=== PATIENT | male | born 1945 | race Caucasian/White ===

== ENCOUNTER → 2019-05-31 00:01 | Outpatient (BNVA) | payer MEDICARE, MEDICAID, SELFPAY | PROVIDERS: PCP Nurse Practitioner Family; Visit Provider Nurse Practitioner | DX: R06.02 Shortness of breath (principal) | CPT/HCPCS: 71046 ==

== ENCOUNTER 2019-07-11 13:10 | Outpatient (CLI) | payer MEDICARE, MEDICAID, SELFPAY ==
[2019-07-11 14:16] VITALS: O2SAT 92; O2SAT 94
--- NOTE | 2019-07-11 14:44 | PFTS_ITS ---
Date of Study:07/11/19 Date of Dictation: MECHANICS: Forced vital capacity (FVC) is reduced. Forced expiratory volume in one second (FEV1) is reduced. FEV1/FVC is reduced. FLOW VOLUME LOOP: Reduced flow at all lung volumes with significant scooping. LUNG VOLUMES: Total lung capacity (TLC) is normal. Residual volume (RV) is elevated. DIFFUSING CAPACITY FOR CARBON MONOXIDE: Moderately reduced. INTERPRETATION: The pulmonary function tests are consistent with moderate airflow obstruction. There is significant postbronchodilator response. Normal total lung capacity. Increased residual volume suggestive of air trapping. Gas exchange (DLCO) is moderately reduced but not corrected for patient's hemoglobin.. MTDD
== END 2019-07-11 13:11 | disposition home or self-care (01) ==
PROVIDERS: PCP Nurse Practitioner Family; Visit Provider Internal Medicine Critical Care Medicine
DX: J44.9 Chronic obstructive pulmonary disease, unspecified (principal); F17.210 Nicotine dependence, cigarettes, uncomplicated
CPT/HCPCS: 94060; 94726; 94729; J7611

== ENCOUNTER → 2019-07-12 16:22 | Outpatient (BNVA) | payer MEDICARE, MEDICAID, SELFPAY | PROVIDERS: PCP Nurse Practitioner Family; Visit Provider Nurse Practitioner Family | DX: R05 Cough (principal); I70.90 Unspecified atherosclerosis | CPT/HCPCS: 71046 ==

== ENCOUNTER 2019-09-02 16:06 | Emergency (ER) | payer MEDICARE, MEDICAID, SELFPAY ==
[2019-09-02 16:10] VITALS: BP 124/66; PULSE 98; RESP 20; TEMP 39.6; O2SAT 93; BMI 28.7
--- NOTE | 2019-09-02 16:17 | XRR_ITS ---
PROCEDURE INFORMATION: Exam: XR Chest, 1 View Exam date and time: 09/02/2019 4:19 PM Age: 74 years old Clinical indication: Fever and shortness of breath; Additional info: Cough TECHNIQUE: Imaging protocol: XR of the chest Views: 1 view. COMPARISON: CR XR chest 2V* [id number] 07/12/2019 4:39 PM FINDINGS: Lungs: Stable COPD . Pleural space: Unremarkable. No pleural effusion. No pneumothorax. Heart/Mediastinum: Unremarkable. No cardiomegaly. Bones/joints: Unremarkable. XR/XR chest 1V portable [id number] IMPRESSION: Stable COPD .
[2019-09-02 16:21] LABS: Glucose Point of Care 153 mg/dL (70-110)
--- NOTE | 2019-09-02 16:24 | W.ED.FEVER ---
HPI - Fever General: Chief Complaint: Fever Stated Complaint: elevated temp/ sob Time Seen by Provider: 09/02/19 16:14 History of Present Illness: HPI Narrative: German is a nice 74-year-old male who comes in with a report of fever and cough. He was brought in by EMS as he was transferred from a clinic. Patient is hard of hearing so it is difficult to get a detailed history from him. He denies any trouble breathing and does not appear to have any labored breathing. Patient states his symptoms been going on for the past 2 to 3 days. He denies any other symptoms. Per review of note from RUSTY almodovar's office he is also had difficulty voiding. Associated symptoms: Deny abdominal pain, back/flank pain, chills, chest pain, confusion, diarrhea, dysuria, extremity pain, headache(s), nausea or vomiting Review of Systems General: Reports: other (negative unless marked) Const: Reports: fever; Denies: chills, body aches, fatigue, malaise or diaphoresis Eyes: Denies: change in vision or blurry vision ENMT: Denies: throat pain, painful swallowing, hoarseness, ear pain, ear discharge, Change in hearing or nasal discharge Card: Denies: chest pain, palpitations, irregular heart rhythm, syncope, pre-syncope, shortness of breath on exertion or shortness of breath when lying down Resp: Reports: non-productive cough; Denies: shortness of breath, productive cough, wheezing, coughing up blood or chest congestion GI: Denies: abdominal pain, nausea, vomiting, vomiting blood, coffee grounds in vomit, diarrhea, constipation, cramping, blood in stool or black tarry stool : Denies: flank pain, difficulty urinating, painful urination, urinary frequency, urinary urgency, decreased urine ouput, urinary incontinence or blood in urine Musc: Denies: neck pain, back pain, extremity pain, extremity swelling, joint pain, joint swelling, joint warmth or joint stiffness Skin/Breast: Denies: rash, skin tenderness or yellow skin Neuro: Denies: headache, numbness in extremities, weakness in extremities, changes in sensation, lack of coordination, difficulty walking, dizziness, vertigo or confusion Endo: Denies: excessive thirst, tired all the time, cold intolerance, excessive sweating, flushing or hot flashes Faustino/Lymph: Denies: easy bruising, easy bleeding, petechiae or enlarged lymph nodes All/Imm: Denies: hives, throat swelling, tongue swelling, facial swelling or acute wheezing PFSH ED PFSH: Medical History Alcoholic cirrhosis Anemia Arthritis ASHD (arteriosclerotic heart disease) Chronic diastolic (congestive) heart failure Chronic gout, unspecified, without tophus (tophi) COPD (chronic obstructive pulmonary disease) Diabetes mellitus, type II Esophageal ring Essential (primary) hypertension Essential hypertension, benign GERD (gastroesophageal reflux disease) Hemorrhoids, internal Hiatal hernia Hypothyroidism (acquired) Mixed hyperlipidemia Nocturnal hypoxia Sleep apnea Type 2 diabetes mellitus with unspecified complications Surgical History H/O colonoscopy (~2016) Per Dr. Campbell H/O esophagogastroduodenoscopy (~2017) Per Dr. Campbell History of cholecystectomy History of laser refractive surgery History of surgery on arm History of total knee replacement (TKR) Bilateral Family History Father Diabetes CAD (coronary artery disease) Grandfather Diabetes Mother Heart disease Social History Smoking and tobacco status: never smoked Quit status (tobacco): has quit using tobacco Year quit tobacco: 1989 - 3PPD x 30 Years Alcohol intake: former Current occupational status: retired History of recent travel: No Current gender identity: Male Physical Exam Const: COMMON NORMALS: no apparent distress, oriented x3, no limitations, healthy appearing and well nourished EXAM LIMITATIONS: no altered mental status GENERAL APPEARANCE: cooperative, well kempt and well developed ORIENTATION/CONSCIOUSNESS: Yes awake HENMT: COMMON NORMALS: normocephalic, head/scalp atraumatic, hearing grossly normal bilaterally, external ears normal, EAC's normal, external nose normal and moist oral mucous membranes HEAD & SCALP: normal to inspection, normocephalic and atraumatic FACE & SINUS: normal facial exam and face symmetric NOSE: external nose normal and nares normal EXTERNAL EAR: Yes external ears normal EXTERNAL AUDITORY CANAL: EAC's normal MOUTH: oral and palatal mucosa normal and tongue normal Eye: COMMON NORMALS: PERRL, EOMs intact bilaterally, conjunctivae normal and no scleral icterus GENERAL EYE: normal appearance of both eyes and normal light reflex CONJUNCTIVA: Yes conjunctivae normal SCLERA: sclerae normal CORNEA: Yes corneas normal PUPIL: Yes PERRL DIRECT OPHTHALMOSCOPY: Yes normal light reflex Neck/C-Spine: COMMON NORMALS: full ROM, no lymphadenopathy, supple, no meningeal signs and no JVD GENERAL: Yes normal visual inspection and Yes trachea midline CERVICAL SPINE: Yes cervical ROM normal Chest: COMMONS NORMALS: inspection of chest normal and palpation of chest normal Resp: COMMON NORMALS: normal respiratory effort, no retractions, no use of accessory muscles and clear to auscultation bilaterally EFFORT & INSPECTION: Yes able to speak in complete sentences AUSCULTATION: clear to auscultation bilaterally Cardio: COMMON NORMALS: no JVD, regular rate, regular rhythm, S1 normal heart sound, S2 normal heart sound, no gallops, no clicks, no murmurs and no rub JUGULAR VENOUS DISTENTION: no JVD RATE: regular rate RHYTHM: regular rhythm HEART SOUNDS: S1 normal and S2 normal GI: COMMON NORMALS: soft to palpation, non-tender, no hepatosplenomegaly and no masses INSPECTION: Yes normal to inspection PALPATION: Yes soft and Yes no hepatosplenomegaly : COMMON NORMALS: Yes no CVA tenderness BLADDER/KIDNEY EXAM: Yes no CVA tenderness Back/Pelvis: COMMON NORMALS: no CVA tenderness, thoracic and lumbar spine normal to inspection, no thoracic nor lumbar tenderness and thoraco-lumbar ROM normal Extremity: COMMON NORMALS: normal to inspection, full ROM, normal capillary refill, no joint enlargement, no clubbing, cyanosis or edema and no calf tenderness Neuro: COMMON NORMALS: oriented x3, CN's II-XII intact bilaterally, moves all extremities, no focal motor deficits and no sensory deficits noted MENINGEAL SIGNS: Yes no meningeal signs Psych: COMMON NORMALS: mental status grossly normal, thought process normal, cooperative, affect normal, speech normal and activity/motor behavior normal APPEARANCE: Yes well kempt SPEECH: Yes normal speech THOUGHT PROCESS: normal thought process Skin: COMMON NORMALS: no rashes or lesions noted, skin turgor normal, no jaundice, no petechiae and no mottling GENERAL SKIN EXAM: no rashes or lesions noted and turgor normal Course Vital Signs: Vital signs: Vital Signs Temperature 100.5 F H 09/02/19 17:21 Pulse Rate 86 09/02/19 18:51 Respiratory Rate 17 09/02/19 18:51 Blood Pressure 107/55 09/02/19 18:51 Pulse Oximetry 94 09/02/19 18:51 MDM - Fever MDM Narrative: Medical decision making narrative: Patient comes in and is asymptomatic except for a dry cough and fever. His chest x-ray appears normal. His urinalysis is positive for a UTI but that does not appear to be any clinical sign of sepsis or laboratory or vital sign finding other than fever. Patient is not confused, he is not weak and has been up and ambulatory. I reviewed the case in full with Mildred mendieta the patient's daughter. She states that she think she will be able to care for him at home and would prefer that he go home for now. The patient is okay with that plan. His daughter though who does work in healthcare understands that UTIs can make people get sicker very quickly and she will return here if his symptoms worsen. He will be loaded with IV Rocephin here and given his first dose of Cipro. Lab Data: Attestation: I reviewed the patient's lab results. Labs: Lab Results 09/02/19 09/02/19 09/02/19 Range/Units 13:10 13:10 16:17 WBC 10.4 H (4.0-10.0) 10^3/ uL RBC 4.53 (4.1-5.3) 10^6/u L Hgb 14.2 (11.7-16.6) g/dL Hct 43.7 (42.0-52.0) % MCV 96.5 H (80-94) fL MCH 31.3 (28.0-34.0) pg MCHC 32.5 (30.0-36.0) g/dL RDW 13.6 (12.1-15.1) % Plt Count 177 (130-400) 10^3/c mm MPV 11.5 H (7.4-10.4) fL Neut % (Auto) 75.7 % Lymph % (Auto) 9.3 % [place] % (Auto) 11.5 % Eos % (Auto) 2.7 % Baso % (Auto) 0.4 % Neut # (Auto) 7.9 H (1.8-7.7) 10^3/u L Lymph # (Auto) 1.0 (0.8-4.8) 10^3/u L [place] # (Auto) 1.2 H (0.2-0.9) 10^3/u L Eos # (Auto) 0.3 (0.0-0.8) 10^3/u L Baso # (Auto) 0.0 (0.0-0.1) 10^3/u L Nucleated RBC % (a uto) 0 % Nucleated RBCs # 0.0 /100WBC Specimen Type Sample Site ABG pH (7.35-7.45) ABG pCO2 (35-45) mmHg ABG pO2 (80.0-100.0) mmH g ABG HCO3 (22-26) mmol/L ABG Base Excess (-2.0-2.0) mmol/ L Chester Test Hematocrit (42-52) % O2 Delivery Device FiO2 % Windows Server Support Technician ID Sodium 136 (136-145) mmol/L Potassium 4.1 (3.5-5.1) mmol/L Chloride 98 (98-107) mmol/L Carbon Dioxide 25 (22-29) mmol/L Anion Gap 17.1 (5-19) BUN 13 (8-23) mg/dL Creatinine 0.9 (0.7-1.2) mg/dL Glucose 173 H (65-115) mg/dL POC Glucose 153 (70-110) mg/dL Calculated Osmolal ity 282 L (285-295) mOsm/k g Lactic Acid (0.5-2.2) mmol/L Calcium 10.7 H (8.5-10.5) mg/dL Magnesium 1.4 L (1.7-2.3) mg/dL Total Bilirubin 1.3 H (0.15-1.2) mg/dL AST 27 (0-40) U/L ALT 22 (0-41) U/L Alkaline Phosphata se 84 (40-130) IU/L Total Protein 7.5 (6.6-8.7) g/dL Albumin 4.2 (3.5-5.2) g/dL Globulin 3.3 (1.3-4.6) g/dL Urine Color (Yellow) Urine Appearance (CLEAR) Urine pH (5-7) Ur Specific Gravit y (1.005-1.030) Urine Protein (Negative) Urine Glucose (UA) (Normal) Urine Ketones (Negative) Urine Blood (Negative) Urine Nitrate (Negative) Urine Bilirubin (NEGATIVE) Urine Urobilinogen (Negative) mg/dL Ur Leukocyte Kinga ase (Negative) Urine RBC (0-2) /hpf Urine WBC (0-5) /hpf Ur Squamous Epith Cells (0-5) Urine Bacteria (NONE) Influenza Type A A g (Negative) Influenza Type B A g (Negative) 09/02/19 09/02/19 09/02/19 Range/Units 16:34 16:36 16:37 WBC (4.0-10.0) 10^3/ uL RBC (4.1-5.3) 10^6/u L Hgb (11.7-16.6) g/dL Hct (42.0-52.0) % MCV (80-94) fL MCH (28.0-34.0) pg MCHC (30.0-36.0) g/dL RDW (12.1-15.1) % Plt Count (130-400) 10^3/c mm MPV (7.4-10.4) fL Neut % (Auto) % Lymph % (Auto) % [place] % (Auto) % Eos % (Auto) % Baso % (Auto) % Neut # (Auto) (1.8-7.7) 10^3/u L Lymph # (Auto) (0.8-4.8) 10^3/u L [place] # (Auto) (0.2-0.9) 10^3/u L Eos # (Auto) (0.0-0.8) 10^3/u L Baso # (Auto) (0.0-0.1) 10^3/u L Nucleated RBC % (a uto) % Nucleated RBCs # /100WBC Specimen Type Arterial Sample Site Radial, left ABG pH 7.46 H (7.35-7.45) ABG pCO2 29.6 L (35-45) mmHg ABG pO2 138.0 H (80.0-100.0) mmH g ABG HCO3 21.1 L (22-26) mmol/L ABG Base Excess -1.7 (-2.0-2.0) mmol/ L Chester Test Pos Hematocrit 42.7 (42-52) % O2 Delivery Device Room air FiO2 21.0 % Windows Server Support Technician ID cak Sodium (136-145) mmol/L Potassium (3.5-5.1) mmol/L Chloride (98-107) mmol/L Carbon Dioxide (22-29) mmol/L Anion Gap (5-19) BUN (8-23) mg/dL Creatinine (0.7-1.2) mg/dL Glucose (65-115) mg/dL POC Glucose (70-110) mg/dL Calculated Osmolal ity (285-295) mOsm/k g Lactic Acid 2.1 (0.5-2.2) mmol/L Calcium (8.5-10.5) mg/dL Magnesium (1.7-2.3) mg/dL Total Bilirubin (0.15-1.2) mg/dL AST (0-40) U/L ALT (0-41) U/L Alkaline Phosphata se (40-130) IU/L Total Protein (6.6-8.7) g/dL Albumin (3.5-5.2) g/dL Globulin (1.3-4.6) g/dL Urine Color Yellow (Yellow) Urine Appearance Hazy A (CLEAR) Urine pH 7 (5-7) Ur Specific Gravit y 1.005 (1.005-1.030) Urine Protein 1+ H (Negative) Urine Glucose (UA) Norm (Normal) Urine Ketones Negative (Negative) Urine Blood 3+ H (Negative) Urine Nitrate Positive H (Negative) Urine Bilirubin Neg (NEGATIVE) Urine Urobilinogen 1 H (Negative) mg/dL Ur Leukocyte Kinga ase 2+ H (Negative) Urine RBC 5-10 H (0-2) /hpf Urine WBC Too numerous to c nt H (0-5) /hpf Ur Squamous Epith Cells None (0-5) Urine Bacteria 2+ H (NONE) Influenza Type A A g (Negative) Influenza Type B A g (Negative) 09/02/19 Range/Units 16:42 WBC (4.0-10.0) 10^3/ uL RBC (4.1-5.3) 10^6/u L Hgb (11.7-16.6) g/dL Hct (42.0-52.0) % MCV (80-94) fL MCH (28.0-34.0) pg MCHC (30.0-36.0) g/dL RDW (12.1-15.1) % Plt Count (130-400) 10^3/c mm MPV (7.4-10.4) fL Neut % (Auto) % Lymph % (Auto) % [place] % (Auto) % Eos % (Auto) % Baso % (Auto) % Neut # (Auto) (1.8-7.7) 10^3/u L Lymph # (Auto) (0.8-4.8) 10^3/u L [place] # (Auto) (0.2-0.9) 10^3/u L Eos # (Auto) (0.0-0.8) 10^3/u L Baso # (Auto) (0.0-0.1) 10^3/u L Nucleated RBC % (a uto) % Nucleated RBCs # /100WBC Specimen Type Sample Site ABG pH (7.35-7.45) ABG pCO2 (35-45) mmHg ABG pO2 (80.0-100.0) mmH g ABG HCO3 (22-26) mmol/L ABG Base Excess (-2.0-2.0) mmol/ L Chester Test Hematocrit (42-52) % O2 Delivery Device FiO2 % Windows Server Support Technician ID Sodium (136-145) mmol/L Potassium (3.5-5.1) mmol/L Chloride (98-107) mmol/L Carbon Dioxide (22-29) mmol/L Anion Gap (5-19) BUN (8-23) mg/dL Creatinine (0.7-1.2) mg/dL Glucose (65-115) mg/dL POC Glucose (70-110) mg/dL Calculated Osmolal ity (285-295) mOsm/k g Lactic Acid (0.5-2.2) mmol/L Calcium (8.5-10.5) mg/dL Magnesium (1.7-2.3) mg/dL Total Bilirubin (0.15-1.2) mg/dL AST (0-40) U/L ALT (0-41) U/L Alkaline Phosphata se (40-130) IU/L Total Protein (6.6-8.7) g/dL Albumin (3.5-5.2) g/dL Globulin (1.3-4.6) g/dL Urine Color (Yellow) Urine Appearance (CLEAR) Urine pH (5-7) Ur Specific Gravit y (1.005-1.030) Urine Protein (Negative) Urine Glucose (UA) (Normal) Urine Ketones (Negative) Urine Blood (Negative) Urine Nitrate (Negative) Urine Bilirubin (NEGATIVE) Urine Urobilinogen (Negative) mg/dL Ur Leukocyte Kinga ase (Negative) Urine RBC (0-2) /hpf Urine WBC (0-5) /hpf Ur Squamous Epith Cells (0-5) Urine Bacteria (NONE) Influenza Type A A g Negative (Negative) Influenza Type B A g Negative (Negative) Imaging Data^: CXR: Attestation: I personally reviewed and interpreted this imaging study as follows: My impression: No acute cardiopulmonary findings. Discharge Plan Discharge Patient Disposition: Home, Self-Care Clinical Impression: Acute UTI Condition: Stable Prescriptions: New Cipro 500 mg tablet 500 mg PO BID Qty: 20 RF: 0 Reglan 10 mg tablet 10 mg PO Q6H PRN (Reason: nausea and vomiting) Qty: 20 RF: 0 No Action albuterol sulfate 2.5 mg /3 mL (0.083 %) solution for nebulization 2.5 mg INHALATION Q6H PRNRF: 0 allopurinol 300 mg tablet 300 mg PO ONCE RF: 0 albuterol sulfate [ProAir HFA] 90 mcg/actuation HFA aerosol inhaler 2 puff INHALATION Q6H PRNRF: 0 pantoprazole 40 mg tablet,delayed release (DR/EC) 40 mg PO ONCE RF: 0 losartan 50 mg tablet 50 mg PO ONCE RF: 0 finasteride 5 mg tablet 5 mg PO ONCE RF: 0 Symbicort 160-4.5 mcg/actuation HFA aerosol inhaler 2 puff INHALATION BID RF: 0 duloxetine 20 mg capsule,delayed release(DR/EC) 20 mg PO ONCE RF: 0 isosorbide dinitrate 30 mg tablet 30 mg PO ONCE RF: 0 potassium chloride 10 mEq capsule, extended release 10 meq PO TID RF: 0 Spiriva with HandiHaler 18 mcg capsule, w/inhalation device 1 cap INHALATION ONCE RF: 0 Serevent Diskus 50 mcg/dose blister with device 1 inh INHALATION BID RF: 0 (DME) Accu-Chek SmartView Test Strip Strip See Rx Instructions .ROUTE .MEDSUPPLY Qty: 10 RF: 0 (DME) lancing device with lancets [Accu-Chek FastClix Lancing Dev] Kit See Rx Instructions .ROUTE .MEDSUPPLY Qty: 1 RF: 0 magnesium chloride 64 mg tablet,delayed release (DR/EC) 64 mg PO ONCE RF: 0 albuterol sulfate [ProAir HFA] 90 mcg/actuation HFA aerosol inhaler 1 inh INHALATION Q6H PRN (Reason: shortness of breath or wheezing) 30 Days Qty: 18 RF: 6 lidocaine HCl [Xylocaine] 10 mg/mL (1 %) solution 2 ml IM ONCE Qty: 1 RF: 0 ceftriaxone 1 gram recon soln 1 gm IM ONCE Qty: 1 RF: 0 dexamethasone sodium phosphate 10 mg/mL solution 10 mg IM ONCE Qty: 1 RF: 0 lidocaine HCl [Xylocaine] 10 mg/mL (1 %) solution 2 ml IM ONCE Qty: 1 RF: 0 ceftriaxone 1 gram recon soln 1 gm IM ONCE Qty: 1 RF: 0 dexamethasone sodium phosphate 10 mg/mL solution 10 mg IM ONCE Qty: 1 RF: 0 ondansetron HCl [Zofran] 4 mg tablet 4 mg PO Q8H PRN (Reason: nausea and vomiting) 10 Days Qty: 20 RF: 0 fluticasone propionate [Flonase Allergy Relief] 50 mcg/actuation spray,suspension 1 spray INTRANASAL BID Qty: 19.8 RF: 3 cholecalciferol (vitamin D3) 1,250 mcg (50,000 unit) capsule 50,000 unit PO .Weekly Qty: 4 RF: 2 donepezil 10 mg tablet 10 mg PO ONCE Qty: 90 RF: 1 folic acid 1 mg tablet 1 mg PO ONCE Qty: 90 RF: 1 Januvia 50 mg tablet 50 mg PO DAILY 30 Days Qty: 30 RF: 3 levothyroxine 150 mcg capsule 150 mcg PO ONCE Qty: 90 RF: 0 isosorbide mononitrate 30 mg tablet extended release 24 hr 30 mg PO DAILY Qty: 90 RF: 1 simvastatin 10 mg tablet 10 mg PO ONCE Qty: 90 RF: 0 metformin 1,000 mg tablet extended release 24hr 1,000 mg PO BID 90 Days Qty: 180 RF: 0 Williamlegy Ellipta 100-62.5-25 mcg blister with device 1 inh INHALATION Q24H 60 Days Qty: 60 RF: 2 olopatadine [Pataday] 0.2 % drops 1 drop ophthalmic (eye) QAM Qty: 2.5 RF: 2 (DME) Accu-Chek SmartView Test Strip Strip See Rx Instructions .ROUTE .MEDSUPPLY Qty: 100 RF: 1 Discharge Orders: Discharge Order (Routine); Ordered 09/02/19 Ordered By: Maricarmen Bishop Referrals: Stefany Casper FNP [Primary Care Provider] - 1-3 days Discharge Diet: Advance as tolerated Discharge Activity: Increase activity as tolerated Patient Instructions: Urinary Tract Infection in Men (ED) Activity Restrictions/Additional Instructions: Please return to the ER immediately for any of the signs or symptoms listed on your discharge instruction sheets, worsening/changing of your symptoms, you are not getting better as quickly as expected, or for ANY other cause or concerns. Return to the ER for uncontrolled fever, new onset of vomiting, confusion, generalized weakness, or for any other cause for concern. Discharge Date/Time: 09/02/19 18:52 Coding Level of Care Code ED Pharmacist In Charge for Chg Fwd Exam Comprehensive
[2019-09-02 16:29] LABS: Basophils % 0.4 %; Eosinophils # 0.3 10^3/uL (0.0-0.8); Eosinophils % 2.7 %; Hematocrit 43.7 % (42.0-52.0); Hemoglobin 14.2 g/dL (11.7-16.6); Lymphocytes % 9.3 %; Mean Corpuscular HGB Conc 32.5 g/dL (30.0-36.0); Mean Corpuscular Hemoglobin 31.3 pg (28.0-34.0); Mean Corpuscular Volume 96.5 fL (80-94); Mean Platelet Volume 11.5 fL (7.4-10.4); Monocytes # 1.2 10^3/uL (0.2-0.9); Monocytes % 11.5 %; Neutrophils # 7.9 10^3/uL (1.8-7.7); Neutrophils % 75.7 %; Nucleated Red Blood Cells % 0 %; Platelet Count 177 10^3/cmm (130-400); Red Blood Count 4.53 10^6/uL (4.1-5.3); Red Cell Distribution Width 13.6 % (12.1-15.1); White Blood Count 10.4 10^3/uL (4.0-10.0)
[2019-09-02] MEDS: acetaminophen 500 mg Tablet 1000 MG PO (16:30)
[2019-09-02] MEDS: sodium chloride 0.9% 1,000 ML 100 ML IV (16:30)
[2019-09-02 16:47] LABS: Blood Gas Allen Test Pos; Blood Gas Sample Site Radial, left; Blood Gas Sample Type Arterial; Oxygen Device ROOM AIR
[2019-09-02 16:48] LABS: Alanine Aminotransferase 22 U/L (0-41); Albumin Level 4.2 g/dL (3.5-5.2); Alkaline Phosphatase 84 IU/L (40-130); Anion Gap 17.1 (5-19); Aspartate Amino Transferase 27 U/L (0-40); Blood Urea Nitrogen 13 mg/dL (8-23); Calcium 10.7 mg/dL (8.5-10.5); Carbon Dioxide 25 mmol/L (22-29); Chloride 98 mmol/L (98-107); Creatinine Clr Calc Pharmacy 79.0985; Globulin 3.3 g/dL (1.3-4.6); Glucose 173 mg/dL (65-115); Magnesium 1.4 mg/dL (1.7-2.3); Osmolality Calculated 282 mOsm/kg (285-295); Potassium 4.1 mmol/L (3.5-5.1); Sodium 136 mmol/L (136-145); Total Bilirubin 1.3 mg/dL (0.15-1.2); Total Protein 7.5 g/dL (6.6-8.7)
[2019-09-02 16:48] LABS: ABG PCO2 29.6 mmHg (35-45); ABG PH Result 7.46 (7.35-7.45)
[2019-09-02 16:49] LABS: Arterial Blood Gas Hematocrit 42.7 % (42-52); Base Excess ABG -1.7 mmol/L (-2.0-2.0); HCO3 ABG 21.1 mmol/L (22-26)
[2019-09-02 16:50] VITALS: BP 113/55; PULSE 95; RESP 17; O2SAT 95
[2019-09-02 17:12] LABS: Bilirubin Urine Neg (NEGATIVE); Blood Urine 3+ (Negative); Glucose Urine UA Norm (Normal); Ketones Urine Negative (Negative); Nitrate Urine Positive (Negative); Protein Urine 1+ (Negative); Specific Gravity, Urine 1.005 (1.005-1.030); Urine Appearance Hazy (CLEAR); Urine Color Yellow (Yellow); Urobilinogen Urine 1 mg/dL (Negative); pH Urine 7 (5-7)
[2019-09-02 17:13] LABS: Leukocyte Esterase Urine 2+ (Negative)
[2019-09-02 17:18] LABS: Add Urine Culture? Yes; Bacteria Urine 2+; WBC Urine TOO NUMEROUS TO CNT /hpf (0-5)
[2019-09-02 17:19] LABS: Influenza A by IFA Negative (Negative); Influenza B by IFA Negative (Negative)
[2019-09-02 17:20] LABS: Lactic Sepsis W/Reflex 2.1 mmol/L (0.5-2.2)
[2019-09-02 17:21] VITALS: TEMP 38.1
[2019-09-02] MEDS: ciprofloxacin 500 mg Tablet PO (17:40)
[2019-09-02] MEDS: cefTRIAXone 1,000 MG in sodium chloride 0.9% (plus) 50 ML 100 MG IV (17:40)
[2019-09-02] MEDS: ibuprofen 200 mg Tablet 400 MG PO (17:40)
[2019-09-02] MEDS: sodium chloride 0.9% 1,000 ML 999 ML IV (17:40)
[2019-09-02] MEDS: magnesium sulfate premix 2 GM/50 ML PIGGYBACK IV (17:41)
[2019-09-02 18:10] VITALS: BP 95/60; PULSE 80; RESP 15; O2SAT 90
[2019-09-02 18:29] LABS: Reflex Lactate Order REFLEX LACTIC ORDERD
[2019-09-02 18:34] VITALS: BP 93/60; PULSE 85; RESP 18; O2SAT 93
[2019-09-02 18:51] VITALS: BP 107/55; PULSE 86; RESP 17; O2SAT 94
[2019-09-03 07:15] LABS: Glucose Point of Care 140 mg/dL (70-110)
[2019-09-04 13:55] LABS: Quest SARS-CoV-2 RNA NOT DETECTED (NOT DETECTED)
--- NOTE | 2019-09-04 17:07 | PC.NURSE ---
Pt called and notified of negative COVID-19 results.
== END 2019-09-02 18:52 | disposition home or self-care (01) ==
PROVIDERS: Emergency Provider Emergency Medicine; PCP Nurse Practitioner Family
DX: N39.0 Urinary tract infection, site not specified (principal); I11.0 Hypertensive heart disease with heart failure; I50.32 Chronic diastolic (congestive) heart failure; M19.90 Unspecified osteoarthritis, unspecified site; J44.9 Chronic obstructive pulmonary disease, unspecified; E11.9 Type 2 diabetes mellitus without complications; E78.2 Mixed hyperlipidemia; Z82.49 Family history of ischemic heart disease and other diseases of the circulatory system; Z83.3 Family history of diabetes mellitus; Z79.4 Long term (current) use of insulin
CPT/HCPCS: 12345; 36415; 36416; 36600; 71045; 80053; 81001; 82803; 82962; 83605; 83735; 85025; 87077; 87086; 87186; 87635; 87804; 96360; 96361; 96365; 96375; 99283; 99284; J0696; J3475; J7030

== ENCOUNTER → 2019-09-15 11:30 | Outpatient (BNVA) | payer MEDICARE, MEDICAID, SELFPAY | PROVIDERS: PCP Nurse Practitioner Family; Visit Provider Nurse Practitioner Family | DX: N39.0 Urinary tract infection, site not specified (principal) | CPT/HCPCS: 81001 ==

== ENCOUNTER → 2019-10-05 11:34 | Outpatient (BNVA) | payer MEDICARE, MEDICAID, SELFPAY | PROVIDERS: PCP Nurse Practitioner Family; Visit Provider Nurse Practitioner Family | DX: R53.1 Weakness (principal); E11.69 Type 2 diabetes mellitus with other specified complication; R19.7 Diarrhea, unspecified; D50.9 Iron deficiency anemia, unspecified; E03.9 Hypothyroidism, unspecified; E78.2 Mixed hyperlipidemia; E55.9 Vitamin D deficiency, unspecified; R11.2 Nausea with vomiting, unspecified | CPT/HCPCS: 80053; 80061; 81001; 82306; 83036; 83540; 84443; 85025; 87493; 87506 ==

== ENCOUNTER → 2019-11-17 16:07 | Outpatient (BNVA) | payer MEDICARE, MEDICAID, SELFPAY | PROVIDERS: PCP Nurse Practitioner Family; Visit Provider Nurse Practitioner Family | DX: N39.0 Urinary tract infection, site not specified (principal); R10.9 Unspecified abdominal pain; R31.9 Hematuria, unspecified; M47.9 Spondylosis, unspecified | CPT/HCPCS: 74018; 81000 ==

== ENCOUNTER 2019-12-15 06:00 | Outpatient (RCR) | payer MEDICARE, MEDICAID, SELFPAY | END 2019-12-16 23:59 | disposition home or self-care (01) | LOC: WPT 06:00 | PROVIDERS: PCP Nurse Practitioner Family; Referring Provider Nurse Practitioner Family; Visit Provider Nurse Practitioner Family | DX: G89.29 Other chronic pain (principal); M51.36 Other intervertebral disc degeneration, lumbar region; M54.9 Dorsalgia, unspecified | CPT/HCPCS: 97110; 97163 ==

== ENCOUNTER 2019-12-17 06:00 | Outpatient (RCR) | payer MEDICARE, MEDICAID, SELFPAY | END 2020-01-16 23:59 | disposition home or self-care (01) | LOC: WPT 06:00 | PROVIDERS: PCP Nurse Practitioner Family; Referring Provider Nurse Practitioner Family; Visit Provider Nurse Practitioner Family | DX: G89.29 Other chronic pain (principal); M51.36 Other intervertebral disc degeneration, lumbar region | CPT/HCPCS: 97110; 97112 ==

== ENCOUNTER → 2020-01-02 09:16 | Outpatient (BNVA) | payer MEDICARE, MEDICAID, SELFPAY | PROVIDERS: PCP Nurse Practitioner Family; Visit Provider Nurse Practitioner Family | DX: E11.42 Type 2 diabetes mellitus with diabetic polyneuropathy (principal) | CPT/HCPCS: 80053; 83036 ==

== ENCOUNTER 2020-01-03 20:00 | Outpatient (CLI) | payer MEDICARE, MEDICAID, SELFPAY | END 2020-01-03 20:01 | disposition home or self-care (01) | LOC: SLEEP 01-04 11:10 | PROVIDERS: PCP Nurse Practitioner Family; Visit Provider Nurse Practitioner Family | DX: G47.30 Sleep apnea, unspecified (principal) | CPT/HCPCS: 95810 ==

== ENCOUNTER → 2020-06-19 14:20 | Outpatient (BNVA) | payer MEDICARE, MEDICAID, SELFPAY | PROVIDERS: PCP Nurse Practitioner Family; Visit Provider Nurse Practitioner Family | DX: M10.9 Gout, unspecified (principal); E55.9 Vitamin D deficiency, unspecified; I10 Essential (primary) hypertension; E03.9 Hypothyroidism, unspecified; E11.69 Type 2 diabetes mellitus with other specified complication; D50.9 Iron deficiency anemia, unspecified; N40.0 Benign prostatic hyperplasia without lower urinary tract symptoms; E78.2 Mixed hyperlipidemia; J01.90 Acute sinusitis, unspecified; D64.9 Anemia, unspecified; Z12.5 Encounter for screening for malignant neoplasm of prostate; K70.30 Alcoholic cirrhosis of liver without ascites | CPT/HCPCS: 80053; 80061; 81003; 82140; 82306; 82728; 83036; 83550; 83735; 83880; 83921; 84100; 84153; 84439; 84443; 84481; 84550; 85025; G0103 ==

== ENCOUNTER 2020-08-04 18:15 | Inpatient (IN) | payer MEDICARE, MEDICAID, SELFPAY ==
[2020-08-04 18:19] VITALS: BP 210/108; PULSE 98; RESP 26; TEMP 37.1; O2SAT 90
--- NOTE | 2020-08-04 18:29 | XRR_ITS ---
PROCEDURE INFORMATION: Exam: XR Chest Exam date and time: 08/04/2020 6:30 PM Age: 75 years old Clinical indication: Dyspnea; Additional info: SOB TECHNIQUE: Imaging protocol: XR of the chest Views: 1 view. COMPARISON: CR XR chest 1V portable [id number] 09/02/2019 4:24 PM FINDINGS: Lungs: A subtle somewhat rounded approximately 2.7 cm opacity in the left lung base overlying the anterior left 5th rib. Pleural spaces: Unremarkable. No pleural effusion. No pneumothorax. Heart/Mediastinum: The cardiac shadow is normal in size. Bones/joints: No acute abnormality. XR/XR chest 1V portable [id number] IMPRESSION: A subtle, somewhat rounded opacity in the left lung base may reflect an area of early consolidation in the proper clinical setting. Recommend repeat radiograph in 6-8 weeks to verify resolution.
--- NOTE | 2020-08-04 18:29 | ECG_ITS ---
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 Measurements Intervals [place] Rate: 92 P: 55 CO: 163 QRS: 62 QRSD: 93 T: 99 QT: 353 QTc: 437 Interpretive Statements SINUS RHYTHM NONSPECIFIC T-WAVE ABNORMALITY Compared to ECG 05/08/2017 13:50:26 No significant changes Electronically Signed On 08-05-2020 20:21:38 CDT by Ashley Sims M.D. [id number]
[2020-08-04 18:49] VITALS: O2SAT 92
[2020-08-04 18:52] LABS: Basophils # 0.1 10^3/uL (0.0-0.1); Basophils % 1.8 %; Eosinophils # 0.2 10^3/uL (0.0-0.8); Eosinophils % 4.9 %; Hematocrit 38.3 % (42.0-52.0); Lymphocytes % 29.5 %; Mean Corpuscular HGB Conc 33.9 g/dL (30.0-36.0); Mean Corpuscular Hemoglobin 32.8 pg (28.0-34.0); Mean Corpuscular Volume 96.7 fL (80-94); Mean Platelet Volume 11.5 fL (7.4-10.4); Monocytes # 0.5 10^3/uL (0.2-0.9); Monocytes % 16.4 %; Neutrophils # 1.55 10^3/uL (1.8-7.7); Neutrophils % 47.1 %; Nucleated Red Blood Cells % 0 %; Platelet Count 131 10^3/cmm (130-400); Red Blood Count 3.96 10^6/uL (4.1-5.3); Red Cell Distribution Width 13.8 % (12.1-15.1); White Blood Count 3.3 10^3/uL (4.0-10.0)
[2020-08-04 19:01] VITALS: O2SAT 89; O2SAT 92
[2020-08-04 19:24] LABS: SARS Covid-2 Antigen Negative (Negative)
[2020-08-04 19:25] LABS: Influenza A by IFA Negative (Negative); Influenza B by IFA Negative (Negative)
[2020-08-04 19:31] LABS: Troponin 5 2HR 10.83 ng/L (0-15)
[2020-08-04 19:37] LABS: D Dimer 2.25 ug/mIFEU (0-0.59); Troponin(5th) Baseline 12 ng/L (0-15)
[2020-08-04 19:45] LABS: Alanine Aminotransferase 21 U/L (0-41); Albumin Level 3.8 g/dL (3.5-5.2); Alkaline Phosphatase 84 IU/L (40-130); Blood Urea Nitrogen 24 mg/dL (8-23); Calcium 9.7 mg/dL (8.5-10.5); Carbon Dioxide 21 mmol/L (22-29); Chloride 104 mmol/L (98-107); Globulin 3.1 g/dL (1.3-4.6); Glucose 139 mg/dL (65-115); Lipase 47 U/L (13-60); NT Pro B Type Natriuretic Pept 87 pg/mL (0-450); Osmolality Calculated 292 mOsm/kg (285-295); Sodium 138 mmol/L (136-145); Total Bilirubin 0.8 mg/dL (0.15-1.2); Total Protein 6.9 g/dL (6.6-8.7)
--- NOTE | 2020-08-04 19:51 | CTR_ITS ---
PROCEDURE INFORMATION: Exam: CT Angiography Chest With Contrast Exam date and time: 08/04/2020 7:58 PM Age: 75 years old Clinical indication: Sternal or substernal pain; Prior surgery; Surgery date: <1 month; Surgery type: Stents; Patient HX: C/O substernal cp - mi 10 days ago; Additional info: SOB, cp TECHNIQUE: Imaging protocol: Computed tomographic angiography of the chest with contrast. 3D rendering (Not supervised by radiologist): MIP and/or 3D reconstructed images were created by the technologist. Radiation optimization: All CT scans at this facility use at least one of these dose optimization techniques: automated exposure control; mA and/or kV adjustment per patient size (includes targeted exams where dose is matched to clinical indication); or iterative reconstruction. Contrast material: OMNI 350; Contrast volume: 66 ml; Contrast route: INTRAVENOUS (IV); COMPARISON: CTA Chest-Pulmonary Emb [id number] 06/03/2016 11:33 PM RADIATION DOSE METRICS: Total DLP (mGy-cm): 579.96 FINDINGS: Pulmonary arteries: No evidence of central pulmonary embolus. The segmental and more distal pulmonary arteries are not well evaluated due to contrast timing. The pulmonary trunk is not enlarged. Aorta: Scattered aortic calcifications. No aneurysm. Lungs: A 1.4 cm left lower nodule on image 42. A 1.3 cm right middle lobe nodule on image 32. Mild thickening along the major fissure. Pleural spaces: Unremarkable. No pneumothorax. No pleural effusion. Heart: No cardiomegaly. No pericardial effusion. No evidence of right heart strain. Lymph nodes: No enlarged lymph nodes. Bones/joints: The bones appear demineralized. [id number] degenerative changes of the spine. Soft tissues: Within normal limits. CT/CT angio chest PE protcl [id number] IMPRESSION: 1. No evidence of central pulmonary embolus. The segmental and more distal pulmonary arteries are not well evaluated due to contrast timing. No evidence of right heart strain. 2. New compared to the prior exam are bilateral pulmonary nodules measuring 1.4 cm on the left and 1.3 cm on the right. For patients at low risk (minimal or absent history of smoking and of other known risk factors), recommend CT Chest at 3-6 months, then consider CT Chest at 18-24 months. For patients at high risk (history of smoking or of other known risk factors), recommend CT Chest at 3-6 months, then CT Chest at 18-24 months. (Reference: Gasper) REFERENCES: Gasper Newsome et al. Guidelines for Management of Incidental Pulmonary Nodules Detected on CT Images: From the Fleischner Society 2017. Radiology. 2017;284(1):228-243. Radiation Dose CTDIVOL = (mGy): DLP = 579.96 (mGy-cm)
[2020-08-04] MEDS: ondansetron 2 mg/ML SDV 2 mL 4 MG IVP (19:58)
[2020-08-04 20:01] VITALS: BP 92/49; PULSE 97; RESP 15; O2SAT 90
[2020-08-04 20:03] LABS: Anion Gap 16.9 (5-19); Aspartate Amino Transferase 30 U/L (0-40); Potassium 3.9 mmol/L (3.5-5.1)
[2020-08-04 20:04] LABS: Troponin 5 2HR Delta -1.17 ABS# (0-10)
--- NOTE | 2020-08-04 20:29 | ECG_ITS ---
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 Measurements Intervals [place] Rate: 92 P: 85 RI: 171 QRS: 53 QRSD: 88 T: 104 QT: 338 QTc: 418 Interpretive Statements SINUS RHYTHM NONSPECIFIC T-WAVE ABNORMALITY Compared to ECG 08/04/2020 19:01:56 No significant changes Electronically Signed On 08-05-2020 20:46:58 CDT by Ashley Sims M.D. [id number]
[2020-08-04] MEDS: iohexol 350 mg/mL 100 mL Btl IV (20:34)
[2020-08-04 20:40] LABS: ABG PCO2 35.8 mmHg (35-45); ABG PH Result 7.27 (7.35-7.45); Base Excess ABG -9.6 mmol/L (-2.0-2.0); Blood Gas Allen Test Pos; Blood Gas Sample Site Radial, left; Blood Gas Sample Type Arterial; HCO3 ABG 16.5 mmol/L (22-26); Oxygen Device NC; PO2 ABG 70.3 mmHg (80.0-100.0)
[2020-08-04 22:00] VITALS: BP 125/77; PULSE 85; RESP 17; O2SAT 94
[2020-08-04 23:00] VITALS: BP 117/75; PULSE 87; RESP 17; O2SAT 96
--- NOTE | 2020-08-04 23:51 | PM.HP ---
Providers/Chief Complaint Admitting Physician: Carole Primary Care Provider: WINNIE Cunningham Chief Complaint: CHEST PAIN History of Present Illness Timoteo Hassan is a 75 year old male who presented to the emergency room with chief complaint of chest pain. Pain was located in the left side of the chest and to his jaw. He described it as a fullness or heaviness that was severe. He rated it a 7 or an 8 out of 10. Last month he had a similar but more severe episode of similar symptoms that included pain also radiating down into his left arm and was taken by EMS to [facility] and subsequently transferred to [facility]. There he was found to have significant coronary artery disease and underwent stent placement to both the LAD and a diagonal. This is the first time that he has had chest pain since that time. Associated with the pain this evening he did have some shortness of breath. Denied any nausea, vomiting, diaphoresis or dizziness. He was scared. EMS gave him aspirin and nitroglycerin with improvement in pain. Here he received some IV Zofran. At the time of my evaluation he is chest pain-free. Initial troponin was normal. EKG without any acute ST segment changes noted. CTA of the chest does not reveal any evidence of central PE, pleural effusions or obvious infiltrates. There was some thickening in the major fissure that was described as mild. Rapid Covid antigen was negative. He denied any fever. He has some degree of chronic cough with production of light-colored sputum. Gets short of breath with exertion though it is improved from prior to when he had his stents placed. On arrival oxygen saturations were in the upper 80s. ABG was done and showed 7.27/35/70. Hospitalist were contacted for admission due to presentation associated with hypoxemia, in a gentleman with recent cardiac stent placement. History is obtained from him and review of available records. I also spoke with his [id number] Mildred whose phone number is [phone]. I will note that Mr. Hassan probably also exerted himself a bit too much today. His granddaughter did spend time with a male friend. 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 Mr. Hassan does have chronic back pain and he wondered if that might of contributed to the symptoms he was experiencing today. Review of Systems Const: Reports: fatigue; Denies: fever(s), chills, change in appetite, malaise or diaphoresis Eyes: Denies: change in vision ENMT: Denies: throat pain or post nasal drip (Allergies/sinus drainage) Card: Reports: chest pain and dyspnea on exertion; Denies: palpitations, edema, syncope or orthopnea Resp: Reports: dyspnea, productive cough and chest congestion; Denies: non-productive cough, wheezing, pain on inspiration, change in phlegm color or hemoptysis GI: Reports: nausea and melena (one episode yesterday); Denies: abdominal pain, vomiting or hematochezia : Reports: flank pain; Denies: dysuria Musc: Reports: neck pain (related to chest pain today) and back pain (chronic); Denies: extremity swelling Skin/Breast: Denies: rash or pruritus Neuro: Denies: headache(s), numbness in extremities, weakness in extremities or difficulty walking Psych: Reports: anxiety Faustino/Lymph: Denies: easy bruising or easy bleeding Medications/Allergies Home Medications Medication Instructions Recorded Confirmed Last Taken Type albuterol sulfate 2.5 mg INHALATION Q6H PRN 05/27/19 08/05/20 08/04/20 History lancing device with lancets kit #100 each 11/03/19 08/05/20 Unknown Rx blood-glucose meter #30 each 01/31/20 08/05/20 Unknown Rx blood sugar diagnostic #100 ea 05/28/20 08/05/20 Unknown Rx Januvia 100 mg PO DAILY 08/05/20 08/05/20 08/04/20 History Linzess 145 mcg PO DAILY 08/05/20 08/05/20 08/04/20 History Men's One Daily 1 tab PO DAILY 08/05/20 08/05/20 08/04/20 History Trelegy Ellipta 1 inh INHALATION Q24H 08/05/20 08/05/20 08/04/20 History allopurinol 300 mg PO DAILY 08/05/20 08/05/20 08/04/20 History aspirin 81 mg PO DAILY 08/05/20 08/05/20 08/04/20 History carvedilol [Coreg] 3.125 mg PO Q12H 08/05/20 08/05/20 08/04/20 History chlorthalidone 12.5 mg PO DAILY 08/05/20 08/05/20 08/04/20 History clopidogrel 75 mg PO DAILY 08/05/20 08/05/20 08/04/20 History donepezil 10 mg PO BEDTIME 08/05/20 08/05/20 08/03/20 History duloxetine 20 mg PO BEDTIME 08/05/20 08/05/20 08/03/20 History ergocalciferol (vitamin D2) 1,250 mcg PO Q7D 08/05/20 08/05/20 Unknown History finasteride 5 mg PO BEDTIME 08/05/20 08/05/20 08/03/20 History folic acid 1 mg PO DAILY 08/05/20 08/05/20 08/04/20 History gabapentin 200 mg PO TID 08/05/20 08/05/20 08/04/20 History isosorbide mononitrate 30 mg PO DAILY 08/05/20 08/05/20 08/04/20 History levothyroxine 150 mcg PO DAILY 08/05/20 08/05/20 08/04/20 History losartan 50 mg PO DAILY 08/05/20 08/05/20 08/04/20 History magnesium 250 mg PO DAILY 08/05/20 08/05/20 08/04/20 History metformin 1,000 mg PO BIDWM 08/05/20 08/05/20 08/04/20 History pantoprazole 40 mg PO DAILY 08/05/20 08/05/20 08/04/20 History polymyxin B sulf-trimethoprim 1 drp OPHTHALMIC (EYE) DIRECTED 08/05/20 08/05/20 Unknown History potassium chloride 10 meq PO BEDTIME 08/05/20 08/05/20 08/03/20 History rosuvastatin 20 mg PO DAILY 08/05/20 08/05/20 08/04/20 History Allergies Allergy/AdvReac Type Severity Reaction Status Date / Time morphine Allergy Severe ALGY-Anaphy Verified 06/19/20 13:41 laxis insect venom Allergy Unknown Verified 06/19/20 13:41 Opioids - Morphine Analogues AdvReac Severe ADR-Halluci Verified 06/19/20 13:41 nating PFSH Acute PFSH: Medical History (Updated 08/05/20 @ 05:40 by Charo Lam MD) Alcoholic cirrhosis Anemia Anxiety and depression Arthritis Back pain, chronic Blood in stool Patient has history of internal hemorrhoids. Last Colonoscopy was done at [facility] [place], [place] by Dr. Campbell March 2017 which resulted with benign polyp, internal hemorrhoids. EGD done on the same date found a Schatzki ring and hiatal hernia. Patient has a history of cirrhosis. He has a history of anemia and has received Injectafer infusions in the past. BPH (benign prostatic hyperplasia) CAD (coronary artery disease) Chronic diastolic (congestive) heart failure Chronic gout, unspecified, without tophus (tophi) COPD (chronic obstructive pulmonary disease) PFTs 06/2019 consistent with moderate airflow obstruction. There is significant postbronchodilator response. Normal total lung capacity. Increased residual volume suggestive of air trapping. Gas exchange (DLCO) is moderately reduced but not corrected for patient's hemoglobin. DDD (degenerative disc disease), lumbar Diabetes mellitus, type II Diabetic neuropathy Esophageal ring Essential (primary) hypertension Folic acid deficiency GERD (gastroesophageal reflux disease) Gout Hammertoe, bilateral Hemorrhoids, internal Hiatal hernia Hypothyroidism (acquired) Pes planus of both feet Sleep apnea sleep study 01/2020 with mild disease in REM sleep, titration ordered; no nocturnal hypxemia Vitamin D deficiency Surgical History (Updated 08/05/20 @ 04:43 by Charo Lam MD) H/O colonoscopy (~2016) Per Dr. Campbell H/O esophagogastroduodenoscopy (~2016) Per Dr. Campbell History of cholecystectomy History of coronary artery stent placement (07/05/20) LAD and diagonal at [facility] History of laser refractive surgery History of surgery on arm History of total knee replacement (TKR) Bilateral S/P lens implant left and right lens implants Family History Father Diabetes CAD (coronary artery disease) Grandfather Diabetes Mother Heart disease Social History (Updated 08/05/20 @ 04:39 by Charo Lam MD) Smoking and tobacco status: former smoker Quit status (tobacco): has quit using tobacco Year quit tobacco: 1989 - 3PPD x 30 Years Alcohol intake: former Household members: family Current occupational status: retired History of recent travel: No Current gender identity: Male Vitals/I&O/Wt Last Vital Signs Temp 98.8 F 08/04/20 18:19 Pulse 87 08/04/20 23:00 Resp 17 08/04/20 23:00 BP 117/75 08/04/20 23:00 Pulse Ox 96 08/04/20 23:00 Physical Exam Const: OTHER: Alert, oriented x3, cooperative HENMT: OTHER: Normocephalic atraumatic, nasopharynx clear, moist mucus membranes Eye: OTHER: Pupils equally round and reactive to light, EOMI Neck/C-Spine: OTHER: Supple, large Resp: OTHER: Clear to auscultation bilaterally, no wheezes, rales or rhonchi. No accessory muscle use noted. Cardio: OTHER: Regular rate and rhythm, no murmurs gallops or rubs. Pulses equal throughout GI: OTHER: Abdomen soft, nontender, rotund but nondistended with positive bowel sounds : OTHER: Deferred Back/Pelvis: OTHER: Palpable tenderness at the left side of his back midline from the lower ribs to the lumbar area, muscles are tight, initial palpation bother him the most, not as tender on repeated exams. No visible injury or bruising Extremity: OTHER: No pitting edema or acute synovitis Neuro: OTHER: Face symmetric, speech clear, moves all extremities Psych: OTHER: Normal affect Skin: OTHER: Dry, scattered ecchymoses that are minor, chronic rather than acute findings identified primarily on upper extremities. Data : 08/04/20 17:05 08/04/20 17:05 A&P Assessment and plan (1) Chest pain: I suspect that this is more musculoskeletal pain from him doing his granddaughter's chores but 2 coronary stents were placed a few weeks ago and this is the first time that he has had chest pain since then. He was short of breath and pain radiated up into his neck and to his back. CTA did not demonstrate PE or evidence of aneurysm. ABG did show low PO2 when he had a few oxygen saturations in the upper 80s. Review of his history does demonstrate COPD. He had pulmonary function studies as well as a sleep study last year that showed some mild sleep apnea during REM sleep. He describes a chronic mildly productive cough and some chest congestion. I do not get a true sense that it is worsened lately though it may have. No wheezing on current exam but acute COPD/bronchitis is certainly within the differential. Status: Acute Qualifiers: Chest pain type: unspecified Qualified Code(s): R07.9 - Chest pain, unspecified (2) History of coronary artery stent placement: Status: Chronic (3) CAD (coronary artery disease): Status: Chronic Qualifiers: Coronary Disease-Associated Artery/Lesion type: [place] artery [place] vs. transplanted heart: [place] heart Associated angina: with unspecified angina Qualified Code(s): I25.119 - Atherosclerotic heart disease of [place] coronary artery with unspecified angina pectoris (4) COPD (chronic obstructive pulmonary disease): Status: Chronic Qualifiers: COPD type: unspecified COPD Qualified Code(s): J44.9 - Chronic obstructive pulmonary disease, unspecified (5) Diabetes mellitus, type II: Status: Chronic Qualifiers: Diabetes mellitus superintendent container terminal insulin use: without superintendent container terminal use Diabetes mellitus complication status: with other specified complication Qualified Code(s): E11.69 - Type 2 diabetes mellitus with other specified complication (6) Back pain, chronic: Status: Chronic Qualifiers: Back pain location: low back pain Back pain laterality: midline Sciatica presence: with sciatica Sciatica laterality: bilateral sciatica Qualified Code(s): M54.41 - Lumbago with sciatica, right side; M54.42 - Lumbago with sciatica, left side; G89.29 - Other chronic pain Additional A&P Information Observation admission Obtain records from [facility] to get specifics about his hospital course there, testing that was done, in particular before ordering any studies here if he continues to remain chest pain-free Continue serial cardiac enzymes and EKGs Continue home aspirin, Plavix, statin, beta-blockade, losartan and isosorbide Add as needed nitroglycerin, would probably benefit from a prescription for discharge Albuterol and Pulmicort while here, normally on Trelegy Ellipta and as needed albuterol Hold Metformin secondary to contrast, sliding scale insulin in the interim, continue Januvia Tylenol and gabapentin for back pain Getting up with cardiac rehab in the morning if they are available. He is due to start cardiac rehabilitation at [facility] next week on Thursday. Home oxygen evaluation or I guess rather pulmonary stress test assess oxygenation with exertion Low volume IV fluids overnight, hold chlorthalidone x1 dose Recheck electrolytes in the morning Recheck H&H in the morning secondary to report of dark stools, Hemoccult of stool if has bowel movement while here, with newness of stents would not hold Plavix unless absolutely had to Supportive care otherwise On a PPI at home Medications as ordered including levothyroxine Lovenox at prophylactic dosing for DVT prophylaxis Anticipate discharge back home with family tomorrow unless acute issues arise Supportive care otherwise Plans were discussed with patient and he was given an opportunity to ask questions Full code Attestations Medical Necessity Statement*: Currently anticipated stay less than 2 midnights in a gentleman presenting with chest pain and some low or borderline low oxygen levels in the emergency room. He had coronary stents placed x2 a few weeks ago. He was exerting himself today when the symptoms occurred. Currently chest pain-free. Plans are as noted above. With his comorbid conditions, age and recent cardiac intervention at risk for acute clinical decline rapidly. Merits at least overnight monitoring and further evaluation as noted above. Coding Level of Care Code Acute Admitting Manager for Chad Schulte Diagnoses Chest pain R07.9 Chest pain type: unspecified History of coronary artery stent placement Z95.5 CAD (coronary artery disease) I25.119 Coronary Disease-Associated Artery/Lesion type: [place] artery [place] vs. transplanted heart: [place] heart Associated angina: with unspecified angina COPD (chronic obstructive pulmonary disease) J44.9 COPD type: unspecified COPD Diabetes mellitus, type II E11.69 Diabetes mellitus halfway insulin use: without superintendent container terminal use Diabetes mellitus complication status: with other specified complication Back pain, chronic M54.41; M54.42; G89.29 Back pain location: low back pain Back pain laterality: midline Sciatica presence: with sciatica Sciatica laterality: bilateral sciatica
--- NOTE | 2020-08-04 23:58 | ED_ITS ---
HPI - Chest Pain General: Chief Complaint: Chest Pain Stated Complaint: CHEST PAIN Time Seen by Provider: 08/04/20 18:20 Source: patient Mode of arrival: EMS Limitations: no limitations History of Present Illness: HPI narrative: 75-year-old male who had a recent MA and stent placement 2 weeks ago at [facility] in [place]. He has been doing well since then until this evening when he developed sudden onset of left-sided chest pain that radiated to his jaw. Pain was about an 8/10 and was given nitroglycerin and aspirin in an ambulance. This helped his pain. He had shortness of breath at the same time. He is here to be evaluated. MD complaint: chest pain Pertinent past history: coronary artery disease and prior MA Onset (ago): hour(s) (1) Timing of current episode: constant Prior episodes: No Onset: during rest Pain location: left chest Pain radiation: jaw/teeth Severity: severe Pain scale (0-10): 8 Quality: heaviness Relieving factors: nitroglycerin Exacerbating factors: nothing Context: recent illness Associated symptoms: Reports dyspnea and fever(s); Deny abdominal pain, diaphoresis, leg edema, nausea, palpitations, sense of impending doom, syncope or vomiting Treatment prior to arrival: aspirin, nitroglycerin and oxygen Review of Systems General: Reports: 10 or more systems reviewed and unremarkable except in HPI and below Const: Reports: fever(s); Denies: diaphoresis Eyes: Denies: change in vision or blurry vision ENMT: Denies: throat pain, enlarged tonsils, odynophagia, hoarseness, mouth pain or swelling of lips/tongue Card: Denies: palpitations or syncope Resp: Reports: dyspnea GI: Denies: abdominal pain, nausea or vomiting : Denies: flank pain, dysuria, urinary frequency, urinary urgency or urinary hesitancy Musc: Denies: neck pain, back pain or extremity swelling Skin/Breast: Denies: rash, pruritus or erythema Neuro: Denies: headache(s), numbness in extremities or weakness in extremities Endo: Denies: polyuria, polydipsia or tired all the time PFS ED PFSH: Medical History (Updated 08/05/20 @ 00:24 by Riley Alexandra MD, [facility]) Alcoholic cirrhosis Anemia Anxiety and depression Arthritis ASHD (arteriosclerotic heart disease) Back pain, chronic Bacterial conjunctivitis Blood in stool Patient has history of internal hemorrhoids. Last Colonoscopy was done at [facility] by Dr. Campbell March 2017 which resulted with benign polyp, internal hemorrhoids. EGD done on the same date found a Schatzki ring and hiatal hernia. Patient has a history of cirrhosis. He has a history of anemia and has received Injectafer infusions in the past. BPH (benign prostatic hyperplasia) Chronic diastolic (congestive) heart failure Chronic gout, unspecified, without tophus (tophi) COPD (chronic obstructive pulmonary disease) Diabetes mellitus, type II Diabetic neuropathy Esophageal ring Essential (primary) hypertension Folic acid deficiency GERD (gastroesophageal reflux disease) Gout Hammertoe, bilateral Hemorrhoids, internal Hiatal hernia Hypothyroidism (acquired) Nocturnal hypoxia Pes planus of both feet Sleep apnea Type 2 diabetes mellitus with unspecified complications Urinary tract infection Vitamin D deficiency Surgical History (Updated 08/04/20 @ 22:08 by Charo Lam MD) H/O colonoscopy (~2016) Per Dr. Campbell H/O esophagogastroduodenoscopy (~2016) Per Dr. Campbell History of cholecystectomy History of laser refractive surgery History of surgery on arm History of total knee replacement (TKR) Bilateral S/P lens implant left and right lens implants Family History Father Diabetes CAD (coronary artery disease) Grandfather Diabetes Mother Heart disease Social History Smoking and tobacco status: never smoked Quit status (tobacco): has quit using tobacco Year quit tobacco: 1989 - PD x 30 Years Alcohol intake: former Current occupational status: retired History of recent travel: No Current gender identity: Male Physical Exam Const: COMMON NORMALS: no acute distress, average body habitus, patient oriented x3, no limitations, healthy appearing, alert and well nourished HENMT: COMMON NORMALS: normocephalic, atraumatic and moist oral mucous membranes HEAD & SCALP: normocephalic and atraumatic Neck/C-Spine: COMMON NORMALS: no meningeal signs and no JVD Chest: COMMONS NORMALS: normal inspection of the chest and normal palpation of entire chest wall Resp: COMMON NORMALS: normal respiratory effort, No retractions, No use of accessory muscles and percussion normal AUSCULTATION: rales PERCUSSION: percussion normal Cardio: COMMON NORMALS: no JVD, regular rate, regular rhythm, S1 normal heart sound present, S2 normal heart sound present, No gallops present (Cardio), No clicks present (Cardio), No murmurs present (Cardio), No rub (Cardio) and Peripheral pulses 2+ throughout RATE: regular rate RHYTHM: regular rhythm HEART SOUNDS: S1 normal heart sound present and S2 normal heart sound present PERIPHERAL PULSES: Peripheral pulses 2+ throughout GI: COMMON NORMALS: Normal to inspection, nondistended, normoactive bowel sounds present, Soft to palpation, non-tender, No hepatosplenomegaly present, no masses and no bruits PALPATION: Yes Soft to palpation and Yes No hepatosplenomegaly present Extremity: COMMON NORMALS: normal to inspection, full ROM, capillary refill normal, no calf tenderness and no pedal edema Neuro: COMMON NORMALS: patient oriented x3 SENSORIUM/ORIENTATION: Yes alert MENINGEAL SIGNS: Yes no meningeal signs Skin: COMMON NORMALS: no rashes or lesions noted, no wounds, turgor normal, no jaundice, no petechiae and no mottling GENERAL SKIN EXAM: no rashes or lesions noted and turgor normal Course Consultations: Consultation #1: Discussed the patient with Dr. Lam, hospitalist and she kindly accepted the patient to her service Time: 23:00 Vital Signs: Vital signs: Vital Signs Temperature 98.8 F 08/04/20 18:19 Pulse Rate 87 08/04/20 23:00 Respiratory Rate 17 08/04/20 23:00 Blood Pressure 117/75 08/04/20 23:00 Pulse Oximetry 96 08/04/20 23:00 MDM - Chest Pain MDM Narrative: Medical decision making narrative: 75-year-old male who presents to the emergency department with chest pain. 2 weeks ago he had an MA required a stent to the LAD that was done at [facility] in [place]. This evening he developed sudden onset of chest pain and was brought into the emergency department to be evaluated. In the ED evaluation so far is unremarkable, he was initially hypoxic and required up to 5 L of oxygen in the emergency department where he normally does wear oxygen. He had abnormal lung exam. Initial and 2-hour troponin were unremarkable. He had mild leukopenia. He will be admitted to the hospital overnight for observation since he is a high risk patient. Medical Records: Attestation: I reviewed the patient's medical records. Lab Data: Attestation: I reviewed the patient's lab results. Labs: Lab Results 08/04/20 08/04/20 08/04/20 Range/Units 17:05 17:05 17:05 WBC 3.3 L (4.0-10.0) 10^3/ uL RBC 3.96 L (4.1-5.3) 10^6/u L Hgb 13.0 (11.7-16.6) g/dL Hct 38.3 L (42.0-52.0) % MCV 96.7 H (80-94) fL MCH 32.8 (28.0-34.0) pg MCHC 33.9 (30.0-36.0) g/dL RDW 13.8 (12.1-15.1) % Plt Count 131 (130-400) 10^3/c mm MPV 11.5 H (7.4-10.4) fL Neut % (Auto) 47.1 % Lymph % (Auto) 29.5 % [place] % (Auto) 16.4 % Eos % (Auto) 4.9 % Baso % (Auto) 1.8 % Neut # (Auto) 1.55 L (1.8-7.7) 10^3/u L Lymph # (Auto) 1.0 (0.8-4.8) 10^3/u L [place] # (Auto) 0.5 (0.2-0.9) 10^3/u L Eos # (Auto) 0.2 (0.0-0.8) 10^3/u L Baso # (Auto) 0.1 (0.0-0.1) 10^3/u L Nucleated RBC % (a uto) 0 % Nucleated RBCs # 0.0 /100WBC D-Dimer 2.25 H (0-0.59) ug/mIFE U Specimen Type Sample Site ABG pH (7.35-7.45) ABG pCO2 (35-45) mmHg ABG pO2 (80.0-100.0) mmH g ABG HCO3 (22-26) mmol/L ABG Base Excess (-2.0-2.0) mmol/ L Chester Test Hematocrit (42-52) % O2 Delivery Device O2 Liters/Min % Motorcycle Engine Assembler ID Sodium 138 (136-145) mmol/L Potassium 3.9 (3.5-5.1) mmol/L Chloride 104 (98-107) mmol/L Carbon Dioxide 21 L (22-29) mmol/L Anion Gap 16.9 (5-19) BUN 24 H (8-23) mg/dL Creatinine 0.7 (0.7-1.2) mg/dL GFR Calculation Not Reportable Glucose 139 H (65-115) mg/dL Calculated Osmolal ity 292 (285-295) mOsm/k g Calcium 9.7 (8.5-10.5) mg/dL Total Bilirubin 0.8 (0.15-1.2) mg/dL AST 30 (0-40) U/L ALT 21 (0-41) U/L Alkaline Phosphata se 84 (40-130) IU/L Troponin T Baselin e (0-15) ng/L Troponin T 120 Min [place] (0-15) ng/L Delta Troponin T (0-10) ABS# NT-Pro-B Natriuret Pep 87 (0-450) pg/mL Total Protein 6.9 (6.6-8.7) g/dL Albumin 3.8 (3.5-5.2) g/dL Globulin 3.1 (1.3-4.6) g/dL Lipase 47 (13-60) U/L Influenza Type A A g (Negative) Influenza Type B A g (Negative) SARS-CoV-2 Ag (Rap id) (Negative) 08/04/20 08/04/20 08/04/20 Range/Units 17:05 18:40 18:40 WBC (4.0-10.0) 10^3/ uL RBC (4.1-5.3) 10^6/u L Hgb (11.7-16.6) g/dL Hct (42.0-52.0) % MCV (80-94) fL MCH (28.0-34.0) pg MCHC (30.0-36.0) g/dL RDW (12.1-15.1) % Plt Count (130-400) 10^3/c mm MPV (7.4-10.4) fL Neut % (Auto) % Lymph % (Auto) % [place] % (Auto) % Eos % (Auto) % Baso % (Auto) % Neut # (Auto) (1.8-7.7) 10^3/u L Lymph # (Auto) (0.8-4.8) 10^3/u L [place] # (Auto) (0.2-0.9) 10^3/u L Eos # (Auto) (0.0-0.8) 10^3/u L Baso # (Auto) (0.0-0.1) 10^3/u L Nucleated RBC % (a uto) % Nucleated RBCs # /100WBC D-Dimer (0-0.59) ug/mIFE U Specimen Type Sample Site ABG pH (7.35-7.45) ABG pCO2 (35-45) mmHg ABG pO2 (80.0-100.0) mmH g ABG HCO3 (22-26) mmol/L ABG Base Excess (-2.0-2.0) mmol/ L Chester Test Hematocrit (42-52) % O2 Delivery Device O2 Liters/Min % Motorcycle Engine Assembler ID Sodium (136-145) mmol/L Potassium (3.5-5.1) mmol/L Chloride (98-107) mmol/L Carbon Dioxide (22-29) mmol/L Anion Gap (5-19) BUN (8-23) mg/dL Creatinine (0.7-1.2) mg/dL GFR Calculation Glucose (65-115) mg/dL Calculated Osmolal ity (285-295) mOsm/k g Calcium (8.5-10.5) mg/dL Total Bilirubin (0.15-1.2) mg/dL AST (0-40) U/L ALT (0-41) U/L Alkaline Phosphata se (40-130) IU/L Troponin T Baselin e 12 (0-15) ng/L Troponin T 120 Min [place] (0-15) ng/L Delta Troponin T (0-10) ABS# NT-Pro-B Natriuret Pep (0-450) pg/mL Total Protein (6.6-8.7) g/dL Albumin (3.5-5.2) g/dL Globulin (1.3-4.6) g/dL Lipase (13-60) U/L Influenza Type A A g Negative (Negative) Influenza Type B A g Negative (Negative) SARS-CoV-2 Ag (Rap id) Negative (Negative) 08/04/20 08/04/20 Range/Units 19:03 20:30 WBC (4.0-10.0) 10^3/ uL RBC (4.1-5.3) 10^6/u L Hgb (11.7-16.6) g/dL Hct (42.0-52.0) % MCV (80-94) fL MCH (28.0-34.0) pg MCHC (30.0-36.0) g/dL RDW (12.1-15.1) % Plt Count (130-400) 10^3/c mm MPV (7.4-10.4) fL Neut % (Auto) % Lymph % (Auto) % [place] % (Auto) % Eos % (Auto) % Baso % (Auto) % Neut # (Auto) (1.8-7.7) 10^3/u L Lymph # (Auto) (0.8-4.8) 10^3/u L [place] # (Auto) (0.2-0.9) 10^3/u L Eos # (Auto) (0.0-0.8) 10^3/u L Baso # (Auto) (0.0-0.1) 10^3/u L Nucleated RBC % (a uto) % Nucleated RBCs # /100WBC D-Dimer (0-0.59) ug/mIFE U Specimen Type Arterial Sample Site Radial, left ABG pH 7.27 L (7.35-7.45) ABG pCO2 35.8 (35-45) mmHg ABG pO2 70.3 L (80.0-100.0) mmH g ABG HCO3 16.5 L (22-26) mmol/L ABG Base Excess -9.6 L (-2.0-2.0) mmol/ L Chester Test Pos Hematocrit 41.0 L (42-52) % O2 Delivery Device Nc O2 Liters/Min 6.0 % Motorcycle Engine Assembler ID ellpe Sodium (136-145) mmol/L Potassium (3.5-5.1) mmol/L Chloride (98-107) mmol/L Carbon Dioxide (22-29) mmol/L Anion Gap (5-19) BUN (8-23) mg/dL Creatinine (0.7-1.2) mg/dL GFR Calculation Glucose (65-115) mg/dL Calculated Osmolal ity (285-295) mOsm/k g Calcium (8.5-10.5) mg/dL Total Bilirubin (0.15-1.2) mg/dL AST (0-40) U/L ALT (0-41) U/L Alkaline Phosphata se (40-130) IU/L Troponin T Baselin e (0-15) ng/L Troponin T 120 Min [place] 10.83 (0-15) ng/L Delta Troponin T -1.17 L (0-10) ABS# NT-Pro-B Natriuret Pep (0-450) pg/mL Total Protein (6.6-8.7) g/dL Albumin (3.5-5.2) g/dL Globulin (1.3-4.6) g/dL Lipase (13-60) U/L Influenza Type A A g (Negative) Influenza Type B A g (Negative) SARS-CoV-2 Ag (Rap id) (Negative) Imaging Data^: CXR: Attestation: I personally reviewed and interpreted this imaging study as follows: Radiologist's impression: [address] [address] XRay Report Signed Patient: Timoteo Hassan #: [id number] : 3At#:[id number] Age/Sex: 75 / MADM Date: 08/04/20 Loc: [facility]/Bed: Attending Dr: Ordering Provider/Ordering MD: Riley Alexandra MD, [facility] Date of Service: 08/04/20 Procedure(s): XR chest 1V portable [id number] Accession Number(s): [id number] Report Number: [id number] PROCEDURE INFORMATION: Exam: XR Chest Exam date and time: 08/04/2020 6:30 PM Age: 75 years old Clinical indication: Dyspnea; Additional info: SOB TECHNIQUE: Imaging protocol: XR of the chest Views: 1 view. COMPARISON: CR XR chest 1V portable [id number] 09/02/2019 4:24 PM FINDINGS: Lungs: A subtle somewhat rounded approximately 2.7 cm opacity in the left lung base overlying the anterior left 5th rib. Pleural spaces: Unremarkable. No pleural effusion. No pneumothorax. Heart/Mediastinum: The cardiac shadow is normal in size. Bones/joints: No acute abnormality. XR/XR chest 1V portable [id number] IMPRESSION: A subtle, somewhat rounded opacity in the left lung base may reflect an area of early consolidation in the proper clinical setting. Recommend repeat radiograph in 6-8 weeks to verify resolution. Dictated By:Atilio Kyle Signed By:Atilio KyleSignjossue Date/Time:08/04/201956 DD/ 54 CTA Chest: Attestation: I personally reviewed and interpreted this imaging study as follows: Radiologist's impression: [place] [address] CT Scan Report Signed Patient: Timoteo Hassan #: [id number] : 3Acct#:[id number] Age/Sex: 75 / MADM Date: 08/04/20 [facility] Attending Dr: Ordering Provider/Ordering MD: Riley Alexandra MD, [facility] Date of Service: 08/04/20 Procedure(s): CT angio chest PE protcl [id number] Accession Number(s): [id number] Report Number: [id number] PROCEDURE INFORMATION: Exam: CT Angiography Chest With Contrast Exam date and time: 08/04/2020 7:58 PM Age: 75 years old Clinical indication: Sternal or substernal pain; Prior surgery; Surgery date: <1 month; Surgery type: Stents; Patient HX: C/O substernal cp - mi 10 days ago; Additional info: SOB, cp TECHNIQUE: Imaging protocol: Computed tomographic angiography of the chest with contrast. 3D rendering (Not supervised by radiologist): MIP and/or 3D reconstructed images were created by the technologist. Radiation optimization: All CT scans at this facility use at least one of these dose optimization techniques: automated exposure control; mA and/or kV adjustment per patient size (includes targeted exams where dose is matched to clinical indication); or iterative reconstruction. Contrast material: OMNI 350; Contrast volume: 66 ml; Contrast route: INTRAVENOUS (IV); COMPARISON: CTA Chest-Pulmonary Emb [id number] 06/03/2016 11:33 PM RADIATION DOSE METRICS: Total DLP (mGy-cm): 579.96 FINDINGS: Pulmonary arteries: No evidence of central pulmonary embolus. The segmental and more distal pulmonary arteries are not well evaluated due to contrast timing. The pulmonary trunk is not enlarged. Aorta: Scattered aortic calcifications. No aneurysm. Lungs: A 1.4 cm left lower nodule on image 42. A 1.3 cm right middle lobe nodule on image 32. Mild thickening along the major fissure. Pleural spaces: Unremarkable. No pneumothorax. No pleural effusion. Heart: No cardiomegaly. No pericardial effusion. No evidence of right heart strain. Lymph nodes: No enlarged lymph nodes. Bones/joints: The bones appear demineralized. Cjkf-vw-uposeoro degenerative changes of the spine. Soft tissues: Within normal limits. CT/CT angio chest PE protcl [id number] IMPRESSION: 1. No evidence of central pulmonary embolus. The segmental and more distal pulmonary arteries are not well evaluated due to contrast timing. No evidence of right heart strain. 2. New compared to the prior exam are bilateral pulmonary nodules measuring 1.4 cm on the left and 1.3 cm on the right. For patients at low risk (minimal or absent history of smoking and of other known risk factors), recommend CT Chest at 3-6 months, then consider CT Chest at 18-24 months. For patients at high risk (history of smoking or of other known risk factors), recommend CT Chest at 3-6 months, then CT Chest at 18-24 months. (Reference: Gasper) REFERENCES: Gasper Newsome, et al. Guidelines for Management of Incidental Pulmonary Nodules Detected on CT Images: From the Fleischner Society 2017. Radiology. 2017;284(1):228-243. Radiation Dose CTDIVOL = (mGy): DLP = 579.96 (mGy-cm) Dictated By:Atilio Kyle Signed By:Shirley Kyle Date/Time:08/04/202104 DD/ 02 EKG Data^: EKG 1: Attestation: I personally reviewed and interpreted this EKG as follows: EKG interpretation date: 08/04/20 EKG interpretation time: 19:02 Prior EKG tracings: not available for review Interpretation: Normal sinus rhythm. Heart rate [address] changes. Discharge Plan Discharge Patient Disposition: Placed in Observation Admit Provider: Charo Lam Clinical Impression: Chest pain, Recent myocardial infarction Condition: Stable Coding Level of Care Code ED Fitness And Wellness Manager for Varinderg Eris
[2020-08-05] VITALS (58 sets, daily range): BP systolic 91–130; BP diastolic 55–81; PULSE 61–102; RESP 14–25; TEMP 36.6–37.6; O2SAT 89–98; BMI 28.2
[2020-08-05] MEDS: enoxaparin 40 mg/0.4 mL Syringe SUBCUT (01:35)
[2020-08-05] MEDS: sodium chloride 0.9% 1,000 ML 75 ML IV (01:36)
[2020-08-05 04:44] LABS: Basophils # 0.1 10^3/uL (0.0-0.1); Basophils % 1.4 %; Eosinophils # 0.2 10^3/uL (0.0-0.8); Eosinophils % 5.6 %; Hematocrit 36.5 % (42.0-52.0); Hemoglobin 12.2 g/dL (11.7-16.6); Lymphocytes # 1.1 10^3/uL (0.8-4.8); Lymphocytes % 31.3 %; Mean Corpuscular HGB Conc 33.4 g/dL (30.0-36.0); Mean Corpuscular Hemoglobin 32.1 pg (28.0-34.0); Mean Corpuscular Volume 96.1 fL (80-94); Monocytes # 0.7 10^3/uL (0.2-0.9); Monocytes % 19.4 %; Neutrophils # 1.49 10^3/uL (1.8-7.7); Nucleated Red Blood Cells % 0 %; Platelet Count 121 10^3/cmm (130-400); Red Cell Distribution Width 13.6 % (12.1-15.1); White Blood Count 3.6 10^3/uL (4.0-10.0)
[2020-08-05 05:10] LABS: Slide Review Slide Review Perform
[2020-08-05 05:14] LABS: Anion Gap 15.9 (5-19); Blood Urea Nitrogen 27 mg/dL (8-23); Calcium 9.5 mg/dL (8.5-10.5); Carbon Dioxide 19 mmol/L (22-29); Chloride 108 mmol/L (98-107); Glucose 143 mg/dL (65-115); Magnesium 1.5 mg/dL (1.7-2.3); Osmolality Calculated 296 mOsm/kg (285-295); Phosphorus 3.1 mg/dL (2.5-4.5); Potassium 3.9 mmol/L (3.5-5.1); Sodium 139 mmol/L (136-145)
[2020-08-05] MEDS: carvedilol 3.125 mg Tablet PO (05:52)
[2020-08-05] MEDS: magnesium sulfate premix 2 GM/50 ML PIGGYBACK IV (05:52)
--- NOTE | 2020-08-05 06:00 | ECG_ITS ---
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 Measurements Intervals [place] Rate: 80 P: 23 RI: 146 QRS: 28 QRSD: 75 T: 212 QT: 379 QTc: 438 Interpretive Statements SINUS RHYTHM NONSPECIFIC ST & T-WAVE ABNORMALITY Compared to ECG 08/04/2020 20:48:09 No significant changes Electronically Signed On 08-05-2020 20:41:23 CDT by Ashley Sims M.D. [id number]
[2020-08-05] MEDS: ergocalciferol (vitamin D2) 50,000 Unit Capsule 50000 UNIT PO (06:27)
[2020-08-05 06:49] LABS: Glucose Point of Care 136 mg/dL (70-110)
[2020-08-05 07:50] LABS: Add Urine Microscopic? YES; Bilirubin Urine 1+ (Negative); Blood Urine 3+ (Negative); Glucose Urine UA Norm (Normal); Ketones Urine Negative (Negative); Leukocyte Esterase Urine Negative (Negative); Nitrate Urine Negative (Negative); Protein Urine Neg (Negative); Specific Gravity, Urine 1.005 (1.005-1.030); Urine Appearance Clear (CLEAR); Urine Color Yellow (Yellow); Urobilinogen Urine 4 mg/dL (Negative); pH Urine 7 (5-7)
[2020-08-05 07:52] LABS: Add Urine Culture? Yes; Bacteria Urine 1+ /hpf; RBC Urine 15-25 /hpf (0-2); Squamous Epithelial Cell Urine RARE /hpf (0-5); WBC Urine 0-4 /hpf (0-5)
[2020-08-05] MEDS: budesonide 0.5 mg/2 mL Neb INHALATION ×2 (08:56→20:08)
[2020-08-05] MEDS: ipratropium-albuterol 3 mL Neb INHALATION ×2 (08:56→20:09)
[2020-08-05] MEDS: multivitamin therapeutic Tablet 1 TAB PO (09:59)
[2020-08-05] MEDS: magnesium oxide 400 mg tablet PO ×2 (09:59→17:30)
[2020-08-05] MEDS: folic acid 1 mg Tablet PO (09:59)
[2020-08-05] MEDS: aspirin 81 mg Chew Tablet PO (09:59)
[2020-08-05] MEDS: sitagliptin 100 mg Tablet PO (09:59)
[2020-08-05] MEDS: clopidogrel 75 mg Tablet PO (09:59)
[2020-08-05] MEDS: atorvastatin 40 mg Tablet 80 MG PO (09:59)
[2020-08-05] MEDS: allopurinol 300 mg Tablet PO (09:59)
[2020-08-05] MEDS: isosorbide mononitrate ER 30 mg Tablet PO (09:59)
[2020-08-05] MEDS: pantoprazole DR 40 mg Tablet PO (09:59)
[2020-08-05] MEDS: gabapentin 100 mg Capsule 200 MG PO ×3 (09:59→21:28)
[2020-08-05] MEDS: levothyroxine 150 mcg Tablet PO (10:00)
--- NOTE | 2020-08-05 10:09 | PC.CHAP ---
Pastoral Care Encounter/Spiritual Assessment Type of Contact [] Declined carpet binder visit [] Patient/Family/Request visit [] Outpatient visit [] Follow-up visit [] Physician referral [] Code/Alert [x] Routine visit [] Staff referral [] Actively dying [] Patient sleeping [] Family support [] [] Out of room [] Palliative care [] [] Receiving care in room [] Pre-surgical visit [] Trauma [] Long length of stay [] ICU visit [] Other: Relational/Emotional Strength [] Patient feels connected with others/family/visitors/staff [] Distress [] Loneliness/isolation [] Abandonment Spirituality of Patient [x] Person of Judy [] Attends Methodist of their Judy [x] Believes in Prayer [] Reads Bible or Adventism materials [] There are Spiritual issues to be addressed Construction Secretary Interventions [x] Prayer [x] Active listening [x] Non-anxious presence [x] Spiritual/emotional support [] Crisis/trauma care [] Spiritual counseling [] Bereavement support [] Provided bereavement packet [] Provided Bible/devotional materials [] Provided toy/stuffed animal, coloring book to patient or family member [] Provided Communion [] Anointing/[place] [] Salvation [x] Completed spiritual assessment [] Other: Impact on Illness or Injury [] Angry [] Fearful [] Anxious [] Often cries [] Exhaustion [] Unable to work [] Unable to attend pentecostal [] Unable to walk/stand [] Unable to read [] Unable to drive [] Unable to eat/drink [] Unable to sleep [] Unable to be with family [] Patient intubated [] Other: Summary Chaplains prayed with Patient. Time spent with patient 8 minutes
[2020-08-05 11:27] LABS: Glucose Point of Care 196 mg/dL (70-110)
[2020-08-05 16:40] LABS: Glucose Point of Care 162 mg/dL (70-110)
--- NOTE | 2020-08-05 19:15 | PC.NURSE ---
bladder scanned as ordered...140cc volume.pt then stated he had to urinate...voided 300 cc clear sarah urine with 3 small blood clots noted.pt states he believes clots came from his injured tip of penis
--- NOTE | 2020-08-05 20:15 | PC.NURSE ---
Recieved bedside report from Bren CRUZ. Patient laying in bed with tv on. Patient alert and oriented x 4 no voiced pain or concerns at this time. Will continue to monitor and assist as needed following CPOC
[2020-08-05 21:02] LABS: Glucose Point of Care 185 mg/dL (70-110)
--- NOTE | 2020-08-05 21:02 | PM.PN ---
Subjective Subjective: Interval history: He reports he is worried about his low blood pressure, low oxygen. Oxygen in the low to mid 90s on room air. Blood pressure is low at 68 mmHg mean arterial pressure. Reports usually blood pressure is not low. Received some nitroglycerin but only last night. Abdomen is sore, especially lower abdomen. Says she has been belching quite a bit. Injured his penis yesterday on bedside commode rushing to get on with minute laceration on the foreskin but with bleeding. Has not walked around so far, but was noted to have difficulty getting up on his own from bed by nursing staff. Vitals/I&O/Wt Last Vital Signs Temp 97.8 F 08/05/20 10:47 Pulse 74 08/05/20 20:16 Resp 17 08/05/20 20:09 BP 117/62 08/05/20 16:11 Pulse Ox 95 08/05/20 20:09 08/05/20 08/05/20 08/05/20 06:59 14:59 22:59 Intake Total 238 / 238 1130 / 1130 1000 / 2130 Output Total 375 / 375 300 / 300 300 / 600 Balance -137 / -137 830 / 830 700 / 1530 Weight last 48 hrs Weight 89.176 kg Physical Exam Const: COMMON NORMALS: no acute distress, patient oriented x3 and alert NUTRITIONAL APPEARANCE: overweight ORIENTATION/CONSCIOUSNESS: Yes awake HENMT: COMMON NORMALS: oropharynx normal Neck/C-Spine: COMMON NORMALS: no JVD Resp: COMMON NORMALS: normal respiratory effort and clear to auscultation bilaterally AUSCULTATION: clear to auscultation bilaterally Cardio: COMMON NORMALS: no JVD, regular rhythm, S1 normal heart sound present, S2 normal heart sound present and No murmurs present (Cardio) RHYTHM: regular rhythm HEART SOUNDS: S1 normal heart sound present and S2 normal heart sound present GI: COMMON NORMALS: Normal to inspection, nondistended, normoactive bowel sounds present and Soft to palpation PALPATION: Yes Soft to palpation and Yes Tenderness to palpation present (GI) (Lower abdomen) Extremity: COMMON NORMALS: no joint enlargement and no pedal edema Neuro: COMMON NORMALS: patient oriented x3 and moves all extremities SENSORIUM/ORIENTATION: Yes alert Skin: COMMON NORMALS: no rashes or lesions noted GENERAL SKIN EXAM: no rashes or lesions noted Data : 08/05/20 04:19 08/05/20 04:19 A&P Assessment and plan (1) Hypotension: Unclear cause of hypotension. Has not received any nitroglycerin today. His losartan was held. Mean arterial pressure down as low as 68 mmHg. At this time requires additional monitoring in hospital due to unexplained hypotension. Chest pain has resolved. Troponin and EKG series not suggestive of acute [place]. No arrhythmia. Check limited TTE due to stent [address] abdomen. Has been receiving continuous infusion fluid challenge. However, he is concerned that his oxygen saturation is decreasing. Currently in the low to mid 90s on room air. Hold additional fluids for now. We will hold his antihypertensives. Monitor. Encourage oral intake. Status: Acute (2) Abdominal pain: Microscopic hematuria. Abdominal pain, especially lower. Will assess CT renal protocol. He does report quite a bit of eructation. He reports an episode of diarrhea 2 days ago, although says has on and off diarrhea sometimes. Nothing yesterday or today. No vomiting. Appetite has been on and off. Status: Acute (3) Bicytopenia: Neutropenia, 1500 ANC. Thrombocytopenia, platelets 121,000. This appears to be new. We will recheck cell counts in the morning. We will check vitamin B12, folic acid. TSH. Peripheral smear. Consider follow-up with hematology. Status: Acute (4) Chest pain: Resolved. Thought to be musculoskeletal as noted in the H&P. Currently no pain. Pain he reports was left-sided central, also some in his back. Discussed with him also findings on x-ray of degenerative disc disease which in addition to overexertion may have contributed. Discussed with him findings of CTA with incidentally noted pulmonary nodules which may need additional follow-up after discharge. He was short of breath and pain radiated up into his neck and to his back. CTA did not demonstrate PE or evidence of aneurysm. ABG did show low PO2 when he had a few oxygen saturations in the upper 80s. Review of his history does demonstrate COPD. He had pulmonary function studies as well as a sleep study last year that showed some mild sleep apnea during REM sleep. He describes a chronic mildly productive cough and some chest congestion. Status: Acute Qualifiers: Chest pain type: unspecified Qualified Code(s): R07.9 - Chest pain, unspecified (5) History of coronary artery stent placement: Status: Chronic (6) CAD (coronary artery disease): Status: Chronic Qualifiers: Associated angina: with unspecified angina Coronary Disease-Associated Artery/Lesion type: [place] artery [place] vs. transplanted heart: [place] heart Qualified Code(s): I25.119 - Atherosclerotic heart disease of [place] coronary artery with unspecified angina pectoris (7) COPD (chronic obstructive pulmonary disease): Status: Chronic Qualifiers: COPD type: unspecified COPD Qualified Code(s): J44.9 - Chronic obstructive pulmonary disease, unspecified (8) Diabetes mellitus, type II: Status: Chronic Qualifiers: Diabetes mellitus complication status: with other specified complication Diabetes mellitus penitentiary insulin use: without superintendent container terminal use Qualified Code(s): E11.69 - Type 2 diabetes mellitus with other specified complication (9) Back pain, chronic: Status: Chronic Qualifiers: Back pain laterality: midline Back pain location: low back pain Sciatica laterality: bilateral sciatica Sciatica presence: with sciatica Qualified Code(s): M54.41 - Lumbago with sciatica, right side; M54.42 - Lumbago with sciatica, left side; G89.29 - Other chronic pain (10) RAQUEL (obstructive sleep apnea): Reports had finding of sleep apnea on sleep study last year, but never received a CPAP. Request social services counselor to look into this. Status: Acute (11) Hypomagnesemia: Replaced. Recheck. Status: Acute Additional A&P Information Deconditioning: Noted to have difficulty getting up from bed today by himself by nursing staff. Will request PT evaluation. Attestations Medical Necessity Statement*: Admission of over 2 midnights is needed for assessment and management of hypotension, abdominal pain, new bicytopenia in a gentleman with history of CAD, COPD, with recently placed cardiac stent. Coding Level of Care Code Acute Room Attendant for [facility] Fwd Diagnoses Hypotension I95.9 Abdominal pain R10.9 Bicytopenia D75.89 Chest pain R07.9 Chest pain type: unspecified History of coronary artery stent placement Z95.5 CAD (coronary artery disease) I25.119 Associated angina: with unspecified angina Coronary Disease-Associated Artery/Lesion type: [place] artery [place] vs. transplanted heart: [place] heart COPD (chronic obstructive pulmonary disease) J44.9 COPD type: unspecified COPD Diabetes mellitus, type II E11.69 Diabetes mellitus complication status: with other specified complication Diabetes mellitus superintendent container terminal insulin use: without superintendent container terminal use Back pain, chronic M54.41; M54.42; G89.29 Back pain laterality: midline Back pain location: low back pain Sciatica laterality: bilateral sciatica Sciatica presence: with sciatica RAQUEL (obstructive sleep apnea) G47.33 Hypomagnesemia E83.42
[2020-08-05] MEDS: finasteride 5 mg Tablet PO (21:28)
[2020-08-05] MEDS: potassium chloride ER 10 mEq Tablet PO (21:28)
[2020-08-05] MEDS: duloxetine 20 mg Capsule PO (21:28)
[2020-08-05] MEDS: donepezil 5 MG Tablet 10 MG PO (21:28)
[2020-08-06] VITALS (26 sets, daily range): BP systolic 98–137; BP diastolic 57–81; PULSE 70–106; RESP 13–22; TEMP 36.4–37.4; O2SAT 90–97
[2020-08-06 01:08] LABS: LAB Peripheral Smear Sent for Review
[2020-08-06] MEDS: enoxaparin 40 mg/0.4 mL Syringe SUBCUT (02:58)
[2020-08-06 05:31] LABS: Basophils % 1.1 %; Eosinophils # 0.2 10^3/uL (0.0-0.8); Eosinophils % 7.7 %; Hematocrit 33.4 % (42.0-52.0); Hemoglobin 11.2 g/dL (11.7-16.6); Lymphocytes # 1.2 10^3/uL (0.8-4.8); Mean Corpuscular HGB Conc 33.5 g/dL (30.0-36.0); Mean Corpuscular Hemoglobin 32.4 pg (28.0-34.0); Mean Corpuscular Volume 96.5 fL (80-94); Mean Platelet Volume 10.7 fL (7.4-10.4); Monocytes # 0.8 10^3/uL (0.2-0.9); Monocytes % 26.4 %; Neutrophils % 21.8 %; Nucleated Red Blood Cells % 0 %; Platelet Count 110 10^3/cmm (130-400); Red Blood Count 3.46 10^6/uL (4.1-5.3); Red Cell Distribution Width 13.7 % (12.1-15.1); White Blood Count 2.8 10^3/uL (4.0-10.0)
[2020-08-06 05:53] LABS: Neutrophils # 0.62 10^3/uL (1.8-7.7); Slide Review Slide Review Perform
--- NOTE | 2020-08-06 06:16 | PC.NURSE ---
provider notified of patient needing to be moved to private room due to ANC of 0.62 as well as trending down pancytopenia of RBC's, WBC's, Platelets. Will continue to monitor and assist as needed following OC No new orders at this time.
[2020-08-06 06:22] LABS: Alanine Aminotransferase 17 U/L (0-41); Albumin Level 3.3 g/dL (3.5-5.2); Alkaline Phosphatase 71 IU/L (40-130); Anion Gap 14.8 (5-19); Aspartate Amino Transferase 21 U/L (0-40); Blood Urea Nitrogen 25 mg/dL (8-23); Calcium 9.2 mg/dL (8.5-10.5); Carbon Dioxide 19 mmol/L (22-29); Chloride 110 mmol/L (98-107); Glucose 178 mg/dL (65-115); Magnesium 1.7 mg/dL (1.7-2.3); Osmolality Calculated 299 mOsm/kg (285-295); Potassium 3.8 mmol/L (3.5-5.1); Sodium 140 mmol/L (136-145); Thyroid Stimulating Hormone 0.87 uIU/mL (0.27-4.20); Total Bilirubin 0.6 mg/dL (0.15-1.2); Total Protein 6.3 g/dL (6.6-8.7); Vitamin B12 555 pg/mL (232-1245)
[2020-08-06 06:38] LABS: Folate Level > 20.0 ng/mL (4.5-32.2)
--- NOTE | 2020-08-06 07:49 | PC.NURSE ---
Bedside report conducted with Naldo RN Patient alert and oriented x 4. Patient daughter Mildred called in and said she brought in records from [place] when heart cath was conducted for AL involving LAD. Blood sugar this am was 156. No CP reported at this time. Will continue to monitor and assist as needed following CPOC
[2020-08-06] MEDS: budesonide 0.5 mg/2 mL Neb INHALATION ×2 (08:14→21:13)
[2020-08-06] MEDS: ipratropium-albuterol 3 mL Neb INHALATION ×2 (08:14→21:13)
[2020-08-06 09:41] LABS: Glucose Point of Care 271 mg/dL (70-110)
[2020-08-06] MEDS: clopidogrel 75 mg Tablet PO (09:49)
[2020-08-06] MEDS: folic acid 1 mg Tablet PO (09:49)
[2020-08-06] MEDS: aspirin 81 mg Chew Tablet PO (09:49)
[2020-08-06] MEDS: pantoprazole DR 40 mg Tablet PO (09:49)
[2020-08-06] MEDS: atorvastatin 40 mg Tablet 80 MG PO (09:49)
[2020-08-06] MEDS: levothyroxine 150 mcg Tablet PO (09:49)
[2020-08-06] MEDS: magnesium oxide 400 mg tablet PO ×2 (09:49→17:12)
[2020-08-06] MEDS: multivitamin therapeutic Tablet 1 TAB PO (09:49)
[2020-08-06] MEDS: gabapentin 100 mg Capsule 200 MG PO ×3 (09:49→20:15)
[2020-08-06] MEDS: sitagliptin 100 mg Tablet PO (09:55)
--- NOTE | 2020-08-06 09:55 | PC.CHAP ---
Pastoral Care Encounter/Spiritual Assessment Type of Contact [] Declined historic clothing and costume maker visit [] Patient/Family/Request visit [] Outpatient visit [] Follow-up visit [] Physician referral [] Code/Alert [x] Routine visit [] Staff referral [] Actively dying [] Patient sleeping [] Family support [] [] Out of room [] Palliative care [] [] Receiving care in room [] Pre-surgical visit [] Trauma [] Long length of stay [] ICU visit [x] Other: isolated.. Relational/Emotional Strength [] Patient feels connected with others/family/visitors/staff [] Distress [] Loneliness/isolation [] Abandonment Spirituality of Patient [] Person of Judy [] Attends Bahai of their Judy [] Believes in Prayer [] Reads Bible or Lutheran materials [] There are Spiritual issues to be addressed [employer] Senior Manager Interventions [x] Prayer [] Active listening [] Non-anxious presence [] Spiritual/emotional support [] Crisis/trauma care [] Spiritual counseling [] Bereavement support [] Provided bereavement packet [] Provided Bible/devotional materials [] Provided toy/stuffed animal, coloring book to patient or family member [] Provided Communion [] Anointing/Rolla [] Salvation [x] Completed spiritual assessment [] Other: Impact on Illness or Injury [] Angry [] Fearful [] Anxious [] Often cries [] Exhaustion [] Unable to work [] Unable to attend uatsdin [] Unable to walk/stand [] Unable to read [] Unable to drive [] Unable to eat/drink [] Unable to sleep [] Unable to be with family [] Patient intubated [] Other: Summary Time spent with patient
[2020-08-06 10:46] LABS: Procalcitonin 0.05 ng/mL (0-0.5)
[2020-08-06 10:57] LABS: C Reactive Protein 3.7 mg/L (0.0-4.9)
[2020-08-06 11:07] LABS: Erythrocyte Sedimentation Rate 36 mm/hr (0-10)
[2020-08-06] MEDS: piperacillin-tazobactam 3.375 GM in sodium chloride 0.9% (plus) 50 ML IV ×2 (11:37→18:33)
[2020-08-06 11:52] LABS: Glucose Point of Care 244 mg/dL (70-110)
--- NOTE | 2020-08-06 13:40 | PM.PN ---
Subjective Subjective: Interval history: This morning patient was examined, he tells me he is doing fine, yesterday he had episodes of abdominal pain, which have resolved, no diarrhea, no constipation, no bloody or black stools, he does not have chest pain anymore, no nausea, no vomiting, no fevers overnight, no cough Vitals/I&O/Wt Last Vital Signs Temp 98.9 F 08/06/20 13:34 Pulse 84 08/06/20 13:34 Resp 18 08/06/20 13:34 BP 107/57 08/06/20 13:34 Pulse Ox 95 08/06/20 09:29 08/05/20 08/06/20 08/06/20 22:59 06:59 14:59 Intake Total 1260 / 2390 200 / 2590 436 / 436 Output Total 600 / 900 250 / 1150 Balance 660 / 1490 -50 / 1440 436 / 436 Weight last 48 hrs Weight 89.176 kg Physical Exam Const: COMMON NORMALS: no acute distress and patient oriented x3 HENMT: COMMON NORMALS: normocephalic HEAD & SCALP: normocephalic Neck/C-Spine: COMMON NORMALS: no JVD Resp: COMMON NORMALS: normal respiratory effort, No retractions, No use of accessory muscles and clear to auscultation bilaterally AUSCULTATION: clear to auscultation bilaterally Cardio: COMMON NORMALS: no JVD, regular rate, regular rhythm, S1 normal heart sound present and S2 normal heart sound present RATE: regular rate RHYTHM: regular rhythm HEART SOUNDS: S1 normal heart sound present and S2 normal heart sound present GI: COMMON NORMALS: Normal to inspection, nondistended, normoactive bowel sounds present, Soft to palpation, non-tender, No hepatosplenomegaly present, no masses and no bruits PALPATION: Yes Soft to palpation and Yes No hepatosplenomegaly present Extremity: COMMON NORMALS: capillary refill normal, no clubbing, cyanosis or edema, no calf tenderness and no pedal edema Neuro: COMMON NORMALS: patient oriented x3 Psych: COMMON NORMALS: mental status grossly normal Data : 08/06/20 05:06 08/06/20 05:06 Micro: Microbiology 08/06/20 09:43 Blood Culture - Preliminary Blood SPECIMEN COLLECTED 08/06/20 09:43 Blood Culture - Preliminary Blood SPECIMEN COLLECTED 08/05/20 06:45 Urine Culture - Preliminary Urine,Clean Catch 08/05/20 17:55 Occult Blood (FIT) - Final Stool Routine Collection A&P Assessment and plan (1) Hypotension: Likely related to UTI. Mean arterial pressure down as low as 68 mmHg. Did have low blood pressure this morning 98/57 Will require continued monitoring chest pain has resolved. Troponin and EKG series not suggestive of acute [place]. No arrhythmia. Check limited TTE due to stent [address] abdomen has no acute findings Has been receiving continuous infusion fluid challenge. Status: Acute (2) Abdominal pain: Resolved Microscopic hematuria. Abdominal pain, especially lower. Abdominal CT shows bilateral nonobstructive calcifications, 4 mm calcification of the right lateral urinary bladder is probably from a recently extruded ureteral calcification. Currently on Zosyn for possible UTI Status: Acute (3) Chest pain: Resolved. Thought to be musculoskeletal as noted in the H&P. Currently no pain. Pain he reports was left-sided central, also some in his back. Discussed with him also findings on x-ray of degenerative disc disease which in addition to overexertion may have contributed. Discussed with him findings of CTA with incidentally noted pulmonary nodules which may need additional follow-up after discharge. He was short of breath and pain radiated up into his neck and to his back. CTA did not demonstrate PE or evidence of aneurysm. ABG did show low PO2 when he had a few oxygen saturations in the upper 80s. Review of his history does demonstrate COPD. He had pulmonary function studies as well as a sleep study last year that showed some mild sleep apnea during REM sleep. He describes a chronic mildly productive cough and some chest congestion. Status: Acute Qualifiers: Chest pain type: unspecified Qualified Code(s): R07.9 - Chest pain, unspecified (4) History of coronary artery stent placement: Status: Chronic (5) CAD (coronary artery disease): Status: Chronic Qualifiers: Coronary Disease-Associated Artery/Lesion type: [place] artery [place] vs. transplanted heart: [place] heart Associated angina: with unspecified angina Qualified Code(s): I25.119 - Atherosclerotic heart disease of [place] coronary artery with unspecified angina pectoris (6) COPD (chronic obstructive pulmonary disease): Status: Chronic Qualifiers: COPD type: unspecified COPD Qualified Code(s): J44.9 - Chronic obstructive pulmonary disease, unspecified (7) Diabetes mellitus, type II: Status: Chronic Qualifiers: Diabetes mellitus predatory animal exterminator insulin use: without predatory animal exterminator use Diabetes mellitus complication status: with other specified complication Qualified Code(s): E11.69 - Type 2 diabetes mellitus with other specified complication (8) Back pain, chronic: Status: Chronic Qualifiers: Back pain location: low back pain Back pain laterality: midline Sciatica presence: with sciatica Sciatica laterality: bilateral sciatica Qualified Code(s): M54.41 - Lumbago with sciatica, right side; M54.42 - Lumbago with sciatica, left side; G89.29 - Other chronic pain (9) RAQUEL (obstructive sleep apnea): Reports had finding of sleep apnea on sleep study last year, but never received a CPAP. Request delinquency prevention social worker to look into this. Status: Acute (10) Hypomagnesemia: Replaced. Recheck. Status: Acute (11) Pancytopenia: -Has a history of alcoholic liver cirrhosis, recent CT scan does show advanced changes of cirrhosis and portal hypertension -Ferritin 443, folate, B12 within normal limits -UA indicated of UTI -Pancytopenia likely multifactorial related to alcoholism, alcoholic liver cirrhosis, urinary tract infection -White blood cell count 2.8, absolute neutrophil count 0.62, hemoglobin 11.2, platelet count 110 Plan: -Reverse isolation -Continue antibiotics -Monitor hemoglobin, white blood cell count, platelet count -Ultimately patient will need to follow-up with hematology oncology for bone marrow Status: Acute (12) Alcoholic cirrhosis: -Seen on CT scan of the abdomen pelvis, alcoholic liver cirrhosis with portal hypertension -No significant LFT abnormalities -INR pending -Ammonia pending -Albumin 3.3 -Creatinine 0.8 Status: Acute Qualifiers: Ascites presence: without ascites Qualified Code(s): K70.30 - Alcoholic cirrhosis of liver without ascites (13) UTI (urinary tract infection): -Continue Zosyn -Repeat blood cultures, urine cultures, sputum cultures -Inflammatory markers Status: Acute Additional A&P Information Deconditioning: Noted to have difficulty getting up from bed today by himself by nursing staff. Will request PT evaluation. Attestations Medical Necessity Statement*: Patient requires hospitalization, for pancytopenia secondary to UTI, alcoholic liver cirrhosis, chest pain Coding Level of Care Code Acute Airplane Pilot for [facility] Diagnoses Hypotension I95.9 Abdominal pain R10.9 Chest pain R07.9 Chest pain type: unspecified History of coronary artery stent placement Z95.5 CAD (coronary artery disease) I25.119 Coronary Disease-Associated Artery/Lesion type: [place] artery [place] vs. transplanted heart: [place] heart Associated angina: with unspecified angina COPD (chronic obstructive pulmonary disease) J44.9 COPD type: unspecified COPD Diabetes mellitus, type II E11.69 Diabetes mellitus predatory animal exterminator insulin use: without halfway use Diabetes mellitus complication status: with other specified complication Back pain, chronic M54.41; M54.42; G89.29 Back pain location: low back pain Back pain laterality: midline Sciatica presence: with sciatica Sciatica laterality: bilateral sciatica RAQUEL (obstructive sleep apnea) G47.33 Hypomagnesemia E83.42 Pancytopenia D61.818 Alcoholic cirrhosis K70.30 Ascites presence: without ascites UTI (urinary tract infection) N39.0
--- NOTE | 2020-08-06 14:10 | PC.RESP ---
Pulmonary Rehab information sent to patient.
[2020-08-06 15:00] LABS: INR 1.12 (0.8-1.2)
[2020-08-06 15:06] LABS: Ammonia 145 umol/L (16-60)
[2020-08-06 15:08] LABS: Alcohol Level < 10 mg/dL (0-10)
--- NOTE | 2020-08-06 17:28 | CT_ITS ---
WS: [id number] CT ABDOMEN AND PELVIS NONCONTRAST HISTORY: micro hematuria, abdominal pain TECHNIQUE: Imaging performed through the abdomen and pelvis. Coronal and sagittal reformats are submi tted. All CT scans at [facility] use at least one of these dose optimization techniques: automated exposure control; mA and/or kV adjustment per patient size (includes targeted exams where d ose is matched to clinical indication); or iterative reconstruction. DLP: 1736.97 mGy.cm COMPARISON: 03/12/2016 Lower thorax: Hyperinflated lung bases. There is a new solid, noncalcified nodule in the LEFT lower l obe measuring 15 x 13 mm. New since 2016. Benign granuloma at the lingula. Heart size is normal with increased pericardial fat. Small hiatal hernia. Liver: Markedly abnormal liver. Markedly lobulated contour of the liver from cirrhosis. Enlarged caud ate lobe. Hepatic granulomatous. No mass identified on this unenhanced study. Gallbladder: Prior cholecystectomy. Pancreas: Normal size and attenuation. Normal pancreatic duct. No pancreatitis or mass. Spleen: Spleen is top normal size at 13.7 cm in length. There are a few granulomata. Adrenal glands: Normal. No mass. Right kidney: Normal size kidney. Mild perinephric stranding. Nonobstructing 8 mm calcification in th e upper pole. There are numerous areas of decreased attenuation which may be cysts within the mid and lower kidney. Cannot characterize further on this unenhanced study. No hydronephrosis or ureteral ca lcification. Left kidney: Normal size kidney with several calcifications in the lower pole which are nonobstructin g. The largest measures 7 mm. Areas of decreased attenuation the kidney may be cysts or early neoplas m's. New since 2016. No obstruction. Aorta: Moderate to severe atherosclerosis abdominal aorta. No aneurysm. Atherosclerosis continues int o the common iliac arteries. There are extensive collateral vessels from portal spleno hypertension. No free fluid, intraperitoneal air or significant lymphadenopathy. GI tract: Large amount of increased material within the stomach may be from recent meal ingestion. Di ffuse fecal retention. There are numerous diverticula in descending and sigmoid colon without acute d iverticulitis. The appendix is normal. Abdominal wall: Negative. No hernia. Pelvis: Well-distended urinary bladder with a slightly prominent prostate gland. There is a 4 mm calc ification in the RIGHT lateral urinary bladder which is probably recently extruded into the bladder f rom the RIGHT ureter. There is mild thickening of the bladder wall which is probably due to mild outl et obstruction. Osseous structures: Increase in the lumbar lordosis. Very slight anterior wedging of L1. Advanced fac et joint arthritis at L4-5 and L5-S1. Bilateral mild narrowing of the hip joints. CT/CT kidney stone [id number] IMPRESSION: 1. Bilateral nonobstructing renal calcifications. 2. 4 mm calcification in the RIGHT lateral urinary bladder is probably from a recently extruded ureteral calcification. 3. Descending colonic diverticulosis without diverticulitis. 4. Advanced changes of cirrhosis and portal hypertension. 5. Prior cholecystectomy. 6. Solid nodule LEFT lower lobe measures 15 x 13 mm. Neoplasm not excluded. Th is nodule was described on 08/04/2020. Please see chest CT report for recommenda tions.
[2020-08-06 17:36] LABS: Glucose Point of Care 143 mg/dL (70-110)
[2020-08-06] MEDS: lactulose oral liq 20 gm/30 mL UDC PO ×2 (18:33→23:38)
[2020-08-06] MEDS: duloxetine 20 mg Capsule PO (20:15)
[2020-08-06] MEDS: potassium chloride ER 10 mEq Tablet PO (20:16)
[2020-08-06] MEDS: donepezil 5 MG Tablet 10 MG PO (20:16)
[2020-08-06] MEDS: finasteride 5 mg Tablet PO (20:16)
[2020-08-06 20:58] LABS: Glucose Point of Care 207 mg/dL (70-110)
--- NOTE | 2020-08-06 21:22 | USCV_ITS ---
Timoteo Hassan Age: 75 Gender: M : 1945 Exam Date: 08/06/2020 05:22 Ordering Phys: Alan Vance MD Technologist: ELHAM [place] [facility] [place] HYPOTENSION, CORONARY STENT 2WKS AGO BP: 126 / 69 HR: 71 Rhythm: Sinus Technical Quality: Adequate MEASUREMENTS (Male / Female) Normal Values 2D ECHO LV Diastolic Diameter PLAX 3.7 cm 4.2 - 5.9 / 3.9 - 5.3 cm LV Systolic Diameter PLAX 1.9 cm LV Chamber Size 4.0 cm IVS Diastolic Thickness 1.8 cm 0.6 - 1.0 / 0.6 - 0.9 cm IVS Systolic Thickness 2.1 cm LVPW Diastolic Thickness 2.0 cm 0.6 - 1.0 / 0.6 - 0.9 cm LVPW Systolic Thickness 1.9 cm RV Chamber Size 3.5 cm LVOT Diameter 1.9 cm LV Ejection Fraction 2D Teich 80.2 % LV Ejection Fraction MOD 2C 69.2 % LV Ejection Fraction 2C AL 71.1 % LA Diameter 2.9 cm LA Width 3.8 cm LA Height 4.8 cm RA Width 3.8 cm RA Height 4.3 cm Aorta at Sinotubular Diameter 3.5 cm M-MODE Aortic Annulus Diameter 3.6 cm LA Ao Ratio MM 0.9 MV E Point Septal Separation 1.1 cm DOPPLER AV Peak Velocity 173.0 cm/s LVOT Peak Velocity 94.0 cm/s AV Area Cont Eq vti 2.0 cm squared AV Area Cont Eq pk 1.6 cm squared MV Area PHT 3.0 cm squared Mitral E to A Ratio 0.9 MV E' Velocity 48.5 cm/s Mitral E to MV E' Ratio 16.0 Mitral E to LV E' Lateral Ratio 15.0 Mitral E to LV E' Septal Ratio 17.6 TR Peak Velocity 180.4 cm/s TR Peak Gradient 13.0 mmHg TR Mean Velocity 118.9 cm/s TR Mean Gradient 6.8 mmHg TR Velocity Time Integral 43.0 cm Right Atrial Pressure 3.0 mmHg Pulmonary Artery Systolic Pressu 16.0 mmHg PV Peak Velocity 46.0 cm/s RV Acceleration Time 0.2 s RV Ejection Time 0.3 s RV AcT/ET 0.5 FINDINGS Left Ventricle Normal left ventricular size and systolic function, EF 68 %. No regional wall motion abnormalities. Grade I/IV diastolic dysfunction (abnormal relaxation filling pattern), normal to mildly elevated filling pressures. Right Ventricle The right ventricle is normal in size and function. Right Atrium The right atrium is normal in size. Left Atrium The left atrium is normal in size. Mitral Valve Mild mitral annular calcification. Aortic Valve Thickened aortic valve. Tricuspid Valve Trace to mild tricuspid valve regurgitation. Pulmonic Valve Structurally normal pulmonic valve without significant stenosis. There is no pulmonic regurgitation. Pericardium Small echo-free space anteriorly and posteriorly Aorta Normal aortic annulus size. CONCLUSIONS Normal left ventricular size and systolic function, EF 68 %. No regional wall motion abnormalities. Grade I/IV diastolic dysfunction (abnormal relaxation filling pattern), normal to mildly elevated filling pressures. Thickened aortic valve. Mild mitral annular calcification. Trace to mild tricuspid valve regurgitation. Possible small pericardial effusion There are no intracardiac masses. Compared to the previous study from 06/06/2016, there may not be a significant change Dr García Kyle MD FACC (Electronically Signed) Final Date: 06 August 2020 17:39 S
[2020-08-07] VITALS (9 sets, daily range): BP systolic 100–135; BP diastolic 63–77; PULSE 70–93; RESP 16–18; TEMP 36.7–37.7; O2SAT 94–98
[2020-08-07] MEDS: enoxaparin 40 mg/0.4 mL Syringe SUBCUT (01:55)
[2020-08-07] MEDS: piperacillin-tazobactam 3.375 GM in sodium chloride 0.9% (plus) 50 ML IV (01:55)
[2020-08-07] MEDS: lactulose oral liq 20 gm/30 mL UDC PO ×2 (04:35→12:41)
[2020-08-07] MEDS: acetaminophen 325 mg Tablet 650 MG PO (04:35)
[2020-08-07 04:55] LABS: Hematocrit 33.5 % (42.0-52.0); Hemoglobin 11.4 g/dL (11.7-16.6); Mean Corpuscular Hemoglobin 32.9 pg (28.0-34.0); Mean Corpuscular Volume 96.8 fL (80-94); Mean Platelet Volume 10.7 fL (7.4-10.4); Platelet Count 120 10^3/cmm (130-400); Red Blood Count 3.46 10^6/uL (4.1-5.3); Red Cell Distribution Width 13.6 % (12.1-15.1); White Blood Count 3.2 10^3/uL (4.0-10.0)
[2020-08-07 05:10] LABS: C Reactive Protein 2.6 mg/L (0.0-4.9); Magnesium 1.6 mg/dL (1.7-2.3); Phosphorus 3.5 mg/dL (2.5-4.5)
[2020-08-07 05:21] LABS: Procalcitonin 0.06 ng/mL (0-0.5)
[2020-08-07 05:29] LABS: Absolute Eosinophils 0.1 10^3/cmm (0.0-0.7); Absolute Segmented Neutrophil 0.8 10/cmm (1.6-7.1); Band Neutrophils Absolute 0.1 10^3/cmm (0.0-1.2); Eosinophils 4 %; Lymphocytes 61 %; Monocytes Absolute 0.2 10^3/cmm (0.1-0.6); Segmented Neutrophils 25 %; Total Cells Counted 100 (0-100)
[2020-08-07 05:30] LABS: Absolute Neutrophil 0.9 10^3/cmm (1.4-6.5); Blastocytes 0 % (0-0); Platelet Estimate Decreased (Normal)
[2020-08-07 06:00] LABS: Alanine Aminotransferase 18 U/L (0-41); Albumin Level 3.3 g/dL (3.5-5.2); Alkaline Phosphatase 75 IU/L (40-130); Anion Gap 14.4 (5-19); Aspartate Amino Transferase 22 U/L (0-40); Blood Urea Nitrogen 20 mg/dL (8-23); Carbon Dioxide 19 mmol/L (22-29); Chloride 108 mmol/L (98-107); Globulin 3.1 g/dL (1.3-4.6); Glucose 162 mg/dL (65-115); Osmolality Calculated 292 mOsm/kg (285-295); Potassium 3.4 mmol/L (3.5-5.1); Sodium 138 mmol/L (136-145); Total Bilirubin 0.7 mg/dL (0.15-1.2); Total Protein 6.4 g/dL (6.6-8.7)
[2020-08-07 06:07] LABS: Ammonia 104 umol/L (16-60)
--- NOTE | 2020-08-07 06:28 | PC.NURSE ---
Patient has no complaints at this time. Will monitor.
[2020-08-07 06:55] LABS: Glucose Point of Care 172 mg/dL (70-110)
[2020-08-07] MEDS: magnesium oxide 400 mg tablet PO (08:14)
[2020-08-07] MEDS: folic acid 1 mg Tablet PO (08:14)
[2020-08-07] MEDS: gabapentin 100 mg Capsule 200 MG PO (08:14)
[2020-08-07] MEDS: multivitamin therapeutic Tablet 1 TAB PO (08:14)
[2020-08-07] MEDS: pantoprazole DR 40 mg Tablet PO (08:14)
[2020-08-07] MEDS: bisacodyl 5 mg Tablet 10 MG PO (08:14)
[2020-08-07] MEDS: clopidogrel 75 mg Tablet PO (08:15)
[2020-08-07] MEDS: atorvastatin 40 mg Tablet 80 MG PO (08:15)
[2020-08-07] MEDS: levothyroxine 150 mcg Tablet PO (08:15)
[2020-08-07] MEDS: aspirin 81 mg Chew Tablet PO (08:15)
[2020-08-07] MEDS: sitagliptin 100 mg Tablet PO (08:35)
[2020-08-07] MEDS: ipratropium-albuterol 3 mL Neb INHALATION (08:43)
[2020-08-07] MEDS: budesonide 0.5 mg/2 mL Neb INHALATION (08:43)
--- NOTE | 2020-08-07 09:02 | PC.NURSE ---
At 0845 the patient raised his arm for RT to scan his ID bracelet and he caught his IV on the blanket and it was pulled out. Dressing applied to site. Dr. Castillo came into the room soon after and stated we did not need to restart the IV at this time.
[2020-08-07] MEDS: potassium chloride ER 20 mEq Tablet 40 MEQ PO (09:07)
[2020-08-07 10:54] LABS: Glucose Point of Care 259 mg/dL (70-110)
[2020-08-07 11:22] LABS: EBV IGG TEST >750.00 U/mL; EBV IGM TEST <36.00 U/mL; EBV Nuclear AG >600.00 U/mL
--- NOTE | 2020-08-07 11:51 | P.DS_ITS ---
Discharge Providers Date of Admission: 08/05/20 00:00 Date of Discharge: August 07, 2020 Attending Provider at Admission: Charo Lam MD Attending Provider at Discharge: Bartolome Castillo MD Primary Care Provider: WINNIE Cunningham Diagnoses at Discharge Discharge Diagnosis (1) Hypotension: Status: Acute (2) Abdominal pain: Status: Acute (3) Chest pain: Status: Acute Qualifiers: Chest pain type: unspecified Qualified Code(s): R07.9 - Chest pain, unspecified (4) History of coronary artery stent placement: Status: Chronic Permanent problem details: LAD and diagonal at [place] (5) CAD (coronary artery disease): Status: Chronic Qualifiers: Coronary Disease-Associated Artery/Lesion type: kaw artery [place] vs. transplanted heart: kaw heart Associated angina: with unspecified angina Qualified Code(s): I25.119 - Atherosclerotic heart disease of kaw coronary artery with unspecified angina pectoris (6) COPD (chronic obstructive pulmonary disease): Status: Chronic Permanent problem details: PFTs 06/2019 consistent with moderate airflow obstruction. There is significant postbronchodilator response. Normal total lung capacity. Increased residual volume suggestive of air trapping. Gas exchange (DLCO) is moderately reduced but not corrected for patient's hemoglobin. Qualifiers: COPD type: unspecified COPD Qualified Code(s): J44.9 - Chronic obstructive pulmonary disease, unspecified (7) Diabetes mellitus, type II: Status: Chronic Qualifiers: Diabetes mellitus termite renewal inspector insulin use: without jail use Diabetes mellitus complication status: with other specified complication Qualified Code(s): E11.69 - Type 2 diabetes mellitus with other specified complication (8) Back pain, chronic: Status: Chronic Qualifiers: Back pain location: low back pain Back pain laterality: midline Sciatica presence: with sciatica Sciatica laterality: bilateral sciatica Qualified Code(s): M54.41 - Lumbago with sciatica, right side; M54.42 - Lumbago with sciatica, left side; G89.29 - Other chronic pain (9) RAQUEL (obstructive sleep apnea): Status: Acute (10) Hypomagnesemia: Status: Acute (11) Pancytopenia: Status: Acute (12) Alcoholic cirrhosis: Status: Acute Qualifiers: Ascites presence: without ascites Qualified Code(s): K70.30 - Alcoholic cirrhosis of liver without ascites (13) UTI (urinary tract infection): Status: Acute Reason for Visit Reason for Visit: CHEST PAIN Hospital Course Hospital Course This is a 75-year-old male with a recent history of of CAD status post stenting x2 in [facility] to LAD and diagonal 1, ischemic cardiomyopathy, history of alcoholic liver cirrhosis, last drink was over 3 years ago, history of anxiety and depression, history of chronic iron deficiency anemia, chronic back pain, chronic gout, COPD, type 2 diabetes mellitus, hypertension, who presents to [facility] due to chest pain Patient was admitted to [facility] for chest pain, CT angiogram of the chest did not reveal any pulmonary emboli, EKG did not show any acute ST-T wave changes, troponins with no significant delta troponin, echocardiogram showed an EF of 68%, no regional wall motion abnormalities. Likely patient's chest discomfort was a component of musculoskeletal pain and costochondritis, no episodes of chest pain during hospital mission, no episode of chest pain on discharge. Patient was advised to continue his aspirin, Plavix, and follow-up with his entertainment usher as outpatient During his hospital admission, he did develop an episode of hypotension, mean arterial pressure as low as 68, resolved with fluid therapy, etiology possibly secondary to UTI, 48 hours before discharge he remained normotensive. CT angiogram of the chest did not show any focal pneumonia. CT of the abdomen pelvis did not show any pyelonephritis or obstructive uropathy or evidence of a scites or spontaneous bacterial peritonitis. For his UTI, he was discharged on 6 remaining days of Levaquin. All cultures so far have been unremarkable. During his hospital admission he also developed pancytopenia He is anemia and thrombocytopenia will are likely secondary to a component of allopurinol, and his history of alcoholic liver cirrhosis. Anemia, no bloody or black stools, no signs of retroperitoneal bleed, likely related to liver cirrhosis, hemoglobin discharge 11.4 For thrombocytopenia, likely secondary to allopurinol liver cirrhosis, no signs of bleeding, platelet count discharge was 120. As patient is on aspirin and Plavix for his recent history of cardiac stenting, patient was advised For patient's absolute neutropenia, as low as 0.62, remained afebrile, no complaints of cough, no shortness of breath, no dysuria, was prophylactically placed on Zosyn for possible UTI, all cultures have been unremarkable, his rapid Covid was negative, influenza was negative.he is CMV and EBV titers are pending and should be followed up as outpatient. His absolute neutrophil count on discharge was 0.9, I have discharged him on Levaquin for 6 remaining days, with close follow-up with his primary care provider, and follow-up with hematology as outpatient. He was advised that if he were to have fevers, chills, concerns for infection come back to the emergency room. Patient has a history of alcoholic liver cirrhosis, he has been on lactulose intermittently as outpatient, his last alcohol drink was 3 years ago, alcohol levels were less than 10, creatinine 0.9, albumin 3.3, total bili 0.7, LFTs within normal limits, INR 1.12, surprisingly patient's ammonia levels were as high as 212. He had no evidence of confusion during my examination, alert oriented x3, no asterixis, patient and his daughter did confirm that at one point he was on lactulose but it was stopped. CT scan of the abdomen and pelvis showed advanced changes of cirrhosis and portal hypertension, no ascites. I have discharged patient on lactulose therapy, instructions to follow with primary care provider so that we can monitor his platelet count given that he is on dual antiplatelet therapy for CAD, in addition we will have patient follow-up with a motion and time study teacher in 2 to 4 weeks. Physical Exam Const: COMMON NORMALS: no acute distress and patient oriented x3 HENMT: COMMON NORMALS: normocephalic HEAD & SCALP: normocephalic Neck/C-Spine: COMMON NORMALS: no JVD Resp: COMMON NORMALS: normal respiratory effort, No retractions, No use of accessory muscles and clear to auscultation bilaterally AUSCULTATION: clear to auscultation bilaterally Cardio: COMMON NORMALS: no JVD, regular rate, regular rhythm, S1 normal heart sound present and S2 normal heart sound present RATE: regular rate RHYTHM: regular rhythm HEART SOUNDS: S1 normal heart sound present and S2 normal heart sound present GI: COMMON NORMALS: Normal to inspection, nondistended, normoactive bowel sounds present, Soft to palpation, non-tender, No hepatosplenomegaly present, no masses and no bruits PALPATION: Yes Soft to palpation and Yes No hepatosplenomegaly present Extremity: COMMON NORMALS: capillary refill normal, no clubbing, cyanosis or edema, no calf tenderness and no pedal edema Neuro: COMMON NORMALS: patient oriented x3 Psych: COMMON NORMALS: mental status grossly normal Discharge Data Data Completed and Pending: Completed Studies During Hospitalization Category Date Time Status CT angio chest PE protcl [id number] Stat Cat Scan 08/04/20 19:[address] kidney stone 7 [id number] Routine Cat Scan 08/06/20 17:28 Completed XR chest 1V rachele ble [id number] Stat Exams 08/04/20 18:29 Completed CV echo complete* [id number] Routine Ultrasound 08/06/20 21:22 Completed Pending at discharge Category Date Time Status Blood Culture Sta t Lab 08/06/20 09:43 Results C Reactive Protei n AM LABS Lab 08/08/20 04:00 Ordered C Reactive Protei n AM LABS Lab 08/09/20 04:00 Ordered CMV IGG&IGM Panel Stat Lab 08/06/20 09:43 Received Complete Blood Co unt w/Auto AM LABS Lab 08/08/20 04:00 Ordered Complete Blood Co unt w/Man Dif AM L ABS Lab 08/08/20 04:00 Ordered Complete Blood Co unt w/Man Dif AM L ABS Lab 08/09/20 04:00 Ordered Comprehensive Met abolic Panel AM LA BS Lab 08/08/20 04:00 Ordered Comprehensive Met abolic Panel AM LA BS Lab 08/08/20 04:00 Ordered Comprehensive Met abolic Panel AM LA BS Lab 08/09/20 04:00 Ordered Magnesium AM LABS Lab 08/08/20 04:00 Ordered Magnesium AM LABS Lab 08/09/20 04:00 Ordered Miscellaneous Lupis t Routine Lab 08/05/20 04:19 Received Miscellaneous Lupis t Routine Lab 08/05/20 04:19 Received Phosphorus AM LAB S Lab 08/08/20 04:00 Ordered Phosphorus AM LAB S Lab 08/09/20 04:00 Ordered Procalcitonin AM LABS Lab 08/08/20 04:00 Ordered Procalcitonin AM LABS Lab 08/09/20 04:00 Ordered Sputum Culture an d Gram Stain Stat Lab 08/06/20 08:48 Uncollected Urine Culture Sta t Lab 08/06/20 18:40 Received Labs from last 24 hours 08/07/20 08/07/20 08/07/20 10:40 06:46 04:45 WBC Corrected WBC RBC Hgb Hct MCV MCH MCHC RDW Plt Count MPV Gran % Neut % (Auto) Lymph % (Auto) [place] % (Auto) Eos % (Auto) Baso % (Auto) Neut # (Auto) Lymph # (Auto) [place] # (Auto) Eos # (Auto) Baso # (Auto) Absolute Gran (aut o) Nucleated RBC % (a uto) Total Counted Atypical Lymphs % Absolute Neutrophi ls Segmented Neutroph ils Abs Segm Neuts (Ma n) Band Neutrophils Abs Band Neuts (Ma n) Absolute Lymphocyt es Lymphocytes (Manua l) Monocytes (Manual) Absolute Monocytes Eosinophils (Manua l) Absolute Eosinophi ls Basophils (Manual) Absolute Basophils Metamyelocytes Myelocytes Promyelocytes Nucleated RBCs # Blast Cells Platelet Estimate PT INR Sodium Potassium Chloride Carbon Dioxide Anion Gap BUN Creatinine GFR Calculation Glucose POC Glucose 259 H 172 H Calculated Osmolal ity Calcium Phosphorus Magnesium Total Bilirubin AST ALT Alkaline Phosphata se Ammonia 104 H C-Reactive Protein Total Protein Albumin Globulin Procalcitonin Ethyl Alcohol EBV IgG Ab EBV IgM Ab EBV Nuclear Antige n EBV Interpretation Misc Test Referenc e 08/07/20 08/07/20 08/07/20 04:34 04:34 04:34 WBC 3.2 L Corrected WBC RBC 3.46 L Hgb 11.4 L Hct 33.5 L MCV 96.8 H MCH 32.9 MCHC 34.0 RDW 13.6 Plt Count 120 L MPV 10.7 H Gran % Neut % (Auto) Lymph % (Auto) [place] % (Auto) Eos % (Auto) Baso % (Auto) Neut # (Auto) Lymph # (Auto) [place] # (Auto) Eos # (Auto) Baso # (Auto) Absolute Gran (aut o) Nucleated RBC % (a uto) Total Counted 100 Atypical Lymphs % 0.0 Absolute Neutrophi ls 0.9 L Segmented Neutroph ils 25 Abs Segm Neuts (Ma n) 0.8 L Band Neutrophils 3.0 Abs Band Neuts (Ma n) 0.1 Absolute Lymphocyt es 2.0 Lymphocytes (Manua l) 61 Monocytes (Manual) 7.0 Absolute Monocytes 0.2 Eosinophils (Manua l) 4 Absolute Eosinophi ls 0.1 Basophils (Manual) 0.0 Absolute Basophils 0.0 Metamyelocytes 0.0 Myelocytes 0.0 Promyelocytes 0.0 Nucleated RBCs # Blast Cells 0 Platelet Estimate Decreased PT INR Sodium Potassium Chloride Carbon Dioxide Anion Gap BUN Creatinine GFR Calculation Glucose POC Glucose Calculated Osmolal ity Calcium Phosphorus 3.5 Magnesium 1.6 L Total Bilirubin AST ALT Alkaline Phosphata se Ammonia C-Reactive Protein 2.6 Total Protein Albumin Globulin Procalcitonin 0.06 Ethyl Alcohol EBV IgG Ab EBV IgM Ab EBV Nuclear Antige n EBV Interpretation [facility] [place] Referenc e 08/07/20 08/07/20 08/06/20 04:34 04:34 20:34 WBC Cancelled Corrected WBC Cancelled RBC Cancelled Hgb Cancelled Hct Cancelled MCV Cancelled MCH Cancelled MCHC Cancelled RDW Cancelled Plt Count Cancelled MPV Cancelled Gran % Cancelled Neut % (Auto) Cancelled Lymph % (Auto) Cancelled [place] % (Auto) Cancelled Eos % (Auto) Cancelled Baso % (Auto) Cancelled Neut # (Auto) Cancelled Lymph # (Auto) Cancelled [place] # (Auto) Cancelled Eos # (Auto) Cancelled Baso # (Auto) Cancelled Absolute Gran (aut o) Cancelled Nucleated RBC % (a uto) Cancelled Total Counted Atypical Lymphs % Absolute Neutrophi ls Segmented Neutroph ils Abs Segm Neuts (Ma n) Band Neutrophils Abs Band Neuts (Ma n) Absolute Lymphocyt es Lymphocytes (Manua l) Monocytes (Manual) Absolute Monocytes Eosinophils (Manua l) Absolute Eosinophi ls Basophils (Manual) Absolute Basophils Metamyelocytes Myelocytes Promyelocytes Nucleated RBCs # Cancelled Blast Cells Platelet Estimate PT INR Sodium 138 Potassium 3.4 L Chloride 108 H Carbon Dioxide 19 L Anion Gap 14.4 BUN 20 Creatinine 0.9 GFR Calculation Not Reportable Glucose 162 H POC Glucose 207 H Calculated Osmolal ity 292 Calcium 9.0 Phosphorus Magnesium Total Bilirubin 0.7 AST 22 ALT 18 Alkaline Phosphata se 75 Ammonia C-Reactive Protein Total Protein 6.4 L Albumin 3.3 L Globulin 3.1 Procalcitonin Ethyl Alcohol EBV IgG Ab EBV IgM Ab EBV Nuclear Antige n EBV Interpretation [facility] [place] Referenc e 08/06/20 08/06/20 08/06/20 17:14 14:34 14:34 WBC Corrected WBC RBC Hgb Hct MCV MCH MCHC RDW Plt Count MPV Gran % Neut % (Auto) Lymph % (Auto) [place] % (Auto) Eos % (Auto) Baso % (Auto) Neut # (Auto) Lymph # (Auto) [place] # (Auto) Eos # (Auto) Baso # (Auto) Absolute Gran (aut o) Nucleated RBC % (a uto) Total Counted Atypical Lymphs % Absolute Neutrophi ls Segmented Neutroph ils Abs Segm Neuts (Ma n) Band Neutrophils Abs Band Neuts (Ma n) Absolute Lymphocyt es Lymphocytes (Manua l) Monocytes (Manual) Absolute Monocytes Eosinophils (Manua l) Absolute Eosinophi ls Basophils (Manual) Absolute Basophils Metamyelocytes Myelocytes Promyelocytes Nucleated RBCs # Blast Cells Platelet Estimate PT 14.80 INR 1.12 Sodium Potassium Chloride Carbon Dioxide Anion Gap BUN Creatinine GFR Calculation Glucose POC Glucose 143 H Calculated Osmolal ity Calcium Phosphorus Magnesium Total Bilirubin AST ALT Alkaline Phosphata se Ammonia 145 H C-Reactive Protein Total Protein Albumin Globulin Procalcitonin Ethyl Alcohol EBV IgG Ab EBV IgM Ab EBV Nuclear Antige n EBV Interpretation Misc Test Referenc e 08/06/20 08/06/20 08/06/20 14:34 11:46 09:43 WBC Corrected WBC RBC Hgb Hct MCV MCH MCHC RDW Plt Count MPV Gran % Neut % (Auto) Lymph % (Auto) [place] % (Auto) Eos % (Auto) Baso % (Auto) Neut # (Auto) Lymph # (Auto) [place] # (Auto) Eos # (Auto) Baso # (Auto) Absolute Gran (aut o) Nucleated RBC % (a uto) Total Counted Atypical Lymphs % Absolute Neutrophi ls Segmented Neutroph ils Abs Segm Neuts (Ma n) Band Neutrophils Abs Band Neuts (Ma n) Absolute Lymphocyt es Lymphocytes (Manua l) Monocytes (Manual) Absolute Monocytes Eosinophils (Manua l) Absolute Eosinophi ls Basophils (Manual) Absolute Basophils Metamyelocytes Myelocytes Promyelocytes Nucleated RBCs # Blast Cells Platelet Estimate PT INR Sodium Potassium Chloride Carbon Dioxide Anion Gap BUN Creatinine GFR Calculation Glucose POC Glucose 244 H Calculated Osmolal ity Calcium Phosphorus Magnesium Total Bilirubin AST ALT Alkaline Phosphata se Ammonia C-Reactive Protein Total Protein Albumin Globulin Procalcitonin Ethyl Alcohol < 10 EBV IgG Ab >750.00 H EBV IgM Ab <36.00 EBV Nuclear Antige n >600.00 H EBV Interpretation See note Misc Test Referenc e 08/05/20 08/05/20 04:19 04:19 WBC Corrected WBC RBC Hgb Hct MCV MCH MCHC RDW Plt Count MPV Gran % Neut % (Auto) Lymph % (Auto) [place] % (Auto) Eos % (Auto) Baso % (Auto) Neut # (Auto) Lymph # (Auto) [place] # (Auto) Eos # (Auto) Baso # (Auto) Absolute Gran (aut o) Nucleated RBC % (a uto) Total Counted Atypical Lymphs % Absolute Neutrophi ls Segmented Neutroph ils Abs Segm Neuts (Ma n) Band Neutrophils Abs Band Neuts (Ma n) Absolute Lymphocyt es Lymphocytes (Manua l) Monocytes (Manual) Absolute Monocytes Eosinophils (Manua l) Absolute Eosinophi ls Basophils (Manual) Absolute Basophils Metamyelocytes Myelocytes Promyelocytes Nucleated RBCs # Blast Cells Platelet Estimate PT INR Sodium Potassium Chloride Carbon Dioxide Anion Gap BUN Creatinine GFR Calculation Glucose POC Glucose Calculated Osmolal ity Calcium Phosphorus Magnesium Total Bilirubin AST ALT Alkaline Phosphata se Ammonia C-Reactive Protein Total Protein Albumin Globulin Procalcitonin Ethyl Alcohol EBV IgG Ab EBV IgM Ab EBV Nuclear Antige n EBV Interpretation Misc Test Referenc e Pending Pending Vitals: Last Vital Signs Temp 98.9 F 08/07/20 11:40 Pulse 81 08/07/20 11:40 Resp 18 08/07/20 11:40 BP 104/65 08/07/20 11:40 Pulse Ox 97 08/07/20 11:40 Discharge Plan Discharge Patient Disposition: Home Condition: Stable Prescriptions: New multivitamin with folic acid [Thera] 400 mcg Tablet 1 tab PO DAILY 30 Days Qty: 60 RF: 0 lactulose 20 gram/30 mL Solution 40 g PO DAILY 30 Days Qty: 3000 RF: 0 levofloxacin 750 mg tablet 750 mg PO DAILY 6 Days Qty: 6 RF: 0 Continued albuterol sulfate 2.5 mg /3 mL (0.083 %) solution for nebulization 2.5 mg INHALATION Q6H PRN (Reason: Shortness Of Breath) RF: 0 (DME) blood-glucose meter Kit See Rx Instructions .ROUTE .MEDSUPPLY Qty: 30 RF: 11 (DME) lancing device with lancets [Accu-Chek FastClix Lancing Dev] Kit See Rx Instructions .ROUTE .MEDSUPPLY Qty: 100 RF: 5 (DME) Accu-Chek Agustina Plus test strp Strip See Rx Instructions .ROUTE .MEDSUPPLY Qty: 100 RF: 6 cholecalciferol (vitamin D3) 1,250 mcg (50,000 unit) capsule 50,000 unit PO .Q 7 DAYS Qty: 4 RF: 2 donepezil 10 mg tablet 10 mg PO BEDTIME RF: 0 duloxetine 20 mg capsule,delayed release(DR/EC) 20 mg PO BEDTIME RF: 0 levothyroxine 150 mcg tablet 150 mcg PO DAILY RF: 0 magnesium 250 mg Tablet 250 mg PO DAILY RF: 0 Men's One Daily 1 tab PO DAILY RF: 0 losartan 50 mg tablet 50 mg PO DAILY RF: 0 potassium chloride 10 mEq capsule, extended release 10 meq PO BEDTIME RF: 0 isosorbide mononitrate 30 mg tablet extended release 24 hr 30 mg PO DAILY RF: 0 pantoprazole 40 mg tablet,delayed release (DR/EC) 40 mg PO DAILY RF: 0 metformin 1,000 mg tablet 1,000 mg PO BIDWM RF: 0 folic acid 1 mg tablet 1 mg PO DAILY RF: 0 gabapentin 100 mg capsule 200 mg PO TID RF: 0 finasteride 5 mg tablet 5 mg PO BEDTIME RF: 0 Januvia 100 mg tablet 100 mg PO DAILY RF: 0 ergocalciferol (vitamin D2) 1,250 mcg (50,000 unit) capsule 1,250 mcg PO Q7D RF: 0 Trelegy Ellipta 100-62.5-25 mcg blister with device 1 inh inhalation Q24H RF: 0 clopidogrel 75 mg Tablet 75 mg PO DAILY RF: 0 chlorthalidone 25 mg Tablet 12.5 mg PO DAILY RF: 0 Coreg 3.125 mg Tablet 3.125 mg PO Q12H RF: 0 aspirin 81 mg Tablet,Chewable 81 mg PO DAILY RF: 0 rosuvastatin 20 mg Tablet 20 mg PO DAILY RF: 0 Linzess 145 mcg capsule 145 mcg PO DAILY RF: 0 polymyxin B sulf-trimethoprim 10,000 unit- 1 mg/mL Drops 1 drp OPHTHALMIC (EYE) DIRECTED RF: 0 Held allopurinol 300 mg tablet 300 mg PO DAILY RF: 0 Hold Instructions: Resume on 09/07/20. Hold until seen by primary care Discharge Orders: Discharge Order (Routine); Ordered 08/07/20 Ordered By: Bartolome Castillo Referrals: RUSTY Sharma FNP [Primary Care Provider] - 1 week Godwin Hawkins DO [Referring] - 1 month (liver cirrhosis) Stewart Jackson MD [Hospitalist] - 1 week Discharge Diet: Cardiac Discharge Activity: Resume usual activity Activity Restrictions/Additional Instructions: -Please follow-up with primary care provider in 1 week for recheck CBC -If you develop fevers, fatigue, malaise, cough go to the emergency room -Please continue antibiotics as prescribed -If you develop any signs of bleeding, go to the emergency room -For your liver cirrhosis please follow-up with gastroenterology in 1 month -For your elevated ammonia levels, please use lactulose as prescribed -Continue to hold allopurinol -If you have chest pain please go to the emergency room Discharge Attestations Time Spent in Discharge Care*: greater than 30 min Quality Metrics Clinical Quality Measures During this hospital stay, did patient experience: None Coding Level of Care Code Acute Chg FW [place] note Diagnoses Hypotension I95.9 Abdominal pain R10.9 Chest pain R07.9 Chest pain type: unspecified History of coronary artery stent placement Z95.5 CAD (coronary artery disease) I25.119 Coronary Disease-Associated Artery/Lesion type: kaw artery [place] vs. transplanted heart: kaw heart Associated angina: with unspecified angina COPD (chronic obstructive pulmonary disease) J44.9 COPD type: unspecified COPD Diabetes mellitus, type II E11.69 Diabetes mellitus termite renewal inspector insulin use: without termite renewal inspector use Diabetes mellitus complication status: with other specified complication Back pain, chronic M54.41; M54.42; G89.29 Back pain location: low back pain Back pain laterality: midline Sciatica presence: with sciatica Sciatica laterality: bilateral sciatica RAQUEL (obstructive sleep apnea) G47.33 Hypomagnesemia E83.42 Pancytopenia D61.818 Alcoholic cirrhosis K70.30 Ascites presence: without ascites UTI (urinary tract infection) N39.0
[2020-08-07 13:28] LABS: Cytomegalovirus Antibody (IGG) <0.60 U/mL; Cytomegalovirus Antibody (IGM) <30.00 AU/mL
[2020-08-22 10:26] LABS: Miscellaneous Test See Scanned Lab Rpt
== END 2020-08-07 15:15 | disposition home or self-care (01) | DRG 315 ==
LOC: ER 19:08 → CSU 08-05 00:24
PROVIDERS: Internal Medicine; Admitting Provider Hospitalist; Emergency Provider Family Medicine; PCP Nurse Practitioner Family; Visit Provider Family Medicine
DX: I95.9 Hypotension, unspecified (principal); I50.32 Chronic diastolic (congestive) heart failure; N39.0 Urinary tract infection, site not specified; K76.6 Portal hypertension; R07.89 Other chest pain; M94.0 Chondrocostal junction syndrome [Tietze]; I25.119 Atherosclerotic heart disease of native coronary artery with unspecified angina pectoris; Z95.5 Presence of coronary angioplasty implant and graft; M51.17 Intervertebral disc disorders with radiculopathy, lumbosacral region; G89.29 Other chronic pain; K70.30 Alcoholic cirrhosis of liver without ascites; F10.21 Alcohol dependence, in remission; D50.9 Iron deficiency anemia, unspecified; F41.9 Anxiety disorder, unspecified; M19.90 Unspecified osteoarthritis, unspecified site; K64.8 Other hemorrhoids; K22.2 Esophageal obstruction; K44.9 Diaphragmatic hernia without obstruction or gangrene; N40.0 Benign prostatic hyperplasia without lower urinary tract symptoms; I11.0 Hypertensive heart disease with heart failure; M1A.9XX0 Chronic gout, unspecified, without tophus (tophi); J44.9 Chronic obstructive pulmonary disease, unspecified; E11.42 Type 2 diabetes mellitus with diabetic polyneuropathy; K21.9 Gastro-esophageal reflux disease without esophagitis; M20.42 Other hammer toe(s) (acquired), left foot; M20.41 Other hammer toe(s) (acquired), right foot; E03.9 Hypothyroidism, unspecified; M21.42 Flat foot [pes planus] (acquired), left foot; M21.41 Flat foot [pes planus] (acquired), right foot; G47.33 Obstructive sleep apnea (adult) (pediatric); E55.9 Vitamin D deficiency, unspecified; Z96.653 Presence of artificial knee joint, bilateral; R31.29 Other microscopic hematuria; D70.2 Other drug-induced agranulocytosis; T50.4X5A Adverse effect of drugs affecting uric acid metabolism, initial encounter; D69.59 Other secondary thrombocytopenia; E83.42 Hypomagnesemia; N21.0 Calculus in bladder; I25.5 Ischemic cardiomyopathy; Z79.51 Long term (current) use of inhaled steroids; Z79.02 Long term (current) use of antithrombotics/antiplatelets; Z79.84 Long term (current) use of oral hypoglycemic drugs; Z79.82 Long term (current) use of aspirin
CPT/HCPCS: 36415; 36416; 36600; 51798; 71045; 71275; 74176; 80048; 80053; 80307; 80500; 81001; 82140; 82274; 82607; 82746; 82803; 82962; 83690; 83735; 83880; 84100; 84145; 84443; 84484; 85007; 85025; 85027; 85378; 85610; 85651; 86140; 86664; 86665; 87040; 87086; 87426; 87804; 88184; 88185; 93005; 93306; 94640; 96372; 96374; 97116; 97161; 99291; J1650; J1815; J2405; J2543; J3475; J7030; J7626; Q9967

== ENCOUNTER 2020-08-15 09:04 | Outpatient (CLI) | payer MEDICARE, MEDICAID, SELFPAY ==
[2020-08-15 10:10] LABS: Basophils # 0.1 10^3/uL (0.0-0.1); Basophils % 1.3 %; Eosinophils # 0.6 10^3/uL (0.0-0.8); Eosinophils % 11.6 %; Hematocrit 33.3 % (42.0-52.0); Hemoglobin 11.1 g/dL (11.7-16.6); Lymphocytes # 1.7 10^3/uL (0.8-4.8); Mean Corpuscular HGB Conc 33.3 g/dL (30.0-36.0); Mean Corpuscular Hemoglobin 32.3 pg (28.0-34.0); Mean Corpuscular Volume 96.8 fL (80-94); Mean Platelet Volume 11.5 fL (7.4-10.4); Monocytes % 17.7 %; Neutrophils # 2.04 10^3/uL (1.8-7.7); Nucleated Red Blood Cells % 0 %; Platelet Count 92 10^3/cmm (130-400); Red Blood Count 3.44 10^6/uL (4.1-5.3); Red Cell Distribution Width 13.3 % (12.1-15.1); White Blood Count 5.4 10^3/uL (4.0-10.0)
[2020-08-15 13:01] LABS: Ferritin 819 ng/mL (30-400); Iron 135 ug/dL (59-158); Percent Saturation 80.8 % (20-50); Total Iron Binding Capacity 167 mcg/dl; Unsaturated Iron Binding 32 ug/dL (112-347)
[2020-08-15 18:53] LABS: Alanine Aminotransferase 27 U/L (0-41); Albumin Level 3.8 g/dL (3.5-5.2); Alkaline Phosphatase 84 IU/L (40-130); Anion Gap 15.4 (5-19); Aspartate Amino Transferase 27 U/L (0-40); Blood Urea Nitrogen 28 mg/dL (8-23); Calcium 10.6 mg/dL (8.5-10.5); Carbon Dioxide 19 mmol/L (22-29); Chloride 108 mmol/L (98-107); Globulin 3.5 g/dL (1.3-4.6); Glucose 141 mg/dL (65-115); Osmolality Calculated 296 mOsm/kg (285-295); Potassium 3.4 mmol/L (3.5-5.1); Sodium 139 mmol/L (136-145); Total Bilirubin 0.5 mg/dL (0.15-1.2); Total Protein 7.3 g/dL (6.6-8.7)
--- NOTE | 2020-08-17 08:57 | ONC CON_ITS ---
Dr. Coburn New Patient Note Patient: Timoteo Hassan Unit #: [id number]: 1945 Dicatated By: Vijaya Coburn M.D.Date of Visit: Aug 15, 2020 Onc MED New Patient/Consult Referring Physician: Erin Martinez History of Present Illness: Mr. Sonya Mahmood, 75-year-old gentleman with long-standing history of iron deficiency anemia, in the past treated with oral iron and still taking it without much success, as per record CBC from 08/29/2016 showed white blood count 5.5 hemoglobin 10.5 crit 34.1 platelets 166,000 and MCV 75.7 CBC on 11/03/2016 showed white blood count 5 , hemoglobin 10.1, crit 31.8 platelets 186,000 and MCV 76.6 , while on ferrous gluconate 324 mg 2 tablets once a day and folic acid 1 mg daily. As per family, patient has history of cirrhosis due to alcoholism, not sure whether he had biopsy-proven but most likely radiological finding, diagnosed many years ago History of splenomegaly as per scans many years ago Patient had EGD on 03/13/[address] Aric Muñoz., it showed normal esophageal exam, in the prepyloric area there was moderate inflammation, edema , nodularity, hemorrhage and erosions was seen. There was no mucosal bleeding and duodenal exam no abnormality seen Colonoscopy was done on 03/13/[address] Aric Muñoz, in the left colon a few small diverticula were seen, the diverticula were not actively bleeding Came for follow-up, denies any specific complaints except generalized weakness and fatigue and recently diagnosed with sleep apnea, awaiting CPAP machine. Patient also has history of elevated ammonia level for which he is on lactulose on regular basis, now being referred to creative consultant in [place]., Last time patient seen in the clinic was on June 25, 2017 at that time his white blood count was 6.3, hemoglobin 12.6 g medical 38.4 platelets 154,000 his ferritin was 185.4 and patient was scheduled to come back in 3 months with CBC and iron studies but as per family patient moved to [place] where he did establish hematology care and about 2 years ago he did receive parenteral iron. And now while he was in [facility], in August 05, 2020, he was admitted to [facility] with chest pain, CT angiogram of chest did not show pulmonary embolism, no EKG changes, ejection fraction 68%, no regional wall motion abnormality. So his pain was assumed to be due to musculoskeletal or costochondritis, patient has recent history of CAD status post stenting x2 at [facility] for which he is being treated with aspirin and Plavix. His past medical history significant for alcoholic liver cirrhosis, history of anxiety/depression, chronic gout, COPD, type 2 diabetes mellitus, hypertension. And during admission on August 12, 2020 his white blood count was 3.3, hemoglobin 13 g hematocrit 38.3 and platelets were 1 31,000, repeat CBC on August 05, 2020 shows white blood count 3.6 hemoglobin 12.2 g platelets 121,000 and next day his white blood count dropped further to 2.8, hemoglobin 11.2 g and platelets 110,000 ANC 620 and peripheral blood smear done on August 05, 2020 shows leukopenia with absolute neutropenia, atypical lymphocytes, macrocytic anemia, also shows increasing lymphocytes and monocytes with atypical and dysplastic features flow cytometry was ordered patient had CT scan of abdomen pelvis done on August 05, 2020 which showed liver markedly abnormal, markedly lobulated contour of liver from cirrhosis, and portal hypertension, spleen is top normal size 13.7 cm there are few granulomata.. CT scan of chest shows 1.4 cm left lower lobe lung nodule and 1.3 cm right middle lobe lung nodule denies any night sweats, denies any recurrent fevers denies any weight loss denies any peripheral lymphadenopathy denies any melena or hematochezia hemoptysis or hematemesis denies any symptoms suggestive of Covid infection, no loss of taste or smell Past Medical History: Mr. Hassan's medical history consists of chronic obstructive pulmonary disease, congestive heart failure, coronary artery disease, diabetes type II, hyperlipidemia, hypertension, hypothyroidism, and osteoarthritis. Past Surgical History: Mr. Hassan's surgical/procedural history consists of Eye Surgery (right and left), Stent Placement in 2020, Colonoscopy in 2016, Bicep Repair-Right in 2015, cholecystectomy in 2014, Left knee surgery in 2009, and Right knee surgery in 2007. Medications: Aspirin 81 1 Tablet (of 81 mg) Tablet, chewable Oral daily, B-1 1 Tablet (of 100 mg) Oral daily, Carvedilol 1 Tablet (of 3.125 mg) Oral b.i.d., Centrum Men 1 Tablet Oral daily, Chlorthalidone 0.5 Tablet (of 25 mg) Oral daily, Clopidogrel Bisulfate 1 Tablet (of 75 mg) Oral daily, Crestor 1 Tablet (of 20 mg) Oral daily, Donepezil HCl 1 Tablet (of 10 mg) Oral daily, DULoxetine HCl 1 Tablet (of 20 mg) Capsule Delayed Release Particles Oral daily, Essential Magnesium 1 Tablet (of 250 mg) Oral daily, Finasteride 1 Tablet (of 5 mg) Oral daily, Folic Acid 1 Tablet (of 1 mg) Oral daily, Gabapentin 1 Caplet (of 400 mg) Capsule Oral t.i.d., Isosorbide Mononitrate ER 1 Tablet (of 30 mg) Tablet SR 24 HR Oral daily, Januvia 1 Tablet (of 100 mg) Oral daily, Klor-Con 10 1 Tablet (of 10 meq) Tablet, controlled release Oral daily, Lactulose 30 mL (of 20 g/30mL) Solution Oral b.i.d., Levothyroxine Sodium 1 Tablet (of 150 mcg) Oral daily, Linzess 1 Caplet (of 145 mcg) Capsule Oral daily, Losartan Potassium 1 Tablet (of 50 mg) Oral daily, MetFORMIN HCl 1 Tablet (of 1000 mg) Oral b.i.d., Pantoprazole Sodium 1 Tablet (of 40 mg) Tablet, enteric coated Oral daily, Perforomist 1 (20 mcg/2mL) Nebulization solution Inhalation b.i.d., Trelegy Ellipta 1 Inhalation (of 100-62.5-25 mcg/inh) Aerosol Powder, Breath Activated Inhalation daily, Valsartan 1 Tablet (of 80 mg) Oral daily, Vitamin D2 1 Tablet (of 10 mcg ) Oral daily, Weekly-D 1 Tablet (of 1.25 mg ) Capsule Oral q 7 days Allergies: Ciprofloxacin HCl and Morphine Sulfate. Social History: Mr. Hassan is and he is retired. Mr. Hassan quit smoking 28 years ago but had smoked 3.0 packs/day for 3 years. He has no history of drinking. Family History: Mr. Hassan's mother at age 90: heart attack. Mr. Hassan's father at age 55: Blood clot. Mr. Hassan has 2 brothers: 2 alive. He has 1 sister who is alive. Review Of Symptoms: Review of Systems is not available for this patient. Vital Signs: Performed on Aug 15, 2020 11:27: 7, 6, 31.32 (HIGH), 2.02 sq.m, 67.00 in, 99 %, 72 /min, 18 /min, 128/68 mm(hg), 97.9 F (LOW), and 200 lbs (LOW). Performance Status: 1 - No physically strenuous activity, but ambulatory and able to carry out light or sedentary work (e.g. office work, light house work). (ECOG) Physical Examination: ENMT - No mouth sores, no thrush, no jaundice, no cervical lymphadenopathy, Respiratory - Lungs are clear to auscultation , Cardiovascular - Regular rate and rhythm of heart, Abdomen - Soft, bowel sounds present, Extremities - No visible edema. Lab/Imaging: Most recent lab results are not available for this patient. Impression: Episode of pancytopenia per lab work-up done during hospital admission for chest pain on August 06, 2020 which showed white blood count 2.8, hemoglobin 11.2 g hematocrit 33.4 MCV 96.5 platelets 110,000 ANC 620, Etiology unclear could be due to underlying infection or stress or medication induced e.g. allopurinol for gout or splenic sequestration although spleen is on the upper side of normal but recently done CT scan of abdomen pelvis on August 05, 2020 showed findings suggestive of hepatic cirrhosis and portal hypertension, Considering his age underlying myelodysplasia cannot be ruled out Microcytic hypochromic anemia, iron deficiency due to malabsorption versus chronic blood loss from GI tract malignancy or nonmalignant sources like peptic ulcer disease , AVMs or esophageal varices patient has history of hepatic cirrhosis status post Injectafer 750 mg weekly ???2 Hepatic cirrhosis as per family ? History of hepatic encephalopathy as per family EGD done on 03/24/2017 showed Ely esophagitis and erosive gastritis in the antrum biopsies were taken colonoscopy was done on 03/24/2017 showed internal hemorrhoids and 5 mm sessile polyp removed from transverse colon. Plan: Discussed with patient regarding his labs white blood count 5.4 hemoglobin 11.1 g hematocrit 33.3 platelets 92,000 ANC 2004 Clinically, patient is doing well with no new signs symptoms except generalized weakness and fatigue which could be multifactorial including recently diagnosed with sleep apnea and awaiting CPAP machine or due to elevated ammonia level but he is on lactulose and now awaiting evaluation by creative consultant in [place]. As far as recently diagnosed pancytopenia is concerned, today's labs shows resolution of leukopenia/neutropenia, hemoglobin is stable around 11.1 g, there is a further drop in his platelet count to 92,000 compared to 120,000 at the time of discharge. At this point, will consider iron studies if it shows low iron, will consider parenteral iron, as in the past she responded very well. Otherwise we will see him back in 1 month with CBC and iron studies if follow-up labs shows further drop in his platelet count, will consider bone marrow evaluation to rule out underlying myelodysplasia versus peripheral destruction due to splenic sequestration or ITP. Patient was advised in case there is any evidence of gross bleeding, he need to call us or go to hospital immediately as he is on aspirin and Plavix for recent coronary artery stenting. Signed By: Vijaya Coburn M.D. <<Signature on File>>
== END 2020-08-15 09:05 | disposition home or self-care (01) ==
LOC: ONCMED 09:10
PROVIDERS: PCP Nurse Practitioner Family; Visit Provider Internal Medicine Hematology & Oncology
DX: D61.818 Other pancytopenia (principal); D50.9 Iron deficiency anemia, unspecified; K64.8 Other hemorrhoids; Z86.010 Personal history of colon polyps; R53.1 Weakness; R53.83 Other fatigue; G47.30 Sleep apnea, unspecified; Z79.02 Long term (current) use of antithrombotics/antiplatelets; Z79.82 Long term (current) use of aspirin; Z95.5 Presence of coronary angioplasty implant and graft; Z87.891 Personal history of nicotine dependence
CPT/HCPCS: 36415; 80053; 82728; 83540; 83550; 85025; 99204

== ENCOUNTER → 2020-09-05 10:34 | Outpatient (BNVA) | payer MEDICARE, MEDICAID, SELFPAY | PROVIDERS: PCP Nurse Practitioner Family; Visit Provider Nurse Practitioner Family | DX: R30.0 Dysuria (principal); R39.9 Unspecified symptoms and signs involving the genitourinary system; R31.9 Hematuria, unspecified | CPT/HCPCS: 81003; 87086 ==

== ENCOUNTER 2020-09-13 09:02 | Outpatient (CLI) | payer MEDICARE, MEDICAID, SELFPAY ==
[2020-09-13 09:51] LABS: Basophils # 0.1 10^3/uL (0.0-0.1); Basophils % 2.1 %; Eosinophils # 0.3 10^3/uL (0.0-0.8); Eosinophils % 8.2 %; Hematocrit 33.2 % (42.0-52.0); Hemoglobin 10.7 g/dL (11.7-16.6); Lymphocytes # 0.9 10^3/uL (0.8-4.8); Lymphocytes % 24.6 %; Mean Corpuscular HGB Conc 32.2 g/dL (30.0-36.0); Mean Corpuscular Hemoglobin 32.8 pg (28.0-34.0); Mean Corpuscular Volume 101.8 fL (80-94); Mean Platelet Volume 10.5 fL (7.4-10.4); Monocytes # 0.6 10^3/uL (0.2-0.9); Monocytes % 14.8 %; Neutrophils # 1.88 10^3/uL (1.8-7.7); Neutrophils % 49.8 %; Nucleated Red Blood Cells % 0 %; Platelet Count 109 10^3/cmm (130-400); Red Blood Count 3.26 10^6/uL (4.1-5.3); Red Cell Distribution Width 15.6 % (12.1-15.1); White Blood Count 3.8 10^3/uL (4.0-10.0)
--- NOTE | 2020-09-18 17:25 | ONC FU_ITS ---
Dr. Coburn follow up note Patient: Timoteo Hassan Unit #: [id number]: 1945 Dicatated By: Vijaya Coburn M.D.Date of Visit:Sep 13, 2020 Onc Med Follow-up/Prog Note History of Present Illness: Mr. Sonya Mahmood, 75-year-old gentleman with long-standing history of iron deficiency anemia, in the past treated with oral iron and still taking it without much success, as per record CBC from 08/29/2016 showed white blood count 5.5 hemoglobin 10.5 crit 34.1 platelets 166,000 and MCV 75.7 CBC on 11/03/2016 showed white blood count 5 , hemoglobin 10.1, crit 31.8 platelets 186,000 and MCV 76.6 , while on ferrous gluconate 324 mg 2 tablets once a day and folic acid 1 mg daily. As per family, patient has history of cirrhosis due to alcoholism, not sure whether he had biopsy-proven but most likely radiological finding, diagnosed many years ago History of splenomegaly as per scans many years ago Patient had EGD on 03/13/[address] Aric Muñoz., it showed normal esophageal exam, in the prepyloric area there was moderate inflammation, edema , nodularity, hemorrhage and erosions was seen. There was no mucosal bleeding and duodenal exam no abnormality seen Colonoscopy was done on 03/13/[address] Aric Muñoz, in the left colon a few small diverticula were seen, the diverticula were not actively bleeding denies any night sweats, denies any recurrent fevers denies any weight loss denies any peripheral lymphadenopathy denies any melena or hematochezia hemoptysis or hematemesis denies any symptoms suggestive of Covid infection, no loss of taste or smell Came for follow-up, denies any specific complaints except recently diagnosed with UTI which was treated with oral antibiotic which he completed today. Feeling well as per patient he is off lactulose now as his ammonia level is staying within normal range also complaining of off and on diarrhea probably due to IBS Patient said he has a pulmonary nodule for years has been followed by pulmonology on regular basis. Denies any fever or chills denies any nausea or vomiting ,denies any melena or hematochezia denies any hemoptysis or hematemesis denies any jaundice, overall feeling well and planning to move back to [place], patient has seen camelid fiber sorter there. Medications: Aspirin 81 1 Tablet (of 81 mg) Tablet, chewable Oral daily, B-1 1 Tablet (of 100 mg) Oral daily, Carvedilol 1 Tablet (of 3.125 mg) Oral b.i.d., Centrum Men 1 Tablet Oral daily, Clopidogrel Bisulfate 1 Tablet (of 75 mg) Oral daily, Crestor 1 Tablet (of 20 mg) Oral daily, Donepezil HCl 1 Tablet (of 10 mg) Oral daily, DULoxetine HCl 1 Tablet (of 20 mg) Capsule Delayed Release Particles Oral daily, Essential Magnesium 1 Tablet (of 250 mg) Oral daily, Finasteride 1 Tablet (of 5 mg) Oral daily, Folic Acid 1 Tablet (of 1 mg) Oral daily, Gabapentin 1 Caplet (of 400 mg) Capsule Oral t.i.d., Isosorbide Mononitrate ER 1 Tablet (of 30 mg) Tablet SR 24 HR Oral daily, Januvia 1 Tablet (of 100 mg) Oral daily, Klor-Con 10 1 Tablet (of 10 meq) Tablet, controlled release Oral daily, Levothyroxine Sodium 1 Tablet (of 150 mcg) Oral daily, Linzess 1 Caplet (of 145 mcg) Capsule Oral daily, Losartan Potassium 1 Tablet (of 50 mg) Oral daily, MetFORMIN HCl 1 Tablet (of 1000 mg) Oral b.i.d., Pantoprazole Sodium 1 Tablet (of 40 mg) Tablet, enteric coated Oral daily, Perforomist 1 (20 mcg/2mL) Nebulization solution Inhalation b.i.d., Trelegy Ellipta 1 Inhalation (of 100-62.5-25 mcg/inh) Aerosol Powder, Breath Activated Inhalation daily, Valsartan 1 Tablet (of 80 mg) Oral daily, Vitamin D2 1 Tablet (of 10 mcg ) Oral daily, Weekly-D 1 Tablet (of 1.25 mg ) Capsule Oral q 7 days Allergies: Ciprofloxacin HCl and Morphine Sulfate. Review of Systems: Review of Systems is not available for this patient. Vital Signs: Performed on Sep 13, 2020 10:29 Height - 67.00 in Weight - 206 lbs (HIGH) BSA - 2.05 sq.m BMI - 32.26 (HIGH) Temperature - 97.9 F (LOW) Pulse - 78 /min Respiration - 18 /min BP - 115/54 mm(hg) O2 Sat - 97 % Pain - 0 Fatigue - 0 Performance Status: 1 - No physically strenuous activity, but ambulatory and able to carry out light or sedentary work (e.g. office work, light house work). (ECOG) Physical Examination: ENMT - No mouth sores, no thrush, no jaundice, Respiratory - Lungs are clear to auscultation, Cardiovascular - Regular rate and rhythm of heart, Abdomen - Soft, bowel sounds present, Extremities - No visible edema. Lab/Imaging: Test performed on Aug 15, 2020 09:30 Ferritin 819 ng/mL Iron 135 mcg/dL Iron Binding Capacity (TIBC) 167 mcg/dl % Iron Saturation 80.8 % UIBC 32 mcg/dL WBC 5.4 10 3/uL RBC 3.44 10 6/uL HGB 11.1 g/dL HCT 33.3 % MCV 96.8 fL MCH 32.3 pg MCHC 33.3 g/dL RDW 13.3 % Platelet Count 92 10 3/cmm MPV 11.5 fL Neutrophils 2.04 10 3/uL Lymphocytes 1.7 10 3/uL Monocytes 1.0 10 3/uL Eosinophils 0.6 10 3/uL Basophils 0.1 10 3/uL Neutrophil % 38.0 % Lymphocyte % 31.0 % Monocyte % 17.7 % Eosinophil % 11.6 % Basophils % 1.3 % NRBC % 0 % Impression: Episode of pancytopenia per lab work-up done during hospital admission for chest pain on August 06, 2020 which showed white blood count 2.8, hemoglobin 11.2 g hematocrit 33.4 MCV 96.5 platelets 110,000 ANC 620, Etiology unclear could be due to underlying infection or stress or medication induced e.g. allopurinol for gout or splenic sequestration although spleen is on the upper side of normal but recently done CT scan of abdomen pelvis on August 05, 2020 showed findings suggestive of hepatic cirrhosis and portal hypertension, Considering his age underlying myelodysplasia cannot be ruled out Microcytic hypochromic anemia, iron deficiency due to malabsorption versus chronic blood loss from GI tract malignancy or nonmalignant sources like peptic ulcer disease , AVMs or esophageal varices patient has history of hepatic cirrhosis status post Injectafer 750 mg weekly ???2 Hepatic cirrhosis as per family ? History of hepatic encephalopathy as per family EGD done on 03/24/2017 showed Ely esophagitis and erosive gastritis in the antrum biopsies were taken colonoscopy was done on 03/24/2017 showed internal hemorrhoids and 5 mm sessile polyp removed from transverse colon. Plan: Discussed with patient regarding his labs white blood count 3.8 hemoglobin 10.7 g medical 33.2 platelets 109,000 ANC 1880 Clinically, patient is doing well with no new signs symptom, overall feeling much better since he is off lactulose, his follow-up CBC shows further improvement in mild thrombocytopenia but persistent mild/moderate anemia and fluctuating white blood cells now with mild leukopenia but neutrophil count in normal range, at this point we will continue to monitor and patient return to clinic in 1 month with CBC if there is a further drop in his hemoglobin may consider iron studies and B12 level otherwise we will monitor. Patient may moved to [place] with family and he has his camelid fiber sorter there for follow-up. Signed By: Vijaya Coburn M.D. <<Signature on File>>
== END 2020-09-13 09:03 | disposition home or self-care (01) ==
LOC: ONCMED 09:05
PROVIDERS: PCP Nurse Practitioner Family; Visit Provider Internal Medicine Hematology & Oncology
DX: D61.818 Other pancytopenia (principal); D50.9 Iron deficiency anemia, unspecified; K76.0 Fatty (change of) liver, not elsewhere classified; K74.60 Unspecified cirrhosis of liver; K72.90 Hepatic failure, unspecified without coma; Z86.010 Personal history of colon polyps; Z79.899 Other long term (current) drug therapy
CPT/HCPCS: 36415; 85025; 99214

== ENCOUNTER → 2021-09-30 10:57 | Outpatient (BNVA) | payer MEDICARE, MEDICAID, SELFPAY | PROVIDERS: PCP Nurse Practitioner Family; Visit Provider Nurse Practitioner | DX: E03.9 Hypothyroidism, unspecified (principal); K21.9 Gastro-esophageal reflux disease without esophagitis; E11.9 Type 2 diabetes mellitus without complications; I25.10 Atherosclerotic heart disease of native coronary artery without angina pectoris; E78.2 Mixed hyperlipidemia; F01.50 Vascular dementia, unspecified severity, without behavioral disturbance, psychotic disturbance, mood disturbance, and anxiety; K70.30 Alcoholic cirrhosis of liver without ascites; E55.9 Vitamin D deficiency, unspecified; E53.8 Deficiency of other specified B group vitamins; J44.9 Chronic obstructive pulmonary disease, unspecified | CPT/HCPCS: 80053; 80061; 82306; 83036; 84443; 85025 ==

== ENCOUNTER → 2021-11-28 11:29 | Outpatient (BNVA) | payer MEDICARE, MEDICAID, SELFPAY | PROVIDERS: PCP Nurse Practitioner Family; Visit Provider Family Medicine | DX: R06.02 Shortness of breath (principal) | CPT/HCPCS: 71046 ==

== ENCOUNTER → 2022-02-12 10:01 | Outpatient (BNVA) | payer MEDICARE, MEDICAID, SELFPAY | PROVIDERS: PCP Family Medicine; Visit Provider Family Medicine | DX: I25.5 Ischemic cardiomyopathy (principal); J44.9 Chronic obstructive pulmonary disease, unspecified; I25.119 Atherosclerotic heart disease of native coronary artery with unspecified angina pectoris; E11.49 Type 2 diabetes mellitus with other diabetic neurological complication; E11.69 Type 2 diabetes mellitus with other specified complication; E03.9 Hypothyroidism, unspecified | CPT/HCPCS: 80053; 80061; 82728; 83540; 84443; 85025 ==

== ENCOUNTER → 2022-03-27 10:17 | Outpatient (BNVA) | payer MEDICARE, MEDICAID, SELFPAY | PROVIDERS: PCP Family Medicine; Visit Provider Family Medicine | DX: E11.69 Type 2 diabetes mellitus with other specified complication (principal); R91.1 Solitary pulmonary nodule; K70.30 Alcoholic cirrhosis of liver without ascites | CPT/HCPCS: 80053; 84443; 85025; 85610; 87400 ==

== ENCOUNTER 2022-05-22 10:36 | Outpatient (CLI) | payer MEDICARE, MEDICAID, SELFPAY ==
--- NOTE | 2022-05-22 11:00 | CTR_ITS ---
PROCEDURE INFORMATION: Exam: CT Chest Without Contrast; Diagnostic Exam date and time: 05/22/2022 11:01 AM Age: 77 years old Clinical indication: Condition or disease; Lung condition and disease; Pulmonary nodule, solitary; Prior surgery; Additional info: R91.1 - solitary pulmonary nodule TECHNIQUE: Imaging protocol: Diagnostic computed tomography of the chest without contrast. Radiation optimization: All CT scans at this facility use at least one of these dose optimization techniques: automated exposure control; mA and/or kV adjustment per patient size (includes targeted exams where dose is matched to clinical indication); or iterative reconstruction. COMPARISON: CT angio chest PE protcl [id number] 08/04/2020 8:40 PM RADIATION DOSE METRICS: Total DLP (mGy-cm): 643.49 FINDINGS: Lungs: Hyperinflation, interstitial prominence, and mild airspace disease, disproportionately localized in the posterior segment of the right upper lobe. Interval resolution of previously visualized 1.4 cm left lower lobe nodule. Residual ovoid spiculated density in the right middle lobe measuring 3.5 x 1.4 x 1.9 cm, which has not significantly changed when compared to the previous study. Recommend CT Chest at 6-12 months to confirm persistence of the nodule, then CT Chest at 3 years and 5 years. (Reference: [facility]). Pleural spaces: No pleural effusion. No pleural effusion. Heart: Coronary artery calcification. Lymph nodes: Calcified and noncalcified lymph nodes including 3.0 by 1.9 by 1.8 cm subcarinal lymph node. Vasculature: Calcification and ectasia of the thoracic aorta. Upper abdomen: Lobulated morphology of the liver in a pattern of cirrhosis. Enlarged spleen, measuring 13.0 cm in length. Calcified granulomata in the liver and spleen. Status post cholecystectomy. Perisplenic venous collaterals. Incompletely visualized 1.7 cm cyst in the upper pole left kidney. Bones/joints: Degenerative change, vacuum discs, scoliosis. Soft tissues: Unremarkable. CT/CT chest wo con [id number] IMPRESSION: 1. Interval resolution of previously visualized 1.4 cm left lower lobe nodule. 2. Residual ovoid spiculated density in the right middle lobe measuring 3.5 x 1.4 x 1.9 cm, which has not significantly changed when compared to the previous study. 3.Additional findings as described above. COMMENTS: Consistent with the [employer]'s Incidental Findings Committee white paper (J Am Xenia Radiol 2018): Any incidental renal lesion less than 1 cm or classified as too small to characterize, or any incidental cystic renal lesion characterized as simple-appearing, is likely benign. No follow-up imaging is recommended for these lesions per consensus recommendations based on imaging criteria.
== END 2022-05-22 10:37 | disposition home or self-care (01) ==
PROVIDERS: PCP Family Medicine; Visit Provider Family Medicine
DX: R91.1 Solitary pulmonary nodule (principal)
CPT/HCPCS: 71250

== ENCOUNTER → 2022-05-29 10:05 | Outpatient (BNVA) | payer MEDICARE, MEDICAID, SELFPAY | PROVIDERS: PCP Family Medicine; Visit Provider Nurse Practitioner | DX: I50.9 Heart failure, unspecified (principal) | CPT/HCPCS: 80053; 83880 ==

== ENCOUNTER → 2022-06-03 10:52 | Outpatient (BNVA) | payer MEDICARE, MEDICAID, SELFPAY | PROVIDERS: PCP Family Medicine; Visit Provider Nurse Practitioner | DX: E11.69 Type 2 diabetes mellitus with other specified complication (principal) | CPT/HCPCS: 83036 ==

== ENCOUNTER 2022-07-05 10:47 | Emergency (ER) | payer MEDICARE, MEDICAID, SELFPAY ==
[2022-07-05 10:50] VITALS: RESP 16; TEMP 36.8; BMI 30.4
--- NOTE | 2022-07-05 10:53 | ECG_ITS ---
[facility] Test Date: 2022-07-05 Pat Name: Timoteo Hassan Department: Room: Gender: Male Appeals Examiner: : 1945 Requested By: Anthony Guadarrama Order Number: [id number] Kodak MD: García Kyle M.D. Measurements Intervals [place] Rate: 67 P: 55 NM: 152 QRS: 44 QRSD: 90 T: 42 QT: 405 QTc: 430 Interpretive Statements SINUS RHYTHM NONSPECIFIC T-WAVE ABNORMALITY Compared to ECG 08/05/2020 03:03:25 No significant changes Electronically Signed On 07-05-2022 19:31:34 HSE SPECIALIST by García Kyle M.D. [id number]
--- NOTE | 2022-07-05 10:56 | W.ED.CHESTPA ---
HPI - Chest Pain General: Chief Complaint: Chest Pain Stated Complaint: CHEST PAIN Time Seen by Provider: 07/05/22 10:51 History of Present Illness: 77-year-old male with past medical history of vascular dementia, coronary artery disease, type 2 diabetes, and hypothyroidism presents with acute onset chest pressure. He states the pressure stays in his chest is not associated nausea, vomiting, diaphoresis. He states that this is similar to the symptoms he had in his chest when he was diagnosed with a heart attack previously. Denies fevers, sweats, chills, cough. States that he has mildly short of breath without wheezing or exertional dyspnea. The symptoms were improved with 3 doses of sublingual nitroglycerin by EMS. EMS also provide 324 chewable aspirin prior to arrival. Associated symptoms: Deny abdominal pain, dyspnea, fever(s), nausea or palpitations Review of Systems General: Reports: 10 or more systems reviewed and unremarkable except in HPI and below Const: Denies: fever(s), chills, body aches or change in appetite Eyes: Denies: change in vision, blurry vision or blind spots ENMT: Denies: throat pain or uvular edema Card: Reports: chest pain; Denies: palpitations, irregular heart rhythm or swelling of feet/ankles Resp: Denies: dyspnea or productive cough GI: Denies: abdominal pain or nausea : Denies: flank pain or difficulty urinating Musc: Denies: neck pain or back pain Skin/Breast: Denies: rash or pruritus Neuro: Denies: headache(s) or numbness in extremities [facility] ED PFSH: Medical History (Updated 07/05/22 @ 15:02 by Anthony Guadarrama MD) Alcoholic cirrhosis Anemia Anxiety and depression Arthritis Back pain, chronic Blood in stool Patient has history of internal hemorrhoids. Last Colonoscopy was done at [facility] [place]. Campbell March 2017 which resulted with benign polyp, internal hemorrhoids. EGD done on the same date found a Schatzki ring and hiatal hernia. Patient has a history of cirrhosis. He has a history of anemia and has received Injectafer infusions in the past. BPH (benign prostatic hyperplasia) CAD (coronary artery disease) Chronic diastolic (congestive) heart failure Chronic gout, unspecified, without tophus (tophi) COPD (chronic obstructive pulmonary disease) PFTs 06/2019 consistent with moderate airflow obstruction. There is significant postbronchodilator response. Normal total lung capacity. Increased residual volume suggestive of air trapping. Gas exchange (DLCO) is moderately reduced but not corrected for patient's hemoglobin. DDD (degenerative disc disease), lumbar Diabetes mellitus, type II Diabetic neuropathy Esophageal ring Essential (primary) hypertension Folic acid deficiency GERD (gastroesophageal reflux disease) Gout Hammertoe, bilateral Hemorrhoids, internal Hiatal hernia Hypothyroidism (acquired) Ischemic cardiomyopathy echo 06/2020 with EF 40-45% with hypokinesis of distal anterolateral wall Pes planus of both feet Pulmonary nodule Sleep apnea sleep study 01/2020 with mild disease in REM sleep, titration ordered; no nocturnal hypxemia Symptoms of urinary tract infection Vascular dementia Vitamin D deficiency Surgical History H/O colonoscopy (~2016) Per Dr. Campbell H/O esophagogastroduodenoscopy (~2016) Per Dr. Campbell History of cholecystectomy History of coronary artery stent placement (07/05/20) LAD and diagonal at [facility] History of laser refractive surgery History of surgery on arm History of total knee replacement (TKR) Bilateral S/P lens implant left and right lens implants Family History Father Diabetes CAD (coronary artery disease) Grandfather Diabetes Mother Heart disease Social History Smoking and tobacco status: former smoker Quit status (tobacco): has quit using tobacco Year quit tobacco: 1989 - PD x 30 Years Alcohol intake: former Household members: family Current occupational status: retired Current gender identity: Male Physical Exam Const: COMMON NORMALS: no acute distress and average body habitus HENMT: COMMON NORMALS: normocephalic and Normal external nose present HEAD & SCALP: normocephalic FACE & SINUS: normal facial exam NOSE: Normal external nose present MOUTH: Normal oral and palatal mucosa present THROAT: posterior oropharynx normal; no uvular edema Eye: COMMON NORMALS: Equal, round and reactive pupils present PUPIL: Yes Equal, round and reactive pupils present Chest: COMMONS NORMALS: normal inspection of the chest and normal palpation of entire chest wall (Tenderness palpation over the sternum) Course Vital Signs: Vital signs: Vital Signs Temperature 98.2 F 07/05/22 10:50 Pulse Rate 75 07/05/22 16:03 Respiratory Rate 16 07/05/22 16:03 Blood Pressure 159/78 07/05/22 16:03 Pulse Oximetry 95 07/05/22 16:03 MDM - Chest Pain Medical Decision Making 77-year-old male that presented with chest pain to the emergency department. Delta troponins negative. Chest x-ray brain not demonstrate acute actionable pathology. CT head and neck given referred pain from chest to head worse with walking also nonactionable. Differential diagnoses considered evaluation this patient include hypertensive encephalopathy, intracranial hemorrhage, electrolyte derangement, symptomatic anemia, source of infection, ACS, CVA/TIA, others. On my evaluation of this patient he is sleeping comfortably in the room, easily arousable and laboratory and imaging testing during his encounter inconclusive. With these results in mind, feel life-threatening pathology less likely at this time. Conversation with patient and discussed about potential CT aorta imaging given chest pain symptoms radiating to the neck and had. Discussed possibility of aortic dissection although decreased given systolic delta blood pressure arm to arm was less than 20 mmHg. Told that cannot completely rule out unless imaging today however already provided 1 contrast load. Family understands that failing to obtain further imaging cannot rule out further dangerous, time sensitive, and life-threatening pathology of the chest and they will return to the emergency department if worse. They reason that he is feeling improved at time of discharge although does have nitro headache which she has had in the past, and would like to return home. Advised to return for any continuation of symptoms at home. Lab Data 07/05/22 11:03 07/05/22 11:03 Radiology Impressions Chest X-Ray 07/05/22 10:57 IMPRESSION: No acute findings. Head/Neck CTA 07/05/22 13:31 IMPRESSION: No large vessel stenosis or occlusion. IMPRESSION: Calcified plaque in the proximal right and left ICA without stenosis. Otherwise negative for acute stenosis or obstruction REFERENCES: NASCET CRITERIA. The degree of stenosis in the cervical segment of the internal carotid artery is based on NASCET criteria. Normal is no stenosis. Mild is less than 50% stenosis. Moderate is 50-69% stenosis. Severe is 70% to 99% stenosis. Total occlusion is no detectable patent lumen. Laboratory Results WBC 5.9 10^3/uL (4.0-10.0) 07/05/22 11:03 RBC 4.32 10^6/uL (4.1-5.3) 07/05/22 11:03 Hgb 13.4 g/dL (11.7-16.6) 07/05/22 11:03 Hct 41.2 % (42.0-52.0) L 07/05/22 11:03 MCV 95.4 fl (80-94) H 07/05/22 11:03 MCH 31.0 pg (28.0-34.0) 07/05/22 11:03 MCHC 32.5 g/dL (30.0-36.0) 07/05/22 11:03 RDW 14.1 % (12.1-15.1) 07/05/22 11:03 Plt Count 135 10^3/cmm (130-400) 07/05/22 11:03 MPV 11.4 fL (7.4-10.4) H 07/05/22 11:03 Neut % (Auto) 68.9 % 07/05/22 11:03 Lymph % (Auto) 14.2 % 07/05/22 11:03 [place] % (Auto) 10.3 % 07/05/22 11:03 Eos % (Auto) 5.4 % 07/05/22 11:03 Baso % (Auto) 1.0 % 07/05/22 11:03 Neut # (Auto) 4.06 10^3/uL (1.8-7.7) 07/05/22 11:03 Lymph # (Auto) 0.8 10^3/uL (0.8-4.8) 07/05/22 11:03 [place] # (Auto) 0.6 10^3/uL (0.2-0.9) 07/05/22 11:03 Eos # (Auto) 0.3 10^3/uL (0.0-0.8) 07/05/22 11:03 Baso # (Auto) 0.1 10^3/uL (0.0-0.1) 07/05/22 11:03 Nucleated RBC % (auto) 0 % 07/05/22 11:03 Nucleated RBCs # 0.0 /100WBC 07/05/22 11:03 Sodium 133 mmol/L (136-145) L 07/05/22 11:03 Potassium 3.8 mmol/L (3.5-5.1) 07/05/22 11:03 Chloride 100 mmol/L (98-107) 07/05/22 11:03 Carbon Dioxide 22 mmol/L (22-29) 07/05/22 11:03 Anion Gap 14.8 (5-19) 07/05/22 11:03 BUN 15 mg/dL (8-23) 07/05/22 11:03 Creatinine 0.6 mg/dL (0.7-1.2) L 07/05/22 11:03 GFR Calculation Not Reportable 07/05/22 11:03 Glucose 141 mg/dL (65-115) H 07/05/22 11:03 Calculated Osmolality 279 mOsm/kg (285-295) L 07/05/22 11:03 Calcium 9.6 mg/dL (8.5-10.5) 07/05/22 11:03 Troponin T Baseline 10 ng/L (0-15) 07/05/22 11:03 Troponin T 120 Minute 9.09 ng/L (0-15) 07/05/22 13:02 Delta Troponin T -0.91 ABS# (0-10) L 07/05/22 13:02 EKG Data EKG 1: Other EKG comments: Regular access, sinus rhythm, intervals within normal limits, no ischemia or ischemia equivalents, serial EKGs compared nonactionable. Discharge Plan Discharge Patient Disposition: Home, Self-Care w Plan Readm Clinical Impression: Chest pain Condition: Stable Prescriptions: No Action thiamine HCl (vitamin B1) 100 mg tablet 50 mg PO DAILY Trelegy Ellipta 100-62.5-25 mcg blister with device See Rx Instructions .ROUTE .COMPLEX Qty: 180 2RF Dose Instruction: INHALE 1 PUFF EVERY 24 HOURS Rx Instructions: INHALE 1 PUFF EVERY 24 HOURS cyclobenzaprine 5 mg tablet 5 mg PO DAILY PRN (Reason: muscle spasm) 30 Days Qty: 30 0RF albuterol sulfate 90 mcg/actuation HFA aerosol inhaler 2 puff inhalation Q6H PRN (Reason: shortness of breath or wheezing) Qty: 8.5 3RF ketoconazole 2 % cream 1 applic TOPICAL BID Qty: 30 1RF potassium chloride 10 mEq capsule, extended release See Rx Instructions .ROUTE .COMPLEX Qty: 90 3RF Dose Instruction: TAKE 1 CAPSULE BY MOUTH THREE TIMES DAILY Rx Instructions: TAKE 1 CAPSULE BY MOUTH every other day with lasix albuterol sulfate 2.5 mg /3 mL (0.083 %) solution for nebulization 2.5 mg INHALATION Q6H PRN (Reason: Shortness Of Breath) Qty: 180 5RF aspirin 81 mg tablet,chewable 81 mg PO DAILY Qty: 90 0RF lactulose 20 gram/30 mL solution 40 g PO DAILY 30 Days Qty: 3000 2RF Rx Instructions: 40 g daily in 2-3 divided doses to maintain 2-3 bowel movements daily levothyroxine 150 mcg tablet 150 mcg PO DAILY Qty: 90 2RF isosorbide mononitrate 30 mg tablet extended release 24 hr See Rx Instructions .ROUTE .COMPLEX Qty: 90 2RF Dose Instruction: Take 1 tablet by mouth once daily Rx Instructions: Take 1 tablet by mouth once daily folic acid 1 mg tablet 1 mg PO DAILY Qty: 90 2RF gabapentin 100 mg capsule See Rx Instructions .ROUTE .COMPLEX Qty: 180 0RF Dose Instruction: TAKE 2 CAPSULES BY MOUTH THREE TIMES DAILY Rx Instructions: TAKE 2 CAPSULES BY MOUTH THREE TIMES DAILY finasteride 5 mg tablet 5 mg PO BEDTIME Qty: 90 2RF losartan 50 mg tablet 50 mg PO DAILY Qty: 90 2RF duloxetine 20 mg capsule,delayed release(DR/EC) 20 mg PO BEDTIME Qty: 90 1RF clopidogrel 75 mg tablet 75 mg PO DAILY Qty: 90 2RF magnesium 250 mg Tablet 250 mg PO DAILY Men's One Daily 400-20-300 mcg Tablet 1 tab PO DAILY Qty: 0 Lasix 40 mg tablet 20 mg PO EVERY OTHER DAY donepezil 10 mg tablet 10 mg PO BEDTIME carvedilol 3.125 mg tablet 3.125 mg PO Q12H pantoprazole 40 mg tablet,delayed release (DR/EC) 40 mg PO DAILY allopurinol 300 mg tablet 300 mg PO DAILY rosuvastatin 20 mg tablet 20 mg PO DAILY Januvia 100 mg tablet 100 mg PO DAILY cholecalciferol (vitamin D3) 1,250 mcg (50,000 unit) capsule 50,000 unit PO Q7D Linzess 145 mcg capsule 145 mcg PO DAILY metformin 1,000 mg tablet 1,000 mg PO BID Discharge Orders: Discharge ED (Routine); Ordered 02/18/23 Ordered By: Anthony Guadarrama Referrals: Bartolome Castillo MD [Primary Care Provider] - (Return to the emergency department for repeat evaluation for recurrence of your chest pain or new symptoms are concerning you.. Move slowly from a seated to a standing position. Take [id number] Tylenol 1000 mg, and Motrin 400 mg, 4 headache.) Discharge Diet: Usual diet Discharge Activity: Resume usual activity Coding Level of Care Code ED Manager Of Distribution for Chad Schulte
--- NOTE | 2022-07-05 10:57 | XRR_ITS ---
PROCEDURE INFORMATION: Exam: XR Chest Exam date and time: 07/05/2022 11:01 AM Age: 77 years old Clinical indication: Chest wall pain; Additional info: Cp TECHNIQUE: Imaging protocol: Radiologic exam of the chest. Views: 1 view. COMPARISON: CT chest [facility] [id number] 05/22/2022 11:01 AM FINDINGS: Lungs: Unremarkable. No consolidation. Pleural spaces: Unremarkable. No pleural effusion. No pneumothorax. Heart/Mediastinum: Unremarkable. No cardiomegaly. Bones/joints: Unremarkable. Similar findings seen comparing to prior examination. XR/XR chest 1V portable [id number] IMPRESSION: No acute findings.
[2022-07-05 11:23] LABS: Basophils # 0.1 10^3/uL (0.0-0.1); Eosinophils # 0.3 10^3/uL (0.0-0.8); Eosinophils % 5.4 %; Hematocrit 41.2 % (42.0-52.0); Hemoglobin 13.4 g/dL (11.7-16.6); Lymphocytes # 0.8 10^3/uL (0.8-4.8); Lymphocytes % 14.2 %; Mean Corpuscular HGB Conc 32.5 g/dL (30.0-36.0); Mean Corpuscular Volume 95.4 fl (80-94); Mean Platelet Volume 11.4 fL (7.4-10.4); Monocytes # 0.6 10^3/uL (0.2-0.9); Monocytes % 10.3 %; Neutrophils # 4.06 10^3/uL (1.8-7.7); Neutrophils % 68.9 %; Nucleated Red Blood Cells % 0 %; Platelet Count 135 10^3/cmm (130-400); Red Blood Count 4.32 10^6/uL (4.1-5.3); Red Cell Distribution Width 14.1 % (12.1-15.1); White Blood Count 5.9 10^3/uL (4.0-10.0)
[2022-07-05 11:37] LABS: Anion Gap 14.8 (5-19); Blood Urea Nitrogen 15 mg/dL (8-23); Calcium 9.6 mg/dL (8.5-10.5); Carbon Dioxide 22 mmol/L (22-29); Chloride 100 mmol/L (98-107); Glucose 141 mg/dL (65-115); Osmolality Calculated 279 mOsm/kg (285-295); Potassium 3.8 mmol/L (3.5-5.1); Sodium 133 mmol/L (136-145)
[2022-07-05 11:38] LABS: Troponin(5th) Baseline 10 ng/L (0-15)
--- NOTE | 2022-07-05 11:40 | PC.NURSE ---
pt reports increased headache when transitioning into standing position from laying. Physician notified
[2022-07-05 11:44] VITALS: BP 145/71; PULSE 69; RESP 11; O2SAT 96
[2022-07-05 11:45] VITALS: BP 145/71; PULSE 101; RESP 24; O2SAT 95
--- NOTE | 2022-07-05 12:57 | ECG_ITS ---
[facility] Test Date: 2022-07-05 Pat Name: Timoteo Hassan Department: Room: Gender: Male [employer] Worker: : 1945 Requested By: Anthony Guadarrama Order Number: [id number] [employer]ak MD: García Kyle M.D. Measurements Intervals [place] Rate: 69 P: 23 TX: 151 QRS: 57 QRSD: 90 T: 70 QT: 399 QTc: 428 Interpretive Statements SINUS RHYTHM Compared to ECG 07/05/2022 11:05:27 T-wave abnormality no longer present Electronically Signed On 07-05-2022 19:38:58 [employer]NALYT[employer] LE[employer] by García Kyle M.D. [email or web address]
[2022-07-05 13:27] LABS: Troponin 5 2HR 9.09 ng/L (0-15)
--- NOTE | 2022-07-05 13:31 | CTR_ITS ---
PROCEDURE INFORMATION: Exam: CTA Head With Contrast, Arteriography Exam date and time: 07/05/2022 1:59 PM Age: 77 years old Clinical indication: Other: Shashi sah, whol TECHNIQUE: Imaging protocol: Computed tomographic angiography of the head with contrast. Exam focused on the arteries. 3D rendering (Not supervised by radiologist): MIP and/or 3D reconstructed images were created by the technologist. Radiation optimization: All CT scans at this facility use at least one of these dose optimization techniques: automated exposure control; mA and/or kV adjustment per patient size (includes targeted exams where dose is matched to clinical indication); or iterative reconstruction. Contrast material: OMNI 350; Contrast volume: 100 ml; Contrast route: INTRAVENOUS (IV); Other protocol: This patient has received [address] and 0 known cardiac nuclear medicine studies in the 12 months prior to the current study. COMPARISON: CT head wo con* [id number] 06/10/2016 6:06 PM RADIATION DOSE METRICS: Total DLP (mGy-cm): 1149.62 FINDINGS: ANTERIOR CIRCULATION: Right internal carotid artery: Intracranial segment is patent with no significant stenosis. No aneurysm. Right middle cerebral artery: No occlusion or significant stenosis. No aneurysm. Right anterior cerebral artery: No occlusion or significant stenosis. No aneurysm. Left internal carotid artery: Intracranial segment is patent with no significant stenosis. No aneurysm. Left middle cerebral artery: No occlusion or significant stenosis. No aneurysm. Left anterior cerebral artery: No occlusion or significant stenosis. No aneurysm. POSTERIOR CIRCULATION: Right vertebral artery: No occlusion or significant stenosis. No aneurysm. Left vertebral artery: No occlusion or significant stenosis. No aneurysm. Basilar artery: No occlusion or significant stenosis. No aneurysm. Right posterior cerebral artery: No occlusion or significant stenosis. No aneurysm. Left posterior cerebral artery: No occlusion or significant stenosis. No aneurysm. Brain: No definite mass, mass effect, or midline shift. Cerebral ventricles: No ventriculomegaly. Bones/joints: Unremarkable. No acute fracture. Soft tissues: Unremarkable. PROCEDURE INFORMATION: Exam: CTA Neck With Contrast Exam date and time: 07/05/2022 1:59 PM Age: 77 years old Clinical indication: Other: Shashi sah, whol TECHNIQUE: Imaging protocol: Computed tomographic angiography of the neck with contrast. 3D rendering (Not supervised by radiologist): MIP and/or 3D reconstructed images were created by the technologist. Radiation optimization: All CT scans at this facility use at least one of these dose optimization techniques: automated exposure control; mA and/or kV adjustment per patient size (includes targeted exams where dose is matched to clinical indication); or iterative reconstruction. Contrast material: OMNI 350; Contrast volume: 100 ml; Contrast route: INTRAVENOUS (IV); Other protocol: This patient has received [address] and 0 known cardiac nuclear medicine studies in the 12 months prior to the current study. COMPARISON: CT angio chest PE protcl [id number] 08/04/2020 8:40 PM RADIATION DOSE METRICS: Total DLP (mGy-cm): 1149.62 FINDINGS: Right common carotid artery: No stenosis. No dissection or occlusion. Right internal carotid artery: Calcified plaque is seen in the proximal ICA. No stenosis of the extracranial segment. No dissection or occlusion. Right external carotid artery: No occlusion or stenosis of the origin. Left common carotid artery: No stenosis. No dissection or occlusion. Left internal carotid artery: Calcified plaque is seen in the proximal aspect. No stenosis of the extracranial segment. No dissection or occlusion. Left external carotid artery: No occlusion or stenosis of the origin. Right vertebral artery: No stenosis. No dissection or occlusion. Left vertebral artery: No stenosis. No dissection or occlusion. Soft tissues: Normal. No significant soft tissue swelling. Bones/joints: No acute fracture. CT/CT angio headneck* [id number] IMPRESSION: No large vessel stenosis or occlusion. IMPRESSION: Calcified plaque in the proximal right and left ICA without stenosis. Otherwise negative for acute stenosis or obstruction REFERENCES: NASCET CRITERIA. The degree of stenosis in the cervical segment of the internal carotid artery is based on NASCET criteria. Normal is no stenosis. Mild is less than 50% stenosis. Moderate is 50-69% stenosis. Severe is 70% to 99% stenosis. Total occlusion is no detectable patent lumen.
[2022-07-05 14:04] LABS: Troponin 5 2HR Delta -0.91 ABS# (0-10)
[2022-07-05] MEDS: iohexol 350 mg/mL 500 mL Btl (per mL) IV (14:04)
[2022-07-05] MEDS: ibuprofen 200 mg Tablet 400 MG PO (15:45)
[2022-07-05] MEDS: acetaminophen 500 mg Tablet 1000 MG PO (15:45)
[2022-07-05 16:03] VITALS: BP 159/78; PULSE 75; RESP 16; O2SAT 95
== END 2022-07-05 16:04 | disposition home or self-care, planned readmission (81) ==
PROVIDERS: Emergency Provider General Practice; PCP Family Medicine
DX: R07.9 Chest pain, unspecified (principal); Z79.82 Long term (current) use of aspirin; Z79.02 Long term (current) use of antithrombotics/antiplatelets; Z79.84 Long term (current) use of oral hypoglycemic drugs; Z87.891 Personal history of nicotine dependence; I25.10 Atherosclerotic heart disease of native coronary artery without angina pectoris; I11.0 Hypertensive heart disease with heart failure; I50.32 Chronic diastolic (congestive) heart failure; J44.9 Chronic obstructive pulmonary disease, unspecified; E11.9 Type 2 diabetes mellitus without complications; F01.50 Vascular dementia, unspecified severity, without behavioral disturbance, psychotic disturbance, mood disturbance, and anxiety
CPT/HCPCS: 70496; 70498; 71045; 80048; 84484; 85025; 93005; 99285; Q9967

== ENCOUNTER → 2022-07-28 08:42 | Outpatient (BNVA) | payer MEDICARE, MEDICAID, SELFPAY | PROVIDERS: PCP Family Medicine; Visit Provider Podiatrist Foot & Ankle Surgery | DX: I73.9 Peripheral vascular disease, unspecified (principal); B35.1 Tinea unguium; G62.9 Polyneuropathy, unspecified; E11.21 Type 2 diabetes mellitus with diabetic nephropathy; Z79.84 Long term (current) use of oral hypoglycemic drugs | CPT/HCPCS: 11721; 99214 ==

== ENCOUNTER → 2022-08-28 12:36 | Outpatient (BNVA) | payer MEDICARE, MEDICAID, SELFPAY | PROVIDERS: PCP Family Medicine; Visit Provider Internal Medicine Cardiovascular Disease | DX: R06.02 Shortness of breath (principal); I25.118 Atherosclerotic heart disease of native coronary artery with other forms of angina pectoris; R06.09 Other forms of dyspnea; G47.33 Obstructive sleep apnea (adult) (pediatric); J44.9 Chronic obstructive pulmonary disease, unspecified; E03.9 Hypothyroidism, unspecified; E11.69 Type 2 diabetes mellitus with other specified complication; E78.2 Mixed hyperlipidemia; I10 Essential (primary) hypertension; Z87.891 Personal history of nicotine dependence | CPT/HCPCS: 36415; 80048; 83880; 99205 ==

== ENCOUNTER 2022-09-20 22:33 | Emergency (ER) | payer MEDICARE, MEDICAID, SELFPAY ==
[2022-09-20 22:43] VITALS: BP 157/84; PULSE 73; RESP 18; TEMP 36.7; O2SAT 94; BMI 31.3
[2022-09-20 23:05] VITALS: BP 139/75; PULSE 78; RESP 16; O2SAT 94
[2022-09-20 23:40] LABS: Bilirubin Urine 1+ (Negative); Blood Urine 3+ (Negative); Glucose Urine UA Norm (Normal); Ketones Urine Negative (Negative); Leukocyte Esterase Urine Trace (Negative); Nitrate Urine Negative (Negative); Protein Urine 1+ (Negative); Urine Appearance Cloudy (CLEAR); Urine Color Dark Yellow (Yellow); Urobilinogen Urine 1 mg/dL (Negative); pH Urine 5 (5-7)
[2022-09-20 23:41] LABS: Add Urine Microscopic? YES
--- NOTE | 2022-09-20 23:41 | CTR_ITS ---
PROCEDURE INFORMATION: Exam: CT Abdomen And Pelvis Without Contrast Exam date and time: 09/20/2022 11:58 PM Age: 77 years old Clinical indication: Abdominal pain; Localized; Right; Additional info: R flank rlq pain TECHNIQUE: Imaging protocol: Computed tomography of the abdomen and pelvis without contrast. Radiation optimization: All CT scans at this facility use at least one of these dose optimization techniques: automated exposure control; mA and/or kV adjustment per patient size (includes targeted exams where dose is matched to clinical indication); or iterative reconstruction. REPORTING DATA: Count of CT and Cardiac NM exams in prior 12 months: This patient has received 2 known CTs and 0 known cardiac nuclear medicine studies in the 12 months prior to the current study. COMPARISON: CT kidney stone [id number] 08/06/2020 9:12 AM RADIATION DOSE METRICS: Total DLP (mGy-cm): 948.14 FINDINGS: Lungs: Mild bibasilar atelectasis and/or pneumonia. Liver: Hepatic cirrhosis morphology with nodular contour and/or caudate lobe enlargement and/or left lobe enlargement. Calcified hepatic granulomas. Gallbladder and bile ducts: Stable cholecystectomy. Pancreas: Normal. No ductal dilation. Spleen: One or more accessory splenules. Adrenal glands: Normal. No mass. Kidneys and ureters: Right renal simple cyst measuring >1.0 cm . Multiple left renal simple cysts with the largest measuring > 1.0 cm. Stomach and bowel: Moderate diverticulosis. Appendix: No evidence of appendicitis. Intraperitoneal space: Unremarkable. No free air. No significant fluid collection. Vasculature: Unremarkable. No abdominal aortic aneurysm. Lymph nodes: Unremarkable. No enlarged lymph nodes. Urinary bladder: Unremarkable as visualized. Reproductive: Nonspecific prostate calcifications. Bones/joints: Levoscoliosis. Moderate to severe multilevel spine degenerative changes including degenerative disc disease, spondylosis and facet degenerative changes. 6 mm right ureteral stone at the level of L4 with [id number] right hydronephrosis. Soft tissues: Unremarkable. CT/CT kidney stone [id number] IMPRESSION: 1. 6 mm right ureteral stone at the level of L4 with [id number] right hydronephrosis. 2. Continued prominent cirrhosis. COMMENTS: Consistent with the [place] [employer]'s Incidental Findings Committee white paper (J Am Xenia Radiol 2018): Any incidental renal lesion less than 1 cm or classified as too small to characterize, or any incidental cystic renal lesion characterized as simple-appearing, is likely benign. No follow-up imaging is recommended for these lesions per consensus recommendations based on imaging criteria.
[2022-09-20 23:44] LABS: RBC Urine TOO NUMEROUS TO CNT /hpf (0-2); Squamous Epithelial Cell Urine 0-4 /hpf (0-5)
[2022-09-20 23:45] LABS: Bacteria Urine 1+ /hpf; WBC Urine 15-25 /hpf (0-5)
[2022-09-20 23:46] LABS: Basophils # 0.1 10^3/uL (0.0-0.1); Basophils % 1.4 %; Eosinophils # 0.8 10^3/uL (0.0-0.8); Eosinophils % 13.9 %; Hematocrit 42.5 % (42.0-52.0); Hemoglobin 13.9 g/dL (11.7-16.6); Lymphocytes # 1.3 10^3/uL (0.8-4.8); Lymphocytes % 23.3 %; Mean Corpuscular HGB Conc 32.7 g/dL (30.0-36.0); Mean Corpuscular Hemoglobin 31.3 pg (28.0-34.0); Mean Corpuscular Volume 95.7 fl (80-94); Mean Platelet Volume 11.5 fL (7.4-10.4); Monocytes # 0.9 10^3/uL (0.2-0.9); Monocytes % 15.5 %; Neutrophils # 2.64 10^3/uL (1.8-7.7); Neutrophils % 45.7 %; Nucleated Red Blood Cells % 0 %; Platelet Count 163 10^3/cmm (130-400); Red Blood Count 4.44 10^6/uL (4.1-5.3); Red Cell Distribution Width 14.1 % (12.1-15.1); White Blood Count 5.8 10^3/uL (4.0-10.0)
[2022-09-20 23:46] LABS: Add Urine Culture? Yes
[2022-09-21 00:13] LABS: Alanine Aminotransferase 21 U/L (0-41); Albumin Level 3.8 g/dL (3.5-5.2); Alkaline Phosphatase 80 U/L (40-130); Anion Gap 17.3 (5-19); Aspartate Amino Transferase 30 U/L (0-40); Blood Urea Nitrogen 24 mg/dL (8-23); Calcium 9.5 mg/dL (8.5-10.5); Carbon Dioxide 20 mmol/L (22-29); Chloride 106 mmol/L (98-107); Globulin 3.3 g/dL (1.3-4.6); Glucose 167 mg/dL (65-115); Lipase 51 U/L (13-60); Osmolality Calculated 296 mOsm/kg (285-295); Potassium 4.3 mmol/L (3.5-5.1); Sodium 139 mmol/L (136-145); Total Bilirubin 0.4 mg/dL (0.15-1.2); Total Protein 7.1 g/dL (6.6-8.7)
[2022-09-21] MEDS: ondansetron 2 mg/ML SDV 2 mL 4 MG IVP (00:35)
[2022-09-21] MEDS: fentaNYL 50 mcg/mL INJ 2mL 25 MCG IVP (00:35)
[2022-09-21] MEDS: sodium chloride 0.9% 500 ML IV (00:36)
[2022-09-21 00:38] VITALS: BP 133/79; PULSE 76; RESP 16; O2SAT 94
[2022-09-21 00:51] LABS: Lactate (Lactic Acid level) 1.7 mmol/L (0.5-2.2)
[2022-09-21 03:47] VITALS: BP 144/74; PULSE 73; RESP 16; O2SAT 96
[2022-09-21] MEDS: tamsulosin 0.4 mg Capsule PO (03:55)
[2022-09-21] MEDS: ketorolac 30 mg/mL INJ 15 MG IVP (03:55)
[2022-09-21 04:06] VITALS: BP 144/74; PULSE 73; RESP 16; TEMP 36.7; O2SAT 96
--- NOTE | 2022-09-21 16:23 | ED_ITS ---
HPI - Abdominal Pain General: Chief Complaint: Abdominal Pain Stated Complaint: ABD PAIN Time Seen by Provider: 09/20/22 23:11 History of Present Illness: 77 year old male gentleman with a history of kidney stones in the distant past. he presents with right lower quadrant pain radiating to his back and right groin with a sudden onset of a few hours prior to arrival. Pain is improved to some degree at this point. Notes his urine to be dark, and he vomited once. No fever. MD elicited complaint: abdominal pain and flank pain Pertinent past history: kidney stones Onset (ago): hour(s) Pain Consistency: constant Location: RLQ, R flank and Groin Severity: severe Quality: stabbing Radiation: other Migration to: no migration Exacerbating factors: movement Relieving factors: nothing Associated Symptoms: Reports chills, hematuria, nausea and vomiting; Denies diarrhea, fever(s), hematochezia and hematemesis Review of Systems Const: Reports: chills; Denies: fever(s) Card: Denies: chest pain Resp: Denies: dyspnea GI: Reports: nausea and vomiting; Denies: hematemesis, diarrhea or hematochezia : Reports: flank pain, difficulty urinating and hematuria Musc: Reports: back pain Skin/Breast: Denies: rash PFSH ED PFSH: Medical History Alcoholic cirrhosis Anemia Anxiety and depression Arthritis Back pain, chronic Blood in stool Patient has history of internal hemorrhoids. [place] [facility] [place] which resulted with benign polyp, internal hemorrhoids. EGD done on the same date found a Schatzki ring and hiatal hernia. Patient has a history of cirrhosis. He has a history of anemia and has received Injectafer infusions in the past. BPH (benign prostatic hyperplasia) CAD (coronary artery disease) Chronic diastolic (congestive) heart failure Chronic gout, unspecified, without tophus (tophi) COPD (chronic obstructive pulmonary disease) PFTs 06/2019 consistent with moderate airflow obstruction. There is significant postbronchodilator response. Normal total lung capacity. Increased residual volume suggestive of air trapping. Gas exchange (DLCO) is moderately reduced but not corrected for patient's hemoglobin. DDD (degenerative disc disease), lumbar Diabetes mellitus, type II Diabetic neuropathy Esophageal ring Essential (primary) hypertension Folic acid deficiency GERD (gastroesophageal reflux disease) Gout Hammertoe, bilateral Hemorrhoids, internal Hiatal hernia Hypothyroidism (acquired) Ischemic cardiomyopathy echo 06/2020 with EF 40-45% with hypokinesis of distal anterolateral wall Pes planus of both feet Pulmonary nodule Sleep apnea sleep study 01/2020 with mild disease in REM sleep, titration ordered; no nocturnal hypxemia Symptoms of urinary tract infection Vascular dementia Vitamin D deficiency Surgical History H/O colonoscopy (~2016) Per Dr. Campbell H/O esophagogastroduodenoscopy (~2016) Per Dr. Campbell History of cholecystectomy History of coronary artery stent placement (07/05/20) LAD and diagonal at [facility] History of laser refractive surgery History of surgery on arm History of total knee replacement (TKR) Bilateral S/P lens implant left and right lens implants Family History Father Diabetes CAD (coronary artery disease) Grandfather Diabetes Mother Heart disease Social History Smoking and tobacco status: former smoker Quit status (tobacco): has quit using tobacco Year quit tobacco: 1989 - 3PPD x 30 Years Alcohol intake: former Substance/Drug Use: never Household members: family Current occupational status: retired Do you think of yourself as: Straight/Heterosexual Current gender identity: Male Physical Exam Const: COMMON NORMALS: no acute distress GENERAL APPEARANCE: cooperative; not ill appearing and not frail appearing HENMT: COMMON NORMALS: normocephalic, atraumatic and Normal external nose present HEAD & SCALP: normocephalic and atraumatic FACE & SINUS: normal facial exam and face symmetric NOSE: Normal external nose present Eye: COMMON NORMALS: Equal, round and reactive pupils present and EOMs intact bilaterally PUPIL: Yes Equal, round and reactive pupils present Neck/C-Spine: GENERAL: Yes trachea midline Chest: CHEST: Yes Symmetrical chest wall rise Resp: COMMON NORMALS: normal respiratory effort, No retractions, No use of accessory muscles and clear to auscultation bilaterally AUSCULTATION: clear to auscultation bilaterally Cardio: COMMON NORMALS: regular rate and regular rhythm RATE: regular rate RHYTHM: regular rhythm GI: COMMON NORMALS: Normal to inspection, nondistended, normoactive bowel sounds present PALPATION: Yes Tenderness to palpation present (GI) Details: RLQ : BLADDER/KIDNEY EXAM: Yes CVA tenderness on the right Back/Pelvis: GENERAL BACK: Yes CVA tenderness Extremity: COMMON NORMALS: no pedal edema Neuro: MONSERRAT COMA SCALE: document GCS findings Monserrat coma scale eye opening: Spontaneous [place] coma scale verbal response: Orientated Monserrat coma scale motor response: Obey commands Monserrat coma scale total score: 15 SENSORY EXAM: Yes extremities (intact) Psych: COMMON NORMALS: speech normal SPEECH: Yes normal speech Skin: COMMON NORMALS: no rashes or lesions noted GENERAL SKIN EXAM: no rashes or lesions noted Course Vital Signs: Vital signs: Vital Signs Temperature 98.0 F 09/21/22 04:06 Pulse Rate 73 09/21/22 04:06 Respiratory Rate 16 09/21/22 04:06 Blood Pressure 144/74 09/21/22 04:06 Pulse Oximetry 96 09/21/22 04:06 MDM - Abdominal Pain Medical Decision Making Pain is currently improved. No vomiting here. No fever. CBC is not remarkable. BMP is not remarkable. CT shows a six millimeter right ureteral stone at the level of L4 with mild to moderate hydronephrosis consistent with his symptoms. His lactate is normal. Hematuria is present. He has trace leukocyte esterase. He'll be covered with antibiotics, given pain and nausea medication, Flomax to help him pass the stone. close urology outpatient follow up. Case management has been consulted to arrange this. He knows to return for worsening symptoms. Lab Data 09/20/22 22:46 09/20/22 22:46 Labs/Radiology: Radiology Impressions Abdomen/Pelvis CT 09/20/22 23:41 IMPRESSION: 1. 6 mm right ureteral stone at the level of L4 with [id number] right hydronephrosis. 2. Continued prominent cirrhosis. COMMENTS: Consistent with the [employer]'s Incidental Findings Committee white paper (J Am Xenia Radiol 2018): Any incidental renal lesion less than 1 cm or classified as too small to characterize, or any incidental cystic renal lesion characterized as simple-appearing, is likely benign. No follow-up imaging is recommended for these lesions per consensus recommendations based on imaging criteria. Laboratory Results WBC 5.8 10^3/uL (4.0-10.0) 09/20/22 22:46 RBC 4.44 10^6/uL (4.1-5.3) 09/20/22 22:46 Hgb 13.9 g/dL (11.7-16.6) 09/20/22 22:46 Hct 42.5 % (42.0-52.0) 09/20/22 22:46 MCV 95.7 fl (80-94) H 09/20/22 22:46 MCH 31.3 pg (28.0-34.0) 09/20/22 22:46 MCHC 32.7 g/dL (30.0-36.0) 09/20/22 22:46 RDW 14.1 % (12.1-15.1) 09/20/22 22:46 Plt Count 163 10^3/cmm (130-400) 09/20/22 22:46 MPV 11.5 fL (7.4-10.4) H 09/20/22 22:46 Neut % (Auto) 45.7 % 09/20/22 22:46 Lymph % (Auto) 23.3 % 09/20/22 22:46 [place] % (Auto) 15.5 % 09/20/22 22:46 Eos % (Auto) 13.9 % 09/20/22 22:46 Baso % (Auto) 1.4 % 09/20/22 22:46 Neut # (Auto) 2.64 10^3/uL (1.8-7.7) 09/20/22 22:46 Lymph # (Auto) 1.3 10^3/uL (0.8-4.8) 09/20/22 22:46 [place] # (Auto) 0.9 10^3/uL (0.2-0.9) 09/20/22 22:46 Eos # (Auto) 0.8 10^3/uL (0.0-0.8) 09/20/22 22:46 Baso # (Auto) 0.1 10^3/uL (0.0-0.1) 09/20/22 22:46 Nucleated RBC % (auto) 0 % 09/20/22 22:46 Nucleated RBCs # 0.0 /100WBC 09/20/22 22:46 Sodium 139 mmol/L (136-145) 09/20/22 22:46 Potassium 4.3 mmol/L (3.5-5.1) 09/20/22 22:46 Chloride 106 mmol/L (98-107) 09/20/22 22:46 Carbon Dioxide 20 mmol/L (22-29) L 09/20/22 22:46 Anion Gap 17.3 (5-19) 09/20/22 22:46 BUN 24 mg/dL (8-23) H 09/20/22 22:46 Creatinine 1.0 mg/dL (0.7-1.2) 09/20/22 22:46 GFR Calculation Not Reportable 09/20/22 22:46 Glucose 167 mg/dL (65-115) H 09/20/22 22:46 Calculated Osmolality 296 mOsm/kg (285-295) H 09/20/22 22:46 Lactate 1.7 mmol/L (0.5-2.2) 09/20/22 00:31 Calcium 9.5 mg/dL (8.5-10.5) 09/20/22 22:46 Total Bilirubin 0.4 mg/dL (0.15-1.2) 09/20/22 22:46 AST 30 U/L (0-40) 09/20/22 22:46 ALT 21 U/L (0-41) 09/20/22 22:46 Alkaline Phosphatase 80 U/L (40-130) 09/20/22 22:46 C-Reactive Protein 3.0 mg/L (0.0-4.9) 09/20/22 22:46 Total Protein 7.1 g/dL (6.6-8.7) 09/20/22 22:46 Albumin 3.8 g/dL (3.5-5.2) 09/20/22 22:46 Globulin 3.3 g/dL (1.3-4.6) 09/20/22 22:46 Lipase 51 U/L (13-60) 09/20/22 22:46 Urine Color Dark yellow (Yellow) 09/20/22 23:13 Urine Appearance Cloudy (CLEAR) A 09/20/22 23:13 Urine pH 5 (5-7) 09/20/22 23:13 Ur Specific [place] 1.010 (1.005-1.030) 09/20/22 23:13 Urine Protein 1+ (Negative) H 09/20/22 23:13 Urine Glucose (UA) Norm (Normal) 09/20/22 23:13 Urine Ketones Negative (Negative) 09/20/22 23:13 Urine Blood 3+ (Negative) H 09/20/22 23:13 Urine Nitrate Negative (Negative) 09/20/22 23:13 Urine Bilirubin 1+ (Negative) H 09/20/22 23:13 Urine Urobilinogen 1 mg/dL (Negative) H 09/20/22 23:13 Ur Leukocyte Esterase Trace (Negative) H 09/20/22 23:13 Urine RBC Too numerous to cnt /hpf (0-2) H 09/20/22 23:13 Urine WBC 15-25 /hpf (0-5) H 09/20/22 23:13 Ur Squamous Epith Cells 0-4 /hpf (0-5) H 09/20/22 23:13 Amorphous Sediment Not Reportable 09/20/22 23:13 Urine Bacteria 1+ /hpf (NONE) H 09/20/22 23:13 Discharge Plan Discharge Patient Disposition: Home Clinical Impression: Ureterolithiasis Condition: Stable Prescriptions: New cephalexin 500 mg capsule 500 mg PO BID 7 Days Qty: 14 0RF hydrocodone-acetaminophen 5-325 mg tablet 1 tab PO Q8H PRN (Reason: pain) Qty: 10 0RF ondansetron 4 mg film 4 mg PO DAILY PRN (Reason: nausea and vomiting) Qty: 10 0RF Flomax 0.4 mg capsule 0.4 mg PO DAILY Qty: 10 0RF No Action Trelegy Ellipta 100-62.5-25 mcg blister with device See Rx Instructions .ROUTE .COMPLEX Qty: 180 2RF Dose Instruction: INHALE 1 PUFF EVERY 24 HOURS Rx Instructions: INHALE 1 PUFF EVERY 24 HOURS cyclobenzaprine 5 mg tablet 5 mg PO DAILY PRN (Reason: muscle spasm) 30 Days Qty: 30 0RF albuterol sulfate 90 mcg/actuation HFA aerosol inhaler 2 puff inhalation Q6H PRN (Reason: shortness of breath or wheezing) Qty: 8.5 3RF potassium chloride 10 mEq capsule, extended release See Rx Instructions .ROUTE .COMPLEX Qty: 90 3RF Dose Instruction: TAKE 1 CAPSULE BY MOUTH THREE TIMES DAILY Rx Instructions: TAKE 1 CAPSULE BY MOUTH every other day with lasix albuterol sulfate 2.5 mg /3 mL (0.083 %) solution for nebulization 2.5 mg INHALATION Q6H PRN (Reason: Shortness Of Breath) Qty: 180 5RF losartan 100 mg tablet 100 mg PO DAILY Qty: 90 5RF nitroglycerin 0.4 mg tablet, sublingual 0.4 mg sublingual Q5M PRN (Reason: chest pain) 30 Days Qty: 30 3RF Rx Instructions: until response; do not exceed 3 doses per episode rosuvastatin 20 mg tablet 20 mg PO DAILY Qty: 90 1RF ketoconazole 2 % cream 1 applic TOPICAL BID Qty: 30 1RF (DME) diabetic shoes with 3 inserts See Rx Instructions .Route .MEDSUPPLY Qty: 1 0RF Rx Instructions: As directed aspirin 81 mg tablet,chewable 81 mg PO DAILY Qty: 90 0RF lactulose 20 gram/30 mL solution 40 g PO DAILY 30 Days Qty: 3000 2RF Rx Instructions: 40 g daily in 2-3 divided doses to maintain 2-3 bowel movements daily levothyroxine 150 mcg tablet 150 mcg PO DAILY Qty: 90 2RF isosorbide mononitrate 30 mg tablet extended release 24 hr See Rx Instructions .ROUTE .COMPLEX Qty: 90 2RF Dose Instruction: Take 1 tablet by mouth once daily Rx Instructions: Take 1 tablet by mouth once daily folic acid 1 mg tablet 1 mg PO DAILY Qty: 90 2RF finasteride 5 mg tablet 5 mg PO BEDTIME Qty: 90 2RF duloxetine 20 mg capsule,delayed release(DR/EC) 20 mg PO BEDTIME Qty: 90 1RF clopidogrel 75 mg tablet 75 mg PO DAILY Qty: 90 2RF ciprofloxacin HCl 0.3 % drops 1 drp ophthalmic (eye) BID 5 Days Qty: 5 0RF gabapentin 100 mg capsule See Rx Instructions .ROUTE .COMPLEX Qty: 180 1RF Dose Instruction: TAKE 2 CAPSULES BY MOUTH THREE TIMES DAILY Rx Instructions: TAKE 2 CAPSULES BY MOUTH THREE TIMES DAILY cholecalciferol (vitamin D3) 1,250 mcg (50,000 unit) capsule See Rx Instructions .ROUTE .COMPLEX Qty: 12 0RF Dose Instruction: TAKE 1 CAPSULE EVERY 7 DAYS Rx Instructions: TAKE 1 CAPSULE EVERY 7 DAYS carvedilol 3.125 mg tablet See Rx Instructions .ROUTE .COMPLEX Qty: 180 0RF Dose Instruction: TAKE 1 TABLET BY MOUTH EVERY 12 HOURS Rx Instructions: TAKE 1 TABLET BY MOUTH EVERY 12 HOURS magnesium 250 mg Tablet 250 mg PO DAILY Men's One Daily 400-20-300 mcg Tablet 1 tab PO DAILY Qty: 0 Lasix 40 mg tablet 20 mg PO EVERY OTHER DAY donepezil 10 mg tablet 10 mg PO BEDTIME pantoprazole 40 mg tablet,delayed release (DR/EC) 40 mg PO DAILY allopurinol 300 mg tablet 300 mg PO DAILY Januvia 100 mg tablet 100 mg PO DAILY cholecalciferol (vitamin D3) 1,250 mcg (50,000 unit) capsule 50,000 unit PO Q7D Linzess 145 mcg capsule 145 mcg PO DAILY metformin 1,000 mg tablet 1,000 mg PO BID Discharge Orders: Discharge ED (Routine); Ordered 09/21/22 Ordered By: Hao Sanchez Referrals: Bartolome Castillo MD [Primary Care Provider] - Patient Instructions: Kidney Stones (ED), Opioid Safety, Pain Management Activity Restrictions/Additional Instructions: Case management will make you an appointment with urology for follow-up this week. You should hear from them on Thursday. Return for vomiting liquids or medications, worsening pain despite treatment, fever greater than 100 despite antibiotics, any other concerning symptoms Coding Level of Care Code ED Upper And Bottom Lacer Hand for Chad Schulte
--- NOTE | 2022-09-22 08:32 | DCPLANNER ---
Addendum entered by Zenobia Riddle 09/30/22 15:12: This appointment was cancelled Addendum entered by Zenobia Riddle 09/23/22 11:03: Patient has a follow up appointment scheduled for Saturday, September 24, 2022 at 3:[address] Verduzco at urology. Original Note: laundromat manager had message to schedule a follow up appointment for patient with urology. laundromat manager sent patients information to the front office staff at urology. Patients information will be printed and reviewed. Clinic will call patient with appointment information.
== END 2022-09-21 04:07 | disposition home or self-care (01) ==
PROVIDERS: Emergency Provider Emergency Medicine; PCP Family Medicine
DX: N13.2 Hydronephrosis with renal and ureteral calculous obstruction (principal); K74.60 Unspecified cirrhosis of liver; Z79.82 Long term (current) use of aspirin; Z87.891 Personal history of nicotine dependence; I25.10 Atherosclerotic heart disease of native coronary artery without angina pectoris; J44.9 Chronic obstructive pulmonary disease, unspecified; E11.9 Type 2 diabetes mellitus without complications; I11.0 Hypertensive heart disease with heart failure; I50.32 Chronic diastolic (congestive) heart failure
CPT/HCPCS: 36415; 74176; 80053; 81001; 83605; 83690; 85025; 86140; 87086; 96361; 96374; 96375; 99285; J1885; J2405; J3010; J7040

== ENCOUNTER 2022-09-23 09:14 | Outpatient (CLI) | payer MEDICARE, MEDICAID, SELFPAY ==
--- NOTE | 2022-09-23 09:15 | USCV_ITS ---
Timoteo Hassan Age: 77 Gender: M : 1945 Exam Date: 09/23/2022 09:53 Ordering Phys: García Kyle MD ([email or web address]) Technologist: Exam Location: [facility] [place] Indication: sob BP: 150 / 80 HR: 80 Rhythm: Sinus Technical Quality: Adequate MEASUREMENTS (Male / Female) Normal Values DOPPLER AV Peak Velocity 202.0 cm/s LVOT Peak Velocity 89.0 cm/s MV Area PHT 5.0 cm squared Mitral E to A Ratio 0.8 MV E' Velocity 54.8 cm/s Mitral E to MV E' Ratio 12.7 Mitral E to LV E' Lateral Ratio 11.4 Mitral E to LV E' Septal Ratio 14.5 TR Peak Velocity 215.0 cm/s TR Peak Gradient 18.5 mmHg TV Peak E Velocity 67.0 cm/s Right Atrial Pressure 3.0 mmHg Pulmonary Artery Systolic Pressu 21.5 mmHg FINDINGS Left Ventricle Normal left ventricular size and systolic function, EF 55% no regional wall motion abnormalities. Grade I/IV diastolic dysfunction (abnormal relaxation filling pattern), normal to mildly elevated filling pressures. Right Ventricle The right ventricle is normal in size and function. Right Atrium The right atrium is normal in size. Left Atrium Mildly increased left atrial size. Mitral Valve Mild mitral annular calcification. Aortic Valve Thickened aortic valve. Trace aortic valve regurgitation. Tricuspid Valve Trace tricuspid valve regurgitation. Pulmonic Valve No gross abnormalities noted Pericardium Normal pericardium without effusion. Aorta Normal ascending aorta dimension. IVC The inferior vena cava appears normal. CONCLUSIONS Normal left ventricular size and systolic function, EF 55% no regional wall motion abnormalities. Grade I/IV diastolic dysfunction (abnormal relaxation filling pattern), normal to mildly elevated filling pressures. Mildly increased left atrial size. Thickened aortic valve. Trace aortic valve regurgitation. Mild mitral annular calcification. Trace tricuspid valve regurgitation. Estimated pulmonary artery peak systolic pressure within normal limits There is no pericardial effusion. There are no intracardiac masses. Compared to the study from 08/04/2020, there may not be a significant change Dr García Kyle MD [facility] (Electronically Signed) Final Date: 25 Sep 2022 09:29 S
== END 2022-09-23 09:15 | disposition home or self-care (01) ==
PROVIDERS: PCP Family Medicine; Visit Provider Internal Medicine Cardiovascular Disease
DX: R06.09 Other forms of dyspnea (principal); R06.02 Shortness of breath; I51.89 Other ill-defined heart diseases; I35.8 Other nonrheumatic aortic valve disorders; I34.81 Nonrheumatic mitral (valve) annulus calcification; N20.1 Calculus of ureter; R91.8 Other nonspecific abnormal finding of lung field
CPT/HCPCS: 71046; 74018; 93306; 99205

== ENCOUNTER → 2022-09-29 08:24 | Outpatient (BNVA) | payer MEDICARE, MEDICAID, SELFPAY | PROVIDERS: PCP Family Medicine; Visit Provider Podiatrist Foot & Ankle Surgery | DX: I73.9 Peripheral vascular disease, unspecified (principal); B35.1 Tinea unguium; G62.9 Polyneuropathy, unspecified; E11.9 Type 2 diabetes mellitus without complications; Z79.84 Long term (current) use of oral hypoglycemic drugs | CPT/HCPCS: 11056; 11721 ==

== ENCOUNTER 2022-09-30 16:21 | Emergency (ER) | payer MEDICARE, MEDICAID, SELFPAY ==
[2022-09-30 17:36] VITALS: BMI 31.9
[2022-09-30 17:39] VITALS: BP 170/91; PULSE 68; RESP 16; TEMP 37.1; O2SAT 96
[2022-09-30 19:15] LABS: Basophils # 0.1 10^3/uL (0.0-0.1); Basophils % 0.9 %; Eosinophils # 0.5 10^3/uL (0.0-0.8); Hematocrit 42.6 % (42.0-52.0); Hemoglobin 14.1 g/dL (11.7-16.6); Lymphocytes % 15.2 %; Mean Corpuscular HGB Conc 33.1 g/dL (30.0-36.0); Mean Corpuscular Hemoglobin 31.2 pg (28.0-34.0); Mean Corpuscular Volume 94.2 fl (80-94); Mean Platelet Volume 10.2 fL (7.4-10.4); Monocytes # 0.9 10^3/uL (0.2-0.9); Neutrophils # 4.16 10^3/uL (1.8-7.7); Neutrophils % 62.6 %; Nucleated Red Blood Cells % 0 %; Platelet Count 148 10^3/cmm (130-400); Red Blood Count 4.52 10^6/uL (4.1-5.3); Red Cell Distribution Width 14.3 % (12.1-15.1); White Blood Count 6.6 10^3/uL (4.0-10.0)
[2022-09-30 19:17] VITALS: BP 164/86; PULSE 72; RESP 16; O2SAT 97
--- NOTE | 2022-09-30 19:26 | W.ED.MALEGU ---
HPI - Male Genitourinary General: Chief complaint: Urogenital-Male Stated complaint: Abd pain Time Seen by Provider: 09/30/22 19:09 History of Present Illness: Presents to the ER with worsening right flank pain. Patient was seen here approximately 1 week ago and diagnosed with a 6 mm kidney stone in the right ureter. Patient took all the medicine that was provided for him at that time. Thought he was getting better at times. Pain got severe today. Pain has been straining all his urine and has not passed any big notable stone. Patient has passed some very small fragments. MD Complaint: other (Right flank pain secondary to kidney stone) Onset (ago): week(s) (Started 1 week ago got worse today) Duration: constant Location: right flank Severity: moderate Quality: sharp and stabbing Relieving factors: none Exacerbating factors: none Context: other (Known kidney stone) Associated symptoms: Deny nausea or vomiting Review of Systems General: Reports: 10 or more systems reviewed and unremarkable except in HPI and below Const: Denies: fever(s) or chills Eyes: Denies: change in vision or photophobia ENMT: Denies: throat pain or odynophagia Card: Denies: chest pain, palpitations or irregular heart rhythm Resp: Denies: dyspnea, productive cough or non-productive cough GI: Denies: abdominal pain, nausea or vomiting : Reports: flank pain Musc: Denies: neck pain or back pain Skin/Breast: Denies: rash or pruritus [facility] ED PFSH: Medical History Alcoholic cirrhosis Anemia Anxiety and depression Arthritis Back pain, chronic Blood in stool Patient has history of internal hemorrhoids. Last Colonoscopy was done at [facility] [place]. Campbell March 2017 which resulted with benign polyp, internal hemorrhoids. EGD done on the same date found a Schatzki ring and hiatal hernia. Patient has a history of cirrhosis. He has a history of anemia and has received Injectafer infusions in the past. BPH (benign prostatic hyperplasia) CAD (coronary artery disease) Chronic diastolic (congestive) heart failure Chronic gout, unspecified, without tophus (tophi) COPD (chronic obstructive pulmonary disease) PFTs 06/2019 consistent with moderate airflow obstruction. There is significant postbronchodilator response. Normal total lung capacity. Increased residual volume suggestive of air trapping. Gas exchange (DLCO) is moderately reduced but not corrected for patient's hemoglobin. DDD (degenerative disc disease), lumbar Diabetes mellitus, type II Diabetic neuropathy Esophageal ring Essential (primary) hypertension Folic acid deficiency GERD (gastroesophageal reflux disease) Gout Hammertoe, bilateral Hemorrhoids, internal Hiatal hernia Hypothyroidism (acquired) Ischemic cardiomyopathy echo 06/2020 with EF 40-45% with hypokinesis of distal anterolateral wall Pes planus of both feet Pulmonary nodule Sleep apnea sleep study 01/2020 with mild disease in REM sleep, titration ordered; no nocturnal hypxemia Symptoms of urinary tract infection Vascular dementia Vitamin D deficiency Surgical History H/O colonoscopy (~2016) Per Dr. Campbell H/O esophagogastroduodenoscopy (~2016) Per Dr. Campbell History of cholecystectomy History of coronary artery stent placement (07/05/20) LAD and diagonal at [facility] History of laser refractive surgery History of surgery on arm History of total knee replacement (TKR) Bilateral S/P lens implant left and right lens implants Family History Father Diabetes CAD (coronary artery disease) Grandfather Diabetes Mother Heart disease Social History Smoking and tobacco status: former smoker Quit status (tobacco): has quit using tobacco Year quit tobacco: 1989 - PD x 30 Years Alcohol intake: former Substance/Drug Use: never Household members: family Current occupational status: retired Do you think of yourself as: Straight/Heterosexual Current gender identity: Male Physical Exam Const: COMMON NORMALS: no acute distress, average body habitus, patient oriented x3, no limitations, healthy appearing, alert and well nourished HENMT: COMMON NORMALS: normocephalic, atraumatic, hearing grossly normal bilaterally, external ears normal, Normal external nose present and moist oral mucous membranes HEAD & SCALP: normocephalic and atraumatic NOSE: Normal external nose present EXTERNAL EAR: Yes external ears normal Eye: COMMON NORMALS: Equal, round and reactive pupils present, EOMs intact bilaterally, conjunctivae normal and no scleral icterus CONJUNCTIVA: Yes conjunctivae normal PUPIL: Yes Equal, round and reactive pupils present Neck/C-Spine: COMMON NORMALS: full ROM, no lymphadenopathy, supple, no meningeal signs and no JVD Lymph: LYMPHATIC: no lymphadenopathy noted Chest: COMMONS NORMALS: normal inspection of the chest and normal palpation of entire chest wall Resp: COMMON NORMALS: normal respiratory effort, No retractions, No use of accessory muscles and clear to auscultation bilaterally AUSCULTATION: clear to auscultation bilaterally Cardio: COMMON NORMALS: no JVD, regular rate, S1 normal heart sound present and S2 normal heart sound present RATE: regular rate HEART SOUNDS: S1 normal heart sound present and S2 normal heart sound present GI: COMMON NORMALS: Normal to inspection, nondistended, normoactive bowel sounds present, Soft to palpation, non-tender, No hepatosplenomegaly present and no masses PALPATION: Yes Soft to palpation and Yes No hepatosplenomegaly present : COMMON NORMALS: Yes no CVA tenderness BLADDER/KIDNEY EXAM: Yes no CVA tenderness Back/Pelvis: COMMON NORMALS: no CVA tenderness Neuro: COMMON NORMALS: patient oriented x3 SENSORIUM/ORIENTATION: Yes alert MENINGEAL SIGNS: Yes no meningeal signs Course Vital Signs: Vital signs: Vital Signs Temperature 98.7 F 09/30/22 17:39 Pulse Rate 72 09/30/22 19:17 Respiratory Rate 16 09/30/22 19:17 Blood Pressure 149/105 09/30/22 19:38 Pulse Oximetry 97 09/30/22 19:17 Oxygen Delivery Me thod Room Air 09/30/22 17:39 MDM - Male Medical Decision Making Patient presents to the ER with right-sided flank pain worse the last couple days. Patient was seen recently and found out to have a 6 mm right ureteral stone. Patient was given Toradol IM today and it relieved his pain. Lab work was drawn which showed good BUN/creatinine of 20 and 1.1. White count was 6.6. Patient will be discharged on Flomax and continue to strain his urine and follow-up with the urologist as previously made. Differential Diagnosis Unlikely urinary tract infection, priapism, urethritis, epididymitis, genital herpes simplex, prostatitis, acute retention of urine or inguinal hernia Medical Records I reviewed the patient's medical records. Lab Data I reviewed the patient's lab results. 09/30/22 18:50 09/30/22 18:50 Laboratory Results WBC 6.6 10^3/uL (4.0-10.0) 09/30/22 18:50 RBC 4.52 10^6/uL (4.1-5.3) 09/30/22 18:50 Hgb 14.1 g/dL (11.7-16.6) 09/30/22 18:50 Hct 42.6 % (42.0-52.0) 09/30/22 18:50 MCV 94.2 fl (80-94) H 09/30/22 18:50 MCH 31.2 pg (28.0-34.0) 09/30/22 18:50 MCHC 33.1 g/dL (30.0-36.0) 09/30/22 18:50 RDW 14.3 % (12.1-15.1) 09/30/22 18:50 Plt Count 148 10^3/cmm (130-400) 09/30/22 18:50 MPV 10.2 fL (7.4-10.4) 09/30/22 18:50 Neut % (Auto) 62.6 % 09/30/22 18:50 Lymph % (Auto) 15.2 % 09/30/22 18:50 O'Brien % (Auto) 13.0 % 09/30/22 18:50 Eos % (Auto) 8.0 % 09/30/22 18:50 Baso % (Auto) 0.9 % 09/30/22 18:50 Neut # (Auto) 4.16 10^3/uL (1.8-7.7) 09/30/22 18:50 Lymph # (Auto) 1.0 10^3/uL (0.8-4.8) 09/30/22 18:50 O'Brien # (Auto) 0.9 10^3/uL (0.2-0.9) 09/30/22 18:50 Eos # (Auto) 0.5 10^3/uL (0.0-0.8) 09/30/22 18:50 Baso # (Auto) 0.1 10^3/uL (0.0-0.1) 09/30/22 18:50 Nucleated RBC % (auto) 0 % 09/30/22 18:50 Nucleated RBCs # 0.0 /100WBC 09/30/22 18:50 Sodium 140 mmol/L (136-145) 09/30/22 18:50 Potassium 3.9 mmol/L (3.5-5.1) 09/30/22 18:50 Chloride 104 mmol/L (98-107) 09/30/22 18:50 Carbon Dioxide 20 mmol/L (22-29) L 09/30/22 18:50 Anion Gap 19.9 (5-19) H 09/30/22 18:50 BUN 20 mg/dL (8-23) 09/30/22 18:50 Creatinine 1.1 mg/dL (0.7-1.2) 09/30/22 18:50 GFR Calculation Not Reportable 09/30/22 18:50 Glucose 128 mg/dL (65-115) H 09/30/22 18:50 Calculated Osmolality 294 mOsm/kg (285-295) 09/30/22 18:50 Calcium 9.9 mg/dL (8.5-10.5) 09/30/22 18:50 Total Bilirubin 0.9 mg/dL (0.15-1.2) 09/30/22 18:50 AST 37 U/L (0-40) 09/30/22 18:50 ALT 31 U/L (0-41) 09/30/22 18:50 Alkaline Phosphatase 74 U/L (40-130) 09/30/22 18:50 Total Protein 7.7 g/dL (6.6-8.7) 09/30/22 18:50 Albumin 4.3 g/dL (3.5-5.2) 09/30/22 18:50 Globulin 3.4 g/dL (1.3-4.6) 09/30/22 18:50 Lipase 47 U/L (13-60) 09/30/22 18:50 Urine Color Yellow (Yellow) 09/30/22 19:43 Urine Appearance Hazy (CLEAR) A 09/30/22 19:43 Urine pH 6 (5-7) 09/30/22 19:43 Ur Specific [place] 1.010 (1.005-1.030) 09/30/22 19:43 Urine Protein Neg (Negative) 09/30/22 19:43 Urine Glucose (UA) Norm (Normal) 09/30/22 19:43 Urine Ketones Negative (Negative) 09/30/22 19:43 Urine Blood 3+ (Negative) H 09/30/22 19:43 Urine Nitrate Negative (Negative) 09/30/22 19:43 Urine Bilirubin Neg (Negative) 09/30/22 19:43 Urine Urobilinogen Neg mg/dL (Negative) 09/30/22 19:43 Ur Leukocyte Esterase Negative (Negative) 09/30/22 19:43 Urine RBC 25-40 /hpf (0-2) H 09/30/22 19:43 Urine WBC None /hpf (0-5) 09/30/22 19:43 Ur Squamous Epith Cells 0-4 /hpf (0-5) H 09/30/22 19:43 Amorphous Sediment Not Reportable 09/30/22 19:43 Urine Bacteria None /hpf (NONE) 09/30/22 19:43 Discharge Plan Discharge Patient Disposition: Home Clinical Impression: Calculus of kidney Condition: Stable Prescriptions: New tamsulosin [Flomax] 0.4 mg capsule 0.4 mg PO DAILY Qty: 30 0RF No Action Trelegy Ellipta 100-62.5-25 mcg blister with device See Rx Instructions .ROUTE .COMPLEX Qty: 180 2RF Dose Instruction: INHALE 1 PUFF EVERY 24 HOURS Rx Instructions: INHALE 1 PUFF EVERY 24 HOURS cyclobenzaprine 5 mg tablet 5 mg PO DAILY PRN (Reason: muscle spasm) 30 Days Qty: 30 0RF albuterol sulfate 90 mcg/actuation HFA aerosol inhaler 2 puff inhalation Q6H PRN (Reason: shortness of breath or wheezing) Qty: 8.5 3RF potassium chloride 10 mEq capsule, extended release See Rx Instructions .ROUTE .COMPLEX Qty: 90 3RF Dose Instruction: TAKE 1 CAPSULE BY MOUTH THREE TIMES DAILY Rx Instructions: TAKE 1 CAPSULE BY MOUTH every other day with lasix albuterol sulfate 2.5 mg /3 mL (0.083 %) solution for nebulization 2.5 mg INHALATION Q6H PRN (Reason: Shortness Of Breath) Qty: 180 5RF losartan 100 mg tablet 100 mg PO DAILY Qty: 90 5RF nitroglycerin 0.4 mg tablet, sublingual 0.4 mg sublingual Q5M PRN (Reason: chest pain) 30 Days Qty: 30 3RF Rx Instructions: until response; do not exceed 3 doses per episode rosuvastatin 20 mg tablet 20 mg PO DAILY Qty: 90 1RF ketoconazole 2 % cream 1 applic TOPICAL BID Qty: 30 1RF (DME) diabetic shoes with 3 inserts See Rx Instructions .Route .MEDSUPPLY Qty: 1 0RF Rx Instructions: As directed aspirin 81 mg tablet,chewable 81 mg PO DAILY Qty: 90 0RF lactulose 20 gram/30 mL solution 40 g PO DAILY 30 Days Qty: 3000 2RF Rx Instructions: 40 g daily in 2-3 divided doses to maintain 2-3 bowel movements daily levothyroxine 150 mcg tablet 150 mcg PO DAILY Qty: 90 2RF isosorbide mononitrate 30 mg tablet extended release 24 hr See Rx Instructions .ROUTE .COMPLEX Qty: 90 2RF Dose Instruction: Take 1 tablet by mouth once daily Rx Instructions: Take 1 tablet by mouth once daily folic acid 1 mg tablet 1 mg PO DAILY Qty: 90 2RF finasteride 5 mg tablet 5 mg PO BEDTIME Qty: 90 2RF duloxetine 20 mg capsule,delayed release(DR/EC) 20 mg PO BEDTIME Qty: 90 1RF clopidogrel 75 mg tablet 75 mg PO DAILY Qty: 90 2RF ciprofloxacin HCl 0.3 % drops 1 drp ophthalmic (eye) BID 5 Days Qty: 5 0RF gabapentin 100 mg capsule See Rx Instructions .ROUTE .COMPLEX Qty: 180 1RF Dose Instruction: TAKE 2 CAPSULES BY MOUTH THREE TIMES DAILY Rx Instructions: TAKE 2 CAPSULES BY MOUTH THREE TIMES DAILY cholecalciferol (vitamin D3) 1,250 mcg (50,000 unit) capsule See Rx Instructions .ROUTE .COMPLEX Qty: 12 0RF Dose Instruction: TAKE 1 CAPSULE EVERY 7 DAYS Rx Instructions: TAKE 1 CAPSULE EVERY 7 DAYS carvedilol 3.125 mg tablet See Rx Instructions .ROUTE .COMPLEX Qty: 180 0RF Dose Instruction: TAKE 1 TABLET BY MOUTH EVERY 12 HOURS Rx Instructions: TAKE 1 TABLET BY MOUTH EVERY 12 HOURS magnesium 250 mg Tablet 250 mg PO DAILY Men's One Daily 400-20-300 mcg Tablet 1 tab PO DAILY Qty: 0 Lasix 40 mg tablet 20 mg PO EVERY OTHER DAY donepezil 10 mg tablet 10 mg PO BEDTIME pantoprazole 40 mg tablet,delayed release (DR/EC) 40 mg PO DAILY allopurinol 300 mg tablet 300 mg PO DAILY Januvia 100 mg tablet 100 mg PO DAILY cholecalciferol (vitamin D3) 1,250 mcg (50,000 unit) capsule 50,000 unit PO Q7D Linzess 145 mcg capsule 145 mcg PO DAILY metformin 1,000 mg tablet 1,000 mg PO BID hydrocodone-acetaminophen 5-325 mg tablet 1 tab PO Q8H PRN (Reason: pain) Qty: 10 0RF ondansetron 4 mg film 4 mg PO DAILY PRN (Reason: nausea and vomiting) Qty: 10 0RF Flomax 0.4 mg capsule 0.4 mg PO DAILY Qty: 10 0RF Discharge Orders: Discharge ED (Routine); Ordered 09/30/22 Ordered By: Oswald Lyn Referrals: Bartolome Castillo MD [Primary Care Provider] - 1 week Patient Instructions: Kidney Stones Activity Restrictions/Additional Instructions: Follow-up with urologist as appointment has previously been made. Take the Flomax to help relax your ureter so he can pass this kidney stone easier. Drink lots of water to flush out your system. Coding Level of Care Code ED Documentation Designer for Chad Schulte
[2022-09-30 19:37] LABS: Alanine Aminotransferase 31 U/L (0-41); Albumin Level 4.3 g/dL (3.5-5.2); Alkaline Phosphatase 74 U/L (40-130); Anion Gap 19.9 (5-19); Aspartate Amino Transferase 37 U/L (0-40); Blood Urea Nitrogen 20 mg/dL (8-23); Calcium 9.9 mg/dL (8.5-10.5); Carbon Dioxide 20 mmol/L (22-29); Chloride 104 mmol/L (98-107); Globulin 3.4 g/dL (1.3-4.6); Glucose 128 mg/dL (65-115); Lipase 47 U/L (13-60); Osmolality Calculated 294 mOsm/kg (285-295); Potassium 3.9 mmol/L (3.5-5.1); Sodium 140 mmol/L (136-145); Total Bilirubin 0.9 mg/dL (0.15-1.2); Total Protein 7.7 g/dL (6.6-8.7)
[2022-09-30 19:38] VITALS: BP 149/105
[2022-09-30] MEDS: ketorolac 60 mg/2 mL INJ IM (19:39)
[2022-09-30 19:50] LABS: Add Urine Microscopic? YES; Bilirubin Urine Neg (Negative); Blood Urine 3+ (Negative); Glucose Urine UA Norm (Normal); Ketones Urine Negative (Negative); Leukocyte Esterase Urine Negative (Negative); Nitrate Urine Negative (Negative); Protein Urine Neg (Negative); Urine Appearance Hazy (CLEAR); Urine Color Yellow (Yellow); Urobilinogen Urine Neg (Negative); pH Urine 6 (5-7)
[2022-09-30 20:01] LABS: RBC Urine 25-40 /hpf (0-2)
[2022-09-30 20:02] LABS: Add Urine Culture? Yes; Squamous Epithelial Cell Urine 0-4 /hpf (0-5)
[2022-09-30 20:46] VITALS: BP 128/67; PULSE 80; RESP 16; O2SAT 97
== END 2022-09-30 21:05 | disposition home or self-care (01) ==
PROVIDERS: Emergency Medicine; Emergency Provider Emergency Medicine; PCP Family Medicine
DX: N20.0 Calculus of kidney (principal); Z79.82 Long term (current) use of aspirin; Z79.02 Long term (current) use of antithrombotics/antiplatelets; Z79.84 Long term (current) use of oral hypoglycemic drugs; Z87.891 Personal history of nicotine dependence; I25.10 Atherosclerotic heart disease of native coronary artery without angina pectoris; J44.9 Chronic obstructive pulmonary disease, unspecified; E11.9 Type 2 diabetes mellitus without complications; I11.0 Hypertensive heart disease with heart failure; I50.32 Chronic diastolic (congestive) heart failure; F01.50 Vascular dementia, unspecified severity, without behavioral disturbance, psychotic disturbance, mood disturbance, and anxiety
CPT/HCPCS: 36415; 51798; 80053; 81001; 83690; 85025; 87077; 87086; 87186; 96372; 99284; J1885

== ENCOUNTER 2022-10-08 09:29 | Outpatient (CLI) | payer MEDICARE, MEDICAID, SELFPAY ==
--- NOTE | 2022-10-08 | ECG_ITS ---
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 Interpretive Statements NAME OF STUDY: LEXISCAN SESTAMIBI STRESS TEST INDICATION: Chest Pain; ASHD PROCEDURE: At the baseline, the EKG revealed atrial fibrillation with a controlled ventricular response rate. Some nonspecific T wave changes. The baseline heart was 70 bpm with a blood pressue of 194/92 mm of Hg Lexiscan was infused over a period of 20 seconds. A total of 0.4 milligrams of Lexiscan was infused. The stress phase was continued for a total of 5 minutes. Heart rate at the end of the stress phase was 74 bpm with a blood pressure 170/87 mm of Hg. The EKG at the peak infusion revealed no significant changes. Sestamibi was injected 20 seconds after the Lexiscan infusion. Heart rate at the end of the recovery phase was 71 bpm with a blood pressure of 171/90 mm of Hg. CONCLUSION: 1. No significant EKG changes with the LexiScan infusion 2. No LexiScan induced chest pain or cardiac arrhythmia 3. Normal blood pressure and heart rate response 4. Sestamibi/sestamibi perfusion scan pending; see separate report. Electronically Signed On 10-09-2022 8:06:47 CDT by García Kyle M.D. [id number]
[2022-10-08 09:53] VITALS: BMI 33.6
--- NOTE | 2022-10-08 09:58 | NMCV_ITS ---
NM nadia perf SPECT r/s* [id number] Timoteo Hassan Age: 77 Gender: M : 1945 Exam Date: 10/08/2022 09:58 Ordering Phys: García Kyle MD ([email or web address]) Technologist: YUDI Goldstein Exam Location: [facility] [address] Indications: CORONARY ANGIOPLASTY STATUS STRESS TEST Please see separate stress test report in [facility] for full findings IMAGE PROTOCOL Rest/Stress 1 Lexiscan Day Radiopharmaceutical Dose (mCi) Administration Site Administered by Rest: Tc-99m 10.3 IV YUDI Seo Sestamibi Stress:Tc-99m 32.3 IV YUDI Seo Sestamibi Rest: 08-Oct-2022 60 Discovery 630 Stress: 08-Oct-2022 30 Discovery 630 0.4mg Lexiscan. Images obtained in supine and prone position. SPECT RESULTS Technical Quality: Excellent Raw Data Analysis: Normal Image Corrections: No attenuation or motion correction applied Summed Stress Score: 23 Summed Rest Score: 11 Summed Difference Score: 12 PERFUSION FINDINGS Moderate to severely decrease tracer uptake in the mid and apical anterior, mid anteroseptal, mid inferoseptal, mid and apical inferior, mid inferolateral, apical lateral and LV apex. Significant reversibility was noted in these regions at rest FUNCTIONAL RESULTS (calculated via Gated SPECT) Stress Image LV EF (%): 53 Stress EDV (mL):155 TID: 0.96 Stress ESV (mL):73 FUNCTIONAL FINDINGS: Segmental wall motion analysis revealed diffuse hypokinesia of the septum, LV apex, mild hypokinesia of the inferior wall. IMPRESSIONS 1. Myocardial perfusion imaging revealing moderate to large area of moderate to severely decreased tracer uptake involving the inferior wall, inferoseptum, anteroseptum, anterior and LV apex. Significant reversibility was noted in these regions suggesting myocardial scarring with ischemia in the distribution of all the 3 coronary arteries, predominantly his LAD and right coronary artery. 2. Normal LV ejection fraction of 53%. 3. Wall motion normalities as mentioned above. 4. Mildly dilated LV cavity with an end-systolic volume of 73 mL No similar previous studies are available for comparison Dr García Kyle MD [facility] (Electronically Signed) Final Date: 08 Oct 2022 13:07 S
[2022-10-08] MEDS: regadenoson 0.4 Mg/5 ml Syringe IVP (11:38)
[2022-10-08 12:59] VITALS: BP 134/68; PULSE 82
== END 2022-10-08 09:30 | disposition home or self-care (01) ==
LOC: CDL 09:31
PROVIDERS: PCP Family Medicine; Visit Provider Internal Medicine Cardiovascular Disease
DX: R07.9 Chest pain, unspecified (principal); I25.10 Atherosclerotic heart disease of native coronary artery without angina pectoris; Z98.61 Coronary angioplasty status
CPT/HCPCS: 36415; 78452; 93017; 96374; A9500; J2785

== ENCOUNTER → 2022-10-15 12:01 | Outpatient (BNVA) | payer MEDICARE, MEDICAID, SELFPAY | PROVIDERS: PCP Family Medicine; Visit Provider Family Medicine | DX: N20.0 Calculus of kidney (principal) | CPT/HCPCS: 74018; 81000 ==

== ENCOUNTER 2022-10-23 11:39 | Observation (INO) | payer MEDICARE, MEDICAID, SELFPAY ==
[2022-10-23] VITALS (8 sets, daily range): BP systolic 109–148; BP diastolic 63–94; PULSE 54–64; RESP 14–18; TEMP 36.8; O2SAT 91–96; BMI 33.2
--- NOTE | 2022-10-23 09:00 | XACV_ITS ---
Exam Room: [facility] Ht: 170 cm Wt: 96 kg BSA: 2.17 m2 Gender: Male : 1945 Exam Priority: Routine Procedure(s): Procedure Description: Diagnostic procedure Procedure Description: Left Heart Catheterization Procedure Description: Coronary Angiography Diagnostic Cath Status: Elective Diagnostic Findings * INDICATION: 77-year-old man with past medical history of CAD with prior LAD and diagonal artery stents placed at outside hospital has been having chest pain, dyspnea on exertion and had abnormal stress test. Here today for left heart cath with possible percutaneous coronary intervention. * Left Main has no significant disease. * Circumflex has mild luminal irregularities. * Right Coronary Artery is a small sized vessel and has diffuse disease. * LAD has prior stents that are totally occluded. * CARMEN 0 flow. * It gives rise to a medium size diagonal vessel. * It has some mild disease at the ostium. Prior diagonal stent is patent. * Coronary angiography shows left dominance. PCI Status: Elective Conclusions 1. Totally occluded old LAD stents 2. . Medical therapy. Recommendations * Aggressive risk factor modification. * Outpatient cardiology follow-up in 2 weeks. Interventional RX Recommendation: medical therapy and/or counseling Diagnostic RX Recommendation: medical therapy and/or counseling Anticoagulation: Heparin Pressures Phase:Rest AO : 92 / 68 ( 81 ) @ 11:28:00 AM 89 / 63 ( 76 ) @ 11:32:00 AM 116 / 62 ( 83 ) @ 11:43:00 AM 116 / 62 ( 83 ) @ 11:43:00 AM LV : 126 / -2 / 14 @ 11:42:00 AM 122 / -3 / 15 @ 11:43:00 AM Valves Phase:DefaultPhase AV : 8.0 @ 10:15:17 AM 8.0 @ 10:15:17 AM AV Mean Gradient: 10.0 @ 10:15:17 AM Clinical Evaluation EBL: 5mL-10mL Procedural Details Procedure Consent Obtained. Admit Source: Out Patient. Pre-Procedure Time Out. Identified patient by full name and date of as verbalized by the patient/guarantor. Does the consent match the physician's order: Yes. Accurate & Complete Informed Consent: Yes. Inpatient/Outpatient History & Physical on Chart: Yes. If H&P is completed, is and addenduem needed: No; If yes, is the addendum complete: N/A. Visualize and Verify Site with Patient/Guarantor: N/A. Relevant Radiology Images available: N/A. The risks, benefits, and alternatives of sedation and/or procedure were discussed by physician. The patient agrees to continue. Procedure started. Correct patient, site and procedure confirmed by cath team. PERRLA. Strong, equal hand rail splitter bilaterally. Lungs clear x 5 lobes. IV Site on Arrival: 20 gauge in the left forearm. IV Fluids: 0.9% NaCl at KVO. 0 mL infused prior to tanbark laborer. Pre Procedural Pulses: bilateral radial was 2+. Pre Procedural Pulses: bilateral dorsalis pedis was 1+. Pre Procedural Pulses: bilateral posterior tibial was 1+. Oxygen started at 2liters/min via nasal canula. right groin was prepped with chloroprep then draped in the usual sterile fashion. right radial was prepped with chloroprep then draped in the usual sterile fashion. Baseline sample Acquired. HR: 54 BPM. Physician notified. [facility] Clinical Fraility Score: 5: Mildly Frail. Database Administration Associate Indications: abnormal stress test and chest pain. Chest Pain Symptom Assessment: Typical Angina Symptoms. Physician arrived. Physician scrubbed in. Immediate Pre-Procedure Time Out. Correct Patient: Yes; Correct Procedure: Yes; Correct Site: Yes; Correct Patient Position: Yes; Correct Supplies: Yes; Dried Flammable Prep: Yes; Blood Products Available: N/A;. Lidocaine 1% infiltrated to the right radial. Arterial access obtained. A 5 mongolian TIG catheter in over wire. Wire out. Hand injection through sheath. Glidewire inserted. Glidewire removed. Exchange J wire inserted. A 5 mongolian TIG catheter in over wire. Multiple views taken of left coronary artery. Physician review of cine films. Side port of sheath attached to Normal Saline flush at KVO to maintain patency. EDP Sample taken: LV 126/-3,14; HR: 59 BPM; SpO2: 95%. Pullback taken: LV 122/-4,15; AO 116/62(83); Mean: 10mmHg, Peak to Peak: 8mmHg, SEP: 17sec/min; HR: 59 BPM; SpO2: 96%. Catheter out. Wire out. A TR Band was successful obtaining hemostatsis at the Right Radial artery insertion site. Post Procedure: Pulses reassessed and unchanged. PERRLA. Strong, equal hand rail splitter bilaterally. No VTE prophylaxis required. Medication's Wasted: Nitro = 49.8 mg. Medication's Wasted: Heparin = 2000 units. Medication's Wasted: Other = versed 1 mg. Medication's Wasted: Other = fentanyl 50 mcg. Total IV fluids: 45 mL. Post-op diagnosis: total occlusion of the MID LAD. Complications: none. Estimated blood loss: 5mL-10mL. Responsiveness - Normal response to verbal stimuli; alert and oriented, PERRLA. Airway - Unaffected, no intervention required; spontaneous ventilation. Circulation: W/N/L, pulses unchanged. Nausea/Vomiting: No. Procedure completed. Patient transferred by bed to CPRU. Vital chart was stopped. Access Site Site: Right Radial artery Sheath Size: 6 Fr Hemostasis Method: TR Band Hemostasis Success: Successful Procedure Medications Start: 10:16 AM Stop: 10:16 AM Medication: Versed Amount: 1 mg Route: I.V. Start: 10:16 AM Stop: 10:16 AM Medication: Fentanyl Amount: 50 mcg Route: I.V. Start: 10:21 AM Stop: 10:21 AM Medication: Nitrogylcerin Amount: 200 mcg Route: I.A. Start: 10:27 AM Stop: 10:27 AM Medication: Heparin Amount: 4000 units Route: I.V. I, the attending physician, have reviewed and verified all procedure medications. Yes, all medications given per verbal order History/Risk Factors Hypertension: Yes Dyslipidemia: Yes Peripheral Arterial Disease (PAD): No Myocardial Infarction (NE): No Obesity: No Tobacco Use: Former Prior Interventions PCI: Yes CABG: No Valve Surgery: No Date of PCI: 07/05/2020 Report Signatures Finalized by Bryan Rahman MD on 10/26/2022 04:51 PM
[2022-10-23] MEDS: diphenhydrAMINE 50 mg Capsule PO (09:35)
[2022-10-23 09:36] LABS: Basophils % 0.7 %; Eosinophils # 0.1 10^3/uL (0.0-0.8); Eosinophils % 2.5 %; Hematocrit 36.9 % (42.0-52.0); Hemoglobin 12.3 g/dL (11.7-16.6); Lymphocytes % 17.6 %; Mean Corpuscular HGB Conc 33.3 g/dL (30.0-36.0); Mean Corpuscular Hemoglobin 31.4 pg (28.0-34.0); Mean Corpuscular Volume 94.1 fl (80-94); Mean Platelet Volume 10.5 fL (7.4-10.4); Monocytes # 0.6 10^3/uL (0.2-0.9); Monocytes % 11.3 %; Neutrophils # 3.84 10^3/uL (1.8-7.7); Neutrophils % 67.5 %; Nucleated Red Blood Cells % 0 %; Platelet Count 150 10^3/cmm (130-400); Red Blood Count 3.92 10^6/uL (4.1-5.3); Red Cell Distribution Width 14.9 % (12.1-15.1); White Blood Count 5.7 10^3/uL (4.0-10.0)
[2022-10-23 09:50] LABS: Anion Gap 14.6 (5-19); Blood Urea Nitrogen 18 mg/dL (8-23); Calcium 9.5 mg/dL (8.5-10.5); Carbon Dioxide 19 mmol/L (22-29); Chloride 108 mmol/L (98-107); Glucose 151 mg/dL (65-115); Osmolality Calculated 291 mOsm/kg (285-295); Potassium 3.6 mmol/L (3.5-5.1); Sodium 138 mmol/L (136-145)
--- NOTE | 2022-10-23 10:16 | P.HP_ITS ---
Same Day Surgery H&P Indication for Procedure/HPI DATE OF PROCEDURE: October 23, 2022 CHIEF COMPLAINT/INDICATIONFOR SURGICAL PROCEDURE: Chest pain/ abnormal stress test PREOP DIAGNOSIS: Chest pain/ abnormal stress test PLANNED PROCEDURE: Operation Date: 10/23/22 10:00 Proposed Procedures p [[facility] W/ W/O 99184], R06.09, V81634, R94.39(Left) - Bryan Rahman M.D Possible percutaneous coronary intervention 77-year-old man with past medical history of CAD with prior LAD and diagonal artery stents has been having chest pain, dyspnea on exertion and had abnormal stress test. Her today for left heart cath with possible percutaneous coronary intervention. Medications/Allergies* Home Medications Medication Instructions Recorded Confirmed Type magnesium 250 mg tablet 250 mg PO DAILY 08/05/20 10/23/22 History wjigsepd-ymcdwznh-badfn acid 400 1 tab PO DAILY ##0 08/05/20 10/23/22 History mcg-vit K 20 mcg-lycop 300 mcg tablet (Men's One Daily) allopurinol 300 mg tablet 300 mg PO DAILY 07/05/22 10/23/22 History cholecalciferol (vitamin D3) 1,250 50,000 unit PO Q7D 07/05/22 10/23/22 History mcg (50,000 unit) capsule donepezil 10 mg tablet 10 mg PO BEDTIME 07/05/22 10/23/22 History furosemide 40 mg tablet (Lasix) 20 mg PO EVERY OTHER DAY 07/05/22 10/23/22 History linaclotide 145 mcg capsule 145 mcg PO DAILY 07/05/22 10/23/22 History (Linzess) metformin 1,000 mg tablet 1,000 mg PO BID 07/05/22 10/23/22 History pantoprazole 40 mg tablet,delayed 40 mg PO DAILY 07/05/22 10/23/22 History release sitagliptin phosphate 100 mg 100 mg PO DAILY 07/05/22 10/23/22 History tablet (Januvia) ciprofloxacin HCl 500 mg tablet tab PO 10/15/22 10/15/22 History Allergies/Adverse Reactions Allergy/AdvReac Type Severity Reaction Status Date / Time morphine Allergy Severe ALGY-Anaphy Verified 10/22/22 13:22 laxis insect venom Allergy Unknown Verified 10/22/22 13:22 Opioids - Morphine Analogues AdvReac Severe ADR-Halluci Verified 10/22/22 13:22 nating Pertinent History/Comorbid Conditions* Medical History (Updated 10/08/22 @ 00:01 by LISA Davis) Alcoholic cirrhosis Anemia Anxiety and depression Arthritis Back pain, chronic Blood in stool Patient has history of internal hemorrhoids. Last Colonoscopy was done at [facility] by Dr. Campbell March 2017 which resulted with benign polyp, internal hemorrhoids. EGD done on the same date found a Schatzki ring and hiatal hernia. Patient has a history of cirrhosis. He has a history of anemia and has received Injectafer infusions in the past. BPH (benign prostatic hyperplasia) CAD (coronary artery disease) Chronic diastolic (congestive) heart failure Chronic gout, unspecified, without tophus (tophi) COPD (chronic obstructive pulmonary disease) PFTs 06/2019 consistent with moderate airflow obstruction. There is significant postbronchodilator response. Normal total lung capacity. Increased residual volume suggestive of air trapping. Gas exchange (DLCO) is moderately reduced but not corrected for patient's hemoglobin. DDD (degenerative disc disease), lumbar Diabetes mellitus, type II Diabetic neuropathy Esophageal ring Essential (primary) hypertension Folic acid deficiency GERD (gastroesophageal reflux disease) Gout Hammertoe, bilateral Hemorrhoids, internal Hiatal hernia Hypothyroidism (acquired) Ischemic cardiomyopathy echo 06/2020 with EF 40-45% with hypokinesis of distal anterolateral wall Pes planus of both feet Pulmonary nodule Sleep apnea sleep study 01/2020 with mild disease in REM sleep, titration ordered; no noc turnal hypxemia Symptoms of urinary tract infection Vascular dementia Vitamin D deficiency Surgical History (Updated 08/05/20 @ 04:43 by Charo Lam MD) H/O colonoscopy (~2016) Per Dr. Campbell H/O esophagogastroduodenoscopy (~2016) Per Dr. Campbell History of cholecystectomy History of coronary artery stent placement (07/05/20) LAD and diagonal at [facility] History of laser refractive surgery History of surgery on arm History of total knee replacement (TKR) Bilateral S/P lens implant left and right lens implants Family History (Updated 05/27/19 @ 09:03 by Pretty Briggs LPN) Diabetes Father Grandfather CAD (coronary artery disease) Father Heart disease Mother Social History Smoking and tobacco status: former smoker Quit status (tobacco): has quit using tobacco Year quit tobacco: 1989 - 3PPD x 30 Years Alcohol intake: former Substance/Drug Use: never Household members: family Current occupational status: retired Do you think of yourself as: Straight/Heterosexual Current gender identity: Male Pertinent Exam Findings alert, oriented x 3, clear to auscultation bilaterally and regular rate & rhythm Conscious Sedation Assessment PATIENT ASSESSED PRIOR TO SEDATION, WITH NO CHANGE NOTED: Yes AIRWAY EVAL/ANESTHESIA PLAN: normal airway, ASA III and Risks, benefits & alternatives of sedation and/or procedure discussed ADDITIONAL INFORMATION: Moderate sedation Recommendations Surgery/Procedure today (Left heart cath with possible percutaneous coronary intervention) Coding Level of Care Code Acute Code for Chg Fwd Diagnoses
--- NOTE | 2022-10-23 11:40 | PC.NURSE ---
Around 1130: Transfer orders received. TR Band to patients right wrist clean, dry, et intact. No drainage or hematoma noted. Vitals WDL. No c/o pain. Report given to ANTHONY Whitney. Patient transferred to CSU via hospital bed. All belongings sent with patient.
--- NOTE | 2022-10-23 12:03 | PC.NURSE ---
received patient from label printing machinist at 11:50, report taken from nicho milligan. TR band in place with 16 mls of air. No signs of bleeding or hematoma. Vitals stable, A&Ox4. Daughter at bedside.
[2022-10-23 12:28] LABS: Glucose Point of Care 133 mg/dL (70-110)
--- NOTE | 2022-10-23 15:49 | PC.NURSE ---
TR band removed at 15:35, no signs of bleeding or hematoma. Dressing placed, dry and intact. Vitals stable.
--- NOTE | 2022-10-23 16:19 | PC.NURSE ---
Patients IV removed at 15:40, tolerated well. Vitals WNL. Patient and daughter given written and verbal discharge education, patient and daughter verbalized understanding. Patient sent with all belongings, taken out to the parking lot via wheelchair. Left facility with his daughter at 16:05.
== END 2022-10-23 16:05 | disposition home or self-care (01) ==
LOC: CSU 11:39
PROVIDERS: Admitting Provider Internal Medicine; PCP Family Medicine; Visit Provider Internal Medicine
DX: T82.855A Stenosis of coronary artery stent, initial encounter (principal); Y99.9 Unspecified external cause status; R07.9 Chest pain, unspecified; R94.39 Abnormal result of other cardiovascular function study; I25.110 Atherosclerotic heart disease of native coronary artery with unstable angina pectoris; N40.0 Benign prostatic hyperplasia without lower urinary tract symptoms; J44.9 Chronic obstructive pulmonary disease, unspecified; E11.40 Type 2 diabetes mellitus with diabetic neuropathy, unspecified; K21.9 Gastro-esophageal reflux disease without esophagitis; E03.9 Hypothyroidism, unspecified; Z87.891 Personal history of nicotine dependence; Z95.5 Presence of coronary angioplasty implant and graft
CPT/HCPCS: 36415; 36416; 80048; 82962; 85025; 93458; 96365; 99152; 99153; C1769; C1887; C1894; G0378; J1644; J2250; J3010; J3490; J7030; Q0163; Q9967

== ENCOUNTER → 2022-10-28 15:23 | Outpatient (BNVA) | payer MEDICARE, MEDICAID, SELFPAY | PROVIDERS: PCP Family Medicine; Visit Provider Nurse Practitioner Family | DX: I48.91 Unspecified atrial fibrillation (principal); Z87.891 Personal history of nicotine dependence | CPT/HCPCS: 93005; 93270; 99214 ==

== ENCOUNTER 2022-11-07 15:24 | Observation (INO) | payer MEDICARE, MEDICAID, SELFPAY ==
[2022-11-07] VITALS (11 sets, daily range): BP systolic 114–172; BP diastolic 62–98; PULSE 51–71; RESP 13–18; TEMP 36.4–36.8; O2SAT 92–97; BMI 34.4
--- NOTE | 2022-11-07 15:31 | XRR_ITS ---
PROCEDURE INFORMATION: Exam: XR Chest Exam date and time: 11/07/2022 3:41 PM Age: 77 years old Clinical indication: Cough; Additional info: Dyspnea/cough TECHNIQUE: Imaging protocol: Radiologic exam of the chest. Views: 1 view. COMPARISON: CR XR chest 2V* [id number] 09/23/2022 3:17 PM FINDINGS: Lungs: See Heart/Mediastinum finding. Pleural spaces: Unremarkable. No pleural effusion. No pneumothorax. Heart/Mediastinum: Cardiomegaly and mild pulmonary vascular congestion. Bones/joints: Unremarkable. XR/XR chest 1V portable [id number] IMPRESSION: Cardiomegaly and mild pulmonary vascular congestion.
--- NOTE | 2022-11-07 15:37 | ECG_ITS ---
[facility] Test Date: 2022-11-07 Pat Name: Timoteo Hassan Department: Room: Gender: Male Manager Documentation: : 1945 Requested By: Huseyin Vicente Order Number: [id number] [employer] MD: Bryan Rahman M.D. Measurements Intervals [place] Rate: 63 P: 59 AL: 158 QRS: 48 QRSD: 96 T: 32 QT: 419 QTc: 430 Interpretive Statements SINUS RHYTHM NONSPECIFIC T-WAVE ABNORMALITY Compared to ECG 10/28/2022 15:29:13 No significant changes Electronically Signed On 11-07-2022 16:24:19 CDT by Bryan Rahman M.D. [id number]
--- NOTE | 2022-11-07 15:37 | ED_ITS ---
Documented by User: Huseyin Olivares DO 11/09/22 07:52 HPI - Weakness General: Chief complaint: Weakness Stated complaint: WEAKNESS Time Seen by Provider: 11/07/22 15:31 Source: patient Mode of arrival: EMS History of Present Illness: 77-year-old male presents emergency room with complaint of weakness for the last month. He is a difficulty with ambulation he said some increased confusion as well. He is awake and alert and oriented when he arrives here he understands why he is here he does states he is generally weak says he cannot get up and walk. He is on apixaban for atrial fibrillation. He has known coronary artery disease. He had a angiogram on 10/23/2022 he was found to have chronically occluded stents in the LAD and cardiology recommended medical management he denies any chest pain at this time. MD Complaint: generalized weakness Onset (ago): month(s) (1) Duration: constant and progressively worsening Location: generalized Severity: moderate Relieving factors: none Exacerbating factors: none Associated symptoms: Denies chest pain, chills, confusion, melena, decreased appetite, diaphoresis, dysuria, easy bruising, fever(s), headache(s), myalgias, nausea, rash, short of breath, syncope or vomiting Review of Systems Const: Denies: fever(s), chills or diaphoresis ENMT: Denies: throat pain, ear or mastoid pain, nasal discharge or nasal congestion Card: Denies: chest pain, palpitations, irregular heart rhythm, edema or syncope Resp: Denies: dyspnea, productive cough or non-productive cough GI: Denies: abdominal pain, nausea, vomiting or melena : Denies: dysuria, urinary frequency or urinary urgency Skin/Breast: Denies: rash or pruritus Neuro: Denies: headache(s) or confusion Faustino/Lymph: Denies: easy bruising PFSH ED PFSH: Medical History Alcoholic cirrhosis Anemia Anxiety and depression Arthritis Back pain, chronic Blood in stool Patient has history of internal hemorrhoids. Last Colonoscopy was done at [facility] by Dr. Campbell March 2017 which resulted with benign polyp, internal hemorrhoids. EGD done on the same date found a Schatzki ring and hiatal her joanne. Patient has a history of cirrhosis. He has a history of anemia and has received Injectafer infusions in the past. BPH (benign prostatic hyperplasia) CAD (coronary artery disease) Chronic diastolic (congestive) heart failure Chronic gout, unspecified, without tophus (tophi) COPD (chronic obstructive pulmonary disease) PFTs 06/2019 consistent with moderate airflow obstruction. There is signif icant postbronchodilator response. Normal total lung capacity. Increased residual volume suggestive of air trapping. Gas exchange (DLCO) is moderately reduced but not corrected for patient's hemoglobin. DDD (degenerative disc disease), lumbar Diabetes mellitus, type II Diabetic neuropathy Esophageal ring Essential (primary) hypertension Folic acid deficiency GERD (gastroesophageal reflux disease) Gout Hammertoe, bilateral Hemorrhoids, internal Hiatal hernia Hypothyroidism (acquired) Ischemic cardiomyopathy echo 06/2020 with EF 40-45% with hypokinesis of distal anterolateral wall Pes planus of both feet Pulmonary nodule Sleep apnea sleep study 01/2020 with mild disease in REM sleep, titration ordered; no nocturnal hypxemia Symptoms of urinary tract infection Vascular dementia Vitamin D deficiency Surgical History H/O colonoscopy (~2016) Per Dr. Campbell H/O esophagogastroduodenoscopy (~2016) Per Dr. Campbell History of cholecystectomy History of coronary artery stent placement (07/05/20) LAD and diagonal at [facility] History of laser refractive surgery History of surgery on arm History of total knee replacement (TKR) Bilateral S/P lens implant left and right lens implants Family History Father Diabetes CAD (coronary artery disease) Grandfather Diabetes Mother Heart disease Social History Smoking and tobacco status: former smoker Quit status (tobacco): has quit using tobacco Year quit tobacco: 1989 - 3PPD x 30 Years Alcohol intake: former Substance/Drug Use: never Household members: family Current occupational status: retired Do you think of yourself as: Straight/Heterosexual Current gender identity: Male Physical Exam Const: GENERAL APPEARANCE: cooperative and comfortable ORIENTATION/CONSCIOUSNESS: Yes awake, Yes oriented to person, Yes oriented to place and Yes oriented to time HENMT: COMMON NORMALS: normocephalic, atraumatic and hearing grossly normal bilaterally HEAD & SCALP: normocephalic and atraumatic Resp: COMMON NORMALS: normal respiratory effort, No retractions, No use of accessory muscles and clear to auscultation bilaterally AUSCULTATION: clear to auscultation bilaterally Cardio: COMMON NORMALS: regular rate, regular rhythm and No murmurs present (Cardio) RATE: regular rate RHYTHM: regular rhythm GI: COMMON NORMALS: Soft to palpation and No hepatosplenomegaly present AUSCULTATION: Yes normoactive bowel sounds PALPATION: Yes Soft to palpation, No Tenderness to palpation present (GI), No Guarding due to palpation present (GI) and Yes No hepatosplenomegaly present Extremity: COMMON NORMALS: normal to inspection, capillary refill normal, no clubbing, cyanosis or edema, no calf tenderness and no pedal edema Neuro: SENSORIUM/ORIENTATION: Yes oriented to person, Yes oriented to place and Yes oriented to time OTHER: NIH score is 0. No focal neurologic deficits are noted. Skin: COMMON NORMALS: no rashes or lesions noted GENERAL SKIN EXAM: no rashes or lesions noted Course Vital Signs: Vital signs: Vital Signs Temperature 98.5 F 11/09/22 04:00 Pulse Rate 55 L 11/09/22 06:00 Respiratory Rate 18 11/09/22 04:00 Blood Pressure 105/67 11/09/22 04:00 Pulse Oximetry 94 11/09/22 04:00 Oxygen Delivery Me thod Room Air 11/09/22 04:00 MDM - Weakness Medical Decision Making Care signed out to Dr. Sanchez at change of shift. See final notes for diagnosis and disposition. 77-year-old male previously seen by Dr. Witt. He presents with generalized weakness. Laboratory reveals an unremarkable CBC. His bicarbonate level is 17. He has had metabolic acidosis in the past, but 17 is a low point. Chest x-ray shows cardiomegaly and mild pulmonary vascular congestion. Head CT is negative. Other laboratory is not remarkable. He has had no urinary tract infection on urinalysis. This gentleman cannot walk. He is exceptionally weak. His metabolic acidosis is significant. He will be admitted. Further work-up to follow including lactic acid, as well as venous blood gas Lab Data 11/09/22 03:23 11/09/22 03:23 Radiology Impressions Chest X-Ray 11/07/22 15:31 IMPRESSION: Cardiomegaly and mild pulmonary vascular congestion. Head CT 11/07/22 18:34 IMPRESSION: Negative for intracranial hemorrhage or mass effect Laboratory Results WBC 6.6 10^3/uL (4.0-10.0) 11/07/22 15: RBC 4.34 10^6/uL (4.1-5.3) 11/07/22 15: Hgb 13.8 g/dL (11.7-16.6) 11/07/22 15: Hct 41.7 % (42.0-52.0) L 11/07/22 15: MCV 96.1 fl (80-94) H 11/07/22 15: MCH 31.8 pg (28.0-34.0) 11/07/22 15: MCHC 33.1 g/dL (30.0-36.0) 11/07/22 15: RDW 15.3 % (12.1-15.1) H 11/07/22 15: Plt Count 146 10^3/cmm (130-400) 11/07/22 15: MPV 11.5 fL (7.4-10.4) H 11/07/22 15: Neut % (Auto) 63.2 % 11/07/22 15: Lymph % (Auto) 19.5 % 11/07/22 15: [place] % (Auto) 9.4 % 11/07/22 15: Eos % (Auto) 7.0 % 11/07/22 15: Baso % (Auto) 0.6 % 11/07/22 15: Neut # (Auto) 4.15 10^3/uL (1.8-7.7) 11/07/22 15: Lymph # (Auto) 1.3 10^3/uL (0.8-4.8) 11/07/22 15: [place] # (Auto) 0.6 10^3/uL (0.2-0.9) 11/07/22 15: Eos # (Auto) 0.5 10^3/uL (0.0-0.8) 11/07/22 15: Baso # (Auto) 0.0 10^3/uL (0.0-0.1) 11/07/22 15:31 Nucleated RBC % (auto) 0 % 11/07/22 15:31 Nucleated RBCs # 0.0 /100WBC 11/07/22 15:31 Sodium 141 mmol/L (136-145) 11/07/22 15:31 Potassium 3.7 mmol/L (3.5-5.1) 11/07/22 15:31 Chloride 108 mmol/L (98-107) H 11/07/22 15:31 Carbon Dioxide 17 mmol/L (22-29) L 11/07/22 15:31 Anion Gap 19.7 (5-19) H 11/07/22 15:31 BUN 22 mg/dL (8-23) 11/07/22 15:31 Creatinine 1.3 mg/dL (0.7-1.2) H 11/07/22 15:31 GFR Calculation Not Reportable 11/07/22 15:31 Glucose 117 mg/dL (65-115) H 11/07/22 15:31 Estimat Average Glucose 177 11/07/22 15:31 Hemoglobin A1c 7.8 % (4.0-6.0) H 11/07/22 15:31 Calculated Osmolality 296 mOsm/kg (285-295) H 11/07/22 15:31 Calcium 10.6 mg/dL (8.5-10.5) H 11/07/22 15:31 Total Bilirubin 0.6 mg/dL (0.15-1.2) 11/07/22 15:31 AST 41 U/L (0-40) H 11/07/22 15:31 ALT 26 U/L (0-41) 11/07/22 15:31 Alkaline Phosphatase 83 U/L (40-130) 11/07/22 15:31 Troponin T Baseline 21 ng/L (0-15) H 11/07/22 15:31 Troponin T 120 Minute 19.88 ng/L (0-15) H 11/07/22 17:25 Delta Troponin T -1.12 ABS# (0-10) L 11/07/22 17:25 Total Protein 6.6 g/dL (6.6-8.7) 11/07/22 15:31 Albumin 3.8 g/dL (3.5-5.2) 11/07/22 15:31 Globulin 2.8 g/dL (1.3-4.6) 11/07/22 15:31 Urine Color Yellow (Yellow) 11/07/22 17:20 Urine Appearance Clear (CLEAR) 11/07/22 17:20 Urine pH 6 (5-7) 11/07/22 17:20 Ur Specific [place] 1.015 (1.005-1.030) 11/07/22 17:20 Urine Protein Neg (Negative) 11/07/22 17:20 Urine Glucose (UA) Norm (Normal) 11/07/22 17:20 Urine Ketones Negative (Negative) 11/07/22 17:20 Urine Blood 2+ (Negative) H 11/07/22 17:20 Urine Nitrate Negative (Negative) 11/07/22 17:20 Urine Bilirubin 1+ (Negative) H 11/07/22 17:20 Urine Urobilinogen Norm mg/dL (Negative) 11/07/22 17:20 Ur Leukocyte Esterase Negative (Negative) 11/07/22 17:20 Urine RBC 0-4 /hpf (0-2) H 11/07/22 17:20 Urine WBC 0-4 /hpf (0-5) H 11/07/22 17:20 Ur Squamous Epith Cells 0-4 /hpf (0-5) H 11/07/22 17:20 Calcium Oxalate Crystal 0-4 /hpf H 11/07/22 17:20 Amorphous Sediment Not Reportable 11/07/22 17:20 Urine Bacteria Trace /hpf (NONE) 11/07/22 17:20 Hyaline Casts Rare /lpf 11/07/22 17:20 Urine Mucus Trace /hpf 11/07/22 17:20 Discharge Plan Discharge Patient Disposition: Admitted As Inpatient Admit Provider: Monica Bray Clinical Impression: Weakness, Ischemic cardiomyopathy, Metabolic acidosis Condition: Stable Coding Level of Care Code ED Channel Business Manager for Chg Fwd Documented by User: Hao Sanchez DO 11/07/22 23:24 HPI - Weakness General: Chief complaint: Weakness Stated complaint: WEAKNESS Time Seen by Provider: 11/07/22 15:31 [facility] ED PFS: Medical History Alcoholic cirrhosis Anemia Anxiety and depression Arthritis Back pain, chronic Blood in stool Patient has history of internal hemorrhoids. Last Colonoscopy was done at [facility] by Dr. Campbell March 2017 which resulted with benign polyp, internal hemorrhoids. EGD done on the same date found a Schatzki ring and hiatal hernia. Patient has a history of cirrhosis. He has a history of anemia and has received Injectafer infusions in the past. BPH (benign prostatic hyperplasia) CAD (coronary artery disease) Chronic diastolic (congestive) heart failure Chronic gout, unspecified, without tophus (tophi) COPD (chronic obstructive pulmonary disease) PFTs 06/2019 consistent with moderate airflow obstruction. There is significant postbronchodilator response. Normal total lung capacity. Increased residual volume suggestive of air trapping. Gas exchange (DLCO) is moderately reduced but not corrected for patient's hemoglobin. DDD (degenerative disc disease), lumbar Diabetes mellitus, type II Diabetic neuropathy Esophageal ring Essential (primary) hypertension Folic acid deficiency GERD (gastroesophageal reflux disease) Gout Hammertoe, bilateral Hemorrhoids, internal Hiatal hernia Hypothyroidism (acquired) Ischemic cardiomyopathy echo 06/2020 with EF 40-45% with hypokinesis of distal anterolateral wall Pes planus of both feet Pulmonary nodule Sleep apnea sleep study 01/2020 with mild disease in REM sleep, titration ordered; no nocturnal hypxemia Symptoms of urinary tract infection Vascular dementia Vitamin D deficiency Surgical History H/O colonoscopy (~2016) Per Dr. Campbell H/O esophagogastroduodenoscopy (~2016) Per Dr. Campbell History of cholecystectomy History of coronary artery stent placement (07/05/20) LAD and diagonal at [facility] History of laser refractive surgery History of surgery on arm History of total knee replacement (TKR) Bilateral S/P lens implant left and right lens implants Family History Father Diabetes CAD (coronary artery disease) Grandfather Diabetes Mother Heart disease Social History Smoking and tobacco status: former smoker Quit status (tobacco): has quit using tobacco Year quit tobacco: 1989 - 3PPD x 30 Years Alcohol intake: former Substance/Drug Use: never Household members: family Current occupational status: retired Do you think of yourself as: Straight/Heterosexual Current gender identity: Male Course Vital Signs: Vital signs: Vital Signs Temperature 98.5 F 11/09/22 04:00 Pulse Rate 55 L 11/09/22 06:00 Respiratory Rate 18 11/09/22 04:00 Blood Pressure 105/67 11/09/22 04:00 Pulse Oximetry 94 11/09/22 04:00 Oxygen Delivery Me thod Room Air 11/09/22 04:00 MDM - Weakness Medical Decision Making 77-year-old male previously seen by Dr. Witt. He presents with generalized weakness. Laboratory reveals an unremarkable CBC. His bicarbonate level is 17. He has had metabolic acidosis in the past, but 17 is a low point. Chest x-ray shows cardiomegaly and mild pulmonary vascular congestion. Head CT is negative. Other laboratory is not remarkable. He has had no urinary tract infection on urinalysis. This gentleman cannot walk. He is exceptionally weak. His metabolic acidosis is significant. He will be admitted. Further work-up to follow including lactic acid, as well as venous blood gas Lab Data 11/09/22 03:23 11/09/22 03:23 Radiology Impressions Chest X-Ray 11/07/22 15:31 IMPRESSION: Cardiomegaly and mild pulmonary vascular congestion. Head CT 11/07/22 18:34 IMPRESSION: Negative for intracranial hemorrhage or mass effect Laboratory Results WBC 6.6 10^3/uL (4.0-10.0) 11/07/22 15:31 RBC 4.34 10^6/uL (4.1-5.3) 11/07/22 15:31 Hgb 13.8 g/dL (11.7-16.6) 11/07/22 15:31 Hct 41.7 % (42.0-52.0) L 11/07/22 15:31 MCV 96.1 fl (80-94) H 11/07/22 15:31 MCH 31.8 pg (28.0-34.0) 11/07/22 15:31 MCHC 33.1 g/dL (30.0-36.0) 11/07/22 15:31 RDW 15.3 % (12.1-15.1) H 11/07/22 15:31 Plt Count 146 10^3/cmm (130-400) 11/07/22 15:31 MPV 11.5 fL (7.4-10.4) H 11/07/22 15:31 Neut % (Auto) 63.2 % 11/07/22 15:31 Lymph % (Auto) 19.5 % 11/07/22 15:31 [place] % (Auto) 9.4 % 11/07/22 15:31 Eos % (Auto) 7.0 % 11/07/22 15:31 Baso % (Auto) 0.6 % 11/07/22 15: Neut # (Auto) 4.15 10^3/uL (1.8-7.7) 11/07/22 15: Lymph # (Auto) 1.3 10^3/uL (0.8-4.8) 11/07/22 15: [place] # (Auto) 0.6 10^3/uL (0.2-0.9) 11/07/22 15:31 Eos # (Auto) 0.5 10^3/uL (0.0-0.8) 11/07/22 15: Baso # (Auto) 0.0 10^3/uL (0.0-0.1) 11/07/22 15: Nucleated RBC % (auto) 0 % 11/07/22 15: Nucleated RBCs # 0.0 /100WBC 11/07/22 15:31 Sodium 141 mmol/L (136-145) 11/07/22 15:31 Potassium 3.7 mmol/L (3.5-5.1) 11/07/22 15:31 Chloride 108 mmol/L (98-107) H 11/07/22 15:31 Carbon Dioxide 17 mmol/L (22-29) L 11/07/22 15:31 Anion Gap 19.7 (5-19) H 11/07/22 15:31 BUN 22 mg/dL (8-23) 11/07/22 15:31 Creatinine 1.3 mg/dL (0.7-1.2) H 11/07/22 15:31 GFR Calculation Not Reportable 11/07/22 15:31 Glucose 117 mg/dL (65-115) H 11/07/22 15:31 Estimat Average Glucose 177 11/07/22 15:31 Hemoglobin A1c 7.8 % (4.0-6.0) H 11/07/22 15:31 Calculated Osmolality 296 mOsm/kg (285-295) H 11/07/22 15:31 Calcium 10.6 mg/dL (8.5-10.5) H 11/07/22 15:31 Total Bilirubin 0.6 mg/dL (0.15-1.2) 11/07/22 15:31 AST 41 U/L (0-40) H 11/07/22 15:31 ALT 26 U/L (0-41) 11/07/22 15:31 Alkaline Phosphatase 83 U/L (40-130) 11/07/22 15:31 Troponin T Baseline 21 ng/L (0-15) H 11/07/22 15:31 Troponin T 120 Minute 19.88 ng/L (0-15) H 11/07/22 17:25 Delta Troponin T -1.12 ABS# (0-10) L 11/07/22 17:25 Total Protein 6.6 g/dL (6.6-8.7) 11/07/22 15:31 Albumin 3.8 g/dL (3.5-5.2) 11/07/22 15:31 Globulin 2.8 g/dL (1.3-4.6) 11/07/22 15:31 Urine Color Yellow (Yellow) 11/07/22 17:20 Urine Appearance Clear (CLEAR) 11/07/22 17:20 Urine pH 6 (5-7) 11/07/22 17:20 Ur Specific [place] 1.015 (1.005-1.030) 11/07/22 17:20 Urine Protein Neg (Negative) 11/07/22 17:20 Urine Glucose (UA) Norm (Normal) 11/07/22 17:20 Urine Ketones Negative (Negative) 11/07/22 17:20 Urine Blood 2+ (Negative) H 11/07/22 17:20 Urine Nitrate Negative (Negative) 11/07/22 17:20 Urine Bilirubin 1+ (Negative) H 11/07/22 17:20 Urine Urobilinogen Norm mg/dL (Negative) 11/07/22 17:20 Ur Leukocyte Esterase Negative (Negative) 11/07/22 17:20 Urine RBC 0-4 /hpf (0-2) H 11/07/22 17:20 Urine WBC 0-4 /hpf (0-5) H 11/07/22 17:20 Ur Squamous Epith Cells 0-4 /hpf (0-5) H 11/07/22 17:20 Calcium Oxalate Crystal 0-4 /hpf H 11/07/22 17:20 Amorphous Sediment Not Reportable 11/07/22 17:20 Urine Bacteria Trace /hpf (NONE) 11/07/22 17:20 Hyaline Casts Rare /lpf 11/07/22 17:20 Urine Mucus Trace /hpf 11/07/22 17:20 Discharge Plan Discharge Patient Disposition: Admitted As Inpatient Admit Provider: Monica Bray Clinical Impression: Weakness, Ischemic cardiomyopathy, Metabolic acidosis Condition: Stable Coding Level of Care Code ED Channel Business Manager for Chad Schulte
[2022-11-07 15:45] LABS: Basophils % 0.6 %; Eosinophils # 0.5 10^3/uL (0.0-0.8); Hematocrit 41.7 % (42.0-52.0); Hemoglobin 13.8 g/dL (11.7-16.6); Lymphocytes # 1.3 10^3/uL (0.8-4.8); Lymphocytes % 19.5 %; Mean Corpuscular HGB Conc 33.1 g/dL (30.0-36.0); Mean Corpuscular Hemoglobin 31.8 pg (28.0-34.0); Mean Corpuscular Volume 96.1 fl (80-94); Mean Platelet Volume 11.5 fL (7.4-10.4); Monocytes # 0.6 10^3/uL (0.2-0.9); Monocytes % 9.4 %; Neutrophils # 4.15 10^3/uL (1.8-7.7); Neutrophils % 63.2 %; Nucleated Red Blood Cells % 0 %; Platelet Count 146 10^3/cmm (130-400); Red Blood Count 4.34 10^6/uL (4.1-5.3); Red Cell Distribution Width 15.3 % (12.1-15.1); White Blood Count 6.6 10^3/uL (4.0-10.0)
[2022-11-07 16:04] LABS: Alanine Aminotransferase 26 U/L (0-41); Albumin Level 3.8 g/dL (3.5-5.2); Alkaline Phosphatase 83 U/L (40-130); Anion Gap 19.7 (5-19); Aspartate Amino Transferase 41 U/L (0-40); Blood Urea Nitrogen 22 mg/dL (8-23); Calcium 10.6 mg/dL (8.5-10.5); Carbon Dioxide 17 mmol/L (22-29); Chloride 108 mmol/L (98-107); Globulin 2.8 g/dL (1.3-4.6); Glucose 117 mg/dL (65-115); Osmolality Calculated 296 mOsm/kg (285-295); Potassium 3.7 mmol/L (3.5-5.1); Sodium 141 mmol/L (136-145); Total Bilirubin 0.6 mg/dL (0.15-1.2); Total Protein 6.6 g/dL (6.6-8.7)
[2022-11-07 16:16] LABS: Troponin(5th) Baseline 21 ng/L (0-15)
--- NOTE | 2022-11-07 16:25 | PC.NURSE ---
PT PLACED ON CONTINUOUS NIBP, SPO2, AND CM
[2022-11-07 17:44] LABS: Add Urine Microscopic? YES; Bacteria Urine TRACE /hpf; Bilirubin Urine 1+ (Negative); Blood Urine 2+ (Negative); Calcium Oxalate Crystals Urine 0-4 /hpf; Glucose Urine UA Norm (Normal); Hyaline Casts Urine RARE /lpf; Ketones Urine Negative (Negative); Leukocyte Esterase Urine Negative (Negative); Mucus Urine TRACE /hpf; Nitrate Urine Negative (Negative); Protein Urine Neg (Negative); RBC Urine 0-4 /hpf (0-2); Specific Gravity, Urine 1.015 (1.005-1.030); Squamous Epithelial Cell Urine 0-4 /hpf (0-5); Urine Appearance Clear (CLEAR); Urine Color Yellow (Yellow); Urobilinogen Urine Norm (Negative); WBC Urine 0-4 /hpf (0-5); pH Urine 6 (5-7)
[2022-11-07 17:45] LABS: Add Urine Culture? No
[2022-11-07 17:49] LABS: Troponin 5 2HR 19.88 ng/L (0-15); Troponin 5 2HR Delta -1.12 ABS# (0-10)
--- NOTE | 2022-11-07 18:10 | ECG_ITS ---
[facility] Test Date: 2022-11-07 Pat Name: Timoteo Hassan Department: Room: Gender: Male Test Desk Operator: : 1945 Requested By: Huseyin Vicente Order Number: [id number] Kodak MD: Ashley Sims M.D. Measurements Intervals Page Rate: 58 P: 51 OR: 167 QRS: 53 QRSD: 94 T: 81 QT: 428 QTc: 422 Interpretive Statements SINUS BRADYCARDIA NONSPECIFIC T-WAVE ABNORMALITY Compared to ECG 11/07/2022 15:49:21 Sinus rhythm no longer present T-wave abnormality still present Electronically Signed On 11-07-2022 18:13:34 CDT by Ashley Sims M.D. [email or web address] 1 Network [email or web address]-ritt[facility].[employer]/store/[id number]
--- NOTE | 2022-11-07 18:34 | CTR_ITS ---
PROCEDURE INFORMATION: Exam: CT Head Without Contrast Exam date and time: 11/07/2022 6:41 PM Age: 77 years old Clinical indication: Walking, difficulty; Prior surgery; Surgery date: 6+ months; Surgery type: Bilateral lens implants; Patient HX: Persistent general weakness x 1 month with worsening difficulty ambulating. ; Additional info: Weakness, unable walk TECHNIQUE: Imaging protocol: Computed tomography of the head without contrast. Radiation optimization: All CT scans at this facility use at least one of these dose optimization techniques: automated exposure control; mA and/or kV adjustment per patient size (includes targeted exams where dose is matched to clinical indication); or iterative reconstruction. REPORTING DATA: Count of CT and Cardiac NM exams in prior 12 months: This patient has received 4 known CTs and 0 known cardiac nuclear medicine studies in the 12 months prior to the current study. COMPARISON: CT angio headneck* [id number] 07/05/2022 1:59 PM RADIATION DOSE METRICS: Total DLP (mGy-cm): 1112.75 FINDINGS: Brain: Moderate diffuse white matter disease likely reflecting chronic microvascular ischemic changes. Cerebral ventricles: No ventriculomegaly. Paranasal sinuses: Visualized sinuses are unremarkable. No fluid levels. Mastoid air cells: Visualized mastoid air cells are well aerated. Bones/joints: Unremarkable. No acute fracture. Soft tissues: Unremarkable. CT/CT head wo con* [id number] IMPRESSION: Negative for intracranial hemorrhage or mass effect
[2022-11-07] MEDS: sodium chloride 0.9% 1,000 ML 999 ML IV (20:09)
--- NOTE | 2022-11-07 21:37 | ECG_ITS ---
[facility] Test Date: 2022-11-07 Pat Name: Timoteo Hassan Department: Room: 277 Gender: Male Animal Taxonomist: : 1945 Requested By: Huseyin Vicente Order Number: [id number] Kodak MD: Bryan Rahman M.D. Measurements Intervals [place] Rate: 50 P: 28 HI: 170 QRS: 46 QRSD: 97 T: 25 QT: 455 QTc: 415 Interpretive Statements SINUS BRADYCARDIA NONSPECIFIC T-WAVE ABNORMALITY Compared to ECG 11/07/2022 18:10:56 No significant changes Electronically Signed On 11-08-2022 8:36:43 CDT by Bryan Rahman M.D. [email or web address].[employer]/store/[id number]
[2022-11-07 21:38] LABS: Base Excess VBG -3.5 mmol/L (-3.0-3.0); Blood Gas Sample Type Venous; HCO3 VBG 22.1 mmol/L (24-28); Venous Blood Gas Hematocrit 41.4 % (42-52); pH VBG 7.34 (7.32-7.42)
[2022-11-07 22:01] LABS: Troponin 5 6HR 19.36 ng/L (0-15)
[2022-11-07 22:03] LABS: Lactic Sepsis W/Reflex 1.5 mmol/L (0.5-2.2); Troponin 5 6HR Delta -1.64 ng/L (0-12)
--- NOTE | 2022-11-07 22:15 | PM.HP ---
Providers/Chief Complaint Admitting Physician: Monica Bray MD Primary Care Provider: Bartolome Castillo MD Chief Complaint: WEAKNESS History of Present Illness Timoteo Hassan is a 77 year old male 77 -year-old male with history of alcoholic cirrhosis, anemia, anxiety, depression, chronic back pain, internal hemorrhoids, BPH, CAD, chronic diastolic heart failure, gout, COPD, type 2 diabetes mellitus, hypertension, GERD, sleep apnea, vitamin D deficiency, vascular dementia presented to the hospital today for complaint of weakness for the last 1 month. Patient has been having difficulty ambulating and has been getting more and more confused lately. In the ER he was awake alert oriented and he was able to tell the ER physician why he was there and said that he was generally weak and cannot get up and walk. He did have an angiogram done on 10/23/2022 and was found to have chronically occluded stents in the LAD and cardiology recommended medical management at the time. Today patient denies chest pain, shortness of breath, nausea, vomiting, diarrhea, fever. Pt states his limbs all feel heavy however he is still able to move them. He states he is unable to smile saying its not working . Daughter in law states that earlier in the day he was slurring his words as well and could not smile. She is concerned for a stroke. He has not had a stroke before however has been diagnosed with vascular dementia via MRI at [facility] in the past. Patient is able to move all 4 extremities. Face is symmetrical. Strength equal b/l upper and lower extremities however overall weak. On arrival to ER, BP 114/75, respirate 16, pulse 67, temperature 98.3, saturating 93% on room air Labs show WBC 6.6, hemoglobin 13.8, platelet 146, sodium 141, potassium 3.7, CO2 17, anion gap 19.7, creatinine 1.3, glucose 117, calculated osmolality 296, calcium 10.6, baseline troponin 21 6-hour troponin 19.36 with a delta of -1.64. Chest x-ray shows cardiomegaly and pulmonary vascular congestion as reported by radiology. EKG shows sinus rhythm. UA shows 2+ blood, 0-4 RBCs, trace bacteria, trace mucus. Negative for leukocyte esterase, negative for nitrates. Lactic acid 1.5, VBG 7.3 /26/22.1. Medications/Allergies Home Medications Medication Instructions Recorded Confirmed Last Taken Type magnesium 250 mg tablet 250 mg PO QPM 08/05/20 11/07/22 11/06/22 History qhudtkcw-[id number]-lxntt acid 400 1 tab PO DAILY ##0 08/05/20 11/07/22 11/07/22 History mcg-vit K 20 mcg-lycop 300 mcg tablet (Men's One Daily) aspirin 81 mg chewable tablet 81 mg PO DAILY #90 tabs 02/13/21 11/07/22 11/07/22 Rx albuterol sulfate 90 mcg/actuation 2 puff inhalation Q6H PRN 02/12/22 11/07/22 10/23/22 07:00 Rx aerosol inhaler shortness of breath or wheezing #8.5 grams lactulose 20 gram/30 mL oral 40 g (60 mL) PO DAILY 30 days 03/19/22 11/07/22 11/07/22 Rx solution #3,000 mL albuterol sulfate 2.5 mg/3 mL 2.5 mg (3 mL) inhalation Q6H PRN 03/27/22 11/07/22 10/23/22 07:00 Rx (0.083 %) solution for nebulization Shortness Of Breath #180 mL clopidogrel 75 mg tablet 75 mg PO DAILY #90 tabs 06/25/22 11/07/22 11/07/22 Rx duloxetine 20 mg capsule,delayed 20 mg PO BEDTIME #90 caps 06/25/22 11/07/22 11/06/22 Rx release finasteride 5 mg tablet 5 mg PO BEDTIME #90 tabs 06/25/22 11/07/22 11/06/22 Rx folic acid 1 mg tablet 1 mg PO DAILY #90 tabs 06/25/22 11/07/22 11/07/22 Rx levothyroxine 150 mcg tablet 150 mcg PO DAILY #90 tabs 06/25/22 11/07/22 11/07/22 Rx potassium chloride 10 mEq See Rx Instructions .Route 07/02/22 11/07/22 10/22/22 07:00 Rx capsule,extended release .COMPLEX #90 caps donepezil 10 mg tablet 10 mg PO BEDTIME 07/05/22 11/07/22 11/06/22 History furosemide 40 mg tablet (Lasix) 20 mg PO EVERY OTHER DAY 0211/07/22 10/22/22 07:00 History linaclotide 145 mcg capsule 145 mcg PO QPM 07/05/22 11/07/22 11/06/22 History (Carmencita) metformin 1,000 mg tablet 1,000 mg PO BID 07/05/22 11/07/22 10/22/22 07:00 History pantoprazole 40 mg tablet,delayed 40 mg PO DAILY 07/05/22 11/07/22 11/07/22 History release sitagliptin phosphate 100 mg 100 mg PO DAILY 07/05/22 11/07/22 11/07/22 History tablet (Januvia) ketoconazole 2 % topical cream 1 applic topical BID #30 grams 07/08/22 11/07/22 10/23/22 07:00 Rx diabetic shoes with 3 inserts #1 ea 07/29/22 11/07/22 10/23/22 07:00 Rx losartan 100 mg tablet 100 mg PO DAILY #90 tabs 08/28/22 11/07/22 11/06/22 Rx nitroglycerin 0.4 mg sublingual 0.4 mg sublingual Q5M PRN chest 08/28/22 11/07/22 Unknown Rx tablet pain 30 days #30 tabs cholecalciferol (vitamin D3) 1,250 See Rx Instructions .Route 09/16/22 11/07/22 10/17/22 07:00 Rx mcg (50,000 unit) capsule .COMPLEX #12 caps ondansetron 4 mg oral soluble film 4 mg PO DAILY PRN nausea and 09/21/22 11/07/22 10/23/22 07:00 Rx vomiting #10 ea apixaban 2.5 mg tablet 2.5 mg PO BID #60 tabs 10/28/22 11/07/22 Unknown Rx acetaminophen 325 mg capsule 650 mg PO QID PRN Pain 11/07/22 11/07/22 Unknown History allopurinol 300 mg tablet 300 mg PO DAILY 11/07/22 11/07/22 11/07/22 History carvedilol 3.125 mg tablet 3.125 mg PO BID 11/07/22 11/07/22 11/07/22 History fluticasone fur. 100 mcg-umeclid 1 inh inhalation DAILY 11/07/22 11/07/22 11/07/22 History 62.5 mcg-vilant 25 mcg inhalat.powder (Trelegy Ellipta) gabapentin 100 mg capsule 200 mg PO TID 11/07/22 11/07/22 11/07/22 History isosorbide mononitrate 30 mg 30 mg PO DAILY 11/07/22 11/07/22 11/07/22 History tablet,extended release 24 hr rosuvastatin 20 mg tablet 20 mg PO QPM 11/07/22 11/07/22 11/06/22 History Allergies Allergy/AdvReac Type Severity Reaction Status Date / Time morphine Allergy Severe ALGY-Anaphy Verified 11/07/22 15:57 laxis insect venom Allergy Unknown Verified 11/07/22 15:57 Opioids - Morphine Analogues AdvReac Severe ADR-Halluci Verified 11/07/22 15:57 nating PFSH Acute PFSH: Medical History Alcoholic cirrhosis Anemia Anxiety and depression Arthritis Back pain, chronic Blood in stool Patient has history of internal hemorrhoids. Last Colonoscopy was done at [facility] [place]. Campbell March 2017 which resulted with benign polyp, internal hemorrhoids. EGD done on the same date found a Schatzki ring and hiatal hernia. Patient has a history of cirrhosis. He has a history of anemia and has received Injectafer infusions in the past. BPH (benign prostatic hyperplasia) CAD (coronary artery disease) Chronic diastolic (congestive) heart failure Chronic gout, unspecified, without tophus (tophi) COPD (chronic obstructive pulmonary disease) PFTs 06/2019 consistent with moderate airflow obstruction. There is significant postbronchodilator response. Normal total lung capacity. Increased residual volume suggestive of air trapping. Gas exchange (DLCO) is moderately reduced but not corrected for patient's hemoglobin. DDD (degenerative disc disease), lumbar Diabetes mellitus, type II Diabetic neuropathy Esophageal ring Essential (primary) hypertension Folic acid deficiency GERD (gastroesophageal reflux disease) Gout Hammertoe, bilateral Hemorrhoids, internal Hiatal hernia Hypothyroidism (acquired) Ischemic cardiomyopathy echo 06/2020 with EF 40-45% with hypokinesis of distal anterolateral wall Pes planus of both feet Pulmonary nodule Sleep apnea sleep study 01/2020 with mild disease in REM sleep, titration ordered; no nocturnal hypxemia Symptoms of urinary tract infection Vascular dementia Vitamin D deficiency Surgical History H/O colonoscopy (~2017) Per Dr. Campbell H/O esophagogastroduodenoscopy (~2017) Per Dr. Campbell History of cholecystectomy History of coronary artery stent placement (07/05/20) LAD and diagonal at [facility] History of laser refractive surgery History of surgery on arm History of total knee replacement (TKR) Bilateral S/P lens implant left and right lens implants Family History Father Diabetes CAD (coronary artery disease) Grandfather Diabetes Mother Heart disease Social History Smoking and tobacco status: former smoker Quit status (tobacco): has quit using tobacco Year quit tobacco: 1989 - 3PPD x 30 Years Alcohol intake: former Substance/Drug Use: never Household members: family Current occupational status: retired Do you think of yourself as: Straight/Heterosexual Current gender identity: Male Vitals/I&O/Wt Last Vital Signs Temp 98.3 F 11/07/22 15:28 Pulse 55 L 11/07/22 21:16 Resp 14 11/07/22 21:16 BP 150/62 11/07/22 21:16 Pulse Ox 97 11/07/22 21:16 O2 Del Method Room Air 11/07/22 21:16 Weight last 48 hrs Weight 99.79 kg Physical Exam Narrative: General: Alert oriented x3, patient seen laying in bed appearing comfortable at this time. No acute respiratory distress does appear somewhat confused. Able to follow commands and answer questions however. HEENT: Normocephalic, atraumatic, EOMI, Cardio: Regular rhythm, bradycardic, normal S1-S2, Respiratory: Mainly clear to auscultation bilaterally no wheezes no rhonchi. GI: Abdomen soft, nontender, nondistended, bowel sounds + Extremities: No edema. Neuro: CN grossly normal. States he cannot smile, It wont work . Face symmetrical. No gross deficits. Overall weakness present. Strength 5/5 UE, 3/5 LE B/L. Data 11/07/22 15:31 11/07/22 15:31 A&P Assessment and plan (1) Weakness: (2) Atrial fibrillation: (3) RAQUEL (obstructive sleep apnea): (4) Alcoholic cirrhosis: Qualifiers: Ascites presence: without ascites Qualified Code(s): K70.30 - Alcoholic cirrhosis of liver without ascites (5) Ischemic cardiomyopathy: (6) COPD (chronic obstructive pulmonary disease): Qualifiers: COPD type: unspecified COPD Qualified Code(s): J44.9 - Chronic obstructive pulmonary disease, unspecified (7) History of coronary artery stent placement: (8) CAD (coronary artery disease): Qualifiers: Coronary Disease-Associated Artery/Lesion type: [place] artery [place] vs. transplanted heart: [place] heart Associated angina: with unspecified angina Qualified Code(s): I25.119 - Atherosclerotic heart disease of [place] coronary artery with unspecified angina pectoris (9) Diabetic neuropathy: Qualifiers: Diabetes mellitus type: type 2 Diabetes mellitus complication detail: with other neurological complication Qualified Code(s): E11.49 - Type 2 diabetes mellitus with other diabetic neurological complication (10) Anxiety and depression: (11) GERD (gastroesophageal reflux disease): (12) Hypothyroidism (acquired): (13) Anemia: Qualifiers: Anemia type: iron deficiency Iron deficiency anemia type: unspecified iron deficiency Qualified Code(s): D50.9 - Iron deficiency anemia, unspecified Plan #Generalized Weakness #Hypothyroidism, possibly worsening?? #Hypercalemia 10.2 #Hx of vascular dementia #Anxiety/Depression #IHD, CAD, chronic occlusion, medical management #Chronic Diastolic HF #GERD #Sleep Apnea #COPD #Type 2 DM #Chronic Anemia #Liver cirhossis - PT/OT - Check Vitamin B12 level, TSH, Free T4 - Pt clinically appears dehydrated. Will place on gentle IV hydration NS 50 cc/hr - Recheck labs in AM: CMP, CBC, Mag, Phosphorus level - Check BNP - Echo done 10/07 shows: Normal left ventricular size and systolic function, EF 55% no ?regional wall motion abnormalities. Grade I/IV diastolic ?dysfunction (abnormal relaxation filling pattern), normal to ?mildly elevated filling pressures. - I cannot seem to find details of previous stroke or dementia in the chart however patient is on donepezil daily. will continue for now. His presentation may be due to advancing dementia. DIL states he was dx at [facility]. - Stroke cannot be ruled out. CT head negative. - Consider MRI brain w/o contrast - He also had hematuria for which he saw urology in [place]. Will request records. Apixaban currently on hold. - Check ammonia level - Pt bradycardic today. Will hold coreg for now. - Med rec need to be completed. - He recently saw cardiology and was found to be in a.fib and placed on holter monitor . Pt to follow up with cardiology jan 08. - Continue on lactulose for cirhossis. - Continue levothyroxine at current home dose, may need to increase depending on results. Cardiac diet Full Code Daughter in law is DPOA Attestations Medical Necessity Statement*: > 2 midnight stay for management of generalized weakness Coding Level of Care Code G0426 (50 min) TH Encounter Time (min): 65 Patient seen via Telehealth in the acute care setting (hospital or ED location) by agreement and consent of patient or patient bilingual inside sales representative. Telehealth technology used during the visit includes video and audio. This patient encounter is appropriate and reasonable under the circumstances given the patient?s particular presentation at this time. The patient has been advised of the potential risks and limitations of this mode of treatment (including but not limited to the absence of in-person examination at this time) and has agreed to be treated by an off-site physician for this visit. If deemed clinically necessary from this telehealth visit, or if condition or consent for telehealth visit changes, an in-person visit will be arranged. For this encounter, total time for the origination of telehealth care on this date is as shown. Diagnoses Weakness R53.1 Atrial fibrillation I48.91 RAQUEL (obstructive sleep apnea) G47.33 Alcoholic cirrhosis K70.30 Ascites presence: without ascites Ischemic cardiomyopathy I25.5 COPD (chronic obstructive pulmonary disease) J44.9 COPD type: unspecified COPD History of coronary artery stent placement Z95.5 CAD (coronary artery disease) I25.119 Coronary Disease-Associated Artery/Lesion type: [place] artery [place] vs. transplanted heart: [place] heart Associated angina: with unspecified angina Diabetic neuropathy E11.49 Diabetes mellitus type: type 2 Diabetes mellitus complication detail: with other neurological complication Anxiety and depression F41.9; F32.9 GERD (gastroesophageal reflux disease) K21.9 Hypothyroidism (acquired) E03.9 Anemia D50.9 Anemia type: iron deficiency Iron deficiency anemia type: unspecified iron deficiency
[2022-11-07 22:22] LABS: Glucose Point of Care 114 mg/dL (70-110)
[2022-11-07] MEDS: sodium chloride 0.9% 1,000 ML 75 ML IV (23:23)
[2022-11-07] MEDS: pantoprazole 40 mg SDV IVP (23:23)
[2022-11-07 23:30] LABS: Estmated Average Glucose 177; Hemoglobin A1C 7.8 % (4.0-6.0)
[2022-11-08] VITALS (13 sets, daily range): BP systolic 92–158; BP diastolic 53–84; PULSE 58–69; RESP 16–18; TEMP 36.4–36.9; O2SAT 90–97
[2022-11-08 00:15] LABS: Ammonia 45 umol/L (16-60)
[2022-11-08 00:27] LABS: NT Pro B Type Natriuretic Pept 61 pg/mL (0-450); Procalcitonin 0.06 ng/mL (0-0.5); Thyroid Stimulating Hormone 67.15 uIU/mL (0.27-4.20)
[2022-11-08 01:09] LABS: Vitamin B12 994 pg/mL (232-1245)
[2022-11-08 01:56] LABS: Blood Gas Sample Site Not specified
[2022-11-08 02:36] LABS: Basophils # 0.1 10^3/uL (0.0-0.1); Basophils % 0.9 %; Eosinophils # 0.5 10^3/uL (0.0-0.8); Eosinophils % 9.2 %; Hematocrit 37.9 % (42.0-52.0); Hemoglobin 12.4 g/dL (11.7-16.6); Lymphocytes # 1.2 10^3/uL (0.8-4.8); Lymphocytes % 22.2 %; Mean Corpuscular HGB Conc 32.7 g/dL (30.0-36.0); Mean Corpuscular Hemoglobin 31.5 pg (28.0-34.0); Mean Corpuscular Volume 96.2 fl (80-94); Mean Platelet Volume 11.1 fL (7.4-10.4); Monocytes # 0.5 10^3/uL (0.2-0.9); Neutrophils % 58.5 %; Nucleated Red Blood Cells % 0 %; Platelet Count 112 10^3/cmm (130-400); Red Blood Count 3.94 10^6/uL (4.1-5.3); Red Cell Distribution Width 15.1 % (12.1-15.1); White Blood Count 5.5 10^3/uL (4.0-10.0)
[2022-11-08 02:42] LABS: Creatine Phosphokinase 386 U/L (39-308)
[2022-11-08 02:53] LABS: Alanine Aminotransferase 21 U/L (0-41); Albumin Level 3.2 g/dL (3.5-5.2); Alkaline Phosphatase 70 U/L (40-130); Anion Gap 13.2 (5-19); Aspartate Amino Transferase 37 U/L (0-40); Blood Urea Nitrogen 22 mg/dL (8-23); Carbon Dioxide 19 mmol/L (22-29); Chloride 109 mmol/L (98-107); Globulin 2.8 g/dL (1.3-4.6); Glucose 169 mg/dL (65-115); Magnesium 1.4 mg/dL (1.7-2.3); Osmolality Calculated 293 mOsm/kg (285-295); Phosphorus 2.3 mg/dL (2.5-4.5); Potassium 3.2 mmol/L (3.5-5.1); Sodium 138 mmol/L (136-145); Total Bilirubin 0.6 mg/dL (0.15-1.2)
[2022-11-08 03:03] LABS: Cortisol Random 3.49 ug/dL (2.47-19.5)
[2022-11-08] MEDS: magnesium sulfate premix 4 GM/100 ML PREMIX IV (05:29)
[2022-11-08 06:43] LABS: Glucose Point of Care 105 mg/dL (70-110)
[2022-11-08] MEDS: levothyroxine 150 mcg Tablet PO (08:46)
[2022-11-08] MEDS: isosorbide mononitrate ER 30 mg Tablet PO (08:46)
[2022-11-08] MEDS: allopurinol 300 mg Tablet PO (08:47)
[2022-11-08] MEDS: clopidogrel 75 mg Tablet PO (08:47)
[2022-11-08] MEDS: folic acid 1 mg Tablet PO (08:48)
[2022-11-08] MEDS: aspirin 81 mg Chew Tablet PO (08:50)
[2022-11-08] MEDS: potassium phosphate (mEq K) 40 MEQ in sodium chloride 0.9% (100 ml) 100 ML 27.25 MEQ IV (08:51)
[2022-11-08] MEDS: budesonide 0.5 mg/2 mL Neb INHALATION ×2 (08:59→20:34)
[2022-11-08] MEDS: ipratropium-albuterol 3 mL Neb INHALATION ×4 (08:59→20:34)
[2022-11-08] MEDS: levothyroxine 25 mcg Tablet 12.5 MCG PO (15:54)
--- NOTE | 2022-11-08 16:37 | PM.PN ---
Subjective Subjective: Patient visited twice today. First thing this morning he states he doing all right, but has been generally weak. He does not remember his medications. Later on states also that has been getting cold quite easily. Vitals/I&O/Wt Last Vital Signs Temp 97.6 F 11/08/22 15:28 Pulse 59 L 11/08/22 15:28 Resp 17 11/08/22 15:28 BP 117/67 11/08/22 15:28 Pulse Ox 92 11/08/22 15:28 O2 Del Method Room Air 11/08/22 15:28 11/08/22 11/08/22 11/08/22 06:59 14:59 22:59 Intake Total 91.25 / 1091.25 929.0909 / 929.0909 Output Total 250 / 250 900 / 900 Balance -158.75 / 841.25 929.0909 / 929.0909 -900 / 29.0909 Weight last 48 hrs Weight 99.79 kg Physical Exam Narrative: Hard of hearing, but responds when spoken to loudly or close to his ear. On second visit accompanied by his son and [id number]. Const: COMMON NORMALS: alert GENERAL APPEARANCE: cooperative ORIENTATION/CONSCIOUSNESS: Yes awake HENMT: COMMON NORMALS: oropharynx normal Neck/C-Spine: COMMON NORMALS: no JVD Resp: COMMON NORMALS: normal respiratory effort and clear to auscultation bilaterally AUSCULTATION: clear to auscultation bilaterally Cardio: COMMON NORMALS: no JVD, regular rhythm, S1 normal heart sound present, S2 normal heart sound present and No murmurs present (Cardio) RHYTHM: regular rhythm HEART SOUNDS: S1 normal heart sound present and S2 normal heart sound present GI: COMMON NORMALS: Normal to inspection, nondistended, normoactive bowel sounds present, Soft to palpation and non-tender PALPATION: Yes Soft to palpation Extremity: COMMON NORMALS: no joint enlargement and no pedal edema Neuro: COMMON NORMALS: moves all extremities SENSORIUM/ORIENTATION: Yes alert Skin: COMMON NORMALS: no rashes or lesions noted GENERAL SKIN EXAM: no rashes or lesions noted Urinary Catheter Management: Schmitz: Cath Placed During This Visit: yes Reason for Continuing Indwelling Catheter: Other Urinary Catheter Date of Insertion: 11/07/22 Urinary Catheter Time of Insertion: 23:40 Data 11/08/22 02:26 11/08/22 02:26 A&P Assessment and plan (1) Weakness: (2) Atrial fibrillation: (3) RAQUEL (obstructive sleep apnea): (4) Alcoholic cirrhosis: Qualifiers: Ascites presence: without ascites Qualified Code(s): K70.30 - Alcoholic cirrhosis of liver without ascites (5) Ischemic cardiomyopathy: (6) COPD (chronic obstructive pulmonary disease): Qualifiers: COPD type: unspecified COPD Qualified Code(s): J44.9 - Chronic obstructive pulmonary disease, unspecified (7) History of coronary artery stent placement: (8) CAD (coronary artery disease): Qualifiers: Coronary Disease-Associated Artery/Lesion type: [place] artery [place] vs. transplanted heart: [place] heart Associated angina: with unspecified angina Qualified Code(s): I25.119 - Atherosclerotic heart disease of [place] coronary artery with unspecified angina pectoris (9) Diabetic neuropathy: Qualifiers: Diabetes mellitus type: type 2 Diabetes mellitus complication detail: with other neurological complication Qualified Code(s): E11.49 - Type 2 diabetes mellitus with other diabetic neurological complication (10) Anxiety and depression: (11) GERD (gastroesophageal reflux disease): (12) Hypothyroidism (acquired): (13) Anemia: Qualifiers: Anemia type: iron deficiency Iron deficiency anemia type: unspecified iron deficiency Qualified Code(s): D50.9 - Iron deficiency anemia, unspecified Plan #Generalized Weakness Discussed with him and later again with his family regarding number of findings we have been seeing so far are likely contributing to his weakness, including magnesium and phosphorus deficiency for which she is receiving replacement and we will repeat again. Additionally hypothyroidism. Partial history obtained from his family as he does not know his medications and is not a good historian. His family tell me that he has been on levothyroxine for a long time without a change in the dose. He is noted to have TSH six 7.15, free T4 0.1. Sounds like he is pretty regular with his medications and usually taking it in the morning. Much most commonly before any food. Discussed increasing dose of levothyroxine sparingly to avoid complications and follow-up in 2-3 weeks. Increase up to 162 mcg. Will need follow-up with primary provider to reassess thyroid studies. Additionally noted bradycardia, heart rates in the 50s, monitor. Discussed monitoring his pulse rate at home as well which his zqvqmbqw-zf-hps is familiar with performing by auscultation, measuring over a minute, and monitoring in case of worsening bradycardia carvedilol dose may need to be cut down or it may need to be stopped entirely. Orthostatic vital signs noted done overnight and were unremarkable. We otherwise discussed. Possibility of statin induced myopathy, with noted CK up to 386. Mild elevation of troponin noted, but otherwise no PE, no suggestion of cardiac ischemia, he is free of chest pain. We will hold statin for now. Follow-up CK. There was initially some concern for dehydration, he received gentle hydration, however, with history of diastolic CHF, congestive changes noted on chest x-ray held further IV fluid infusion. NT proBNP noted only 61. Holding restarting Lasix for now. Monitor volume status, oxygenation. Discussed with them results of PT findings, consideration of home exercise program versus home health PT. Discussed with case management. Vitamin B12 noted normal. Ammonia level WNL. Hypokalemia: Gets hypokalemic especially with diuresis. Lasix currently on hold. Did receive replacement potassium this morning. Potassium was 3.2. Repeat chemistries requested. NIKKI: On presentation, creatinine up to 1.3. Has improved. BUN down to 22, creatinine down to 1.1. Reassess chemistry. #Hypothyroidism, as above #Hypercalemia 10.2 check ionized calcium. Received gentle IV hydration. Hold vitamin D supplementation. #Hx of vascular dementia continue donepezil #Anxiety/Depression #IHD, CAD, chronic occlusion, medical management #Chronic Diastolic HF #GERD #Sleep Apnea #COPD #Type 2 DM #Chronic Anemia #Liver cirhossis continue lactulose. Discussed reducing lactulose dose in case having more than 3 bowel movements as it appears that he sometimes has more stools than the target 2-3/day. History of hematuria: We will perform voiding trial, DC Schmitz and monitor that he is able to urinate. His family report history of recurrent hematuria, currently I do not note any significant hematuria, only 0-4 RBC in the urine. He does have history of lithiasis with a passed stone in the past. He is being followed by urology in [place] and the family have been in contact with them, urology are aware of the hematuria. Discussed in case of persistent or recurrent hematuria without stones we discussed consideration may need to be given to additional assessment to exclude urologic malignancy. Possible A-fib: He has been undergoing assessment with cardiac monitoring and is due to follow-up with cardiology for consideration of whether he indeed has A-fib. Eliquis is listed as well as oral medications but he has not actually started it yet. He was asked to hold by cardiology office until A-fib is confirmed. He is on aspirin and Plavix. Attestations Medical Necessity Statement*: Continue admission for assessment management of generalized weakness replacement of multiple deficient elements, possible statin induced myopathy, reassessment of volume status and gentleman with underlying chronic diastolic CHF, but with noted some dehydration on presentation, NIKKI, reassessment of hypercalcemia, post discharge planning. and High Time for a total of 65 minutes, includes reviewing past or interval history, examining/interviewing patient, placing orders, counseling patient/family/other support, updating patient/family/other support, discussing plan of care with staff, communicating with other healthcare providers, documenting encounter and coordinating care Diagnoses Weakness R53.1 Atrial fibrillation I48.91 RAQUEL (obstructive sleep apnea) G47.33 Alcoholic cirrhosis K70.30 Ascites presence: without ascites Ischemic cardiomyopathy I25.5 COPD (chronic obstructive pulmonary disease) J44.9 COPD type: unspecified COPD History of coronary artery stent placement Z95.5 CAD (coronary artery disease) I25.119 Coronary Disease-Associated Artery/Lesion type: [place] artery [place] vs. transplanted heart: [place] heart Associated angina: with unspecified angina Diabetic neuropathy E11.49 Diabetes mellitus type: type 2 Diabetes mellitus complication detail: with other neurological complication Anxiety and depression F41.9; F32.9 GERD (gastroesophageal reflux disease) K21.9 Hypothyroidism (acquired) E03.9 Anemia D50.9 Anemia type: iron deficiency Iron deficiency anemia type: unspecified iron deficiency
[2022-11-08] MEDS: donepezil 5 MG Tablet 10 MG PO (20:52)
[2022-11-08] MEDS: duloxetine 20 mg Capsule PO (20:52)
[2022-11-09] VITALS (7 sets, daily range): BP systolic 95–142; BP diastolic 56–79; PULSE 55–80; RESP 15–18; TEMP 36.4–37; O2SAT 94–97
[2022-11-09] MEDS: pantoprazole 40 mg SDV IVP (00:25)
[2022-11-09 03:44] LABS: Basophils % 0.8 %; Eosinophils # 0.5 10^3/uL (0.0-0.8); Eosinophils % 9.2 %; Hematocrit 33.7 % (42.0-52.0); Hemoglobin 11.1 g/dL (11.7-16.6); Lymphocytes # 1.2 10^3/uL (0.8-4.8); Lymphocytes % 22.7 %; Mean Corpuscular HGB Conc 32.9 g/dL (30.0-36.0); Mean Corpuscular Hemoglobin 31.4 pg (28.0-34.0); Mean Corpuscular Volume 95.5 fl (80-94); Mean Platelet Volume 11.2 fL (7.4-10.4); Monocytes # 0.6 10^3/uL (0.2-0.9); Monocytes % 11.7 %; Neutrophils # 2.87 10^3/uL (1.8-7.7); Neutrophils % 55.2 %; Nucleated Red Blood Cells % 0 %; Platelet Count 114 10^3/cmm (130-400); Red Blood Count 3.53 10^6/uL (4.1-5.3); Red Cell Distribution Width 15.5 % (12.1-15.1); White Blood Count 5.2 10^3/uL (4.0-10.0)
[2022-11-09 04:02] LABS: Anion Gap 14.5 (5-19); Blood Urea Nitrogen 22 mg/dL (8-23); Calcium 9.5 mg/dL (8.5-10.5); Carbon Dioxide 19 mmol/L (22-29); Chloride 110 mmol/L (98-107); Glucose 149 mg/dL (65-115); Magnesium 1.8 mg/dL (1.7-2.3); Osmolality Calculated 296 mOsm/kg (285-295); Phosphorus 3.6 mg/dL (2.5-4.5); Potassium 3.5 mmol/L (3.5-5.1); Sodium 140 mmol/L (136-145)
[2022-11-09 04:12] LABS: Creatine Phosphokinase 342 U/L (39-308)
[2022-11-09] MEDS: budesonide 0.5 mg/2 mL Neb INHALATION (08:17)
[2022-11-09] MEDS: ipratropium-albuterol 3 mL Neb INHALATION ×2 (08:17→16:00)
[2022-11-09] MEDS: allopurinol 300 mg Tablet PO (08:32)
[2022-11-09] MEDS: aspirin 81 mg Chew Tablet PO (08:32)
[2022-11-09] MEDS: isosorbide mononitrate ER 30 mg Tablet PO (08:33)
[2022-11-09] MEDS: folic acid 1 mg Tablet PO (08:33)
[2022-11-09] MEDS: clopidogrel 75 mg Tablet PO (08:33)
[2022-11-09] MEDS: levothyroxine 25 mcg Tablet 12.5 MCG PO (08:35)
[2022-11-09] MEDS: levothyroxine 150 mcg Tablet PO (08:36)
[2022-11-09] MEDS: magnesium sulfate premix 2 GM/50 ML PIGGYBACK IV (09:41)
[2022-11-09] MEDS: potassium chloride ER 20 mEq Tablet PO (09:41)
--- NOTE | 2022-11-09 15:48 | P.DS_ITS ---
Discharge Providers Date of Admission: 11/07/22 21:20 Date of Discharge: November 09, 2022 Attending Provider at Admission: Monica Bray MD Attending Provider at Discharge: Alan Vance Primary Care Provider: Bartolome Castillo MD Diagnoses at Discharge Discharge Diagnosis (1) Weakness: Status: Acute (2) Atrial fibrillation: Status: Acute (3) RAQUEL (obstructive sleep apnea): Status: Acute (4) Alcoholic cirrhosis: Status: Acute Qualifiers: Ascites presence: without ascites Qualified Code(s): K70.30 - Alcoholic cirrhosis of liver without ascites (5) Ischemic cardiomyopathy: Status: Chronic Permanent problem details: echo 06/2020 with EF 40-45% with hypokinesis of distal anterolateral wall (6) COPD (chronic obstructive pulmonary disease): Status: Chronic Qualifiers: COPD type: unspecified COPD Qualified Code(s): J44.9 - Chronic obstructive pulmonary disease, unspecified Permanent problem details: PFTs 06/2019 consistent with moderate airflow obstruction. There is significant postbronchodilator response. Normal total lung capacity. Increased residual volume suggestive of air trapping. Gas exchange (DLCO) is moderately reduced but not corrected for patient's hemoglobin. (7) History of coronary artery stent placement: Status: Chronic Permanent problem details: LAD and diagonal at [place] (8) CAD (coronary artery disease): Status: Chronic Qualifiers: Associated angina: with unspecified angina Coronary Disease-Associated Artery/Lesion type: [place] artery [place] vs. transplanted heart: [place] heart Qualified Code(s): I25.119 - Atherosclerotic heart disease of [place] coronary artery with unspecified angina pectoris (9) Diabetic neuropathy: Status: Chronic Qualifiers: Diabetes mellitus complication detail: with other neurological complication Diabetes mellitus type: type 2 Qualified Code(s): E11.49 - Type 2 diabetes mellitus with other diabetic neurological complication (10) Anxiety and depression: Status: Chronic (11) GERD (gastroesophageal reflux disease): Status: Chronic (12) Hypothyroidism (acquired): Status: Chronic (13) Anemia: Status: Chronic Qualifiers: Anemia type: iron deficiency Iron deficiency anemia type: unspecified iron deficiency Qualified Code(s): D50.9 - Iron deficiency anemia, unspecified Other Information Additional DC diagnoses/information: #Generalized Weakness After replacement of hypomagnesemia, hypophosphatemia, potassium, Lasix were held, statin was held due to mild drop lysis, possible statin induced myopathy, carvedilol was held due to bradycardia, today he is feeling stronger. Got up and walked with physical therapy and is doing better to be able to return home with home exercise program. Discussed to continue magnesium supplementation, [id number] magnesium is okay, prescription is sent into pharmacy for magnesium for him. Continue potassium supplementation. Carvedilol dose for now is withheld, please reassess heart rates for consideration of resumption in case heart rates rise up with treatment of hypothyroidism. Additionally return to cardiology for continued assessment for question of atrial fibrillation. Due to concern for dehydration presentation, NIKKI, Lasix for now is changed to every third day. Please reassess volume status, renal function. Additionally it seems he does get too many stools sometimes with lactulose, family will target 2-3 BM per day, reduce lactulose in case overshooting the goal number. Vitamin B12 noted normal.? Ammonia level WNL. Hypokalemia: Replaced. Continue replacement at home. Lasix frequency decreased. Decrease lactulose to target 2-3 BM per day. NIKKI: Resolved. #Hypothyroidism,?increase levothyroxine to 163 mcg. Follow-up with primary provider for assessment of thyroid studies in 2-3 weeks. #Hypercalemia mild hypercalcemia at presentation, possibly secondary to some dehydration. After mild hydration initially, with holding Lasix, recheck calcium not elevated, ionized calcium 1. #Hx of vascular dementia?continue donepezil #Anxiety/Depression #IHD, CAD, chronic occlusion, medical management #Chronic Diastolic HF #GERD #Sleep Apnea #COPD #Type 2 DM #Chronic Anemia #Liver cirhossis?continue lactulose.? Discussed reducing lactulose dose in case having more than 3 bowel movements as it appears that he sometimes has more stools than the target 2-3/day. History of hematuria: His family report history of recurrent hematuria, currently I do not note any significant hematuria, only 0-4 RBC in the urine.? He does have history of lithiasis with a passed stone in the past.? He is being followed by urology in [place] and the family have been in contact with them, urology are aware of the hematuria.? Discussed in case of persistent or recurrent hematuria without stones we discussed consideration may need to be given to additional assessment to exclude urologic malignancy. Possible A-fib: He has been undergoing assessment with cardiac monitoring and is due to follow-up with cardiology for consideration of whether he indeed has A- fib.? Eliquis is listed as well as oral medications but he has not actually started it yet.? He was asked to hold by cardiology office until A-fib is confirmed.? He is on aspirin and Plavix. Reason for Visit Reason for Visit: WEAKNESS Brief History: Timoteo Hassan is a 77 year old male 77 -year-old male with history of alcoholic cirrhosis, anemia, anxiety, depression, chronic back pain, internal hemorrhoids, BPH, CAD, chronic diastolic heart failure, gout, COPD, type 2 diabetes mellitus, hypertension, GERD, sleep apnea, vitamin D deficiency, vascular dementia presented to the hospital today for complaint of weakness for the last 1 month.? Patient has been having difficulty ambulating and has been getting more and more confused lately.? In the ER he was awake alert oriented and he was able to tell the ER physician why he was there and said that he was generally weak and cannot get up and walk.? He did have an angiogram done on 10/23/2022 and was found to have chronically occluded stents in the LAD and cardiology recommended medical management at the time.? Today patient denies chest pain, shortness of breath, nausea, vomiting, diarrhea, fever. Pt states his limbs all feel heavy however he is still able to move them. He states he is unable to smile saying its not working . Daughter in law states that earlier in the day he was slurring his words as well and could not smile. She is concerned for a stroke. He has not had a stroke before however has been diagnosed with vascular dementia via MRI at [facility] in the past. Patient is able to move all 4 extremities. Face is symmetrical. Strength equal b/l upper and lower extremities however overall weak. On arrival to ER, BP 114/75, respirate 16, pulse 67, temperature 98.3, saturating 93% on room air Labs show WBC 6.6, hemoglobin 13.8, platelet 146, sodium 141, potassium 3.7, CO2 17, anion gap 19.7, creatinine 1.3, glucose 117, calculated osmolality 296, calcium 10.6, baseline troponin 21 6-hour troponin 19.36 with a delta of -1.64.? Chest x-ray shows cardiomegaly and pulmonary vascular congestion as reported by radiology.? EKG shows sinus rhythm.? UA shows 2+ blood, 0-4 RBCs, trace bacteria, trace mucus.? Negative for leukocyte esterase, negative for nitrates.? Lactic acid 1.5, VBG 7.3 //.1. Hospital Course Hospital Course On work-up he was noted to have hypomagnesemia, hypophosphatemia, hypokalemia, for which he had received replacement. Magnesium better, 1.8 today, would benefit from continued supplementation. Phosphorus replaced. Continue potassium replacement. Additionally noted hypothyroidism, levothyroxine dose increased to 163 mcg/day. Please reassess thyroid functions in 2-3 weeks. He is referred for assessment by endocrinology. On presentation with noted mild rhabdomyolysis, CK 386. Concern was expressed for mild dehydration initially received mild fluid hydration, Lasix were held. CK noted improving down to 342. On presentation with NIKKI, creatinine up to 1.3. Possibly combination of Lasix as well as some increased stooling with lactulose, discussed with family, target 2-3 BM per day. Lasix for now decreased to every third day at discharge. Additionally possibility of statin induced myopathy, rosuvastatin is stopped for now. Please reassess in office. Reassess volume status, kidney function, NIKKI so far has resolved. On presentation mild hypercalcemia, possibly secondary to dehydration, on recheck currently no hypercalcemia, ionized calcium is 1. On presentation additionally noted bradycardia, heart rate down into the 50s, carvedilol was held. Heart rates improved, but still hovering around 60, carvedilol for now is not resumed. With treatment of hypothyroidism, please reassess heart rate, consider if carvedilol reinstitution is safe at some point. Otherwise vitamin B12, ammonia were noted WNL. Continue follow-up with cardiology for consideration of possible atrial fibrillation. Family expressed history of recurrent hematuria, currently only 0.4 RBC in urine. Previously with nephrolithiasis, but reportedly had passed stones. In case of recurrence of hematuria follow-up with urology for further assessment to exclude urologic malignancy. Discussed additionally with his [id number] by phone who is currently at work and will try to pick him up for discharge this evening. Physical Exam Narrative: Hard of hearing, but responds when spoken to loudly or close to his ear. Const: COMMON NORMALS: alert GENERAL APPEARANCE: cooperative SYLVIA ENTATION/CONSCIOUSNESS: Yes awake HENMT: COMMON NORMALS: oropharynx normal Neck/C-Spine: COMMON NORMALS: no JVD Resp: COMMON NORMALS: normal respiratory effort and clear to auscultation bilaterally AUSCULTATION: clear to auscultation bilaterally Cardio: COMMON NORMALS: no JVD, regular rhythm, S1 normal heart sound present, S2 normal heart sound present and No murmurs present (Cardio) RHYTHM: regular rhythm HEART SOUNDS: S1 normal heart sound present and S2 normal heart sound present GI: COMMON NORMALS: Normal to inspection, nondistended, normoactive bowel sounds present, Soft to palpation and non-tender PALPATION: Yes Soft to palpation Extremity: COMMON NORMALS: no joint enlargement and no pedal edema Neuro: COMMON NORMALS: moves all extremities SENSORIUM/ORIENTATION: Yes alert Skin: COMMON NORMALS: no rashes or lesions noted GENERAL SKIN EXAM: no rashes or lesions noted Urinary Catheter Management: Schmitz: Cath Placed During This Visit: yes, but has since been removed by the nurse Reason for Continuing Indwelling Catheter: Decision to DC Catheter Urinary Catheter Date of Insertion: 11/07/22 Urinary Catheter Time of Insertion: 23:40 Date Urinary Catheter Removed: 11/08/22 Time Urinary Catheter Discontinued: 16:45 Discharge Data Studies Completed and Pending Completed Studies During Hospitalization Category Date Time Status CT head wo con* [id number] Stat Cat Scan 11/07/22 18:34 Completed XR chest 1V portable [id number] Stat Exams 11/07/22 15:31 Completed Pending at discharge Category Date Time Status Basic Metabolic Panel AM LABS Lab 11/10/22 04:00 Ordered Basic Metabolic Panel AM LABS Lab 11/11/22 04:00 Ordered Complete Blood Count w/Auto AM LABS Lab 11/10/22 04:00 Ordered Complete Blood Count w/Auto AM LABS Lab 11/11/22 04:00 Ordered Radiology Impressions Chest X-Ray 11/07/22 15:31 IMPRESSION: Cardiomegaly and mild pulmonary vascular congestion. Head CT 11/07/22 18:34 IMPRESSION: Negative for intracranial hemorrhage or mass effect Laboratory Results WBC 5.2 10^3/uL (4.0-10.0) 11/09/22 03:23 RBC 3.53 10^6/uL (4.1-5.3) L 11/09/22 03:23 Hgb 11.1 g/dL (11.7-16.6) L 11/09/22 03: Hct 33.7 % (42.0-52.0) L 11/09/22 03: MCV 95.5 fl (80-94) H 11/09/22 03: MCH 31.4 pg (28.0-34.0) 11/09/22 03: MCHC 32.9 g/dL (30.0-36.0) 11/09/22 03: RDW 15.5 % (12.1-15.1) H 11/09/22 03:23 Plt Count 114 10^3/cmm (130-400) L 11/09/22 03: MPV 11.2 fL (7.4-10.4) H 11/09/22 03: Neut % (Auto) 55.2 % 11/09/22 03: Lymph % (Auto) 22.7 % 11/09/22 03: [place] % (Auto) 11.7 % 11/09/22 03: Eos % (Auto) 9.2 % 11/09/22 03: Baso % (Auto) 0.8 % 11/09/22 03: Neut # (Auto) 2.87 10^3/uL (1.8-7.7) 11/09/22 03: Lymph # (Auto) 1.2 10^3/uL (0.8-4.8) 11/09/22 03: [place] # (Auto) 0.6 10^3/uL (0.2-0.9) 11/09/22 03: Eos # (Auto) 0.5 10^3/uL (0.0-0.8) 11/09/22 03: Baso # (Auto) 0.0 10^3/uL (0.0-0.1) 11/09/22 03: Nucleated RBC % (auto) 0 % 11/09/22 03: Nucleated RBCs # 0.0 /100WBC 11/09/22 03: Specimen Type Venous 11/07/22 21:28 Sample Site Not specified 11/07/22 21:28 [place] Test N/a 11/07/22 21:28 VBG pH 7.34 (7.32-7.42) 11/07/22 21: VBG pCO2 41.0 mmHg (41-51) 11/07/22 21: VBG pO2 26.0 mmHg (25-40) 11/07/22 21: VBG HCO3 22.1 mmol/L (24-28) L 11/07/22 21: VBG Base Excess -3.5 mmol/L (-3.0-3.0) L 11/07/22 21: VBG Hematocrit 41.4 % (42-52) L 11/07/22 21: O2 Delivery Device None 11/07/22 21: FiO2 21.0 % 11/07/22 21: Biology Laboratory Assistant ID [id number] 11/07/22 21: Sodium 140 mmol/L (136-145) 11/09/22 03:23 Potassium 3.5 mmol/L (3.5-5.1) 11/09/22 03: Chloride 110 mmol/L (98-107) H 11/09/22 03: Carbon Dioxide 19 mmol/L (22-29) L 11/09/22 03:23 Anion Gap 14.5 (5-19) 11/09/22 03:23 BUN 22 mg/dL (8-23) 11/09/22 03:23 Creatinine 1.2 mg/dL (0.7-1.2) 11/09/22 03:23 GFR Calculation Not Reportable 11/09/22 03:23 Glucose 149 mg/dL (65-115) H 11/09/22 03:23 POC Glucose 105 mg/dL (70-110) 11/08/22 06:35 Estimat Average Glucose 177 11/07/22 15:31 Hemoglobin A1c 7.8 % (4.0-6.0) H 11/07/22 15:31 Calculated Osmolality 296 mOsm/kg (285-295) H 11/09/22 03:23 Lactic Acid 1.5 mmol/L (0.5-2.2) 11/07/22 21: Calcium 9.5 mg/dL (8.5-10.5) 11/09/22 03:23 Ionized Calcium Tae 1.0 mmol/L (1.1-1.4) L 11/09/22 03:23 Phosphorus 3.6 mg/dL (2.5-4.5) 11/09/22 03:23 Magnesium 1.8 mg/dL (1.7-2.3) 11/09/22 03:23 Total Bilirubin 0.6 mg/dL (0.15-1.2) 11/08/22 02:26 AST 37 U/L (0-40) 11/08/22 02:26 ALT 21 U/L (0-41) 11/08/22 02:26 Alkaline Phosphatase 70 U/L (40-130) 11/08/22 02:26 Ammonia 45 umol/L (16-60) 11/07/22 23:47 Creatine Kinase 342 U/L (39-308) H* 11/09/22 03:23 Troponin T Baseline 21 ng/L (0-15) H 11/07/22 15:31 Troponin T 120 Minute 19.88 ng/L (0-15) H 11/07/22 17:25 Delta Troponin T -1.12 ABS# (0-10) L 11/07/22 17:25 Troponin T Hi Sens 6Hr 19.36 ng/L (0-15) H 11/07/22 21:28 Troponin T Hi Sens 6Hr Delta -1.64 ng/L (0-12) L 11/07/22 21:28 NT-Pro-B Natriuret Pep 61 pg/mL (0-450) 11/07/22 23:47 Total Protein 6.0 g/dL (6.6-8.7) L 11/08/22 02:26 Albumin 3.2 g/dL (3.5-5.2) L 11/08/22 02:26 Globulin 2.8 g/dL (1.3-4.6) 11/08/22 02:26 Vitamin B12 994 pg/mL (232-1245) 11/07/22 23:47 Procalcitonin 0.06 ng/mL (0-0.5) 11/07/22 23:47 TSH 67.15 uIU/mL (0.27-4.20) H 11/07/22 23:47 Free T4 0.10 ng/dL (0.82-1.77) L 11/07/22 23:47 Random Cortisol 3.49 ug/dL (2.47-19.5) 11/07/22 23:47 Urine Color Yellow (Yellow) 11/07/22 17:20 Urine Appearance Clear (CLEAR) 11/07/22 17:20 Urine pH 6 (5-7) 11/07/22 17:20 Ur Specific [place] 1.015 (1.005-1.030) 11/07/22 17:20 Urine Protein Neg (Negative) 11/07/22 17:20 Urine Glucose (UA) Norm (Normal) 11/07/22 17:20 Urine Ketones Negative (Negative) 11/07/22 17:20 Urine Blood 2+ (Negative) H 11/07/22 17:20 Urine Nitrate Negative (Negative) 11/07/22 17:20 Urine Bilirubin 1+ (Negative) H 11/07/22 17:20 Urine Urobilinogen Norm mg/dL (Negative) 11/07/22 17:20 Ur Leukocyte Esterase Negative (Negative) 11/07/22 17:20 Urine RBC 0-4 /hpf (0-2) H 11/07/22 17:20 Urine WBC 0-4 /hpf (0-5) H 11/07/22 17:20 Ur Squamous Epith Cells 0-4 /hpf (0-5) H 11/07/22 17:20 Calcium Oxalate Crystal 0-4 /hpf H 11/07/22 17:20 Amorphous Sediment Not Reportable 11/07/22 17:20 Urine Bacteria Trace /hpf (NONE) 11/07/22 17:20 Hyaline Casts Rare /lpf 11/07/22 17:20 Urine Mucus Trace /hpf 11/07/22 17:20 Vitals Last Vital Signs Temp 97.6 F 11/09/22 15:24 Pulse 56 L 11/09/22 15:24 Resp 15 11/09/22 15:24 BP 95/56 11/09/22 15:24 Pulse Ox 94 11/09/22 15:24 O2 Del Method Room Air 11/09/22 15:24 Discharge Plan Discharge Patient Disposition: Home Condition: Stable Prescriptions: New magnesium L-threonate 48 mg magnesium (667 mg) capsule 94 mg PO DAILY Qty: 180 0RF levothyroxine 13 mcg capsule 13 mcg PO DAILY Qty: 60 0RF Rx Instructions: Take together with 150 mcg for total of 163 mcg per day. Continued albuterol sulfate 90 mcg/actuation HFA aerosol inhaler 2 puff inhalation Q6H PRN (Reason: shortness of breath or wheezing) Qty: 8.5 3RF potassium chloride 10 mEq capsule, extended release See Rx Instructions .ROUTE .COMPLEX Qty: 90 3RF Dose Instruction: TAKE 1 CAPSULE BY MOUTH THREE TIMES DAILY Rx Instructions: TAKE 1 CAPSULE BY MOUTH every other day with lasix albuterol sulfate 2.5 mg /3 mL (0.083 %) solution for nebulization 2.5 mg INHALATION Q6H PRN (Reason: Shortness Of Breath) Qty: 180 5RF losartan 100 mg tablet 100 mg PO DAILY Qty: 90 5RF nitroglycerin 0.4 mg tablet, sublingual 0.4 mg sublingual Q5M PRN (Reason: chest pain) 30 Days Qty: 30 3RF Rx Instructions: until response; do not exceed 3 doses per episode ketoconazole 2 % cream 1 applic TOPICAL BID Qty: 30 1RF (DME) diabetic shoes with 3 inserts See Rx Instructions .Route .MEDSUPPLY Qty: 1 0RF Rx Instructions: As directed apixaban 2.5 mg tablet 2.5 mg PO BID Qty: 60 4RF Hold Instructions: Order Change aspirin 81 mg tablet,chewable 81 mg PO DAILY Qty: 90 0RF lactulose 20 gram/30 mL solution 40 g PO DAILY 30 Days Qty: 3000 2RF Rx Instructions: 40 g daily in 2-3 divided doses to maintain 2-3 bowel movements daily levothyroxine 150 mcg tablet 150 mcg PO DAILY Qty: 90 2RF folic acid 1 mg tablet 1 mg PO DAILY Qty: 90 2RF finasteride 5 mg tablet 5 mg PO BEDTIME Qty: 90 2RF duloxetine 20 mg capsule,delayed release(DR/EC) 20 mg PO BEDTIME Qty: 90 1RF clopidogrel 75 mg tablet 75 mg PO DAILY Qty: 90 2RF cholecalciferol (vitamin D3) 1,250 mcg (50,000 unit) capsule See Rx Instructions .ROUTE .COMPLEX Qty: 12 0RF Dose Instruction: TAKE 1 CAPSULE EVERY 7 DAYS Rx Instructions: TAKE 1 CAPSULE EVERY 7 DAYS magnesium 250 mg Tablet 250 mg PO QPM Men's One Daily 400-20-300 mcg Tablet 1 tab PO DAILY Qty: 0 donepezil 10 mg tablet 10 mg PO BEDTIME pantoprazole 40 mg tablet,delayed release (DR/EC) 40 mg PO DAILY Januvia 100 mg tablet 100 mg PO DAILY Linzess 145 mcg capsule 145 mcg PO QPM metformin 1,000 mg tablet 1,000 mg PO BID Hold Instructions: Resume on 10/25/22. ondansetron 4 mg film 4 mg PO DAILY PRN (Reason: nausea and vomiting) Qty: 10 0RF acetaminophen 325 mg Capsule 650 mg PO QID PRN (Reason: Pain) isosorbide mononitrate 30 mg tablet extended release 24 hr 30 mg PO DAILY allopurinol 300 mg tablet 300 mg PO DAILY gabapentin 100 mg capsule 200 mg PO TID Trelegy Ellipta 100-62.5-25 mcg blister with device 1 inh inhalation DAILY Changed Lasix 40 mg tablet 20 mg PO Q3D Qty: 1 0RF Rx Instructions: Dose adjustment only Discontinued carvedilol 3.125 mg tablet 3.125 mg PO BID rosuvastatin 20 mg tablet 20 mg PO QPM Discharge Orders: Discharge Order (Routine); Ordered 11/09/22 Ordered By: Alan Vance Referrals: Bartolome Castillo MD [Primary Care Provider] - 4-7 days (Please call tomorrow to set up an appointment to see your PCP. ) Danelle Bonilla FNP [Nurse Practitioner] - 1 week (Please call [phone] tomorrow to set up an appointment to see Danelle Bonilla NP. question of AFib) Georgina Chou MD [Physician] - 3 weeks (Please call [phone] tomorrow to set up an appointment to see Dr. Chou. Difficult to treat hypothyroidism) Discharge Diet: Cardiac Discharge Activity: As per PT/OT instructions Patient Instructions: Levothyroxine (By mouth), Acute Kidney Injury (GEN), Hypokalemia (GEN), Hypothyroidism (GEN), Bradycardia (GEN), Hypomagnesemia (GEN), Fall Prevention (GEN) Activity Restrictions/Additional Instructions: Continue magnesium supplementation. Please have your primary doctor follow-up magnesium level in office. Continue potassium supplements as previously. For now please decrease Lasix frequency to a dose once every 3 days. In case you notice rapid weight gain, more than 3 pounds in 2 days, become more short of breath with laying flat or with exertion, contact your primary doctor's office. Additionally please hold rosuvastatin for now due to consideration of possible statin induced myopathy. Mild elevation of CK has been improving. Please discuss with your primary doctor before restarting statin, long-term you may benefit from this medication if you are able to tolerate it, an alternative statin may be considered to rosuvastatin, possibly with less chance of myopathy. Additionally please hold carvedilol for now due to slow heart rates. Continue to monitor heart rates and blood pressures at home. If heart rates persistently stay above 80-90 over several days, you may resume carvedilol 3.125 mg twice daily, otherwise please continue to hold and discuss with your primary doctor if at some point you are able to restart this medication. Please have your primary doctor follow-up your thyroid function due to hypothyroidism with adjustment of levothyroxine dose up to 162 mcg daily. Thyroid function will need to be rechecked in 2-3 weeks. Please have your primary doctor follow-up your calcium levels, mild hypercalcemia noted on presentation, possibly related to some dehydration. Please adjust lactulose dosing, target 2-3 soft bowel movements per day. No need for more. In case having more bowel movements, reduce lactulose dose in half. Please have your primary doctor also follow-up your platelet level, with noted incidentally mild reduction in platelet level, 114,000. Please discuss with urology team and your primary doctor regarding previous recurrence of hematuria. No significant hematuria noted in the hospital, however, in case recurrent then would benefit from follow-up with urology to exclude other causes other than kidney stones and excluding urologic malignancy. Follow-up with cardiology with regards to library monitor results, atrial fibrillation and consideration of anticoagulation/adjustment of antiplatelet medications. Continue home exercise program. Discharge Attestations Time Spent in Discharge Care*: greater than 30 min Quality Metrics Clinical Quality Measures [ No reported AMI, CVA or VTE this stay] Coding Level of Care Code 13301 Total time (in minutes) for Discharge: 60 Diagnoses Weakness R53.1 Atrial fibrillation I48.91 RAQUEL (obstructive sleep apnea) G47.33 Alcoholic cirrhosis K70.30 Ascites presence: without ascites Ischemic cardiomyopathy I25.5 COPD (chronic obstructive pulmonary disease) J44.9 COPD type: unspecified COPD History of coronary artery stent placement Z95.5 CAD (coronary artery disease) I25.119 Associated angina: with unspecified angina Coronary Disease-Associated Artery/Lesion type: [place] artery [place] vs. transplanted heart: [place] heart Diabetic neuropathy E11.49 Diabetes mellitus complication detail: with other neurological complication Diabetes mellitus type: type 2 Anxiety and depression F41.9; F32.9 GERD (gastroesophageal reflux disease) K21.9 Hypothyroidism (acquired) E03.9 Anemia D50.9 Anemia type: iron deficiency Iron deficiency anemia type: unspecified iron deficiency
[2022-11-09] MEDS: donepezil 5 MG Tablet 10 MG PO (20:21)
[2022-11-09] MEDS: duloxetine 20 mg Capsule PO (20:22)
== END 2022-11-09 20:36 | disposition home or self-care (01) ==
LOC: ER 21:12 → MEDSURG 21:46
PROVIDERS: Family Medicine; Admitting Provider Internal Medicine; Emergency Provider Emergency Medicine; PCP Family Medicine; Visit Provider Internal Medicine
DX: R42 Dizziness and giddiness (principal); E03.9 Hypothyroidism, unspecified; N17.9 Acute kidney failure, unspecified; E86.0 Dehydration; J44.9 Chronic obstructive pulmonary disease, unspecified; E11.40 Type 2 diabetes mellitus with diabetic neuropathy, unspecified; Z79.84 Long term (current) use of oral hypoglycemic drugs; R00.1 Bradycardia, unspecified; I25.10 Atherosclerotic heart disease of native coronary artery without angina pectoris; K21.9 Gastro-esophageal reflux disease without esophagitis; G47.33 Obstructive sleep apnea (adult) (pediatric); K70.30 Alcoholic cirrhosis of liver without ascites; Z95.5 Presence of coronary angioplasty implant and graft; Z79.82 Long term (current) use of aspirin; Z79.01 Long term (current) use of anticoagulants; Z79.02 Long term (current) use of antithrombotics/antiplatelets; E83.42 Hypomagnesemia; E83.39 Other disorders of phosphorus metabolism; E87.6 Hypokalemia; M62.82 Rhabdomyolysis; E83.52 Hypercalcemia; R31.9 Hematuria, unspecified; Z87.442 Personal history of urinary calculi; F01.50 Vascular dementia, unspecified severity, without behavioral disturbance, psychotic disturbance, mood disturbance, and anxiety; Z87.891 Personal history of nicotine dependence; E87.20 Acidosis, unspecified; I25.5 Ischemic cardiomyopathy; F41.9 Anxiety disorder, unspecified; F32.A Depression, unspecified; I11.0 Hypertensive heart disease with heart failure; I50.32 Chronic diastolic (congestive) heart failure; D50.9 Iron deficiency anemia, unspecified
CPT/HCPCS: 36415; 36416; 51702; 70450; 71045; 80048; 80053; 81001; 82140; 82330; 82533; 82550; 82607; 82803; 82962; 83036; 83605; 83735; 83880; 84100; 84145; 84439; 84443; 84484; 85025; 93005; 94640; 97110; 97116; 97161; 97165; 99285; C9113; G0378; J3475; J7030; J7626

== ENCOUNTER → 2022-11-13 09:46 | Outpatient (BNVA) | payer MEDICARE, MEDICAID, SELFPAY | PROVIDERS: PCP Family Medicine; Visit Provider Internal Medicine Pulmonary Disease | DX: R91.1 Solitary pulmonary nodule (principal); J44.9 Chronic obstructive pulmonary disease, unspecified; I25.119 Atherosclerotic heart disease of native coronary artery with unspecified angina pectoris; R06.09 Other forms of dyspnea; Z87.891 Personal history of nicotine dependence; D64.9 Anemia, unspecified; Z95.5 Presence of coronary angioplasty implant and graft | CPT/HCPCS: 99204 ==

== ENCOUNTER → 2022-11-17 14:44 | Outpatient (BNVA) | payer MEDICARE, MEDICAID, SELFPAY | PROVIDERS: PCP Family Medicine; Visit Provider Nurse Practitioner | DX: R53.1 Weakness (principal) | CPT/HCPCS: 80048; 83735; 85025 ==

== ENCOUNTER → 2022-11-21 11:30 | Outpatient (BNVA) | payer MEDICARE, MEDICAID, SELFPAY | PROVIDERS: PCP Family Medicine; Visit Provider Nurse Practitioner | DX: E87.20 Acidosis, unspecified (principal) | CPT/HCPCS: 83735 ==

== ENCOUNTER → 2022-12-03 08:50 | Outpatient (BNVA) | payer MEDICARE, MEDICAID, SELFPAY | PROVIDERS: PCP Family Medicine; Visit Provider Nurse Practitioner Family | DX: R53.1 Weakness (principal) | CPT/HCPCS: 80053; 83735 ==

== ENCOUNTER → 2022-12-16 14:20 | Outpatient (BNVA) | payer MEDICARE, MEDICAID, SELFPAY | PROVIDERS: PCP Family Medicine; Visit Provider Family Medicine | DX: I10 Essential (primary) hypertension (principal) | CPT/HCPCS: 80053; 83735; 85025 ==

== ENCOUNTER → 2023-01-08 11:25 | Outpatient (BNVA) | payer MEDICARE, MEDICAID, SELFPAY | PROVIDERS: PCP Family Medicine; Visit Provider Internal Medicine Cardiovascular Disease | DX: R06.02 Shortness of breath (principal); E11.49 Type 2 diabetes mellitus with other diabetic neurological complication; N18.9 Chronic kidney disease, unspecified | CPT/HCPCS: 36415; 80048; 83880; 84443; 99214 ==

== ENCOUNTER → 2023-01-15 10:17 | Outpatient (BNVA) | payer MEDICARE, MEDICAID, SELFPAY | PROVIDERS: PCP Family Medicine; Visit Provider Nurse Practitioner Family | DX: R50.9 Fever, unspecified (principal) | CPT/HCPCS: 87426 ==

== ENCOUNTER → 2023-03-24 10:57 | Outpatient (BNVA) | payer MEDICARE, MEDICAID, SELFPAY | PROVIDERS: PCP Family Medicine; Visit Provider Nurse Practitioner Family | DX: M17.11 Unilateral primary osteoarthritis, right knee (principal); Z96.651 Presence of right artificial knee joint | CPT/HCPCS: 73562 ==

== ENCOUNTER → 2023-04-07 08:36 | Outpatient (BNVA) | payer MEDICARE, MEDICAID, SELFPAY | PROVIDERS: PCP Family Medicine; Visit Provider Nurse Practitioner Family | DX: I10 Essential (primary) hypertension (principal); E11.69 Type 2 diabetes mellitus with other specified complication; E55.9 Vitamin D deficiency, unspecified; K70.30 Alcoholic cirrhosis of liver without ascites | CPT/HCPCS: 80053; 80061; 82306; 83036; 84443; 85025 ==

== ENCOUNTER → 2023-07-16 08:14 | Outpatient (BNVA) | payer MEDICARE, MEDICAID, SELFPAY | PROVIDERS: PCP Family Medicine; Visit Provider Internal Medicine Pulmonary Disease | DX: J44.9 Chronic obstructive pulmonary disease, unspecified (principal); I25.119 Atherosclerotic heart disease of native coronary artery with unspecified angina pectoris; J43.9 Emphysema, unspecified; Z87.891 Personal history of nicotine dependence; I11.0 Hypertensive heart disease with heart failure; I50.9 Heart failure, unspecified | CPT/HCPCS: 99214 ==

== ENCOUNTER → 2023-07-21 10:27 | Outpatient (BNVA) | payer MEDICARE, MEDICAID, SELFPAY | PROVIDERS: PCP Family Medicine; Visit Provider Internal Medicine Cardiovascular Disease | DX: R07.9 Chest pain, unspecified (principal); I25.118 Atherosclerotic heart disease of native coronary artery with other forms of angina pectoris; I48.0 Paroxysmal atrial fibrillation; I10 Essential (primary) hypertension; E78.2 Mixed hyperlipidemia; E11.69 Type 2 diabetes mellitus with other specified complication; Z87.891 Personal history of nicotine dependence; R94.31 Abnormal electrocardiogram [ECG] [EKG] | CPT/HCPCS: 93005; 99214 ==

== ENCOUNTER 2023-08-06 15:00 | Emergency (ER) | payer MEDICARE, MEDICAID, SELFPAY ==
[2023-08-06] VITALS (8 sets, daily range): BP systolic 106–154; BP diastolic 59–85; PULSE 64–79; RESP 15–18; TEMP 36.4; O2SAT 91–97
--- NOTE | 2023-08-06 15:04 | ECG_ITS ---
[facility] Test Date: 2023-08-06 Pat Name: Timoteo Hassan Department: Room: Gender: Male Repeater Operator: : 1945 Requested By: Huseyin Vicente Order Number: [id number] [place] MD: García Kyle M.D. Measurements Intervals [place] Rate: 67 P: -11 OR: 168 QRS: 44 QRSD: 89 T: 91 QT: 417 QTc: 443 Interpretive Statements SINUS RHYTHM Compared to ECG 07/21/2023 10:35:40 T-wave abnormality no longer present Electronically Signed On 08-06-2023 22:12:45 CDT by García Kyle M.D. [email or web address]
--- NOTE | 2023-08-06 15:12 | XR_ITS ---
WS: [id number] Portable AP upright chest, 08/06/2023 Clinical Data: chest pain Comparison: Portable chest, 11/07/2022 Findings: No nodules, masses or effusions are seen. The heart is normal. The pulmonary vascularity is not increased. No pneumonia or pneumothorax is seen. The aortic arch and descending thoracic aorta s how mild calcification and tortuosity. There are monitor leads on the chest wall. Impression: Atherosclerosis.
--- NOTE | 2023-08-06 15:27 | ED_ITS ---
Documented by User: Huseyin Olivares DO 08/07/23 06:50 HPI - Chest Pain 2 General: Chief Complaint: Chest Pain Stated Complaint: chest pain Time Seen by Provider: 08/06/23 15:12 Source: patient Mode of arrival: EMS History of Present Illness: 78-year-old male presents to the emergen cy room with complaints of chest discomfort. He had been outside helping a family member doing very with minimal to light work at best went back inside and shortly after while sitting at rest began having chest discomfort. He did take some nitro he still intermittently having chest discomfort that he rates at a 5 of 10. Patient has a known history of coronary disease. In September 2022 patient had a Lexiscan sestamibi stress test that showed areas of reversibility. He subsequently had an angiogram on October 23. This showed patent left main but distal LAD occlusions which were recommended to treat medically. MD complaint: chest pain Pertinent past history: coronary artery disease and prior AR Onset (ago): minute(s) Timing of current episode: episodic Prior episodes: Yes Onset: during rest Pain location: substernal Severity: moderate Quality: aching and heaviness Relieving factors: nitroglycerin Exacerbating factors: nothing Associated symptoms: Deny abdominal pain, diaphoresis, dyspnea, fever(s), leg edema, nausea, palpitations, sense of impending doom, syncope or vomiting Treatment prior to arrival: aspirin and nitroglycerin Review of Systems 2 Const: Denies: fever(s), chills or diaphoresis Card: Denies: chest pain, palpitations or syncope Resp: Denies: dyspnea GI: Denies: abdominal pain, nausea or vomiting : Denies: dysuria, urinary frequency or urinary urgency Musc: Denies: neck pain or back pain Skin/Breast: Denies: rash PFSH ED 2 PFSH: Medical History Rash Arthritis of right knee Lung nodule seen on imaging study MCGOWAN (dyspnea on exertion) Fall Ingrown toenail Lung nodule CHF exacerbation Pulmonary nodule Symptoms of urinary tract infection Pancytopenia Vascular dementia Ischemic cardiomyopathy echo 06/2020 with EF 40-45% with hypokinesis of distal anterolateral wall CAD (coronary artery disease) Back pain, chronic Diabetic neuropathy DDD (degenerative disc disease), lumbar Folic acid deficiency Anxiety and depression Gout BPH (benign prostatic hyperplasia) Pes planus of both feet Hammertoe, bilateral Vitamin D deficiency Diabetes mellitus, type II Anemia Blood in stool Patient has history of internal hemorrhoids. [place] [facility] which resulted with benign polyp, internal hemorrhoids. EGD done on the same date found a Schatzki ring and hiatal hernia. Patient has a history of cirrhosis. He has a history of anemia and has received Injectafer infusions in the past. COPD (chronic obstructive pulmonary disease) PFTs 06/2019 consistent with moderate airflow obstruction. There is significant postbronchodilator response. Normal total lung capacity. Increased residual volume suggestive of air trapping. Gas exchange (DLCO) is moderately reduced but not corrected for patient's hemoglobin. Alcoholic cirrhosis Esophageal ring Hiatal hernia Hemorrhoids, internal Arthritis Chronic gout, unspecified, without tophus (tophi) Sleep apnea sleep study 01/2020 with mild disease in REM sleep, titration ordered; no nocturnal hypxemia Chronic diastolic (congestive) heart failure GERD (gastroesophageal reflux disease) Hypothyroidism (acquired) Essential (primary) hypertension Surgical History History of coronary artery stent placement (07/05/20) LAD and diagonal at [facility] S/P lens implant left and right lens implants H/O esophagogastroduodenoscopy (~2016) Per Dr. Campbell H/O colonoscopy (~2016) Per Dr. Campbell History of laser refractive surgery History of total knee replacement (TKR) Bilateral History of cholecystectomy History of surgery on arm Family History Father Diabetes CAD (coronary artery disease) Grandfather Diabetes Mother Heart disease Social History Smoking and tobacco/nicotine status: former use of tobacco/nicotine Quit status (tobacco/nicotine): has quit using Year quit tobacco: 1989 - 3PPD x 30 Years Alcohol intake: former Substance/Drug Use: never Household members: family Current occupational status: retired Do you think of yourself as: Straight/Heterosexual Current gender identity: Male Physical Exam 2 Const: COMMON NORMALS: no acute distress GENERAL APPEARANCE: cooperative and comfortable ORIENTATION/CONSCIOUSNESS: Yes awake, Yes oriented to person, Yes oriented to place and Yes oriented to time HENMT: COMMON NORMALS: normocephalic, atraumatic and hearing grossly normal bilaterally HEAD & SCALP: normocephalic and atraumatic Resp: COMMON NORMALS: normal respiratory effort, No retractions, No use of accessory muscles and clear to auscultation bilaterally AUSCULTATION: clear to auscultation bilaterally Cardio: COMMON NORMALS: regular rate, regular rhythm and No murmurs present (Cardio) RATE: regular rate RHYTHM: regular rhythm GI: COMMON NORMALS: Soft to palpation and No hepatosplenomegaly present A USCULTATION: Yes normoactive bowel sounds PALPATION: Yes Soft to palpation, No Tenderness to palpation present (GI), No Guarding due to palpation present (GI) and Yes No hepatosplenomegaly present Extremity: COMMON NORMALS: normal to inspection, capillary refill normal, no clubbing, cyanosis or edema, no calf tenderness and no pedal edema Neuro: SENSORIUM/ORIENTATION: Yes oriented to person, Yes oriented to place and Yes oriented to time Skin: COMMON NORMALS: no rashes or lesions noted GENERAL SKIN EXAM: no rashes or lesions noted Course 2 Vital Signs: Vital signs: Vital Signs Temperature 97.5 F L 08/06/23 15:04 Pulse Rate 64 08/06/23 20:02 Respiratory Rate 15 08/06/23 19:04 Blood Pressure 154/85 08/06/23 20:02 Pulse Oximetry 93 08/06/23 20:02 Oxygen Delivery Me thod Room Air 08/06/23 17:00 MDM - Chest Pain Medical Decision Making Care signed out to Dr. Gruber at change of shift. See final notes for diagnosis and disposition. I have discussed the patient's case with the off going physician <Dr. Olivares> and I have assumed care of the patient. We have discussed the current lab/radiographic results that have been resulted and the pending tests. Lab Data 08/06/23 14:00 08/06/23 16:07 Laboratory Results WBC 4.53 10^3/uL (3.29-11.43) 08/06/23 14:00 RBC 4.26 10^6/uL (3.85-5.65) 08/06/23 14:00 Hgb 13.50 g/dL (11.27-16.99) 08/06/23 14:00 Hct 40.9 % (37-53) 08/06/23 14:00 MCV 96.0 fl (82-101) 08/06/23 14:00 MCH 31.7 pg (27-33) 08/06/23 14:00 MCHC 33.0 g/dL (30-55) 08/06/23 14:00 RDW 14.8 % (12.1-15.1) 08/06/23 14:00 Plt Count 179 10^3/cmm (157-399) 08/06/23 14:00 MPV 11.1 fL (7.4-10.4) H 08/06/23 14:00 Neut % (Auto) 59.6 % 08/06/23 14:00 Lymph % (Auto) 20.1 % 08/06/23 14:00 [place] % (Auto) 11.9 % 08/06/23 14:00 Eos % (Auto) 7.1 % 08/06/23 14:00 Baso % (Auto) 1.1 % 08/06/23 14:00 Neut # (Auto) 2.70 10^3/uL (1.8-7.7) 08/06/23 14:00 Lymph # (Auto) 0.9 10^3/uL (0.8-4.8) 08/06/23 14:00 [place] # (Auto) 0.5 10^3/uL (0.2-0.9) 08/06/23 14:00 Eos # (Auto) 0.3 10^3/uL (0.0-0.8) 08/06/23 14:00 Baso # (Auto) 0.1 10^3/uL (0.0-0.1) 08/06/23 14:00 Nucleated RBC % (auto) 0 % 08/06/23 14:00 Nucleated RBCs # 0.0 /100WBC 08/06/23 14:00 Sodium 141 mmol/L (136-145) 08/06/23 16:07 Potassium 4.7 mmol/L (3.5-5.1) 08/06/23 16:07 Chloride 109 mmol/L (98-107) H 08/06/23 16:07 Carbon Dioxide 20 mmol/L (22-29) L 08/06/23 16:07 Anion Gap 16.7 (5-19) 08/06/23 16:07 BUN 22 mg/dL (8-23) 08/06/23 16:07 Creatinine 1.0 mg/dL (0.7-1.2) 08/06/23 16:07 GFR Calculation Not Reportable 08/06/23 16:07 Glucose 142 mg/dL (65-115) H 08/06/23 16:07 Calculated Osmolality 298 mOsm/kg (285-295) H 08/06/23 16:07 Calcium 9.2 mg/dL (8.5-10.5) 08/06/23 16:07 Total Bilirubin 0.6 mg/dL (0.15-1.2) 08/06/23 16:07 AST 44 U/L (0-40) H 08/06/23 16:07 ALT 30 U/L (0-41) 08/06/23 16:07 Alkaline Phosphatase 87 U/L (40-130) 08/06/23 16:07 Creatine Kinase 92 U/L (39-308) 08/06/23 16:07 Troponin T Baseline 11 ng/L (0-15) 08/06/23 16:07 Troponin T 120 Minute 11.23 ng/L (0-15) 08/06/23 18:50 Delta Troponin T 0.23 ABS# (0-10) 08/06/23 18:50 Total Protein 6.8 g/dL (6.6-8.7) 08/06/23 16:07 Albumin 3.7 g/dL (3.5-5.2) 08/06/23 16:07 Globulin 3.1 g/dL (1.3-4.6) 08/06/23 16:07 Urine Color Yellow (Yellow) 08/06/23 15:24 Urine Appearance Clear (CLEAR) 08/06/23 15:24 Urine pH 6 (5-7) 08/06/23 15:24 Ur Specific [place] 1.015 (1.005-1.030) 08/06/23 15:24 Urine Protein Neg (Negative) 08/06/23 15:24 Urine Glucose (UA) 4+ (Normal) H 08/06/23 15:24 Urine Ketones Negative (Negative) 08/06/23 15:24 Urine Blood Neg (Negative) 08/06/23 15:24 Urine Nitrate Negative (Negative) 08/06/23 15:24 Urine Bilirubin Neg (Negative) 08/06/23 15:24 Urine Urobilinogen Norm mg/dL (Negative) 08/06/23 15:24 Ur Leukocyte Esterase Negative (Negative) 08/06/23 15:24 Discharge Plan Discharge Patient Disposition: Home Clinical Impression: Atypical chest pain Condition: Stable Prescriptions: No Action levothyroxine 150 mcg tablet 150 mcg PO DAILY Qty: 90 2RF ranolazine 500 mg tablet extended release 12 hr 500 mg PO BID 60 Days Qty: 120 5RF losartan 100 mg tablet 100 mg PO DAILY Qty: 90 5RF nitroglycerin 0.4 mg tablet, sublingual 0.4 mg sublingual Q5M PRN (Reason: chest pain) 30 Days Qty: 30 3RF Rx Instructions: until response; do not exceed 3 doses per episode Trelegy Ellipta 200-62.5-25 mcg blister with device 1 inh inhalation DAILY Qty: 60 3RF (DME) diabetic shoes with 3 inserts See Rx Instructions .Route .MEDSUPPLY Qty: 1 0RF Rx Instructions: As directed triamcinolone acetonide 0.1 % cream 1 applic TOPICAL BID Qty: 30 5RF aspirin 81 mg tablet,chewable 81 mg PO DAILY Qty: 90 0RF levothyroxine 13 mcg capsule 13 mcg PO DAILY Qty: 90 3RF Rx Instructions: Take together with 150 mcg for total of 163 mcg per day. clopidogrel 75 mg tablet 75 mg PO DAILY Qty: 90 2RF donepezil 10 mg tablet 10 mg PO BEDTIME Qty: 90 0RF pantoprazole 40 mg tablet,delayed release (DR/EC) 40 mg PO DAILY Qty: 90 0RF isosorbide mononitrate 30 mg tablet extended release 24 hr 30 mg PO DAILY Qty: 90 0RF lactulose 20 gram/30 mL solution 40 g PO DAILY 30 Days Qty: 3000 2RF Rx Instructions: 40 g daily in 2-3 divided doses to maintain 2-3 bowel movements daily folic acid 1 mg tablet 1 mg PO DAILY Qty: 90 2RF (DME) Accu-Chek Agustina Plus test strp Strip See Rx Instructions .ROUTE .MEDSUPPLY Qty: 100 6RF Rx Instructions: use one strip to check glucose twice daily Linzess 145 mcg capsule 145 mcg PO QPM Qty: 30 2RF Januvia 100 mg tablet 100 mg PO DAILY Qty: 90 0RF albuterol sulfate 90 mcg/actuation HFA aerosol inhaler 2 puff inhalation Q6H PRN (Reason: shortness of breath or wheezing) Qty: 8.5 3RF albuterol sulfate 2.5 mg /3 mL (0.083 %) solution for nebulization 2.5 mg INHALATION Q6H PRN (Reason: Shortness Of Breath) Qty: 180 5RF (DME) lancing device with lancets [Accu-Chek FastClix Lancing Dev] Kit See Rx Instructions .ROUTE .MEDSUPPLY Qty: 100 5RF Rx Instructions: As directed ketoconazole 2 % cream See Rx Instructions .ROUTE .COMPLEX Qty: 30 0RF Dose Instruction: APPLY ONE APPLICATION TWICE DAILY Rx Instructions: APPLY ONE APPLICATION TWICE DAILY allopurinol 300 mg tablet 300 mg PO DAILY Qty: 90 1RF potassium chloride 10 mEq capsule, extended release See Rx Instructions .ROUTE .COMPLEX Qty: 90 0RF Dose Instruction: TAKE 3 CAPSULES BY MOUTH ONCE DAILY WITH LASIX Rx Instructions: TAKE 3 CAPSULES BY MOUTH ONCE DAILY WITH LASIX Men's One Daily 400-20-300 mcg Tablet 1 tab PO DAILY Qty: 0 ondansetron 4 mg film 4 mg PO DAILY PRN (Reason: nausea and vomiting) Qty: 10 0RF acetaminophen 325 mg Capsule 650 mg PO QID PRN (Reason: Pain) furosemide 40 mg tablet 20 mg PO Q3D Rx Instructions: TAKE 1/2 (ONE-HALF) TABLET BY MOUTH EVERY OTHER DAY FOR 90 DAYS amlodipine 2.5 mg tablet 2.5 mg PO DAILY metformin 1,000 mg tablet 1,000 mg PO BID finasteride 5 mg tablet 5 mg PO BEDTIME magnesium L-lactate 84 mg tablet extended release 84 mg PO BID duloxetine 20 mg capsule,delayed release(DR/EC) 20 mg PO DAILY cholecalciferol (vitamin D3) 1,250 mcg (50,000 unit) capsule 1,250 mcg PO Q7D Rx Instructions: ON THURSDAY Jardiance 25 mg tablet 25 mg PO DAILY Discharge Orders: Discharge ED (Routine); Ordered 08/06/23 Ordered By: Nicholas Gruber Referrals: RUSTY Sharma, SPECIAL NEEDS CHILD CAREGIVER [Primary Care Provider] - Discharge Diet: Cardiac Discharge Activity: Resume usual activity Patient Instructions: Opioid Safety, Pain Management Activity Restrictions/Additional Instructions: Activity Restrictions/Additional Instructions: Thank you for choosing [facility] for your healthcare needs today. Please realize that you were seen in the Emergency Department and that we are providing you with an emergency medical screening exam and this may not be a complete and all inclusive of all the testing and or medical work-up that you may need to determine your ailment or severity of your illness. It is very important that you follow-up as instructed with your Primary care provider or Specialist for additional evaluation and to discuss your medical treatment plan. Coding Level of Care Code ED Fishing Accessories Maker for Chg Fwd Documented by User: Nicholas Gruber MD 08/09/23 13:43 HPI - Chest Pain 2 General: Chief Complaint: Chest Pain Stated Complaint: chest pain Time Seen by Provider: 08/06/23 15:12 PFSH ED 2 PFSH: Medical History Rash Arthritis of right knee Lung nodule seen on imaging study MCGOWAN (dyspnea on exertion) Fall Ingrown toenail Lung nodule CHF exacerbation Pulmonary nodule Symptoms of urinary tract infection Pancytopenia Vascular dementia Ischemic cardiomyopathy echo 06/2020 with EF 40-45% with hypokinesis of distal anterolateral wall CAD (coronary artery disease) Back pain, chronic Diabetic neuropathy DDD (degenerative disc disease), lumbar Folic acid deficiency Anxiety and depression Gout BPH (benign prostatic hyperplasia) Pes planus of both feet Hammertoe, bilateral Vitamin D deficiency Diabetes mellitus, type II Anemia Blood in stool Patient has history of internal hemorrhoids. [place] [facility] [place] 2017 which resulted with benign polyp, internal hemorrhoids. EGD done on the same date found a Schatzki ring and hiatal hernia. Patient has a history of cirrhosis. He has a history of anemia and has received Injectafer infusions in the past. COPD (chronic obstructive pulmonary disease) PFTs 06/2019 consistent with moderate airflow obstruction. There is significant postbronchodilator response. Normal total lung capacity. Increased residual volume suggestive of air trapping. Gas exchange (DLCO) is moderately reduced but not corrected for patient's hemoglobin. Alcoholic cirrhosis Esophageal ring Hiatal hernia Hemorrhoids, internal Arthritis Chronic gout, unspecified, without tophus (tophi) Sleep apnea sleep study 01/2020 with mild disease in REM sleep, titration ordered; no nocturnal hypxemia Chronic diastolic (congestive) heart failure GERD (gastroesophageal reflux disease) Hypothyroidism (acquired) Essential (primary) hypertension Surgical History History of coronary artery stent placement (07/05/20) LAD and diagonal at [facility] S/P lens implant left and right lens implants H/O esophagogastroduodenoscopy (~2016) Per Dr. Campbell H/O colonoscopy (~2017) Per Dr. Campbell History of laser refractive surgery History of total knee replacement (TKR) Bilateral History of cholecystectomy History of surgery on arm Family History Father Diabetes CAD (coronary artery disease) Grandfather Diabetes Mother Heart disease Social History Smoking and tobacco/nicotine status: former use of tobacco/nicotine Quit status (tobacco/nicotine): has quit using Year quit tobacco: 1989 - 3PPD x 30 Years Alcohol intake: former Substance/Drug Use: never Household members: family Current occupational status: retired Do you think of yourself as: Straight/Heterosexual Current gender identity: Male Course 2 Vital Signs: Vital signs: Vital Signs Temperature 97.5 F L 08/06/23 15:04 Pulse Rate 64 08/06/23 20:02 Respiratory Rate 15 08/06/23 19:04 Blood Pressure 154/85 08/06/23 20:02 Pulse Oximetry 93 08/06/23 20:02 Oxygen Delivery Me thod Room Air 08/06/23 17:00 MDM - Chest Pain Medical Decision Making I have discussed the patient's case with the off going physician <Dr. Olivares> and I have assumed care of the patient. We have discussed the current lab/radiographic results that have been resulted and the pending tests. Medical Records I reviewed the patient's medical records. Lab Data I reviewed the patient's lab results. 08/06/23 14:00 08/06/23 16:07 Laboratory Results WBC 4.53 10^3/uL (3.29-11.43) 08/06/23 14:00 RBC 4.26 10^6/uL (3.85-5.65) 08/06/23 14:00 Hgb 13.50 g/dL (11.27-16.99) 08/06/23 14:00 Hct 40.9 % (37-53) 08/06/23 14:00 MCV 96.0 fl (82-101) 08/06/23 14:00 MCH 31.7 pg (27-33) 08/06/23 14:00 MCHC 33.0 g/dL (30-55) 08/06/23 14:00 RDW 14.8 % (12.1-15.1) 08/06/23 14:00 Plt Count 179 10^3/cmm (157-399) 08/06/23 14:00 MPV 11.1 fL (7.4-10.4) H 08/06/23 14:00 Neut % (Auto) 59.6 % 08/06/23 14:00 Lymph % (Auto) 20.1 % 08/06/23 14:00 [place] % (Auto) 11.9 % 08/06/23 14:00 Eos % (Auto) 7.1 % 08/06/23 14:00 Baso % (Auto) 1.1 % 08/06/23 14:00 Neut # (Auto) 2.70 10^3/uL (1.8-7.7) 08/06/23 14:00 Lymph # (Auto) 0.9 10^3/uL (0.8-4.8) 08/06/23 14:00 [place] # (Auto) 0.5 10^3/uL (0.2-0.9) 08/06/23 14:00 Eos # (Auto) 0.3 10^3/uL (0.0-0.8) 08/06/23 14:00 Baso # (Auto) 0.1 10^3/uL (0.0-0.1) 08/06/23 14:00 Nucleated RBC % (auto) 0 % 08/06/23 14:00 Nucleated RBCs # 0.0 /100WBC 08/06/23 14:00 Sodium 141 mmol/L (136-145) 08/06/23 16:07 Potassium 4.7 mmol/L (3.5-5.1) 08/06/23 16:07 Chloride 109 mmol/L (98-107) H 08/06/23 16:07 Carbon Dioxide 20 mmol/L (22-29) L 08/06/23 16:07 Anion Gap 16.7 (5-19) 08/06/23 16:07 BUN 22 mg/dL (8-23) 08/06/23 16:07 Creatinine 1.0 mg/dL (0.7-1.2) 08/06/23 16:07 GFR Calculation Not Reportable 08/06/23 16:07 Glucose 142 mg/dL (65-115) H 08/06/23 16:07 Calculated Osmolality 298 mOsm/kg (285-295) H 08/06/23 16:07 Calcium 9.2 mg/dL (8.5-10.5) 08/06/23 16:07 Total Bilirubin 0.6 mg/dL (0.15-1.2) 08/06/23 16:07 AST 44 U/L (0-40) H 08/06/23 16:07 ALT 30 U/L (0-41) 08/06/23 16:07 Alkaline Phosphatase 87 U/L (40-130) 08/06/23 16:07 Creatine Kinase 92 U/L (39-308) 08/06/23 16:07 Troponin T Baseline 11 ng/L (0-15) 08/06/23 16:07 Troponin T 120 Minute 11.23 ng/L (0-15) 08/06/23 18:50 Delta Troponin T 0.23 ABS# (0-10) 08/06/23 18:50 Total Protein 6.8 g/dL (6.6-8.7) 08/06/23 16:07 Albumin 3.7 g/dL (3.5-5.2) 08/06/23 16:07 Globulin 3.1 g/dL (1.3-4.6) 08/06/23 16:07 Urine Color Yellow (Yellow) 08/06/23 15:24 Urine Appearance Clear (CLEAR) 08/06/23 15:24 Urine pH 6 (5-7) 08/06/23 15:24 Ur Specific [place] 1.015 (1.005-1.030) 08/06/23 15:24 Urine Protein Neg (Negative) 08/06/23 15:24 Urine Glucose (UA) 4+ (Normal) H 08/06/23 15:24 Urine Ketones Negative (Negative) 08/06/23 15:24 Urine Blood Neg (Negative) 08/06/23 15:24 Urine Nitrate Negative (Negative) 08/06/23 15:24 Urine Bilirubin Neg (Negative) 08/06/23 15:24 Urine Urobilinogen Norm mg/dL (Negative) 08/06/23 15:24 Ur Leukocyte Esterase Negative (Negative) 08/06/23 15:24 All radiology interpretation(s) finalized by discharge Discharge Plan Discharge Patient Disposition: Home Clinical Impression: Atypical chest pain Condition: Stable Prescriptions: No Action levothyroxine 150 mcg tablet 150 mcg PO DAILY Qty: 90 2RF ranolazine 500 mg tablet extended release 12 hr 500 mg PO BID 60 Days Qty: 120 5RF losartan 100 mg tablet 100 mg PO DAILY Qty: 90 5RF nitroglycerin 0.4 mg tablet, sublingual 0.4 mg sublingual Q5M PRN (Reason: chest pain) 30 Days Qty: 30 3RF Rx Instructions: until response; do not exceed 3 doses per episode Trelegy Ellipta 200-62.5-25 mcg blister with device 1 inh inhalation DAILY Qty: 60 3RF (DME) diabetic shoes with 3 inserts See Rx Instructions .Route .MEDSUPPLY Qty: 1 0RF Rx Instructions: As directed triamcinolone acetonide 0.1 % cream 1 applic TOPICAL BID Qty: 30 5RF aspirin 81 mg tablet,chewable 81 mg PO DAILY Qty: 90 0RF levothyroxine 13 mcg capsule 13 mcg PO DAILY Qty: 90 3RF Rx Instructions: Take together with 150 mcg for total of 163 mcg per day. clopidogrel 75 mg tablet 75 mg PO DAILY Qty: 90 2RF donepezil 10 mg tablet 10 mg PO BEDTIME Qty: 90 0RF pantoprazole 40 mg tablet,delayed release (DR/EC) 40 mg PO DAILY Qty: 90 0RF isosorbide mononitrate 30 mg tablet extended release 24 hr 30 mg PO DAILY Qty: 90 0RF lactulose 20 gram/30 mL solution 40 g PO DAILY 30 Days Qty: 3000 2RF Rx Instructions: 40 g daily in 2-3 divided doses to maintain 2-3 bowel movements daily folic acid 1 mg tablet 1 mg PO DAILY Qty: 90 2RF (DME) Accu-Chek Agustina Plus test strp Strip See Rx Instructions .ROUTE .MEDSUPPLY Qty: 100 6RF Rx Instructions: use one strip to check glucose twice daily Linzess 145 mcg capsule 145 mcg PO QPM Qty: 30 2RF Januvia 100 mg tablet 100 mg PO DAILY Qty: 90 0RF albuterol sulfate 90 mcg/actuation HFA aerosol inhaler 2 puff inhalation Q6H PRN (Reason: shortness of breath or wheezing) Qty: 8.5 3RF albuterol sulfate 2.5 mg /3 mL (0.083 %) solution for nebulization 2.5 mg INHALATION Q6H PRN (Reason: Shortness Of Breath) Qty: 180 5RF (DME) lancing device with lancets [Accu-Chek FastClix Lancing Dev] Kit See Rx Instructions .ROUTE .MEDSUPPLY Qty: 100 5RF Rx Instructions: As directed ketoconazole 2 % cream See Rx Instructions .ROUTE .COMPLEX Qty: 30 0RF Dose Instruction: APPLY ONE APPLICATION TWICE DAILY Rx Instructions: APPLY ONE APPLICATION TWICE DAILY allopurinol 300 mg tablet 300 mg PO DAILY Qty: 90 1RF potassium chloride 10 mEq capsule, extended release See Rx Instructions .ROUTE .COMPLEX Qty: 90 0RF Dose Instruction: TAKE 3 CAPSULES BY MOUTH ONCE DAILY WITH LASIX Rx Instructions: TAKE 3 CAPSULES BY MOUTH ONCE DAILY WITH LASIX Men's One Daily 400-20-300 mcg Tablet 1 tab PO DAILY Qty: 0 ondansetron 4 mg film 4 mg PO DAILY PRN (Reason: nausea and vomiting) Qty: 10 0RF acetaminophen 325 mg Capsule 650 mg PO QID PRN (Reason: Pain) furosemide 40 mg tablet 20 mg PO Q3D Rx Instructions: TAKE 1/2 (ONE-HALF) TABLET BY MOUTH EVERY OTHER DAY FOR 90 DAYS amlodipine 2.5 mg tablet 2.5 mg PO DAILY metformin 1,000 mg tablet 1,000 mg PO BID finasteride 5 mg tablet 5 mg PO BEDTIME magnesium L-lactate 84 mg tablet extended release 84 mg PO BID duloxetine 20 mg capsule,delayed release(DR/EC) 20 mg PO DAILY cholecalciferol (vitamin D3) 1,250 mcg (50,000 unit) capsule 1,250 mcg PO Q7D Rx Instructions: ON THURSDAY Jardiance 25 mg tablet 25 mg PO DAILY Discharge Orders: Discharge ED (Routine); Ordered 08/06/23 Ordered By: Nicholas Gruber Referrals: RUSTY Sharma, SPECIAL NEEDS CHILD CAREGIVER [Primary Care Provider] - Discharge Diet: Cardiac Discharge Activity: Resume usual activity Patient Instructions: Opioid Safety, Pain Management Activity Restrictions/Additional Instructions: Activity Restrictions/Additional Instructions: Thank you for choosing [facility] for your healthcare needs today. Please realize that you were seen in the Emergency Department and that we are providing you with an emergency medical screening exam and this may not be a complete and all inclusive of all the testing and or medical work-up that you may need to determine your ailment or severity of your illness. It is very important that you follow-up as instructed with your Primary care provider or Specialist for additional evaluation and to discuss your medical treatment plan. Coding Level of Care Code ED Fishing Accessories Maker for Chad Schulte
[2023-08-06 15:35] LABS: Basophils # 0.1 10^3/uL (0.0-0.1); Basophils % 1.1 %; Eosinophils # 0.3 10^3/uL (0.0-0.8); Eosinophils % 7.1 %; Hematocrit 40.9 % (37-53); Lymphocytes # 0.9 10^3/uL (0.8-4.8); Lymphocytes % 20.1 %; Mean Corpuscular Hemoglobin 31.7 pg (27-33); Mean Platelet Volume 11.1 fL (7.4-10.4); Monocytes # 0.5 10^3/uL (0.2-0.9); Monocytes % 11.9 %; Neutrophils % 59.6 %; Nucleated Red Blood Cells % 0 %; Platelet Count 179 10^3/cmm (157-399); Red Blood Count 4.26 10^6/uL (3.85-5.65); Red Cell Distribution Width 14.8 % (12.1-15.1); White Blood Count 4.53 10^3/uL (3.29-11.43)
[2023-08-06 15:45] LABS: Add Urine Microscopic? NO; Charge for UA Resulting for Rev
[2023-08-06 16:02] LABS: Bilirubin Urine Neg (Negative); Blood Urine Neg (Negative); Glucose Urine UA 4+ (Normal); Ketones Urine Negative (Negative); Leukocyte Esterase Urine Negative (Negative); Nitrate Urine Negative (Negative); Protein Urine Neg (Negative); Specific Gravity, Urine 1.015 (1.005-1.030); Urine Appearance Clear (CLEAR); Urine Color Yellow (Yellow); Urobilinogen Urine Norm (Negative); pH Urine 6 (5-7)
[2023-08-06] MEDS: aspirin 81 mg Chew Tablet 162 MG PO (16:07)
[2023-08-06] MEDS: nitroglycerin 1 gm/inch oint Pkt 0.5 INCH TOPICAL (16:08)
[2023-08-06 17:04] LABS: Alanine Aminotransferase 30 U/L (0-41); Albumin Level 3.7 g/dL (3.5-5.2); Alkaline Phosphatase 87 U/L (40-130); Anion Gap 16.7 (5-19); Aspartate Amino Transferase 44 U/L (0-40); Blood Urea Nitrogen 22 mg/dL (8-23); Calcium 9.2 mg/dL (8.5-10.5); Carbon Dioxide 20 mmol/L (22-29); Chloride 109 mmol/L (98-107); Creatine Phosphokinase 92 U/L (39-308); Creatinine Clr Calc Pharmacy 63.2893; Globulin 3.1 g/dL (1.3-4.6); Glucose 142 mg/dL (65-115); Osmolality Calculated 298 mOsm/kg (285-295); Potassium 4.7 mmol/L (3.5-5.1); Sodium 141 mmol/L (136-145); Total Bilirubin 0.6 mg/dL (0.15-1.2); Total Protein 6.8 g/dL (6.6-8.7)
--- NOTE | 2023-08-06 17:17 | ECG_ITS ---
[facility] Test Date: 2023-08-06 Pat Name: Timoteo Hassan Department: Room: Gender: Male Bench Assembler Battery: : 1945 Requested By: Huseyin Vicente Order Number: [id number] Reading MD: García Kyle M.D. Measurements Intervals [place] Rate: 67 P: 23 NE: 172 QRS: 38 QRSD: 77 T: 64 QT: 390 QTc: 413 Interpretive Statements SINUS RHYTHM Compared to ECG 08/06/2023 15:04:49 No significant changes Electronically Signed On 08-06-2023 22:19:23 CDT by García Kyle M.D. [id number]
[2023-08-06 17:49] LABS: Troponin(5th) Baseline 11 ng/L (0-15)
--- NOTE | 2023-08-06 19:01 | PC.NURSE ---
Assumed care from ANTHONY Stewart at this time.
[2023-08-06 19:24] LABS: Troponin 5 2HR 11.23 ng/L (0-15); Troponin 5 2HR Delta 0.23 ABS# (0-10)
== END 2023-08-06 20:03 | disposition home or self-care (01) ==
PROVIDERS: Family Medicine; Emergency Provider Internal Medicine; PCP Nurse Practitioner Family
DX: R07.89 Other chest pain (principal); Z79.02 Long term (current) use of antithrombotics/antiplatelets; Z79.82 Long term (current) use of aspirin; Z79.84 Long term (current) use of oral hypoglycemic drugs; Z87.891 Personal history of nicotine dependence; I25.5 Ischemic cardiomyopathy; I11.0 Hypertensive heart disease with heart failure; I50.9 Heart failure, unspecified; F01.50 Vascular dementia, unspecified severity, without behavioral disturbance, psychotic disturbance, mood disturbance, and anxiety; I25.10 Atherosclerotic heart disease of native coronary artery without angina pectoris; E11.40 Type 2 diabetes mellitus with diabetic neuropathy, unspecified; J44.9 Chronic obstructive pulmonary disease, unspecified
CPT/HCPCS: 36415; 71045; 80053; 81003; 82550; 84484; 85025; 93005; 99285

== ENCOUNTER → 2023-10-13 11:55 | Outpatient (BNVA) | payer MEDICARE, MEDICAID, SELFPAY | PROVIDERS: PCP Nurse Practitioner Family; Visit Provider Nurse Practitioner Family | DX: E11.69 Type 2 diabetes mellitus with other specified complication (principal); I10 Essential (primary) hypertension | CPT/HCPCS: 80053; 83036; 85025 ==

== ENCOUNTER 2023-12-14 20:00 | Outpatient (CLI) | payer MEDICARE, MEDICAID, SELFPAY | END 2023-12-14 20:01 | disposition home or self-care (01) | LOC: SLEEP 23:15 | PROVIDERS: PCP Nurse Practitioner Family; Visit Provider Nurse Practitioner Family | DX: G47.33 Obstructive sleep apnea (adult) (pediatric) (principal) | CPT/HCPCS: 95811 ==

== ENCOUNTER → 2024-04-06 08:30 | Outpatient (BNVA) | payer MEDICARE, MEDICAID, SELFPAY | PROVIDERS: PCP Nurse Practitioner Family; Visit Provider Nurse Practitioner Family | DX: E11.69 Type 2 diabetes mellitus with other specified complication (principal); Z12.5 Encounter for screening for malignant neoplasm of prostate; I10 Essential (primary) hypertension; K70.30 Alcoholic cirrhosis of liver without ascites | CPT/HCPCS: 80053; 80061; 81003; 82306; 83036; 84443; 85025; G0103 ==

== ENCOUNTER → 2024-05-04 09:08 | Outpatient (BNVA) | payer MEDICARE, MEDICAID, SELFPAY | PROVIDERS: PCP Nurse Practitioner Family; Visit Provider Nurse Practitioner Family | DX: I10 Essential (primary) hypertension (principal) | CPT/HCPCS: 81003 ==

== ENCOUNTER 2024-05-05 06:00 | Outpatient (RCR) | payer MEDICARE, MEDICAID, SELFPAY | END 2024-05-17 23:59 | disposition home or self-care (01) | LOC: WPT 06:00 | PROVIDERS: PCP Nurse Practitioner Family; Visit Provider Nurse Practitioner Family | DX: M54.2 Cervicalgia (principal); G89.29 Other chronic pain | CPT/HCPCS: 97161 ==

== ENCOUNTER → 2024-05-30 14:51 | Outpatient (BNVA) | payer MEDICARE, MEDICAID, SELFPAY | PROVIDERS: PCP Nurse Practitioner Family; Visit Provider Internal Medicine Cardiovascular Disease | DX: I38 Endocarditis, valve unspecified (principal); I25.118 Atherosclerotic heart disease of native coronary artery with other forms of angina pectoris; F01.50 Vascular dementia, unspecified severity, without behavioral disturbance, psychotic disturbance, mood disturbance, and anxiety; I48.91 Unspecified atrial fibrillation; I13.0 Hypertensive heart and chronic kidney disease with heart failure and stage 1 through stage 4 chronic kidney disease, or unspecified chronic kidney disease; I50.9 Heart failure, unspecified; Z87.891 Personal history of nicotine dependence; N18.9 Chronic kidney disease, unspecified; K70.30 Alcoholic cirrhosis of liver without ascites; I25.5 Ischemic cardiomyopathy | CPT/HCPCS: 99214 ==

== ENCOUNTER → 2024-06-13 13:28 | Outpatient (BNVA) | payer MEDICARE, MEDICAID, SELFPAY | PROVIDERS: PCP Nurse Practitioner Family; Visit Provider Nurse Practitioner Family | DX: E78.2 Mixed hyperlipidemia (principal); I25.119 Atherosclerotic heart disease of native coronary artery with unspecified angina pectoris; I11.0 Hypertensive heart disease with heart failure; I50.9 Heart failure, unspecified; R93.1 Abnormal findings on diagnostic imaging of heart and coronary circulation; E11.69 Type 2 diabetes mellitus with other specified complication; Z79.84 Long term (current) use of oral hypoglycemic drugs | CPT/HCPCS: 36415; 80048; 83880; 93005; 99214 ==

== ENCOUNTER 2024-06-27 06:23 | Outpatient (CLI) | payer MEDICARE, MEDICAID, SELFPAY ==
--- NOTE | 2024-06-27 | ECG_ITS ---
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 Interpretive Statements Lung unchanged pre/post procedure; Intraprocedure shortess of breath; Symptoms resoled by discharge PROCEDURE: At the baseline, the EKG revealed normal sinus rhythm with some nonspecific T wave changes. The baseline heart was 80 bpm with a blood pressue of 134/79 mm of Hg Lexiscan was infused over a period of 20 seconds. A total of 0.4 milligrams of Lexiscan was infused. The stress phase was continued for a total of 5 minutes. Heart rate at the end of the stress phase was 88 bpm with a blood pressure 114/62 mm of Hg. The EKG at the peak infusion revealed no significant changes. Sestamibi was injected 20 seconds after the Lexiscan infusion. Heart rate at the end of the recovery phase was 85 bpm with a blood pressure of 128/75 mm of Hg. CONCLUSION: 1. No significant EKG changes with the LexiScan infusion 2. No LexiScan induced chest pain or cardiac arrhythmia 3. Normal blood pressure and heart rate response 4. Sestamibi/sestamibi perfusion scan pending; see separate report. Electronically Signed On 07-04-2024 06:19:36 REPLANTER by García Kyle M.D. [id number]
[2024-06-27 06:27] VITALS: BMI 29.8
--- NOTE | 2024-06-27 06:40 | NMCV_ITS ---
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 Supine position only as patient was unable to lay prone. SPECT RESULTS Technical Quality: Good Raw Data Analysis: Normal Image Corrections: No attenuation or motion correction applied Summed Stress Score: 13 Summed Rest Score: 3 Summed Difference Score: 12 PERFUSION FINDINGS Moderate area of moderately decreased tracer uptake involving the basal and mid inferior, mid inferoseptal, mid anteroseptal, apical septal, apical inferior and LV apex. Significant reversibility was noted in these regions. FUNCTIONAL RESULTS (calculated via Gated SPECT) Stress Image LV EF (%): 61 Stress EDV (mL):88 TID: 1.18 Stress ESV (mL):34 FUNCTIONAL FINDINGS: Segmental wall motion analysis revealing no gross wall motion abnormalities. The transient ischemic dilatation ratio was found to be mildly elevated to 1.18 IMPRESSIONS 1. Myocardial perfusion imaging revealing a moderate area of reversible defect in the inferior, inferoseptal, anteroseptal and apical regions suggesting ischemia in distribution of the left anterior descending artery/right coronary artery. 2. Normal LV ejection fraction of 61%. 3. LV wall motion analysis revealing no gross wall motion abnormalities. 4. Normal LV volume 5. Elevated transient ischemic dilatation ratio also may suggest endocardial ischemia Compared to the study from 10/08/2022, the overall ischemic burden remains more or less the same Dr García Kyle MD [facility] (Electronically Signed) Final Date: 27 June 2024 12:11 S
--- NOTE | 2024-06-27 08:25 | USCV_ITS ---
Timoteo Hassan Age: 79 Gender: M : 1945 Exam Date: 06/27/2024 08:36 Ordering Phys: Sivan Cleaning MD ([email or web address]) Technologist: PLACIDO Exam Location: [facility] [place] Indication: lv function BP: 140 / 80 HR: 72 Rhythm: Sinus Technical Quality: Adequate MEASUREMENTS (Male / Female) Normal Values 2D ECHO LV Ejection Fraction MOD 4C 58.5 % LV Ejection Fraction MOD 2C 52.1 % LV Ejection Fraction 2C AL 53.4 % RA Systolic Volume 4C AL 19.3 ml RA Systolic Volume 4C MOD 18.3 ml LA Sys Volume AL 54.1 cm cubed LA Sys Volume Index AL 25.9 cm cubed/m squared IVC Diameter 1.3 cm DOPPLER AV Peak Velocity 196.0 cm/s MV Peak Velocity 124.0 cm/s MV Area PHT 2.0 cm squared Mitral E to A Ratio 0.8 TR Peak Velocity 206.0 cm/s TR Peak Gradient 17.0 mmHg TV Peak E Velocity 83.0 cm/s FINDINGS Left Ventricle Normal left ventricular size, systolic function and wall thickness, with no regional wall motion abnormalities. Left ventricular ejection fraction is estimated at 60%. Grade I/IV diastolic dysfunction (abnormal relaxation filling pattern), normal to mildly elevated filling pressures. Right Ventricle The right ventricle is normal in size and function. Right Atrium The right atrium is normal in size. Left Atrium The left atrium is normal in size. Mitral Valve Structurally normal mitral valve without significant stenosis or prolapse. There is no mitral regurgitation. Aortic Valve Structurally normal aortic valve without significant sclerosis or stenosis. There is no aortic regurgitation. Tricuspid Valve Structurally normal tricuspid valve without significant stenosis or regurgitation. Pulmonary artery systolic pressure is normal. Pulmonic Valve Structurally normal pulmonic valve without significant stenosis. There is no pulmonic regurgitation. Pericardium Normal pericardium without effusion. Aorta Normal ascending aorta dimension. IVC The inferior vena cava appears normal. CONCLUSIONS Normal left ventricular size, systolic function and wall thickness, with no regional wall motion abnormalities. Left ventricular ejection fraction is estimated at 60%. Grade I/IV diastolic dysfunction (abnormal relaxation filling pattern), normal to mildly elevated filling pressures. There is no pericardial effusion. No significant valve abnormalities. Right atrial pressure is around 5 mm of mercury. Sivan Cleaning MD (Electronically Signed) Final Date: 13 July 2024 19:39 S
[2024-06-27] MEDS: regadenoson 0.4 Mg/5 ml Syringe IVP (09:05)
[2024-06-27 09:23] VITALS: BP 112/67; PULSE 82
== END 2024-06-27 06:24 | disposition home or self-care (01) ==
PROVIDERS: PCP Nurse Practitioner Family; Visit Provider Nurse Practitioner Family
DX: R07.9 Chest pain, unspecified (principal); R93.1 Abnormal findings on diagnostic imaging of heart and coronary circulation
CPT/HCPCS: 36415; 78452; 93017; 93306; 96374; A9500; J2785

== ENCOUNTER → 2024-08-11 07:39 | Outpatient (BNVA) | payer MEDICARE, MEDICAID, SELFPAY | PROVIDERS: PCP Nurse Practitioner Family; Visit Provider Student in an Organized Health Care Education/Training Program | DX: R13.10 Dysphagia, unspecified (principal) | CPT/HCPCS: 99204 ==

== ENCOUNTER 2024-08-17 10:24 | Outpatient (CLI) | payer MEDICARE, MEDICAID, SELFPAY ==
--- NOTE | 2024-08-17 11:00 | CT_ITS ---
WS: [id number] CT chest w con* [id number] HISTORY: R91.1 - Solitary pulmonary nodule TECHNIQUE: Axial imaging performed through the thorax. Coronal and sagittal reformats are submitted. All CT scans at [facility] use at least one of these dose optimization techniques: automated exposure control; mA and/or kV adjustment per patient size (includes targeted exams where dose is matched to clinical indication); or iterative reconstruction. CONTRAST: Omnipaque 350; 100 mL IV. DLP: 570.71 mGy.cm COMPARISON: 05/22/2022, 08/04/2020 Lungs and central airway: Mild pulmonary hyperinflation. Mild thickening along the RIGHT pleural fissure. Soft tissue attenuation along the RIGHT minor fissure has decreased in size since 05/22/2022. Now measuring 2.1 x 0.5 cm as compared to 3.9 x 0.8 cm. No additional pulmonary nodules are identified. Benign granuloma towards the lingula. No areas of consolidation. Pleura: Normal. No pleural effusion. Heart and pericardium: Normal size heart with no pericardial effusion. Coronary artery calcifications. Mediastinum and jennifer: No mediastinum or hilar adenopathy. Vessels: Mild atherosclerosis aorta. Normal size pulmonary artery. Chest wall and lower neck: No soft tissue masses. Upper abdomen: Cirrhotic liver. Prior cholecystectomy. Low-attenuation mass upper pole LEFT kidney most likely a cyst. Incompletely imaged. Mass is increased in size since 2016. No adrenal mass. Extensive splenic varices. Osseous structures: Advanced thoracic spondylosis. CT/CT chest w con* [id number] IMPRESSION: 1. Pulmonary hyperinflation. Chronic emphysema. 2. Decrease in size of the soft tissue along the RIGHT minor fissure is probab ly a small residual effusion. 3. No pulmonary mass or nodule identified. 4. Coronary artery calcifications. 5. Cirrhotic liver with numerous splenic varices.
[2024-08-17 11:04] LABS: Blood Urea Nitrogen 14 mg/dL (8-23)
[2024-08-17] MEDS: iohexol 350 mg/mL 500 mL Btl (per mL) IV (11:19)
== END 2024-08-17 10:25 | disposition home or self-care (01) ==
LOC: RAD 10:27
PROVIDERS: PCP Nurse Practitioner Family; Visit Provider Nurse Practitioner Family
DX: R91.1 Solitary pulmonary nodule (principal); R04.2 Hemoptysis; K70.30 Alcoholic cirrhosis of liver without ascites; R91.8 Other nonspecific abnormal finding of lung field; J43.8 Other emphysema; I25.10 Atherosclerotic heart disease of native coronary artery without angina pectoris; J92.9 Pleural plaque without asbestos; J84.10 Pulmonary fibrosis, unspecified; I70.0 Atherosclerosis of aorta; Z90.49 Acquired absence of other specified parts of digestive tract; N28.89 Other specified disorders of kidney and ureter; I86.8 Varicose veins of other specified sites; M47.894 Other spondylosis, thoracic region
CPT/HCPCS: 71260; 82565; 84520

== ENCOUNTER → 2024-10-03 09:21 | Outpatient (BNVA) | payer MEDICARE, MEDICAID, SELFPAY | PROVIDERS: PCP Nurse Practitioner Family; Visit Provider Student in an Organized Health Care Education/Training Program | DX: R13.10 Dysphagia, unspecified (principal) | CPT/HCPCS: 99213 ==

== ENCOUNTER → 2024-10-12 12:41 | Outpatient (BNVA) | payer MEDICARE, MEDICAID, SELFPAY | PROVIDERS: PCP Nurse Practitioner Family; Visit Provider Family Medicine | DX: I10 Essential (primary) hypertension (principal); I48.0 Paroxysmal atrial fibrillation; E11.8 Type 2 diabetes mellitus with unspecified complications; E11.69 Type 2 diabetes mellitus with other specified complication | CPT/HCPCS: 80053; 83036; 84443; 85025 ==

== ENCOUNTER → 2024-12-02 10:41 | Outpatient (BNVA) | payer MEDICARE, MEDICAID, SELFPAY | PROVIDERS: PCP Nurse Practitioner Family; Visit Provider Internal Medicine Cardiovascular Disease | DX: I25.10 Atherosclerotic heart disease of native coronary artery without angina pectoris (principal); I48.91 Unspecified atrial fibrillation; E11.69 Type 2 diabetes mellitus with other specified complication; I11.0 Hypertensive heart disease with heart failure; I50.32 Chronic diastolic (congestive) heart failure; Z79.4 Long term (current) use of insulin | CPT/HCPCS: 99214 ==

== ENCOUNTER → 2025-01-12 08:25 | Outpatient (BNVA) | payer MEDICARE, MEDICAID, SELFPAY | PROVIDERS: PCP Nurse Practitioner Family; Visit Provider Family Medicine | DX: I10 Essential (primary) hypertension (principal); E78.2 Mixed hyperlipidemia; E11.69 Type 2 diabetes mellitus with other specified complication; E03.9 Hypothyroidism, unspecified | CPT/HCPCS: 80053; 83036; 84443; 85025 ==

== ENCOUNTER → 2025-02-01 09:51 | Outpatient (BNVA) | payer MEDICARE, MEDICAID, SELFPAY | PROVIDERS: PCP Nurse Practitioner Family; Visit Provider Family Medicine | DX: Z01.89 Encounter for other specified special examinations (principal); I77.810 Thoracic aortic ectasia; J84.10 Pulmonary fibrosis, unspecified; J98.6 Disorders of diaphragm; M40.294 Other kyphosis, thoracic region | CPT/HCPCS: 71046 ==

== ENCOUNTER → 2025-02-10 09:30 | Outpatient (BNVA) | payer MEDICARE, MEDICAID, SELFPAY | PROVIDERS: PCP Nurse Practitioner Family; Visit Provider Nurse Practitioner Family | DX: R41.0 Disorientation, unspecified (principal) | CPT/HCPCS: 81003; 87086 ==

== ENCOUNTER → 2025-03-15 09:13 | Outpatient (BNVA) | payer MEDICARE, MEDICAID, SELFPAY | PROVIDERS: PCP Nurse Practitioner Family; Visit Provider Family Medicine | DX: R30.0 Dysuria (principal); D50.9 Iron deficiency anemia, unspecified | CPT/HCPCS: 80053; 81000; 83036; 85025 ==

== ENCOUNTER 2025-03-20 11:17 | Outpatient (CLI) | payer MEDICARE, MEDICAID, SELFPAY ==
--- NOTE | 2025-03-20 11:15 | USCV_ITS ---
Timoteo Hassan Age: 80 Gender: M : 1945 Exam Date: 03/20/2025 11:43 Ordering Phys: Vanda Keys MD Technologist: Exam Location[place] [facility] [place] Indication: as BP: 123 / 73 HR: 80 Rhythm: Sinus Technical Quality: Adequate MEASUREMENTS (Male / Female) Normal Values 2D ECHO LVOT Diameter 2.0 cm LV Ejection Fraction MOD 4C 65.4 % LV Ejection Fraction MOD 2C 69.8 % LV Ejection Fraction 2C AL 70.3 % LA Diameter 3.5 cm Aorta at Sinotubular Diameter 3.1 cm M-MODE LA Ao Ratio MM 1.1 AV Cusp Separation MM 2.3 cm DOPPLER AV Peak Velocity 217.7 cm/s LVOT Peak Velocity 100.0 cm/s AV Area Cont Eq vti 1.7 cm squared AV Area Cont Eq pk 1.4 cm squared MV Peak Velocity 129.0 cm/s MV Area PHT 3.0 cm squared Mitral E to A Ratio 0.7 TR Peak Velocity 138.0 cm/s TR Peak Gradient 7.6 mmHg TV Peak E Velocity 81.0 cm/s PV Peak Velocity 114.0 cm/s FINDINGS Left Ventricle Normal left ventricular size and systolic function, EF 70%.. No regional wall motion abnormalities. Mild left ventricular hypertrophy. Grade I/IV diastolic dysfunction (abnormal relaxation filling pattern), normal to mildly elevated filling pressures. Right Ventricle Normal right ventricular size and systolic function. Right Atrium Normal right atrial size. Left Atrium Normal left atrial size. IA Septum Normal appearance of the interatrial septum. Mitral Valve No gross abnormalities noted Aortic Valve Aortic valve sclerosis. Tricuspid Valve No gross abnormalities noted Pulmonic Valve Pulmonic valve not well visualized. Pericardium No pericardial effusion. Aorta Normal aortic annulus size. IVC Inferior vena cava not visualized. CONCLUSIONS Normal left ventricular size and systolic function, EF 70%.. No regional wall motion abnormalities. Mild left ventricular hypertrophy. Grade I/IV diastolic dysfunction (abnormal relaxation filling pattern), normal to mildly elevated filling pressures. Features of aortic valve sclerosis. There is no pericardial effusion. There are no intracardiac masses. No significant stenotic or regurgitant lesions, based on the color-flow examination Compared to the study from 06/27/2024, there may not be a significant change Dr García Kyle MD [facility] (Electronically Signed) Final Date: 23 March 2025 09:50 S
== END 2025-03-20 11:18 | disposition home or self-care (01) ==
LOC: RAD 11:18
PROVIDERS: PCP Nurse Practitioner Family; Visit Provider Family Medicine
DX: I25.5 Ischemic cardiomyopathy (principal); I51.89 Other ill-defined heart diseases; I51.7 Cardiomegaly; I35.8 Other nonrheumatic aortic valve disorders
CPT/HCPCS: 93306

== ENCOUNTER → 2025-04-03 16:42 | Outpatient (BNVA) | payer MEDICARE, MEDICAID, SELFPAY | PROVIDERS: PCP Nurse Practitioner Family; Visit Provider Nurse Practitioner Family | DX: N39.0 Urinary tract infection, site not specified (principal); R53.1 Weakness | CPT/HCPCS: 81000; 81003; 87086 ==

== ENCOUNTER → 2025-04-04 09:19 | Outpatient (BNVA) | payer MEDICARE, MEDICAID, SELFPAY | PROVIDERS: PCP Nurse Practitioner Family; Visit Provider Nurse Practitioner Family | DX: Z12.5 Encounter for screening for malignant neoplasm of prostate (principal); I10 Essential (primary) hypertension; K70.30 Alcoholic cirrhosis of liver without ascites; E11.9 Type 2 diabetes mellitus without complications; E78.2 Mixed hyperlipidemia; E11.69 Type 2 diabetes mellitus with other specified complication; E03.9 Hypothyroidism, unspecified; E55.9 Vitamin D deficiency, unspecified; D50.9 Iron deficiency anemia, unspecified; R53.1 Weakness | CPT/HCPCS: 80053; 80061; 82306; 82607; 82728; 83550; 84439; 84443; 85025; 85651; 86140; G0103 ==

== ENCOUNTER → 2025-04-07 13:35 | Outpatient (BNVA) | payer MEDICARE, MEDICAID, SELFPAY | PROVIDERS: PCP Nurse Practitioner Family; Visit Provider Nurse Practitioner Family | DX: N39.0 Urinary tract infection, site not specified (principal); R53.1 Weakness | CPT/HCPCS: 87400 ==

== ENCOUNTER → 2025-04-24 08:57 | Outpatient (BNVA) | payer MEDICARE, MEDICAID, SELFPAY | PROVIDERS: PCP Nurse Practitioner Family; Visit Provider Nurse Practitioner Family | DX: R97.20 Elevated prostate specific antigen [PSA] (principal); E87.6 Hypokalemia; N41.0 Acute prostatitis; D50.9 Iron deficiency anemia, unspecified | CPT/HCPCS: 80053; 83550; 84153; 85025 ==

== ENCOUNTER → 2025-04-26 10:13 | Outpatient (BNVA) | payer MEDICARE, MEDICAID, SELFPAY | PROVIDERS: PCP Nurse Practitioner Family; Visit Provider Family Medicine | DX: R97.20 Elevated prostate specific antigen [PSA] (principal); E87.6 Hypokalemia; N41.0 Acute prostatitis; D50.9 Iron deficiency anemia, unspecified | CPT/HCPCS: 81003 ==